=== PATIENT | male | born 1945 | race Caucasian/White ===

== ENCOUNTER → 2017-11-08 07:59 | Outpatient (CLI) | payer MEDICARE, SELFPAY ==
[2017-11-08 10:14] LABS: Blood Urea Nitrogen 14 mg/dL (9-20); Estimated Glomerular Filt Rate > 60.0 mL/min (>60)
== END ==
PROVIDERS: Family Provider Family Medicine; PCP Family Medicine; Visit Provider Podiatrist
DX: M79.672 Pain in left foot (principal)
CPT/HCPCS: 36415; 82565; 84520

== ENCOUNTER → 2017-11-14 12:24 | Outpatient (CLI) | payer MEDICARE, SELFPAY ==
--- NOTE | 2017-11-14 | DI.MRI.S_ITS ---
PROCEDURE: MR ANKLE LT WO/W CON INDICATIONS: LEFT FOOT PAIN - MASS TECHNIQUE: Noncontrast sagittal T1 spin echo and T2 fast spin echo with fat saturation, axial proton density fast spin echo and T2 fast spin echo with fat saturation, axial T1 spin echo with fat saturation, coronal T1 spin echo and T2 fast spin echo with fat saturation through the ankle/hindfoot. Post-contrast axial, coronal, and sagittal T1 spin echo with fat saturation through the ankle/hindfoot. COMPARISON: None. FINDINGS: Image quality: Excellent. Bones and joints: No suspicious osseous enhancement. No bone marrow contusions or fractures. There is mild subchondral signal change at the medial aspect of the tibiotalar joint image 24 series 3. No hindfoot coalitions. There is extensive degenerative cystic change throughout the mid foot and hindfoot, for example at the second tarsometatarsal joint. No osteochondral injuries of the talar dome. No pathologic joint effusions. Medial structures: The posterior tibialis, flexor digitorum longus, and flexor hallucis longus tendons are intact. There is small amount of fluid surrounding the posterior tibialis tendon. The posterior tibial neurovascular bundle appears normal within the tarsal tunnel, without extrinsic mass effect. The deep layer (anterior and posterior tibiotalar ligaments) and superficial layer (tibionavicular, tibiospring, and tibiocalcaneal ligaments) of the deltoid ligament appear normal. The spring ligament components (superomedial calcaneonavicular, medioplantar oblique calcaneonavicular, and inferoplantar longitudinal ligaments) are intact. Lateral structures: The anterior talofibular, calcaneofibular, and posterior talofibular ligaments appear intact. More superiorly, the anterior and posterior tibiofibular ligaments appear intact, as is the intermalleolar ligament. The tibiofibular syndesmosis is normal in width at 2 mm or less. The peroneus longus and brevis tendons demonstrate normal location and morphology. Adjacent bony peroneal tubercle and retrotrochlear prominence are normal in size. The sinus tarsi demonstrates normal fatty signal, without edema, fibrosis, or cyst formation. Visualized sinus tarsi components (cervical ligament, interosseous talocalcaneal ligament, roots of the inferior extensor retinaculum) appear normal. The calcaneonavicular and calcaneocuboid components of the bifurcate ligament appear intact. The dorsal calcaneocuboid ligament appears intact. Anterior structures: The tibialis anterior, extensor hallucis longus, and extensor digitorum longus tendons appear intact. The dorsal talonavicular ligament appears intact. Posterior and plantar structures: Achilles tendon is intact. There is mild medial band plantar fasciitis at the calcaneal attachment. An area of the fiducial marker placed on the skin surface of the medial plantar forefoot/midfoot, there is no definite fluid collection or discrete mass. There is thickening of the abductor hallucis tendon, and intrasubstance signal change in keeping with tendinopathy, and adjacent tenosynovitis. IMPRESSION: Abductor hallucis tendinopathy and thickening. This is in the area of the fiducial marker. Also in the nearby area there is severe first TMT joint degeneration, with possible joint effusion. Otherwise, no discrete mass or suspicious enhancement. Extensive diffuse hindfoot and midfoot joint degeneration with prominent subchondral cystic changes Mild tibiotalar joint degeneration. Tibiotalar joint effusion with multiple presumed loose bodies in the posterior recess. Medial band plantar fasciitis Mild posterior tibialis tenosynovitis Dictated by: German Chambers M.D. on 11/14/2017 at 13:00 Approved by: German Chambers M.D. on 11/14/2017 at 13:18
== END ==
PROVIDERS: Family Provider Family Medicine; PCP Family Medicine; Visit Provider Podiatrist
DX: M79.672 Pain in left foot (principal); M65.9 Synovitis and tenosynovitis, unspecified; M72.2 Plantar fascial fibromatosis; M19.90 Unspecified osteoarthritis, unspecified site
CPT/HCPCS: 73723; A9579

== ENCOUNTER → 2018-12-11 10:08 | Outpatient (CLI) | payer MEDICARE, SELFPAY ==
[2018-12-11 11:15] LABS: BUN Creatinine Ratio 17.1 (6-22); Blood Urea Nitrogen 12 mg/dL (9-20); Calcium 9.5 mg/dL (8.4-10.2); Carbon Dioxide 28 mmol/L (22-32); Chloride 101 mmol/L (98-107); Estimated Glomerular Filt Rate > 60.0 mL/min (>60); Glucose 100 mg/dL (80-110); HEMOLYSIS < 15 (0-50); Potassium 4.6 mmol/L (3.4-5.1); Sodium 141 mmol/L (137-145)
[2018-12-11 18:04] LABS: Vitamin D 25 Hydroxy (D3) 21.7 ng/mL (30.0-100.0)
== END ==
PROVIDERS: PCP Student in an Organized Health Care Education/Training Program; Visit Provider Student in an Organized Health Care Education/Training Program
DX: E55.9 Vitamin D deficiency, unspecified (principal); I10 Essential (primary) hypertension
CPT/HCPCS: 36415; 80048; 82306

== ENCOUNTER → 2019-02-13 10:05 | Outpatient (CLI) | payer MEDICARE, SELFPAY ==
[2019-02-13 11:23] LABS: Estimated Glomerular Filt Rate > 60.0 mL/min (>60)
--- NOTE | 2019-02-13 12:01 | DI.CT.S_ITS ---
PROCEDURE: CT ABDOMEN PELVIS W CON INDICATIONS: ASCITES, UNINTENTIONAL WEIGHT LOSS TECHNIQUE: After the administration of oral and intravenous contrast, 5 mm thick sections acquired from the diaphragms to the symphysis. 5 mm thick coronal and sagittal reformats were performed. For radiation dose reduction, the following was used: automated exposure control, adjustment of mA and/or kV according to patient size. COMPARISON: [facility], CT, ABDOMEN W&WO CONTRAST, 06/01/2017, 10:33. FINDINGS: Image quality: Excellent. ABDOMEN: Lung bases: Scarring/atelectasis in bilateral lung bases are seen. Heart size is normal. Solid organs: Liver is small in size with lobulated liver contour consistent with cirrhosis. No discrete hepatic lesion is identified. The there is interval development of moderate to large amount of ascites fluid. No gross peritoneal free air. Gallbladder is contracted and shows no gross abnormality.. Biliary system is non-dilated. Pancreas enhances normally. Spleen is normal in size and enhancement. Patient's known hypodense nodules in bilateral adrenal glands are again seen, currently measures 2 1 x 2.5 cm on the right side, and 3.7 x 1.7 cm on the left side essentially unchanged from previous study. Kidneys are normal in size and enhancement, without hydronephrosis. Nonobstructing right renal calculus is seen and measures 2 mm in size. Bilateral peripelvic renal cysts are again seen and unchanged. Peritoneum and bowel: Moderate size hiatal hernia is seen. There is diffuse thickening of the omentum no definite discrete soft tissue mass is noted within the peritoneal space. Oral contrast is noted within small bowel. No gross gastric or small bowel wall thickening is seen. Air distended ascending colon and transverse colon is seen with decompressed descending colon and sigmoid colon. No definite colonic wall thickening is identified. Nodes and vessels: No retroperitoneal or mesenteric adenopathy. Aorta and inferior vena cava are normal in caliber. Miscellaneous: No ventral hernias. PELVIS: Genitourinary: Diffuse bladder wall thickening is seen, no definite discrete bladder wall mass. Miscellaneous: No inguinal hernias or adenopathy. Bones: No suspicious bony lesions. No vertebral body compression fractures. IMPRESSION: 1. Interval development of moderate to large ascites fluid. No gross peritoneal free air. 2. Cirrhotic appearing liver, no discrete hepatic lesion. 3. Omental thickening, which may represent omental cake. No definite discrete soft tissue nodule or mass is seen in peritoneal space. No gross arterial retroperitoneal lymphadenopathy. 4. No bowel obstruction. No free fluid or free air. No definite abnormal bowel wall thickening. 5. Stable appearing bilateral adrenal hypodense nodules which may indicate adrenal adenoma. 6. Diffuse bladder wall thickening. No discrete bladder wall mass. No obstructing renal stone hydronephrosis. Dictated by: Raman Mcgowan M.D. on 02/13/2019 at 12:28 Approved by: Raman Mcgowan M.D. on 02/13/2019 at 13:07
[2019-02-13 14:19] LABS: Chloride 96 mmol/L (98-107); HEMOLYSIS < 15 (0-50)
[2019-02-13 14:22] LABS: Alanine Aminotransferase 27 IU/L (21-72); Albumin Globulin Ratio 1.3 (1.0-2.8); Alkaline Phosphatase 92 U/L (38-126); Aspartate Aminotransferase 33 IU/L (17-59); BUN Creatinine Ratio 21.7 (6-22); Bilirubin Direct 0.2 mg/dL (0.0-0.4); Bilirubin Total 0.4 mg/dL (0.2-1.3); Blood Urea Nitrogen 13 mg/dL (9-20); Calcium 9.4 mg/dL (8.4-10.2); Carbon Dioxide 25 mmol/L (22-32); Estimated Glomerular Filt Rate > 60.0 mL/min (>60); Glucose 170 mg/dL (80-110); Potassium 4.2 mmol/L (3.4-5.1); Sodium 135 mmol/L (137-145)
[2019-02-13 14:30] LABS: Prealbumin 8.8 mg/dL (17.6-36.0)
[2019-02-13 14:52] LABS: Carcinoembryonic Antigen 2.5 ng/mL (0.1-3.0)
[2019-02-15 16:22] LABS: Hepatitis A Antibody IgM NONREACTIVE; Hepatitis Acute Panel Interp 0.02; Hepatitis B Core Antibody IgM NONREACTIVE; Hepatitis B Surface Antigen NONREACTIVE; Hepatitis C Antibody NONREACTIVE
== END ==
PROVIDERS: PCP Student in an Organized Health Care Education/Training Program; Visit Provider Student in an Organized Health Care Education/Training Program
DX: R63.4 Abnormal weight loss (principal); R18.8 Other ascites
CPT/HCPCS: 36415; 74177; 80053; 80074; 82248; 82378; 82565; 84134; Q9967

== ENCOUNTER → 2019-02-15 07:04 | Outpatient (CLI) | payer MEDICARE, SELFPAY ==
[2019-02-15 07:50] LABS: Add Manual Diff / Slide Review NO; Basophils Absolute Auto 100 /uL (0-100); Basophils Percent Auto 0.7 % (0-2); Eosinophils Absolute Auto 100 /uL (0-450); Hematocrit 36.8 % (41-53); Hemoglobin 12.3 g/dL (13.5-17.5); Lymphocytes Absolute Auto 800 /uL (1100-4500); Lymphocytes Percent Auto 11.4 % (25-40); Mean Corpuscular HGB Conc 33.4 % (30-36); Mean Corpuscular Hemoglobin 28.2 PG (26-34); Mean Corpuscular Volume 84.3 fL (80-100); Monocytes Absolute Auto 700 /uL (0-900); Monocytes Percent Auto 10.3 % (3-14); Neutrophils Absolute Auto 5400 /uL (1500-7000); Neutrophils Percent Auto 75.6 % (50-75); Platelet Count 436 X10^3/uL (150-400); Red Blood Cell Count 4.37 X10^6/uL (4.5-5.9); Red Cell Distribution Width 14.5 % (11.6-14.8); White Blood Cell Count 7.2 X10^3/uL (4.5-11.0)
== END ==
PROVIDERS: PCP Student in an Organized Health Care Education/Training Program; Visit Provider Student in an Organized Health Care Education/Training Program
DX: R18.8 Other ascites (principal)
CPT/HCPCS: 85025

== ENCOUNTER → 2019-02-22 10:28 | Outpatient (CLI) | payer MEDICARE, SELFPAY | PROVIDERS: PCP Student in an Organized Health Care Education/Training Program; Visit Provider Student in an Organized Health Care Education/Training Program | DX: R18.8 Other ascites (principal) | CPT/HCPCS: 87070; 87075; 87205 ==

== ENCOUNTER → 2019-02-22 14:10 | Outpatient (CLI) | payer MEDICARE, SELFPAY ==
[2019-02-22 14:15] VITALS: BP 114/58; PULSE 106; RESP 20; TEMP 36.4; O2SAT 98
[2019-02-22] MEDS: ALBUMIN HUMAN 25 GM/100 ML VIAL IV (14:25)
[2019-02-22 14:45] VITALS: BP 124/57; PULSE 94; RESP 20; TEMP 36.4; O2SAT 97
--- NOTE | 2019-02-22 15:06 | PC.NURSE ---
ALBUMIN INFUSION STARTED AT 1430. SEE CHARTED VS. AFTER 15MIN VS RECHECKED; STABLE. SEE WORKLIST FOR VALUES. PATIENT DENIES ANY ADVERSE EFFECTS.
[2019-02-22 16:18] VITALS: BP 116/58; PULSE 91; RESP 14; TEMP 36.5; O2SAT 97
--- NOTE | 2019-02-22 16:22 | PC.NURSE ---
Infusion complete. Vitals stable. Patient ambulated off AC unit with spouse to private vehicle.
--- NOTE | 2019-03-04 13:36 | ONC.MSW ---
Description: New Pt Navigation T/C Activity: Called pt to introduce myself as OUTREACH COUNSELOR/JOSE, explain that we have received the urgent referral for him to be seen here. Explained the role of navigation. Pt had cancer 25-years ago, now thought to have metastatic cancer in his abdomen. Explained that scheduling will f/u feng to set him his initial ONC consult time with one of our providers. Plan: Meet with pt f/f once he returns to clinic to continue discussion of support/resource needs and to complete psychosocial assessment.
== END ==
PROVIDERS: PCP Student in an Organized Health Care Education/Training Program; Visit Provider Student in an Organized Health Care Education/Training Program
DX: R18.8 Other ascites (principal)
CPT/HCPCS: 87070; 87075; 87205; 96365; 96366; P9041

== ENCOUNTER → 2019-03-26 07:25 | Outpatient (CLI) | payer MEDICARE, SELFPAY ==
--- NOTE | 2019-03-26 | PATH_ITS ---
Note [facility] Accession Number: [id number] TESTS RESULT FLAG UNITS REF RANGE LAB 01 ABDOMINAL FLUID DIAGNOSIS: 02 ABDOMINAL FLUID INCONCLUSIVE. ATYPICAL CELL GROUPS PRESENT. IMMUNOHISTOCHEMISTRY STUDIES PENDING FOR FURTHER CHARACTERIZATION. RESULTS WILL BE REPORTED AN ADDENDUM. Pathologist ICD10: 02 R18.8 02 Ascites Fluid (Cytospin Slide and Cell Block): Atypical cell groups present, favor reactive mesothelial origin by immunohistochemistry studies; please correlate with imaging and clinical findings. . COMMENT: Immunostains were performed with the following results: . FARIDA: Positive. CK7: Positive. CK5/6: Positive. D2-40: Positive. WT1: Positive. Calretinin: Positive. CK20: Negative. MOC31: Negative. Mike-EP4: Negative. Napsin-A: Negative. TTF1: Negative. Synaptophysin: Negative. P40: Negative. CDX2: Negative. Villin: Negative. . The atypical cell groups are immunopositive for FARIDA, CK7, CK5/6, D2-40, WT1, and calretinin. They are immunonegative for CK20, MOC31, Mike-EP4, napsin-A, TTF1, synaptophysin, p40, CDX2, and villin. These results favor a mesothelial origin and mitigate against an epithelial origin. Please correlate these results with imaging and clinical findings. . QA performed by Dr. Karishma Luis. . * This test was developed and its performance characteristics determined by [facility]. It has not been cleared or approved by the U.S. Food and Drug Administration. The FDA has determined that such clearance or approval is not necessary. This test is used for clinical purposes. It should not be regarded as investigational or for research. MRV/07/08/2019 Addendum Electronically Signed by Char Marcial MD, Pathologist 02 Char Marcial MD, Pathologist NPI- [id number] Jenna Muhammad, Paraffin Plant Operator (ASCP) 01 50 CC, YELLOW, CLEAR /LCS 03/27/2019 1219 Local FLAG LEGEND: L-Low Normal,H-High Normal,LL-Alert Low,HH-Alert High <-Panic Low,>-Panic High,A-Abnormal,AA-Critical Abnormal Performed at: 01 =Z [facility] [address], [place] [address] Anderson Rodriguez MD, 02 [facility] [address] [address] Mago Luis MD, Performed at: 01 [facility] [address], [place], [place] [id number] MD Anderson Rodriguez MD Phone: [phone]
--- NOTE | 2019-03-26 07:27 | DI.US.S_ITS ---
PROCEDURE: US PARACENTESIS INDICATIONS: MALIGNANT ASCITIES TECHNIQUE: The indications, alternatives, benefits, risks, and complications of the procedure were explained to the patient. Written informed consent was obtained and placed in the chart. The abdomen and pelvis were examined sonographically, and an appropriate site was chosen for paracentesis. The skin was prepared and draped in the usual sterile fashion, and 1% lidocaine was infiltrated from the skin down through the peritoneal surface. A 19-gauge catheter-covered needle was then introduced into the peritoneal space, the catheter was advanced and the needle was withdrawn, and thereafter peritoneal fluid was withdrawn. The catheter was then removed and a dressing was applied. The fluid was discarded if the clinician did not order diagnostic testing of the fluid. COMPARISON: None. FINDINGS: Access site: Right lower abdomen Needle: One-Step centesis catheter with introducer needle. Fluid volume and description: 5000 mL, clear Fluid sent for diagnostic testing: per referring physician Medications: 1% lidocaine for local anaesthesia. Complications: None. IMPRESSION: Successful ultrasound-guided paracentesis. Dictated by: Estella Rivera M.D. on 03/26/2019 at 8:42 Approved by: Estella Rivera M.D. on 03/26/2019 at 8:43
== END ==
PROVIDERS: PCP Student in an Organized Health Care Education/Training Program
DX: R18.0 Malignant ascites (principal); C80.1 Malignant (primary) neoplasm, unspecified; Z85.038 Personal history of other malignant neoplasm of large intestine
CPT/HCPCS: 49083

== ENCOUNTER → 2019-04-02 08:04 | Outpatient (CLI) | payer MEDICARE, SELFPAY ==
--- NOTE | 2019-04-02 08:06 | DI.US.S_ITS ---
PROCEDURE: US PARACENTESIS INDICATIONS: malignant ascites TECHNIQUE: The indications, alternatives, benefits, risks, and complications of the procedure were explained to the patient. Written informed consent was obtained and placed in the chart. The abdomen and pelvis were examined sonographically, and an appropriate site was chosen for paracentesis. The skin was prepared and draped in the usual sterile fashion, and 1% lidocaine was infiltrated from the skin down through the peritoneal surface. A 19-gauge catheter-covered needle was then introduced into the peritoneal space, the catheter was advanced and the needle was withdrawn, and thereafter peritoneal fluid was withdrawn. The catheter was then removed and a dressing was applied. The fluid was discarded if the clinician did not order diagnostic testing of the fluid. COMPARISON: [facility], , US PARACENTESIS, 03/26/2019, 7:54. PET/CT 03/27/2019. FINDINGS: Access site: Right lower quadrant. Needle: One-Step centesis catheter with introducer needle. Fluid volume and description: 5000 cc, Clear straw-colored. Fluid sent for diagnostic testing: None requested. Medications: 1% lidocaine for local anaesthesia. Complications: None. IMPRESSION: Successful ultrasound-guided paracentesis. 5000 cc removed. Dictated by: Moshe Xavier M.D. on 04/02/2019 at 10:09 Approved by: Moshe Xavier M.D. on 04/02/2019 at 10:11
== END ==
PROVIDERS: PCP Student in an Organized Health Care Education/Training Program
DX: C80.1 Malignant (primary) neoplasm, unspecified (principal); R18.0 Malignant ascites
CPT/HCPCS: 49083

== ENCOUNTER 2019-04-09 07:14 | Day surgery (SDC) | payer MEDICARE, SELFPAY ==
[2019-04-03 15:14] VITALS: BMI 25.7
[2019-04-09] VITALS (10 sets, daily range): BP systolic 103–138; BP diastolic 56–95; PULSE 74–93; RESP 10–16; TEMP 36.3–36.7; O2SAT 93–99; BMI 23.6
--- NOTE | 2019-04-09 | DI.RAD.S_ITS ---
PROCEDURE: XR CHEST 1V INDICATIONS: DAYANARA CATH PLACEMENT TECHNIQUE: One view of the chest was acquired. COMPARISON: [facility], , CHEST 1 VIEW, 05/17/2017, 9:59. FINDINGS: Surgical changes and devices: Right chest port with the tip projecting in the mid SVC. Lungs and pleura: Lungs are clear. No pleural effusions or pneumothorax. Mediastinum: Mediastinal contours appear normal. Heart size is normal. Bones and chest wall: No suspicious bony lesions. Overlying soft tissues appear unremarkable. IMPRESSION: Status post placement of right chest port as above. No pneumothorax. Dictated by: German Chambers M.D. on 04/09/2019 at 15:26 Approved by: German Chambers M.D. on 04/09/2019 at 15:27
--- NOTE | 2019-04-09 09:24 | PM.HP.1 ---
History of Present Illness History of Present Illness Date Patient Seen: 04/09/19 Time Patient Seen: 09:24 Chief complaint: [id number] Narrative: This is a 73 male with malignant peritoneal ascities of unknown etiology. He is here today for port a cath placement refered by oncology. He underwent paracentisis this morning by radiology. He is in no acute pain his abdominal pain is improved after drainage. No fever, malaise, has significant weight loss. Patient History Medical History Actinic keratosis (Chronic Unknown) Ankle pain (Chronic) Cervicalgia (Chronic Unknown) Chickenpox (Resolved Unknown) Chronic back pain (Chronic Unknown) Colon cancer (Resolved 1993) Colon polyps (Resolved ~1993) Erectile dysfunction (Chronic Unknown) Fusion of spine of cervical region (Acute) GERD (gastroesophageal reflux disease) (Chronic Unknown) Hx of hiatal hernia (Resolved Unknown) Hypertension (Chronic Unknown) Mass of foot (Chronic) Measles (Resolved Unknown) Mumps (Resolved Unknown) Osteoarthritis (Chronic Unknown) S/P abdominal paracentesis (Acute 02/22/19) Surgical History Anesthesia (Resolved) History of arthroplasty of right knee (Acute) History of colon surgery (Resolved 1993) History of surgery (Acute) Hx of arthroscopy of right knee (Resolved 1989) Hx of cataract surgery (Resolved 2011) Hx of fusion of cervical spine (Resolved 1989) Hx of laminectomy (Resolved ~2008) Hx of laminectomy (Acute 06/23/16) Hx of shoulder surgery (Resolved 2006) Hx of shoulder surgery (Resolved 1996) Hx of total knee arthroplasty (Resolved 2011) Family & Social History Family History Father Cancer Mother Cancer Sister Cancer Grandfather History of heart disease Tobacco & Substance use: Smoking Status Former smoker alcohol intake former Meds Home Medications and Allergies Home Medications Medication Instructions Recorded Confirmed Type amlodipine 10 mg tablet 10 mg PO QDAY #90 tab 09/03/18 04/09/19 Rx losartan 100 mg tablet 100 mg PO QDAY #90 tab 12/18/18 04/09/19 Rx albuterol sulfate 90 mcg/actuation 2 puff INHALATION Q4-6H PRN #18 03/21/19 04/09/19 Rx aerosol inhaler gram ondansetron HCl 8 mg PO Q8H #30 tab 04/03/19 04/09/19 Rx vitamins A,C,D-ntvh-mldffv 2 tab PO DAILY 04/09/19 04/09/19 History [PreserVision AREDS] Allergies Allergy/AdvReac Type Severity Reaction Status Date / Time venom-honey bee Allergy Severe ANAPHYLAXIS Verified 04/09/19 09:15 [BEE VENOM (HONEY BEE)] Review of Systems Review of Systems ROS Unobtainable: All systems reviewed & are unremarkable except as noted in HPI and below Exam Vital Signs (past 8 hours): - 04/09/19 09:17 Temperature 98.1 F Pulse Rate 93 H Respiratory Rate 15 Blood Pressure 138/77 Pulse Oximetry 98 Oxygen Delivery Method Room Air Narrative Exam Narrative: General-no acute distress, well nourished HEENT-moist mucous membranes, no scleral icterus Neck-supple, no lymphadenopathy Chest- non labored respirations, clear to auscultation bilaterally Cardiac-regular rate no peripheral edema Abdomen-mildly distended with ascities Extremities-warm, well perfused Neurological-alert and oriented, no focal deficits Assessment & Plan Assessment and plan (1) Ascites: Current visit: No Status: Acute (2) Adenocarcinoma: Current visit: No Status: Acute Assessment & Plan narrative: This is a 73 y.o man with malignant ascities of unknown etiology. Presents for an elective port a cath placement today. The plan is for right port placement via internal jugular vein access via ultra sound guidance. We discussed the risks of the procedure including bleeding, infection, pneumothorax, need for further procedure or operation. His questions have been answered and he is in agreement with this plan.
[2019-04-09] MEDS: LACTATED RINGERS 1,000 ML 100 ML IV (09:35)
[2019-04-09] MEDS: CEFAZOLIN 2 GM/100 ML FROZ.PIGGY IV (11:30)
--- NOTE | 2019-04-09 11:50 | SUR.OPER ---
Supine on padded OR bed, head on pillow, arms padded and tucked at sides, legs uncrossed, safety belt at thigh.
[2019-04-09] MEDS: BUPIVACAINE 0.25% (PF) VIAL 30 ML INJ (11:54)
[2019-04-09] MEDS: HEPARIN 5,000 UNIT, SODIUM CHLORIDE 0.9% 50 ML IV (11:55)
[2019-04-09] MEDS: HYDROMORPHONE 2 MG INJ 0.25 MG IV ×2 (12:46→12:56)
--- NOTE | 2019-04-09 13:24 | P.OP_ITS ---
Operative Date/Time/Diagnoses Date of procedure: 04/09/19 Time of procedure: 13:24 Pre-op diagnosis: malignant ascities Post-op diagnosis: same Procedure & Clinicians Procedure: port a cath insertion Same procedure as scheduled: Yes Indications: This 73-year-old male with malignant ascites of unknown etiology who presents for a Port-A-Cath placement. Surgeon: Pasquale Rolle Click Yes if Unassisted: Yes Anesthesia Type: General Operative Notes Findings: No pneumothorax tip of the catheter is in the SVC Estimated Blood Loss (mL): 10 Procedure in detail: Patient was brought to the operating room placed supine on table. Bilateral lower extremity compressive devices were applied. General anesthesia was induced and he was intubated with an LMA. He was then prepped and draped in usual sterile fashion. Time-out was performed ensure the correct patient procedure necessary equipment within the operating room. He received 2 g of Ancef prior to incision. Under ultrasound guidance the right internal jugular vein was accessed under direct visualization. The guidewire was then threaded through the needle. Its placement was then confirmed using fluoroscopy. The dilator was then placed over the guidewire. The catheter was then inserted through the sheath. Placement was again confirmed with fluoroscopy. A subcutaneous pocket was made in the right chest wall. The tunneler device was used to move the catheter from the neck to the chest pocket. The port was attached after it was primed with heparined saline. The port was tested to ensure that it flushed easily and had good blood return. The port was then secured to the underlying fascia using interupted 0 Prolene suture. Hemostasis was achieved. The wound was irrigated with sterile saline. The subcutaneous tissues were reapproximated with the 3 0 Vicryl and then skin closed with 4-0 Monocryl. The skin was sealed with Dermabond. Patient tolera cindy procedure well. The sponge and instrument count at the end operation was correct. Patient emerged from general anesthesia was extubated and taken to the postoperative care unit in stable condition Complications: none Post-operative Condition: stable Disposition: same day surgery
[2019-04-09] MEDS: OXYCODONE/ACETAMINOPHEN 5/325 TABLET 1 TAB PO (13:31)
--- NOTE | 2019-04-09 13:44 | SUR.PHASEI ---
Gave IV and oral pain medication for c/o 8/10 pain. Applied ice pack. Per BULMARO Rasmussen for patient to eat. Patient tolerated water and cheese stick. Denies nausea.
== END 2019-04-09 14:12 | disposition home or self-care (01) ==
PROVIDERS: PCP Student in an Organized Health Care Education/Training Program; Visit Provider Surgery
PROC: (CPT 36561; principal; 2019-04-09 10:15)
DX: R18.0 Malignant ascites (principal); C80.1 Malignant (primary) neoplasm, unspecified; Z45.2 Encounter for adjustment and management of vascular access device
CPT/HCPCS: 36561; 49083; 71045; 76000; C1788; J0690; J1170; J1644; J2704; J3010

== ENCOUNTER → 2019-04-09 07:19 | Outpatient (CLI) | payer MEDICARE, SELFPAY ==
--- NOTE | 2019-04-09 | PATH_ITS ---
Note [facility] Accession Number: [id number] TESTS RESULT FLAG UNITS REF RANGE LAB 01 ASCITES Clinician ICD10: 01 C80.1 DIAGNOSIS: 02 ASCITES INCONCLUSIVE. ATYPICAL EPITHELIOID CELLS, POSSIBLY OF MESOTHELAIL ORIGIN; SEE COMMENT. COMMENT: A cytological preparation and cell block show clusters of atypical epithelioid cells with high nuclear to cytoplasmic volume ratios, nuclear hyperchromasia and irregular nuclear contours; these cells are morphologically similar to the previous cytology case ([id number]). To further characterize the cells of interest, a panel of immunohistochemical stains is performed, each with an appropriately positive control (please note, false negative results cannot be excluded given the alcohol fixation of this specimen). The immouprofile is as follows: FARIDA: Positive Cytokeratin 7: Positive Cytokeratin 20: Negative Moc-31: Positive (variably) RAMY-EP4: Negative Cytokeratin 5/6: Positive Calretinin: Positive WT-1: Positive Cdx-2: Negative Villin: Negative PSA: Negative Tipton-8: Negative TTF-1: Negative This immunoprofile is negative for markers of adenocarcinoma of any specific site, including gastrointestinal (Cdx-2, villin, CK20), prostate (PSA), renal (Tipton-8) or lung (TTF-1) origin. The atypical cells do appear to co-express markers of mesothelial origin (CK5/6, calretinin, WT-1), though this evaluation is difficult on a cell block specimen. Despite the low level expression of an epithelial membrane glycoprotein (Moc-31) in the cells of interest, and given the lack of immunoreactivity for another carcinoma marker (RAMY-EP4), a mesothelial origin is favored. Whether this represents a reactive or neoplastic mesothelial population cannot be determined with certainty. Definitive classification of this lesion will likely require histological evaluation. To further evaluate for the possibility of a mesothelial neoplasm, evaluation for a p16 deletion will be performed and results issued in an addendum. As part of routine quality eng, Dr. Ayers has also reviewed this case and agrees with the above interpretation. The preliminary findings in this case were discussed with Dr. Ashby and Dr. Mason on 04/10/2019 at 4:15 PM. The immunoprofile and possibility of a mesothelial neoplasm were discussed between Dr. Ashby and Dr. Mason on 04/17/2019 at 2 PM. Pathologist ICD10: 02 R18.8 02 ADDENDUM REASON: This addendum is issued to report the results of fluorescence in situ hybridization for p16, [facility], [place], [place] as [id number]; please see that report for complete details. . FLUORESCENCE IN SITU HYBRIDIZATION REPORT INTERPRETATION: Negative for homozygous deletion of p16 by FISH. . FISH PROBE SET: P16 (CDKN2A)/CC9 Number of nuclei counted: 100. Result (percent of nuclei positive): Negative (11.0%). Threshold for positivity: 12%. . ADDENDUM COMMENT: This negative study provides no additional evidence of a malignant mesothelial neoplasm. That said, this negative result does not exclude the possibility of malignant mesothelioma. MRV/05/08/2019 Addendum Electronically Signed by Ian Mason MD, PhD, Pathologist 02 Ian Mason MD, PhD, Pathologist NPI- [id number] Virgilio Motley, Piano Regulator Inspector (ASC) 01 50 CC, YELLOW, HAZY /LCS 04/10/2019 0912 Local FLAG LEGEND: L-Low Normal,H-High Normal,LL-Alert Low,HH-Alert High <-Panic Low,>-Panic High,A-Abnormal,AA-Critical Abnormal Performed at: 01 =Z [facility] [address] [place] [address] [address], [place] [address] Anderson Rodriguez MD, 02 [facility] [address] [place] [address] Mago Luis MD, Performed at: 01 [facility] [address] [place] [address], [place], [place] [id number] MD Anderson Rodriguez MD Phone: [phone]
--- NOTE | 2019-04-09 07:21 | DI.US.S_ITS ---
PROCEDURE: US PARACENTESIS INDICATIONS: recurrent malignant ascites TECHNIQUE: The indications, alternatives, benefits, risks, and complications of the procedure were explained to the patient. Written informed consent was obtained and placed in the chart. The abdomen and pelvis were examined sonographically, and an appropriate site was chosen for paracentesis. The skin was prepared and draped in the usual sterile fashion, and 1% lidocaine was infiltrated from the skin down through the peritoneal surface. A 19-gauge catheter-covered needle was then introduced into the peritoneal space, the catheter was advanced and the needle was withdrawn, and thereafter peritoneal fluid was withdrawn. The catheter was then removed and a dressing was applied. The fluid was discarded if the clinician did not order diagnostic testing of the fluid. COMPARISON: [facility], PARACENTESIS, 04/02/2019, 9:31. FINDINGS: Access site: Right lower quadrant Needle: One-Step centesis catheter with introducer needle. Fluid volume and description: 5000 cc of serous fluid Fluid sent for diagnostic testing: As requested Medications: 1% lidocaine for local anaesthesia. Complications: None. IMPRESSION: Successful ultrasound-guided paracentesis. Dictated by: German Chambers M.D. on 04/09/2019 at 15:21 Approved by: German Chambers M.D. on 04/09/2019 at 15:22
== END ==
PROVIDERS: PCP Student in an Organized Health Care Education/Training Program
DX: C80.1 Malignant (primary) neoplasm, unspecified (principal); R18.0 Malignant ascites
CPT/HCPCS: 49083

== ENCOUNTER 2019-04-10 09:43 | Emergency (ER) | payer MEDICARE, SELFPAY ==
--- NOTE | 2019-04-10 10:02 | ED.GENADULT ---
HPI - General Adult General Chief complaint: Abdominal Pain Stated complaint: Lump on right side after port placement, Time Seen by Provider: 04/10/19 09:50 Source: patient Mode of arrival: Ambulatory Limitations: no limitations History of Present Illness HPI narrative: 73-year-old male with a known history of ascites. He does have a history of cirrhosis. Has had multiple paracentesis in the past. Prior to evaluation this does show that it is malignant. Had a scheduled paracentesis yesterday where he stated that they took 5 L off his abdomen. He also had a port placed in his right side operatively. States that over the past 24 hours he has noticed his abdomen swelling again. Has had some short of breath. He feels like he needs his abdomen drained again. Related Data Home Medications Medication Instructions Recorded Confirmed PreserVision AREDS 2 tab PO DAILY 04/09/19 04/09/19 Previous Rx's Medication Instructions Recorded amlodipine 10 mg tablet 10 mg PO QDAY #90 tab 09/03/18 losartan 100 mg tablet 100 mg PO QDAY #90 tab 12/18/18 albuterol sulfate 90 mcg/actuation 2 puff INHALATION Q4-6H PRN #18 03/21/19 aerosol inhaler gram ondansetron HCl 8 mg PO Q8H #30 tab 04/03/19 acetaminophen [Tylenol] 650 mg PO QID PRN #60 cap 04/09/19 Allergies Allergy/AdvReac Type Severity Reaction Status Date / Time venom-honey bee Allergy Severe ANAPHYLAXIS Verified 04/09/19 09:15 [BEE VENOM (HONEY BEE)] Review of Systems Constitutional Constitutional: Denies fever(s) and Denies headache(s) ENT Ears, Nose, Mouth, and Throat: Denies headache(s) Cardiovascular Cardiovascular: Denies chest pain, Reports dyspnea and Reports dyspnea on exertion Respiratory Respiratory: Reports dyspnea and Reports dyspnea on exertion Gastrointestinal Gastrointestinal: Denies abdominal pain, Reports bloating and Denies change in stool character Genitourinary Genitourinary: Denies dysuria Musculoskeletal Musculoskeletal: Denies myalgias and Denies arthralgias Integumentary/Breasts Skin/Breast: Denies rash Neurologic Neurologic: Denies headache(s) Hematologic/Lymphatic Hematologic/Lymphatic: Denies easy bleeding and Denies easy bruising Patient History Medical History Actinic keratosis (Chronic Unknown) Ankle pain (Chronic) Cervicalgia (Chronic Unknown) Chickenpox (Resolved Unknown) Chronic back pain (Chronic Unknown) Colon cancer (Resolved 1993) Colon polyps (Resolved ~1993) Erectile dysfunction (Chronic Unknown) Fusion of spine of cervical region (Acute) GERD (gastroesophageal reflux disease) (Chronic Unknown) Hx of hiatal hernia (Resolved Unknown) Hypertension (Chronic Unknown) Mass of foot (Chronic) Measles (Resolved Unknown) Mumps (Resolved Unknown) Osteoarthritis (Chronic Unknown) S/P abdominal paracentesis (Acute 02/22/19) Social History household members: spouse Smoking Status: Former smoker alcohol intake: former Exam Initial Vital Signs Initial Vital Signs: Vital Signs Temperature 97.7 F 04/10/19 10:05 Pulse Rate 89 04/10/19 10:05 Respiratory Rate 20 04/10/19 10:05 Blood Pressure 131/71 04/10/19 10:05 Pulse Oximetry 100 04/10/19 10:05 Const General: cooperative and comfortable Orientation: alert, awake and oriented x3 HENMT Head: normal to inspection and normocephalic Resp Effort & Inspection: normal respiratory effort Auscultation: clear to auscultation bilaterally Cardio Rate: regular rate Rhythm: regular rhythm GI Inspection: distended Palpation: soft, No firm and No tender Skin Lesions: no lesions Rashes: no rashes Neuro General: alert, awake and oriented x3 Cognition: normal cognition Speech: speech normal Extrem General: normal to inspection and capillary refill normal Psych Appearance: grossly normal and well kempt Procedures Paracentesis Time Out Performed: Yes Indication: Ascites Procedure: therapeutic paracentesis Location: LLQ Local Anesthetic: lidocaine 1% Amount of anesthesia used (mL): 4 Bedside Ultrasound Used: yes, Ascites confirmed and location marked Preparation: Blade used to make domi in skin Amount of fluid obtained (mL): 3,500 Fluid: clear Post Procedure Exam: awake, alert Patient Tolerated Procedure: Well and No complications Complications: none Course Orders Ordered: Discontinued Medications Lidocaine HCl (Xylocaine 1% (Pf)) 4 ml INJ NOW ONE Stop: 04/10/19 10:04 Last Admin: 04/10/19 11:26 Dose: 4 ml Documented by: HFARRINGTO Vital Signs Vital signs: Vital Signs - 8 hr 04/10/19 10:05 04/10/19 11:22 04/10/19 11:42 Temperature 97.7 F Pulse Rate 89 91 H 90 Respiratory Rate 20 20 18 Blood Pressure 131/71 Blood Pressure [Left Arm] 120/65 119/61 Pulse Oximetry 100 100 96 Medical Decision Making MDM Narrative Medical decision making narrative: Patient has a history of malignant ascites. His exam today is consistent with ascites. This was confirmed with bedside ultrasound. Patient signed the consent form and 3.5 L of fluid was obtained. No samples were sent to the lab. Patient did feel better afterwards. Had no episodes of hypotension. Has had this done multiple times in the past. Patient was given return precautions and follow-up instructions. He expressed understanding and agreement plan Discharge Plan Departure Patient Disposition: Home Clinical Impression: Ascites Qualifiers: Ascites type: malignant Qualified Code(s): R18.0 - Malignant ascites Discharge Date/Time: 04/10/19 11:55 Instructions: Ascites, DI for Abdominal Paracentesis Activity Restrictions/Additional Instructions: Continue all of your postoperative instructions given to here yesterday with regard to your port. Keep all of your scheduled medical appointments. Continue all of your medications as directed. Return to the emergency department for any new or worsening symptoms Prescriptions: No Action amlodipine 10 mg tablet 10 mg PO QDAY Qty: 90 RF: 1 albuterol sulfate [ProAir HFA] 90 mcg/actuation HFA aerosol inhaler 2 puff INHALATION Q4-6H PRN (Reason: shortness of breath or wheezing) Qty: 18 RF: 5 losartan 100 mg tablet 100 mg PO QDAY Qty: 90 RF: 3 PreserVision AREDS [id number] [id number] Tablet 2 tab PO DAILY RF: 0 acetaminophen [Tylenol] 325 mg capsule 650 mg PO QID PRN (Reason: pain) Qty: 60 RF: 0 ondansetron HCl 8 mg Tablet 8 mg PO Q8H Qty: 30 RF: 2 Referrals: Flynn Gao MD [Primary Care Provider] -
[2019-04-10 10:05] VITALS: BP 131/71; PULSE 89; RESP 20; TEMP 36.5; O2SAT 100
--- NOTE | 2019-04-10 11:21 | PC.NURSE ---
3500cc fluid clear yellow fluid drained from paracentesis procedure
[2019-04-10 11:22] VITALS: BP 120/65; PULSE 91; RESP 20; O2SAT 100
[2019-04-10] MEDS: LIDOCAINE 1% (PF) 4 ML INJ (11:26)
--- NOTE | 2019-04-10 11:38 | PC.NURSE ---
Patient ambulated around department with no c/o SOB. Steady gait
[2019-04-10 11:42] VITALS: BP 119/61; PULSE 90; RESP 18; O2SAT 96
== END 2019-04-10 11:55 | disposition home or self-care (01) ==
PROVIDERS: Emergency Provider Emergency Medicine; PCP Student in an Organized Health Care Education/Training Program
DX: R18.0 Malignant ascites (principal)
CPT/HCPCS: 49082; 99282; 99283

== ENCOUNTER → 2019-04-15 09:59 | Outpatient (CLI) | payer MEDICARE, SELFPAY ==
--- NOTE | 2019-04-15 | PATH_ITS ---
Note [facility] Accession Number: [id number] TESTS RESULT FLAG UNITS REF RANGE LAB Clinician Provided Cytology Information No. of containers..01 Other (Miscellaneous) 01 ABDOMINAL FLUID DIAGNOSIS: 02 ABDOMINAL FLUID INCONCLUSIVE. ATYPICAL EPITHELIOD CELLS; SEE COMMENT. COMMENT: A cytological preparation and cell block show clusters of atypical epitheliod cells with high nuclear to cytoplasmic volume ratios, nuclear hyperchromasia and irregular nuclear contours; these cells are morphologically similar to the previous cytology case ([id number]) which had an immunoprofile favoring a mesothelial origin. Please see that report for additional information. Pathologist ICD10: 02 R18.8 01 Naldo Cheng is a 73 year old male who is referred for further evaluation of a newly diagnosed adenocarcinoma with ascites. Patient reports that he has a distant history of colon cancer. He underwent surgical resection in 1993. He had postoperative chemotherapy for 1 year as well as radiation, He has been followed regularly and has had no obvious recurrence. 02 Ian Mason MD, PhD, Pathologist NPI- [id number] Roni Shrestha, Golf Cart Maker ([facility]) 01 45 CC, YELLOW, CLOUDY /LCS 05/28/1840 0000 Local FLAG LEGEND: L-Low Normal,H-High Normal,LL-Alert Low,HH-Alert High <-Panic Low,>-Panic High,A-Abnormal,AA-Critical Abnormal Performed at: 01 =Z [facility] [address] [address] [place] [address] [facility] [place], [place] [address] Anderson Rodriguez MD, 02 [facility] [place] [id number] [place] [address] Mago Luis MD, Performed at: 01 [facility] [address] [id number] MD Anderson Rodriguez MD Phone: [phone]
--- NOTE | 2019-04-15 10:00 | DI.US.S_ITS ---
PROCEDURE: US PARACENTESIS INDICATIONS: recurrent malignant ascites TECHNIQUE: The indications, alternatives, benefits, risks, and complications of the procedure were explained to the patient. Written informed consent was obtained and placed in the chart. The abdomen and pelvis were examined sonographically, and an appropriate site was chosen for paracentesis. The skin was prepared and draped in the usual sterile fashion, and 1% lidocaine was infiltrated from the skin down through the peritoneal surface. A 19-gauge catheter-covered needle was then introduced into the peritoneal space, the catheter was advanced and the needle was withdrawn, and thereafter peritoneal fluid was withdrawn. The catheter was then removed and a dressing was applied. The fluid was discarded if the clinician did not order diagnostic testing of the fluid. COMPARISON: [facility], [facility], 04/09/2019, 8:03. [facility], [facility], 03/26/2019, 7:54. [facility], [facility], 04/02/2019, 9:31. FINDINGS: Access site: Right lower quadrant Needle: One-Step centesis catheter with introducer needle. Fluid volume and description: 4900 mL, yellow, cloudy Fluid sent for diagnostic testing: Cytology per referring physician Medications: 1% lidocaine for local anaesthesia. Complications: None. IMPRESSION: Successful ultrasound-guided paracentesis. Dictated by: Estella Rivera M.D. on 04/15/2019 at 13:15 Approved by: Estella Rivera M.D. on 04/15/2019 at 13:16
== END ==
PROVIDERS: PCP Student in an Organized Health Care Education/Training Program
DX: R18.0 Malignant ascites (principal); C80.1 Malignant (primary) neoplasm, unspecified; Z85.038 Personal history of other malignant neoplasm of large intestine
CPT/HCPCS: 49083

== ENCOUNTER → 2019-04-19 09:20 | Outpatient (CLI) | payer MEDICARE, SELFPAY ==
--- NOTE | 2019-04-19 09:24 | DI.US.S_ITS ---
PROCEDURE: US PARACENTESIS INDICATIONS: recurrent ascites TECHNIQUE: The indications, alternatives, benefits, risks, and complications of the procedure were explained to the patient. Written informed consent was obtained and placed in the chart. The abdomen and pelvis were examined sonographically, and an appropriate site was chosen for paracentesis. The skin was prepared and draped in the usual sterile fashion, and 1% lidocaine was infiltrated from the skin down through the peritoneal surface. A 19-gauge catheter-covered needle was then introduced into the peritoneal space, the catheter was advanced and the needle was withdrawn, and thereafter peritoneal fluid was withdrawn. The catheter was then removed and a dressing was applied. The fluid was discarded if the clinician did not order diagnostic testing of the fluid. COMPARISON: [facility], [facility], 04/15/2019, 11:44. FINDINGS: Access site: Right lower quadrant abdomen. Needle: One-Step centesis catheter with introducer needle. Fluid volume and description: 2800 mL. Slightly cloudy yellow fluid. Fluid sent for diagnostic testing: None Medications: 1% lidocaine for local anaesthesia. Complications: None. IMPRESSION: Successful ultrasound-guided paracentesis. Dictated by: Raman Mcgowan M.D. on 04/19/2019 at 12:19 Approved by: Raman Mcgowan M.D. on 04/19/2019 at 12:25
== END ==
PROVIDERS: PCP Student in an Organized Health Care Education/Training Program
DX: R18.8 Other ascites (principal); C80.1 Malignant (primary) neoplasm, unspecified
CPT/HCPCS: 49083

== ENCOUNTER → 2019-04-24 09:31 | Outpatient (CLI) | payer MEDICARE, SELFPAY ==
--- NOTE | 2019-04-24 09:34 | DI.US.S_ITS ---
PROCEDURE: US ABDOMEN LIMITED INDICATIONS: RECURRENT MALIGNANT ASCITES TECHNIQUE: Real-time focused scanning was performed of the abdomen, with image documentation. COMPARISON: [facility], [facility], 04/19/2019, 9:48. [facility], [facility], 04/15/2019, 11:44. [facility], [facility], 04/09/2019, 8:03. [facility], [facility], 04/02/2019, 9:31. FINDINGS: There was insufficient access for paracentesis given overlying visceral structure. The amount of fluid present should increase prior to say paracentesis. IMPRESSION: Followup assessment weakness week or early next week we'll be performed to assess for safe access for paracentesis. Paracentesis was not performed today. Dictated by: Yong Blakely M.D. on 04/24/2019 at 12:01 Approved by: Yong Blakely M.D. on 04/24/2019 at 12:02
== END ==
PROVIDERS: PCP Student in an Organized Health Care Education/Training Program
DX: R18.0 Malignant ascites (principal); C80.1 Malignant (primary) neoplasm, unspecified
CPT/HCPCS: 76705

== ENCOUNTER → 2019-04-29 07:22 | Outpatient (CLI) | payer MEDICARE, SELFPAY ==
--- NOTE | 2019-04-29 07:27 | DI.US.S_ITS ---
PROCEDURE: US PARACENTESIS INDICATIONS: RECURRENT MALIGNANT ASCITIES TECHNIQUE: The indications, alternatives, benefits, risks, and complications of the procedure were explained to the patient. Written informed consent was obtained and placed in the chart. The abdomen and pelvis were examined sonographically, and an appropriate site was chosen for paracentesis. The skin was prepared and draped in the usual sterile fashion, and 1% lidocaine was infiltrated from the skin down through the peritoneal surface. A 19-gauge catheter-covered needle was then introduced into the peritoneal space, the catheter was advanced and the needle was withdrawn, and thereafter peritoneal fluid was withdrawn. The catheter was then removed and a dressing was applied. The fluid was discarded if the clinician did not order diagnostic testing of the fluid. COMPARISON: [facility], [facility], 04/19/2019, 9:48. [facility], [facility], 04/15/2019, 11:44. FINDINGS: Access site: Left lateral pelvic body wall Needle: One-Step centesis catheter with introducer needle. Fluid volume and description: 5000 cc, clear, slightly serous Fluid sent for diagnostic testing: Not requested Medications: 1% lidocaine for local anaesthesia. Complications: None. IMPRESSION: Successful ultrasound-guided paracentesis. Dictated by: Yong Blakely M.D. on 04/29/2019 at 9:20 Approved by: Yong Blakely M.D. on 04/29/2019 at 9:21
== END ==
PROVIDERS: PCP Student in an Organized Health Care Education/Training Program
DX: R18.0 Malignant ascites (principal); C80.1 Malignant (primary) neoplasm, unspecified
CPT/HCPCS: 49083

== ENCOUNTER → 2019-05-07 07:26 | Outpatient (CLI) | payer MEDICARE, SELFPAY ==
--- NOTE | 2019-05-07 07:27 | DI.US.S_ITS ---
PROCEDURE: US PARACENTESIS INDICATIONS: ASCITIES TECHNIQUE: The indications, alternatives, benefits, risks, and complications of the procedure were explained to the patient. Written informed consent was obtained and placed in the chart. The abdomen and pelvis were examined sonographically, and an appropriate site was chosen for paracentesis. The skin was prepared and draped in the usual sterile fashion, and 1% lidocaine was infiltrated from the skin down through the peritoneal surface. A 19-gauge catheter-covered needle was then introduced into the peritoneal space, the catheter was advanced and the needle was withdrawn, and thereafter peritoneal fluid was withdrawn. The catheter was then removed and a dressing was applied. The fluid was discarded if the clinician did not order diagnostic testing of the fluid. COMPARISON: [facility], [facility], 04/19/2019, 9:48. FINDINGS: Access site: Right lower artery and Needle: One-Step centesis catheter with introducer needle. Fluid volume and description: 5000 mL, clear Fluid sent for diagnostic testing: not ordered by referring physician. Medications: 1% lidocaine for local anaesthesia. Complications: None. IMPRESSION: Successful ultrasound-guided paracentesis. Dictated by: Estella Rivera M.D. on 05/07/2019 at 9:23 Approved by: Estella Rivera M.D. on 05/07/2019 at 9:23
== END ==
PROVIDERS: PCP Student in an Organized Health Care Education/Training Program
DX: R18.8 Other ascites (principal); C80.1 Malignant (primary) neoplasm, unspecified
CPT/HCPCS: 49083

== ENCOUNTER → 2019-05-13 12:54 | Outpatient (CLI) | payer MEDICARE, SELFPAY ==
--- NOTE | 2019-05-13 12:55 | DI.US.S_ITS ---
PROCEDURE: US PARACENTESIS INDICATIONS: ASCITIES TECHNIQUE: The indications, alternatives, benefits, risks, and complications of the procedure were explained to the patient. Written informed consent was obtained and placed in the chart. The abdomen and pelvis were examined sonographically, and an appropriate site was chosen for paracentesis. The skin was prepared and draped in the usual sterile fashion, and 1% lidocaine was infiltrated from the skin down through the peritoneal surface. A 19-gauge catheter-covered needle was then introduced into the peritoneal space, the catheter was advanced and the needle was withdrawn, and thereafter peritoneal fluid was withdrawn. The catheter was then removed and a dressing was applied. The fluid was discarded if the clinician did not order diagnostic testing of the fluid. COMPARISON: [facility], [facility], 05/07/2019, 8:18. [facility], [facility], 04/29/2019, 7:59. FINDINGS: Access site: Right lower lateral pelvic body wall Needle: One-Step centesis catheter with introducer needle. Fluid volume and description: 5000 cc, serous Fluid sent for diagnostic testing: Not requested Medications: 1% lidocaine for local anaesthesia. Complications: None. IMPRESSION: Successful ultrasound-guided paracentesis. Dictated by: Yong Blakely M.D. on 05/13/2019 at 14:21 Approved by: Yong Blakely M.D. on 05/13/2019 at 14:22
== END ==
PROVIDERS: PCP Student in an Organized Health Care Education/Training Program
DX: R18.0 Malignant ascites (principal); C80.1 Malignant (primary) neoplasm, unspecified
CPT/HCPCS: 49083

== ENCOUNTER → 2019-05-17 09:20 | Outpatient (CLI) | payer MEDICARE, SELFPAY ==
--- NOTE | 2019-05-17 09:22 | DI.US.S_ITS ---
PROCEDURE: US PARACENTESIS INDICATIONS: MALIGNANT ASCITES TECHNIQUE: The indications, alternatives, benefits, risks, and complications of the procedure were explained to the patient. Written informed consent was obtained and placed in the chart. The abdomen and pelvis were examined sonographically, and an appropriate site was chosen for paracentesis. The skin was prepared and draped in the usual sterile fashion, and 1% lidocaine was infiltrated from the skin down through the peritoneal surface. A 19-gauge catheter-covered needle was then introduced into the peritoneal space, the catheter was advanced and the needle was withdrawn, and thereafter peritoneal fluid was withdrawn. The catheter was then removed and a dressing was applied. The fluid was discarded if the clinician did not order diagnostic testing of the fluid. COMPARISON: [facility], [facility], 05/13/2019, 12:37. FINDINGS: Access site: Right lower quadrant Needle: One-Step centesis catheter with introducer needle. Fluid volume and description: 3750 cc of serous fluid Fluid sent for diagnostic testing: Not requested Medications: 1% lidocaine for local anaesthesia. Complications: None. IMPRESSION: Successful ultrasound-guided paracentesis. Dictated by: German Chambers M.D. on 05/17/2019 at 13:26 Approved by: German Chambers M.D. on 05/17/2019 at 13:28
== END ==
PROVIDERS: PCP Student in an Organized Health Care Education/Training Program
DX: R18.0 Malignant ascites (principal); C80.1 Malignant (primary) neoplasm, unspecified
CPT/HCPCS: 49083

== ENCOUNTER 2019-05-17 18:39 | Emergency (ER) | payer MEDICARE, SELFPAY ==
[2019-05-17 18:54] VITALS: BP 119/71; PULSE 105; RESP 18; TEMP 36.6; O2SAT 99
--- NOTE | 2019-05-17 19:07 | ED.GENADULT ---
HPI - General Adult General Chief complaint: Abdominal Pain Stated complaint: PERITONITIS PROCEDURE TO RIGHT SIDE SWELLING SOME Time Seen by Provider: 05/17/19 18:53 Source: patient Mode of arrival: Ambulatory Limitations: no limitations History of Present Illness HPI narrative: 73-year-old male with known malignant ascites. Had a paracentesis done as an outpatient at approximately 1100 hours this morning. Patient states that he had about 2.5 L removed from his abdomen. Review of the note shows that it was closer to 3 to 3.5 L. he states that afterwards they did have some difficulty getting the area to quit leaking so Steri-Strips and a pressure bandage were placed over the area. Several hours afterwards he noticed some swelling around the site where the catheter was placed in the right lower quadrant. Denies any abdominal pain. He thinks that the swelling is localized to this area. Does not feel that his abdomen is full of fluid again. Related Data Home Medications Medication Instructions Recorded Confirmed PreserVision AREDS 2 tab PO DAILY 04/09/19 05/08/19 Previous Rx's Medication Instructions Recorded losartan 100 mg tablet 100 mg PO QDAY #90 tab 12/18/18 albuterol sulfate 90 mcg/actuation 2 puff INHALATION Q4-6H PRN #18 03/21/19 aerosol inhaler gram ondansetron HCl 8 mg PO Q8H #30 tab 04/03/19 acetaminophen [Tylenol] 650 mg PO QID PRN #60 cap 04/09/19 amlodipine 10 mg tablet 10 mg PO QDAY #30 tab 04/26/19 Allergies Allergy/AdvReac Type Severity Reaction Status Date / Time venom-honey bee Allergy Severe ANAPHYLAXIS Verified 05/17/19 18:58 [BEE VENOM (HONEY BEE)] Review of Systems Constitutional Constitutional: Denies fever(s) Cardiovascular Cardiovascular: Denies chest pain and Denies dyspnea Respiratory Respiratory: Denies dyspnea Gastrointestinal Gastrointestinal: Denies abdominal pain Comments: Swelling around the catheter insertion site right lower quadrant Genitourinary Genitourinary: Denies dysuria Integumentary/Breasts Skin/Breast: Denies rash Neurologic Neurologic: Denies behavioral changes Psychiatric Psychiatric: Denies behavioral changes Patient History Medical History Actinic keratosis (Chronic Unknown) Ankle pain (Chronic) Cervicalgia (Chronic Unknown) Chickenpox (Resolved Unknown) Chronic back pain (Chronic Unknown) Colon cancer (Resolved 1993) Colon polyps (Resolved ~1993) Erectile dysfunction (Chronic Unknown) Fusion of spine of cervical region (Acute) GERD (gastroesophageal reflux disease) (Chronic Unknown) Hx of hiatal hernia (Resolved Unknown) Hypertension (Chronic Unknown) Mass of foot (Chronic) Measles (Resolved Unknown) Mumps (Resolved Unknown) Osteoarthritis (Chronic Unknown) S/P abdominal paracentesis (Acute 02/22/19) Surgical History Anesthesia (Resolved) History of arthroplasty of right knee (Acute) History of colon surgery (Resolved 1993) History of surgery (Acute) Hx of arthroscopy of right knee (Resolved 1989) Hx of cataract surgery (Resolved 2011) Hx of fusion of cervical spine (Resolved 1989) Hx of laminectomy (Resolved ~2008) Hx of laminectomy (Acute 06/23/16) Hx of shoulder surgery (Resolved 2006) Hx of shoulder surgery (Resolved 1996) Hx of total knee arthroplasty (Resolved 2011) Family History Father Cancer Mother Cancer Sister Cancer Grandfather History of heart disease Social History household members: spouse Smoking Status: Former smoker alcohol intake: former Smoking Status: Former smoker alcohol intake frequency: 0-2 drinks per day Substance Use Type: does not use Exam Initial Vital Signs Initial Vital Signs: Vital Signs Temperature 97.8 F 05/17/19 18:54 Pulse Rate 105 H 05/17/19 18:54 Respiratory Rate 18 05/17/19 18:54 Blood Pressure 119/71 05/17/19 18:54 Pulse Oximetry 99 05/17/19 18:54 Const General: cooperative and comfortable Orientation: alert, awake and oriented x3 Resp Effort & Inspection: normal respiratory effort GI Inspection: non-distended Palpation: soft Other: Catheter insertion site right lower quadrant looks well. There's no active drainage. Has 2 Steri-Strips over the area. There is a small amount of swelling approximately a palm size in what appears to be the subcutaneous tissue right around the insertion site. Minimal of any ascites felt in the abdomen Skin Other: Catheter insertion site right lower quadrant looks well Extrem General: No edema Course Vital Signs Vital signs: Vital Signs - 8 hr 05/17/19 18:54 Temperature 97.8 F Pulse Rate 105 H Respiratory Rate 18 Blood Pressure 119/71 Pulse Oximetry 99 Medical Decision Making MDM Narrative Medical decision making narrative: Patient's site is not actively draining. There's no signs of infection. I do suspect that the swelling he is feeling is fluid in the subcutaneous tissue. I do not feel that we need CT scan or ultrasound. No indication for antibiotics. I did discuss this with the patient. We discussed return precautions and follow-up instructions. He expressed understanding and agreement plan. Discharge Plan Departure Patient Disposition: Home Clinical Impression: Ascites Qualifiers: Ascites type: malignant Qualified Code(s): R18.0 - Malignant ascites Discharge Date/Time: 05/17/19 19:31 Instructions: DI for Abdominal Paracentesis Activity Restrictions/Additional Instructions: I do suspect that the swelling is leakage of fluid into the subcutaneous tissue like we discussed. Keep all of your scheduled medical appointments. Return to the emergency department for any new or worsening symptoms. Continue all of your post procedure instructions that were given to you earlier today. Prescriptions: No Action albuterol sulfate [ProAir HFA] 90 mcg/actuation HFA aerosol inhaler 2 puff INHALATION Q4-6H PRN (Reason: shortness of breath or wheezing) Qty: 18 RF: 5 amlodipine 10 mg tablet 10 mg PO QDAY Qty: 30 RF: 0 losartan 100 mg tablet 100 mg PO QDAY Qty: 90 RF: 3 PreserVision AREDS [id number] [id number] Tablet 2 tab PO DAILY RF: 0 acetaminophen [Tylenol] 325 mg capsule 650 mg PO QID PRN (Reason: pain) Qty: 60 RF: 0 ondansetron HCl 8 mg Tablet 8 mg PO Q8H Qty: 30 RF: 2 Referrals: Flynn Gao MD [Primary Care Provider] -
== END 2019-05-17 19:31 | disposition home or self-care (01) ==
PROVIDERS: Emergency Provider Emergency Medicine; PCP Student in an Organized Health Care Education/Training Program
DX: R18.0 Malignant ascites (principal); C80.1 Malignant (primary) neoplasm, unspecified
CPT/HCPCS: 49083; 99281

== ENCOUNTER → 2019-05-23 09:51 | Outpatient (CLI) | payer MEDICARE, SELFPAY ==
--- NOTE | 2019-05-23 | DI.US.S_ITS ---
PROCEDURE: US PARACENTESIS INDICATIONS: ASCITIES TECHNIQUE: The indications, alternatives, benefits, risks, and complications of the procedure were explained to the patient. Written informed consent was obtained and placed in the chart. The abdomen and pelvis were examined sonographically, and an appropriate site was chosen for paracentesis. The skin was prepared and draped in the usual sterile fashion, and 1% lidocaine was infiltrated from the skin down through the peritoneal surface. A 19-gauge catheter-covered needle was then introduced into the peritoneal space, the catheter was advanced and the needle was withdrawn, and thereafter peritoneal fluid was withdrawn. The catheter was then removed and a dressing was applied. The fluid was discarded if the clinician did not order diagnostic testing of the fluid. COMPARISON: [facility], [place], 05/17/2019, 9:54. [facility], [place], 05/13/2019, 12:37. [facility], [place], 05/07/2019, 8:18. [facility], [place], 04/29/2019, 7:59. FINDINGS: Access site: Right lower quadrant Needle: One-Step centesis catheter with introducer needle. Fluid volume and description: 5000 cc of clear fluid Fluid sent for diagnostic testing: No Medications: 1% lidocaine for local anaesthesia. Complications: None. IMPRESSION: Successful ultrasound-guided paracentesis. Dictated by: Lydia Ochoa M.D. on 05/23/2019 at 13:57 Approved by: Lydia Ochoa M.D. on 05/23/2019 at 13:57
== END ==
PROVIDERS: PCP Student in an Organized Health Care Education/Training Program
DX: R18.8 Other ascites (principal); C80.1 Malignant (primary) neoplasm, unspecified
CPT/HCPCS: 49083

== ENCOUNTER → 2019-05-30 07:30 | Outpatient (CLI) | payer MEDICARE, SELFPAY ==
--- NOTE | 2019-05-30 07:33 | DI.US.S_ITS ---
PROCEDURE: US PARACENTESIS INDICATIONS: ASCITIES TECHNIQUE: The indications, alternatives, benefits, risks, and complications of the procedure were explained to the patient. Written informed consent was obtained and placed in the chart. The abdomen and pelvis were examined sonographically, and an appropriate site was chosen for paracentesis. The skin was prepared and draped in the usual sterile fashion, and 1% lidocaine was infiltrated from the skin down through the peritoneal surface. A 19-gauge catheter-covered needle was then introduced into the peritoneal space, the catheter was advanced and the needle was withdrawn, and thereafter peritoneal fluid was withdrawn. The catheter was then removed and a dressing was applied. The fluid was discarded if the clinician did not order diagnostic testing of the fluid. COMPARISON: [facility], , [place], 05/23/2019, 10:14. FINDINGS: Access site: Right lower quadrant Needle: One-Step centesis catheter with introducer needle. Fluid volume and description: 5000 cc of serous fluid Fluid sent for diagnostic testing: Not requested Medications: 1% lidocaine for local anaesthesia. Complications: None. IMPRESSION: Successful ultrasound-guided paracentesis. Dictated by: German Chambers M.D. on 05/30/2019 at 11:56 Approved by: German Chambers M.D. on 05/30/2019 at 11:58
== END ==
PROVIDERS: PCP Student in an Organized Health Care Education/Training Program
DX: R18.8 Other ascites (principal); C80.1 Malignant (primary) neoplasm, unspecified
CPT/HCPCS: 49083

== ENCOUNTER → 2019-06-03 13:51 | Outpatient (CLI) | payer MEDICARE, SELFPAY ==
--- NOTE | 2019-06-03 13:53 | DI.US.S_ITS ---
PROCEDURE: US PARACENTESIS INDICATIONS: ASCITIES TECHNIQUE: The indications, alternatives, benefits, risks, and complications of the procedure were explained to the patient. Written informed consent was obtained and placed in the chart. The abdomen and pelvis were examined sonographically, and an appropriate site was chosen for paracentesis. The skin was prepared and draped in the usual sterile fashion, and 1% lidocaine was infiltrated from the skin down through the peritoneal surface. A 19-gauge catheter-covered needle was then introduced into the peritoneal space, the catheter was advanced and the needle was withdrawn, and thereafter peritoneal fluid was withdrawn. The catheter was then removed and a dressing was applied. The fluid was discarded if the clinician did not order diagnostic testing of the fluid. [facility] [place], 05[facility]30/2019, 7:58. FINDINGS: Access site: Right flank/right lower quadrant Needle: One-Step centesis catheter with introducer needle. Fluid volume and description: Approximately 5000 mL of clear, uli ascites Fluid sent for diagnostic testing: None sent for testing. This was a therapeutic paracentesis. Medications: 1% lidocaine for local anaesthesia. Complications: None. IMPRESSION: Successful ultrasound-guided paracentesis. Dictated by: Lam Rai M.D. on 06/03/2019 at 19:19 Approved by: Lam Rai M.D. on 06/03/2019 at 19:20
== END ==
PROVIDERS: Family Provider Student in an Organized Health Care Education/Training Program; PCP Student in an Organized Health Care Education/Training Program
DX: R18.0 Malignant ascites (principal); C80.1 Malignant (primary) neoplasm, unspecified
CPT/HCPCS: 49083

== ENCOUNTER → 2019-06-10 07:28 | Outpatient (CLI) | payer MEDICARE, SELFPAY ==
--- NOTE | 2019-06-10 07:29 | DI.US.S_ITS ---
PROCEDURE: US PARACENTESIS INDICATIONS: malignant ascites TECHNIQUE: The indications, alternatives, benefits, risks, and complications of the procedure were explained to the patient. Written informed consent was obtained and placed in the chart. The abdomen and pelvis were examined sonographically, and an appropriate site was chosen for paracentesis. The skin was prepared and draped in the usual sterile fashion, and 1% lidocaine was infiltrated from the skin down through the peritoneal surface. A 19-gauge catheter-covered needle was then introduced into the peritoneal space, the catheter was advanced and the needle was withdrawn, and thereafter peritoneal fluid was withdrawn. The catheter was then removed and a dressing was applied. The fluid was discarded if the clinician did not order diagnostic testing of the fluid. COMPARISON: [facility], [place], 06/03/2019, 14:09. [facility], [place], 05/30/2019, 7:58. FINDINGS: Access site: Right lateral abdomen/pelvis junction body wall Needle: One-Step centesis catheter with introducer needle. Fluid volume and description: A clear, serous fluid was obtained, 4500 cc Fluid sent for diagnostic testing: Not requested Medications: 1% lidocaine for local anaesthesia. Complications: None. IMPRESSION: Successful ultrasound-guided paracentesis. Dictated by: Yong Blakely M.D. on 06/10/2019 at 10:28 Approved by: Yong Blakely M.D. on 06/10/2019 at 10:28
== END ==
PROVIDERS: Family Provider Student in an Organized Health Care Education/Training Program; PCP Student in an Organized Health Care Education/Training Program
DX: R18.0 Malignant ascites (principal); C78.6 Secondary malignant neoplasm of retroperitoneum and peritoneum; C80.1 Malignant (primary) neoplasm, unspecified
CPT/HCPCS: 49083

== ENCOUNTER → 2019-06-17 07:00 | Outpatient (CLI) | payer MEDICARE, SELFPAY ==
--- NOTE | 2019-06-17 07:06 | DI.US.S_ITS ---
PROCEDURE: US PARACENTESIS INDICATIONS: recurrent malignant ascites TECHNIQUE: The indications, alternatives, benefits, risks, and complications of the procedure were explained to the patient. Written informed consent was obtained and placed in the chart. The abdomen and pelvis were examined sonographically, and an appropriate site was chosen for paracentesis. The skin was prepared and draped in the usual sterile fashion, and 1% lidocaine was infiltrated from the skin down through the peritoneal surface. A 19-gauge catheter-covered needle was then introduced into the peritoneal space, the catheter was advanced and the needle was withdrawn, and thereafter peritoneal fluid was withdrawn. The catheter was then removed and a dressing was applied. The fluid was discarded if the clinician did not order diagnostic testing of the fluid. COMPARISON: [facility], [place], 06/10/2019, 8:04. [facility], [place], 06/03/2019, 14:09. FINDINGS: Access site: Right lateral pelvis body wall Needle: One-Step centesis catheter with introducer needle. Fluid volume and description: 5000 cc, serous Fluid sent for diagnostic testing: Not requested Medications: 1% lidocaine for local anaesthesia. Complications: None. IMPRESSION: Successful ultrasound-guided paracentesis. Dictated by: Yong Blakely M.D. on 06/17/2019 at 12:48 Approved by: Yong Blakely M.D. on 06/17/2019 at 12:49
[2019-06-17 07:25] LABS: Add Manual Diff / Slide Review NO; Basophils Absolute Auto 0 /uL (0-100); Basophils Percent Auto 0.8 % (0-2); Eosinophils Absolute Auto 0 /uL (0-450); Eosinophils Percent Auto 1.3 % (2-4); Hematocrit 40.3 % (41-53); Hemoglobin 13.6 g/dL (13.5-17.5); Lymphocytes Absolute Auto 900 /uL (1100-4500); Lymphocytes Percent Auto 29.2 % (25-40); Mean Corpuscular HGB Conc 33.8 % (30-36); Mean Corpuscular Hemoglobin 28.8 PG (26-34); Mean Corpuscular Volume 85.4 fL (80-100); Monocytes Absolute Auto 600 /uL (0-900); Neutrophils Absolute Auto 1400 /uL (1500-7000); Neutrophils Percent Auto 48.7 % (50-75); Platelet Count 378 X10^3/uL (150-400); Red Blood Cell Count 4.72 X10^6/uL (4.5-5.9); Red Cell Distribution Width 21.3 % (11.6-14.8)
[2019-06-17 07:29] LABS: Alanine Aminotransferase 20 IU/L (<50); Albumin 3.2 g/dL (3.5-5.0); Albumin Globulin Ratio 1.1 (1.0-2.8); Alkaline Phosphatase 71 U/L (38-126); Aspartate Aminotransferase 30 IU/L (17-59); BUN Creatinine Ratio 22.9 (6-22); Bilirubin Total 0.2 mg/dL (0.2-1.3); Blood Urea Nitrogen 16 mg/dL (9-20); Calcium 8.6 mg/dL (8.4-10.2); Carbon Dioxide 31 mmol/L (22-32); Chloride 103 mmol/L (98-107); Estimated Glomerular Filt Rate > 60.0 mL/min (>60); Globulin 2.8 g/dL (1.7-4.1); Glucose 98 mg/dL (80-110); HEMOLYSIS < 15 (0-50); Potassium 4.8 mmol/L (3.4-5.1); Sodium 137 mmol/L (137-145)
[2019-06-17 07:53] LABS: Anisocytosis 2+
[2019-06-17 08:28] LABS: INR 0.9 (0.9-1.3); Prothrombin Time 10.7 SECONDS (10.1-12.7)
== END ==
PROVIDERS: Radiology Diagnostic Radiology; PCP Student in an Organized Health Care Education/Training Program
DX: R18.0 Malignant ascites (principal); C80.1 Malignant (primary) neoplasm, unspecified
CPT/HCPCS: 36415; 49083; 80053; 85025; 85610

== ENCOUNTER → 2019-06-21 07:15 | Outpatient (CLI) | payer MEDICARE, SELFPAY ==
--- NOTE | 2019-06-21 07:16 | DI.US.S_ITS ---
PROCEDURE: US PARACENTESIS INDICATIONS: recurrent malignant ascites TECHNIQUE: The indications, alternatives, benefits, risks, and complications of the procedure were explained to the patient. Written informed consent was obtained and placed in the chart. The abdomen and pelvis were examined sonographically, and an appropriate site was chosen for paracentesis. The skin was prepared and draped in the usual sterile fashion, and 1% lidocaine was infiltrated from the skin down through the peritoneal surface. A 19-gauge catheter-covered needle was then introduced into the peritoneal space, the catheter was advanced and the needle was withdrawn, and thereafter peritoneal fluid was withdrawn. The catheter was then removed and a dressing was applied. The fluid was discarded if the clinician did not order diagnostic testing of the fluid. COMPARISON: [facility], [place], 06/17/2019, 7:55. FINDINGS: Access site: Right lower quadrant Needle: One-Step centesis catheter with introducer needle. Fluid volume and description: 4200 cc of serous fluid Fluid sent for diagnostic testing: Not requested Medications: 1% lidocaine for local anaesthesia. Complications: None. IMPRESSION: Successful ultrasound-guided paracentesis. Dictated by: German Chambers M.D. on 06/21/2019 at 13:29 Approved by: German Chambers M.D. on 06/21/2019 at 13:30
== END ==
PROVIDERS: PCP Student in an Organized Health Care Education/Training Program
DX: R18.0 Malignant ascites (principal); C78.6 Secondary malignant neoplasm of retroperitoneum and peritoneum; C80.1 Malignant (primary) neoplasm, unspecified
CPT/HCPCS: 49083

== ENCOUNTER → 2019-06-28 09:12 | Outpatient (CLI) | payer MEDICARE, SELFPAY ==
--- NOTE | 2019-06-28 09:13 | DI.US.S_ITS ---
PROCEDURE: US PARACENTESIS INDICATIONS: RECURRENT ASCITIES TECHNIQUE: The indications, alternatives, benefits, risks, and complications of the procedure were explained to the patient. Written informed consent was obtained and placed in the chart. The abdomen and pelvis were examined sonographically, and an appropriate site was chosen for paracentesis. The skin was prepared and draped in the usual sterile fashion, and 1% lidocaine was infiltrated from the skin down through the peritoneal surface. A 19-gauge catheter-covered needle was then introduced into the peritoneal space, the catheter was advanced and the needle was withdrawn, and thereafter peritoneal fluid was withdrawn. The catheter was then removed and a dressing was applied. The fluid was discarded if the clinician did not order diagnostic testing of the fluid. COMPARISON: [facility], [place], 06/21/2019, 7:59. FINDINGS: Access site: Right lateral abdomen Needle: One-Step centesis catheter with introducer needle. Fluid volume and description: 4600 mL of clear uli fluid Fluid sent for diagnostic testing: No Medications: 1% lidocaine for local anaesthesia. Complications: None. IMPRESSION: Successful ultrasound-guided paracentesis. Dictated by: Parisa Kaur M.D. on 06/28/2019 at 13:18 Approved by: Parisa Kaur M.D. on 06/28/2019 at 13:20
== END ==
PROVIDERS: PCP Student in an Organized Health Care Education/Training Program
DX: R18.0 Malignant ascites (principal); C78.6 Secondary malignant neoplasm of retroperitoneum and peritoneum; C80.1 Malignant (primary) neoplasm, unspecified
CPT/HCPCS: 49083

== ENCOUNTER → 2019-07-04 09:54 | Outpatient (CLI) | payer MEDICARE, SELFPAY ==
--- NOTE | 2019-07-04 09:56 | DI.US.S_ITS ---
PROCEDURE: US PARACENTESIS INDICATIONS: METATASTIC CANCER OF UNKNOWN ORIGIN.ASCITES TECHNIQUE: The indications, alternatives, benefits, risks, and complications of the procedure were explained to the patient. Written informed consent was obtained and placed in the chart. The abdomen and pelvis were examined sonographically, and an appropriate site was chosen for paracentesis. The skin was prepared and draped in the usual sterile fashion, and 1% lidocaine was infiltrated from the skin down through the peritoneal surface. A 19-gauge catheter-covered needle was then introduced into the peritoneal space, the catheter was advanced and the needle was withdrawn, and thereafter peritoneal fluid was withdrawn. The catheter was then removed and a dressing was applied. The fluid was discarded if the clinician did not order diagnostic testing of the fluid. COMPARISON: [facility], , [place], 06/28/2019, 9:27. FINDINGS: Access site: Right lower quadrant Needle: One-Step centesis catheter with introducer needle. Fluid volume and description: 5000 cc of serous fluid Fluid sent for diagnostic testing: Not requested Medications: 1% lidocaine for local anaesthesia. Complications: None. IMPRESSION: Successful ultrasound-guided paracentesis. Dictated by: German Chambers M.D. on 07/05/2019 at 10:57 Approved by: German Chambers M.D. on 07/05/2019 at 10:58
== END ==
PROVIDERS: Referring Provider Internal Medicine Hematology & Oncology; Visit Provider Internal Medicine Hematology & Oncology
DX: R18.0 Malignant ascites (principal); C80.1 Malignant (primary) neoplasm, unspecified
CPT/HCPCS: 49083

== ENCOUNTER → 2019-07-11 08:39 | Outpatient (CLI) | payer MEDICARE, SELFPAY ==
--- NOTE | 2019-07-11 08:41 | DI.US.S_ITS ---
PROCEDURE: US PARACENTESIS INDICATIONS: ASCITIES TECHNIQUE: The indications, alternatives, benefits, risks, and complications of the procedure were explained to the patient. Written informed consent was obtained and placed in the chart. The abdomen and pelvis were examined sonographically, and an appropriate site was chosen for paracentesis. The skin was prepared and draped in the usual sterile fashion, and 1% lidocaine was infiltrated from the skin down through the peritoneal surface. A 19-gauge catheter-covered needle was then introduced into the peritoneal space, the catheter was advanced and the needle was withdrawn, and thereafter peritoneal fluid was withdrawn. The catheter was then removed and a dressing was applied. The fluid was discarded if the clinician did not order diagnostic testing of the fluid. COMPARISON: [facility], [place], 07/04/2019, 10:59. FINDINGS: Access site: Right lower quadrant Needle: One-Step centesis catheter with introducer needle. Fluid volume and description: 5000 cc of serous fluid Fluid sent for diagnostic testing: Not requested Medications: 1% lidocaine for local anaesthesia. Complications: None. IMPRESSION: Successful ultrasound-guided paracentesis. Dictated by: German Chambers M.D. on 07/11/2019 at 17:11 Approved by: German Chambers M.D. on 07/11/2019 at 17:11
== END ==
PROVIDERS: Referring Provider Internal Medicine Hematology & Oncology; Visit Provider Internal Medicine Hematology & Oncology
DX: C78.6 Secondary malignant neoplasm of retroperitoneum and peritoneum (principal); R18.0 Malignant ascites; C80.1 Malignant (primary) neoplasm, unspecified
CPT/HCPCS: 49083

== ENCOUNTER → 2019-07-18 08:42 | Outpatient (CLI) | payer MEDICARE, SELFPAY ==
--- NOTE | 2019-07-18 08:43 | DI.US.S_ITS ---
PROCEDURE: US PARACENTESIS INDICATIONS: MALIGNANT ASCITES TECHNIQUE: The indications, alternatives, benefits, risks, and complications of the procedure were explained to the patient. Written informed consent was obtained and placed in the chart. The abdomen and pelvis were examined sonographically, and an appropriate site was chosen for paracentesis. The skin was prepared and draped in the usual sterile fashion, and 1% lidocaine was infiltrated from the skin down through the peritoneal surface. A 19-gauge catheter-covered needle was then introduced into the peritoneal space, the catheter was advanced and the needle was withdrawn, and thereafter peritoneal fluid was withdrawn. The catheter was then removed and a dressing was applied. The fluid was discarded if the clinician did not order diagnostic testing of the fluid. COMPARISON: [facility], [place], 07/04/2019, 10:59. FINDINGS: Access site: Right lower quadrant Needle: One-Step centesis catheter with introducer needle. Fluid volume and description: 5000 mL, clear Fluid sent for diagnostic testing: Not requested Medications: 1% lidocaine for local anaesthesia. Complications: None. IMPRESSION: Successful ultrasound-guided paracentesis. Dictated by: Estella Rivera M.D. on 07/18/2019 at 11:18 Approved by: Estella Rivera M.D. on 07/18/2019 at 11:19
== END ==
PROVIDERS: Referring Provider Internal Medicine Hematology & Oncology; Visit Provider Internal Medicine Hematology & Oncology
DX: C80.1 Malignant (primary) neoplasm, unspecified (principal); R18.0 Malignant ascites
CPT/HCPCS: 49083

== ENCOUNTER → 2019-07-22 08:10 | Outpatient (CLI) | payer MEDICARE, SELFPAY ==
[2019-07-22 08:37] LABS: Add Manual Diff / Slide Review NO; Basophils Absolute Auto 0 /uL (0-100); Basophils Percent Auto 0.4 % (0-2); Eosinophils Absolute Auto 0 /uL (0-450); Eosinophils Percent Auto 0.4 % (2-4); Hematocrit 43.6 % (41-53); Hemoglobin 14.5 g/dL (13.5-17.5); Lymphocytes Absolute Auto 600 /uL (1100-4500); Lymphocytes Percent Auto 19.7 % (25-40); Mean Corpuscular HGB Conc 33.2 % (30-36); Mean Corpuscular Hemoglobin 29.8 PG (26-34); Mean Corpuscular Volume 89.6 fL (80-100); Monocytes Absolute Auto 100 /uL (0-900); Monocytes Percent Auto 3.5 % (3-14); Neutrophils Absolute Auto 2400 /uL (1500-7000); Platelet Count 190 X10^3/uL (150-400); Red Blood Cell Count 4.87 X10^6/uL (4.5-5.9); Red Cell Distribution Width 19.8 % (11.6-14.8); White Blood Cell Count 3.2 X10^3/uL (4.5-11.0)
[2019-07-22 08:46] LABS: INR 0.9 (0.9-1.3); Prothrombin Time 10.5 SECONDS (10.1-12.7)
[2019-07-22 08:51] LABS: Alanine Aminotransferase 26 IU/L (<50); Albumin 3.6 g/dL (3.5-5.0); Albumin Globulin Ratio 1.2 (1.0-2.8); Alkaline Phosphatase 69 U/L (38-126); Aspartate Aminotransferase 37 IU/L (17-59); BUN Creatinine Ratio 22.9 (6-22); Bilirubin Total 0.5 mg/dL (0.2-1.3); Blood Urea Nitrogen 16 mg/dL (9-20); Calcium 9.1 mg/dL (8.4-10.2); Carbon Dioxide 30 mmol/L (22-32); Chloride 102 mmol/L (98-107); Estimated Glomerular Filt Rate > 60.0 mL/min (>60); Globulin 2.9 g/dL (1.7-4.1); Glucose 108 mg/dL (80-110); HEMOLYSIS < 15 (0-50); Potassium 5.1 mmol/L (3.4-5.1); Sodium 137 mmol/L (137-145); Total Protein 6.5 g/dL (6.3-8.2)
== END ==
PROVIDERS: PCP Internal Medicine Hematology & Oncology; Referring Provider Internal Medicine Hematology & Oncology; Visit Provider Internal Medicine Hematology & Oncology
DX: C80.1 Malignant (primary) neoplasm, unspecified (principal); R18.8 Other ascites
CPT/HCPCS: 36415; 80053; 85025; 85610

== ENCOUNTER → 2019-07-25 10:22 | Outpatient (CLI) | payer MEDICARE, SELFPAY ==
--- NOTE | 2019-07-25 12:00 | DI.US.S_ITS ---
PROCEDURE: US PARACENTESIS INDICATIONS: METASTATIC CANCER UNKNOWN PRIMARY.ASCITES TECHNIQUE: The indications, alternatives, benefits, risks, and complications of the procedure were explained to the patient. Written informed consent was obtained and placed in the chart. The abdomen and pelvis were examined sonographically, and an appropriate site was chosen for paracentesis. The skin was prepared and draped in the usual sterile fashion, and 1% lidocaine was infiltrated from the skin down through the peritoneal surface. A 19-gauge catheter-covered needle was then introduced into the peritoneal space, the catheter was advanced and the needle was withdrawn, and thereafter peritoneal fluid was withdrawn. The catheter was then removed and a dressing was applied. The fluid was discarded if the clinician did not order diagnostic testing of the fluid. COMPARISON: [facility], [place], 07/18/2019, 9:26. FINDINGS: Access site: Right lower quadrant Needle: One-Step centesis catheter with introducer needle. Fluid volume and description: 5000 cc of serous fluid Fluid sent for diagnostic testing: Not requested Medications: 1% lidocaine for local anaesthesia. Complications: None. IMPRESSION: Successful ultrasound-guided paracentesis. Dictated by: German Chambers M.D. on 07/25/2019 at 16:34 Approved by: German Chambers M.D. on 07/25/2019 at 16:35
== END ==
PROVIDERS: PCP Internal Medicine Hematology & Oncology; Referring Provider Internal Medicine Hematology & Oncology; Visit Provider Internal Medicine Hematology & Oncology
DX: C80.1 Malignant (primary) neoplasm, unspecified (principal); R18.0 Malignant ascites
CPT/HCPCS: 49083

== ENCOUNTER → 2019-08-01 09:38 | Outpatient (CLI) | payer MEDICARE, SELFPAY ==
--- NOTE | 2019-08-01 09:40 | DI.US.S_ITS ---
PROCEDURE: US PARACENTESIS INDICATIONS: Malignant (primary) neoplasm, unspecified TECHNIQUE: The indications, alternatives, benefits, risks, and complications of the procedure were explained to the patient. Written informed consent was obtained and placed in the chart. The abdomen and pelvis were examined sonographically, and an appropriate site was chosen for paracentesis. The skin was prepared and draped in the usual sterile fashion, and 1% lidocaine was infiltrated from the skin down through the peritoneal surface. A 19-gauge catheter-covered needle was then introduced into the peritoneal space, the catheter was advanced and the needle was withdrawn, and thereafter peritoneal fluid was withdrawn. The catheter was then removed and a dressing was applied. The fluid was discarded if the clinician did not order diagnostic testing of the fluid. COMPARISON: [facility], , [place], 07/25/2019, 11:13. FINDINGS: Access site: Right lower quadrant Needle: One-Step centesis catheter with introducer needle. Fluid volume and description: 5000 cc of serous fluid Fluid sent for diagnostic testing: Not requested Medications: 1% lidocaine for local anaesthesia. Complications: None. IMPRESSION: Successful ultrasound-guided paracentesis. Dictated by: German Chabmers M.D. on 08/01/2019 at 12:25 Approved by: German Chambers M.D. on 08/01/2019 at 12:25
== END ==
PROVIDERS: PCP Internal Medicine Hematology & Oncology; Referring Provider Internal Medicine Hematology & Oncology; Visit Provider Internal Medicine Hematology & Oncology
DX: C80.1 Malignant (primary) neoplasm, unspecified (principal); R18.0 Malignant ascites
CPT/HCPCS: 49083

== ENCOUNTER → 2019-08-08 09:47 | Outpatient (CLI) | payer MEDICARE, SELFPAY ==
--- NOTE | 2019-08-08 | DI.US.S_ITS ---
PROCEDURE: US PARACENTESIS INDICATIONS: ASCITES TECHNIQUE: The indications, alternatives, benefits, risks, and complications of the procedure were explained to the patient. Written informed consent was obtained and placed in the chart. The abdomen and pelvis were examined sonographically, and an appropriate site was chosen for paracentesis. The skin was prepared and draped in the usual sterile fashion, and 1% lidocaine was infiltrated from the skin down through the peritoneal surface. A 19-gauge catheter-covered needle was then introduced into the peritoneal space, the catheter was advanced and the needle was withdrawn, and thereafter peritoneal fluid was withdrawn. The catheter was then removed and a dressing was applied. The fluid was discarded if the clinician did not order diagnostic testing of the fluid. COMPARISON: [facility], PARACENTESIS, 07/25/2019, 11:13. FINDINGS: Access site: Right lower abdomen Needle: One-Step centesis catheter with introducer needle. Fluid volume and description: 5000 mL; clear Fluid sent for diagnostic testing: Not requested Medications: 1% lidocaine for local anaesthesia. Complications: None. IMPRESSION: Successful ultrasound-guided paracentesis. Dictated by: Estella Rivera M.D. on 08/08/2019 at 15:46 Approved by: Estella Rivera M.D. on 08/08/2019 at 15:47
== END ==
PROVIDERS: PCP Internal Medicine Hematology & Oncology; Referring Provider Internal Medicine Hematology & Oncology; Visit Provider Internal Medicine Hematology & Oncology
DX: R18.0 Malignant ascites (principal); C78.6 Secondary malignant neoplasm of retroperitoneum and peritoneum; C80.1 Malignant (primary) neoplasm, unspecified
CPT/HCPCS: 49083

== ENCOUNTER → 2019-08-15 09:49 | Outpatient (CLI) | payer MEDICARE, SELFPAY ==
--- NOTE | 2019-08-15 | DI.US.S_ITS ---
PROCEDURE: US PARACENTESIS INDICATIONS: ASCITES TECHNIQUE: The indications, alternatives, benefits, risks, and complications of the procedure were explained to the patient. Written informed consent was obtained and placed in the chart. The abdomen and pelvis were examined sonographically, and an appropriate site was chosen for paracentesis. The skin was prepared and draped in the usual sterile fashion, and 1% lidocaine was infiltrated from the skin down through the peritoneal surface. A 19-gauge catheter-covered needle was then introduced into the peritoneal space, the catheter was advanced and the needle was withdrawn, and thereafter peritoneal fluid was withdrawn. The catheter was then removed and a dressing was applied. The fluid was discarded if the clinician did not order diagnostic testing of the fluid. COMPARISON: [facility], PARACENTESIS, 08/01/2019, 10:22. FINDINGS: Access site: Right lower quadrant Needle: One-Step centesis catheter with introducer needle. Fluid volume and description: 4500; clear. Fluid sent for diagnostic testing: Not requested Medications: 1% lidocaine for local anaesthesia. Complications: None. IMPRESSION: Successful ultrasound-guided paracentesis. Dictated by: Estella Rivera M.D. on 08/15/2019 at 11:25 Approved by: Estella Rivera M.D. on 08/15/2019 at 11:26
== END ==
PROVIDERS: PCP Internal Medicine Hematology & Oncology; Referring Provider Internal Medicine Hematology & Oncology; Visit Provider Internal Medicine Hematology & Oncology
DX: R18.0 Malignant ascites (principal)
CPT/HCPCS: 49083

== ENCOUNTER → 2019-08-21 08:30 | Outpatient (CLI) | payer MEDICARE, SELFPAY | PROVIDERS: Referring Provider Internal Medicine Hematology & Oncology; Visit Provider Internal Medicine Hematology & Oncology | DX: R18.0 Malignant ascites (principal); Z53.9 Procedure and treatment not carried out, unspecified reason ==

== ENCOUNTER → 2019-08-23 07:14 | Outpatient (CLI) | payer MEDICARE, SELFPAY ==
--- NOTE | 2019-08-23 | DI.US.S_ITS ---
PROCEDURE: US PARACENTESIS INDICATIONS: ASCITES TECHNIQUE: The indications, alternatives, benefits, risks, and complications of the procedure were explained to the patient. Written informed consent was obtained and placed in the chart. The abdomen and pelvis were examined sonographically, and an appropriate site was chosen for paracentesis. The skin was prepared and draped in the usual sterile fashion, and 1% lidocaine was infiltrated from the skin down through the peritoneal surface. A 19-gauge catheter-covered needle was then introduced into the peritoneal space, the catheter was advanced and the needle was withdrawn, and thereafter peritoneal fluid was withdrawn. The catheter was then removed and a dressing was applied. The fluid was discarded if the clinician did not order diagnostic testing of the fluid. COMPARISON: [facility], PARACENTESIS, 08/15/2019, 10:25. FINDINGS: Access site: Right lower quadrant Needle: One-Step centesis catheter with introducer needle. Fluid volume and description: 5000 cc of serous fluid Fluid sent for diagnostic testing: Not requested Medications: 1% lidocaine for local anaesthesia. Complications: None. IMPRESSION: Successful ultrasound-guided paracentesis. Dictated by: German Chambers M.D. on 08/23/2019 at 9:22 Approved by: German Chambers M.D. on 08/23/2019 at 9:23
== END ==
PROVIDERS: Referring Provider Internal Medicine Hematology & Oncology; Visit Provider Internal Medicine Hematology & Oncology
DX: R18.0 Malignant ascites (principal)
CPT/HCPCS: 49083

== ENCOUNTER → 2019-08-28 08:34 | Outpatient (CLI) | payer MEDICARE, SELFPAY ==
--- NOTE | 2019-08-28 | DI.US.S_ITS ---
PROCEDURE: US PARACENTESIS INDICATIONS: ASCITIES TECHNIQUE: The indications, alternatives, benefits, risks, and complications of the procedure were explained to the patient. Written informed consent was obtained and placed in the chart. The abdomen and pelvis were examined sonographically, and an appropriate site was chosen for paracentesis. The skin was prepared and draped in the usual sterile fashion, and 1% lidocaine was infiltrated from the skin down through the peritoneal surface. A 19-gauge catheter-covered needle was then introduced into the peritoneal space, the catheter was advanced and the needle was withdrawn, and thereafter peritoneal fluid was withdrawn. The catheter was then removed and a dressing was applied. The fluid was discarded if the clinician did not order diagnostic testing of the fluid. COMPARISON: None. FINDINGS: Access site: Left lower quadrant Needle: One-Step centesis catheter with introducer needle. Fluid volume and description: 5000 cc Fluid sent for diagnostic testing: Clear Medications: 1% lidocaine for local anaesthesia. Complications: None. IMPRESSION: Successful ultrasound-guided paracentesis. No immediate complications. Dictated by: Afua Alexander MD, PhD on 08/28/2019 at 13:00 Approved by: Afua Alexander MD, PhD on 08/28/2019 at 13:01
--- NOTE | 2019-08-28 09:28 | DI.CT.S_ITS ---
PROCEDURE: CT CHEST ABD PEL W CON INDICATIONS: Restaging metastatic adenocarcinoma of unknown primary TECHNIQUE: After the administration of oral and intravenous contrast, 5 mm thick sections acquired from the lung apices to the symphysis. 5 mm coronal and sagittal reformats were performed, with additional 7 mm coronal MIP reformats through the lungs. For radiation dose reduction, the following was used: automated exposure control, adjustment of mA and/or kV according to patient size. COMPARISON: [facility], CT, PE STUDY (CTA CHEST), 05/17/2017, 11:29. [facility], CT, ABDOMEN W&WO CONTRAST, 06/01/2017, 10:33. [facility], CT, CT ABDOMEN PELVIS W CON, 02/13/2019, 11:58. Located Within [facility] [place], NM PET CT FUSION SKULL 2 THIGH, 06/19/2019, 13:46. FINDINGS: Image quality: Excellent. CHEST: Lungs and pleura: No acute airspace opacities. No pleural effusions or pneumothorax. Central and peripheral airways appear patent and normal in caliber. Emphysematous changes are present. There is a new 4 mm nodule in the left lower lobe on series 3 image 211. Mediastinum: Heart size is normal. No pericardial effusion. No mediastinal or hilar adenopathy by size criteria. Thoracic aorta and central pulmonary arteries are normal in size. Esophagus is normal in caliber. No hiatal hernia. Chest wall: No axillary or supraclavicular adenopathy by size criteria. Thyroid gland is unremarkable. ABDOMEN: Solid organs: Liver demonstrates steatosis. There is mild nodular appearance. Gallbladder is unremarkable. Biliary system is non dilated. Pancreas enhances normally. Spleen is normal in size and enhancement. Bilateral adrenal masses are present with minimal interval increase in size measuring 17 mm and 23 mm transverse on the left and right respectively compared to 15 mm and 19 mm. D. left adrenal gland is lobular in mass with the more anterior component demonstrating a more marked interval increase in size measuring 19 mm AP by 25 mm transverse compared to 15 mm AP by 22 mm transverse. Kidneys demonstrate normal size and enhancement, with minimal appearance of bilateral hydronephrosis new compared to prior exam. Nonobstructing punctate right renal calculus is present. Peritoneum and bowel: Bowel loops are nonobstructive. There is persistent minimal perihepatic and perisplenic fluid. However, there has been marked interval decrease a previous abdominal and pelvic dependent fluid. There is prominent areas of mesenteric soft tissue thickening predominately along the anterior aspect. These areas were not well evaluated on prior exam secondary to overlying fluid. In addition, within the lower pelvis there is an overall thickened appearance of confluent bowel loops. Nodes and vessels: Previous retrocrural mass seen on series 2 image 58 has increased in size measuring 17 mm AP by 18 mm transverse compared to 13 mm x 9 mm. Aorta and inferior vena cava are normal in size. Miscellaneous: No ventral hernias. PELVIS: Genitourinary: Bladder wall thickness is normal. Miscellaneous: No inguinal hernias or adenopathy. Bones: No suspicious bony lesions. No vertebral body compression fractures. IMPRESSION: 1. New 4 mm left lower lobe nodule highly spicious or metastatic disease. 2. Decreased abdominal and pelvic fluid. 3. Persistent areas of soft tissue masses within the abdomen and pelvic mesentery most consistent with carcinomatosis. It is noted direct correlation compared to prior exam is difficult secondary to obscuration by overlying fluid and lack of contrast on prior exams. 4. Interval increase in size of bilateral adrenal masses as well as retrocrural mass. 5. Interval development of mild hydronephrosis bilaterally. This is felt to be secondary to a thickened confluent appearance of bowel loops and/or interspersed soft tissue within the lower pelvis through which the ureteral course traverses. This area of overall thickening is suspicious for confluent carcinomatosis. Dictated by: Germaine Paulino M.D. on 08/28/2019 at 12:08 Approved by: Germaine Paulino M.D. on 08/28/2019 at 12:40
== END ==
PROVIDERS: Referring Provider Internal Medicine Hematology & Oncology; Visit Provider Internal Medicine Hematology & Oncology
DX: C78.6 Secondary malignant neoplasm of retroperitoneum and peritoneum (principal); C80.1 Malignant (primary) neoplasm, unspecified; R18.0 Malignant ascites; R91.1 Solitary pulmonary nodule; K76.0 Fatty (change of) liver, not elsewhere classified; E27.9 Disorder of adrenal gland, unspecified; N20.0 Calculus of kidney; N13.30 Unspecified hydronephrosis
CPT/HCPCS: 49083; 71260; 74177; Q9967

== ENCOUNTER → 2019-09-04 08:56 | Outpatient (CLI) | payer MEDICARE, SELFPAY ==
--- NOTE | 2019-09-04 08:58 | DI.US.S_ITS ---
PROCEDURE: US PARACENTESIS INDICATIONS: ASCITIES TECHNIQUE: The indications, alternatives, benefits, risks, and complications of the procedure were explained to the patient. Written informed consent was obtained and placed in the chart. The abdomen and pelvis were examined sonographically, and an appropriate site was chosen for paracentesis. The skin was prepared and draped in the usual sterile fashion, and 1% lidocaine was infiltrated from the skin down through the peritoneal surface. A 19-gauge catheter-covered needle was then introduced into the peritoneal space, the catheter was advanced and the needle was withdrawn, and thereafter peritoneal fluid was withdrawn. The catheter was then removed and a dressing was applied. The fluid was discarded if the clinician did not order diagnostic testing of the fluid. COMPARISON: [facility], PARACENTESIS, 08/28/2019, 9:16. [facility], PARACENTESIS, 08/23/2019, 7:35. [facility], PARACENTESIS, 08/15/2019, 10:25. [facility], PARACENTESIS, 08/08/2019, 10:00. FINDINGS: Access site: Right lower quadrant Needle: One-Step centesis catheter with introducer needle. Fluid volume and description: 4400 cc of clear yellow fluid Fluid sent for diagnostic testing: No Medications: 1% lidocaine for local anaesthesia. Complications: None. IMPRESSION: Successful ultrasound-guided paracentesis. Dictated by: Lydia Ochoa M.D. on 09/04/2019 at 12:08 Approved by: Lydia Ochoa M.D. on 09/04/2019 at 12:09
== END ==
PROVIDERS: Referring Provider Internal Medicine Hematology & Oncology; Visit Provider Internal Medicine Hematology & Oncology
DX: R18.0 Malignant ascites (principal); C80.1 Malignant (primary) neoplasm, unspecified; C78.6 Secondary malignant neoplasm of retroperitoneum and peritoneum
CPT/HCPCS: 49083

== ENCOUNTER → 2019-09-11 08:37 | Outpatient (CLI) | payer MEDICARE, SELFPAY ==
--- NOTE | 2019-09-11 | DI.US.S_ITS ---
PROCEDURE: US PARACENTESIS INDICATIONS: ASCITES TECHNIQUE: The indications, alternatives, benefits, risks, and complications of the procedure were explained to the patient. Written informed consent was obtained and placed in the chart. The abdomen and pelvis were examined sonographically, and an appropriate site was chosen for paracentesis. The skin was prepared and draped in the usual sterile fashion, and 1% lidocaine was infiltrated from the skin down through the peritoneal surface. A 19-gauge catheter-covered needle was then introduced into the peritoneal space, the catheter was advanced and the needle was withdrawn, and thereafter peritoneal fluid was withdrawn. The catheter was then removed and a dressing was applied. The fluid was discarded if the clinician did not order diagnostic testing of the fluid. COMPARISON: [facility], PARACENTESIS, 09/04/2019, 9:37. [facility], PARACENTESIS, 08/28/2019, 9:16. FINDINGS: Access site: Right lateral abdomen/pelvis junction body wall Needle: One-Step centesis catheter with introducer needle. Fluid volume and description: 5000 cc serous. Fluid sent for diagnostic testing: Not requested Medications: 1% lidocaine for local anaesthesia. Complications: None. IMPRESSION: Successful ultrasound-guided paracentesis. Dictated by: Yong Blakely M.D. on 09/11/2019 at 10:35 Approved by: Yong Blakely M.D. on 09/11/2019 at 10:36
[2019-09-11 08:54] LABS: Add Manual Diff / Slide Review NO; Basophils Absolute Auto 0 /uL (0-100); Basophils Percent Auto 0.5 % (0-2); Eosinophils Absolute Auto 0 /uL (0-450); Eosinophils Percent Auto 1.7 % (2-4); Hematocrit 39.5 % (41-53); Hemoglobin 13.2 g/dL (13.5-17.5); Lymphocytes Absolute Auto 700 /uL (1100-4500); Lymphocytes Percent Auto 25.9 % (25-40); Mean Corpuscular HGB Conc 33.5 % (30-36); Mean Corpuscular Hemoglobin 31.3 PG (26-34); Mean Corpuscular Volume 93.6 fL (80-100); Monocytes Absolute Auto 600 /uL (0-900); Monocytes Percent Auto 20.6 % (3-14); Neutrophils Absolute Auto 1500 /uL (1500-7000); Neutrophils Percent Auto 51.3 % (50-75); Platelet Count 213 X10^3/uL (150-400); Red Blood Cell Count 4.23 X10^6/uL (4.5-5.9); Red Cell Distribution Width 17.3 % (11.6-14.8); White Blood Cell Count 2.9 X10^3/uL (4.5-11.0)
[2019-09-11 09:05] LABS: Alanine Aminotransferase 21 IU/L (<50); Albumin 3.5 g/dL (3.5-5.0); Albumin Globulin Ratio 1.2 (1.0-2.8); Alkaline Phosphatase 75 U/L (38-126); Aspartate Aminotransferase 35 IU/L (17-59); BUN Creatinine Ratio 24.6 (6-22); Bilirubin Total 0.3 mg/dL (0.2-1.3); Blood Urea Nitrogen 17 mg/dL (9-20); Carbon Dioxide 29 mmol/L (22-32); Chloride 104 mmol/L (98-107); Estimated Glomerular Filt Rate > 60.0 mL/min (>60); Glucose 111 mg/dL (80-110); HEMOLYSIS < 15 (0-50); Potassium 4.9 mmol/L (3.4-5.1); Sodium 137 mmol/L (137-145); Total Protein 6.5 g/dL (6.3-8.2)
[2019-09-11 09:36] LABS: Carcinoembryonic Antigen 2.1 ng/mL (0.1-3.0)
== END ==
PROVIDERS: Referring Provider Internal Medicine Hematology & Oncology; Visit Provider Internal Medicine Hematology & Oncology
DX: C78.6 Secondary malignant neoplasm of retroperitoneum and peritoneum (principal); R18.0 Malignant ascites; C80.1 Malignant (primary) neoplasm, unspecified
CPT/HCPCS: 36415; 49083; 80053; 82378; 85025

== ENCOUNTER → 2019-09-18 08:42 | Outpatient (CLI) | payer MEDICARE, SELFPAY ==
--- NOTE | 2019-09-18 08:46 | DI.US.S_ITS ---
PROCEDURE: US PARACENTESIS INDICATIONS: MALIGNANT ASCITIES TECHNIQUE: The indications, alternatives, benefits, risks, and complications of the procedure were explained to the patient. Written informed consent was obtained and placed in the chart. The abdomen and pelvis were examined sonographically, and an appropriate site was chosen for paracentesis. The skin was prepared and draped in the usual sterile fashion, and 1% lidocaine was infiltrated from the skin down through the peritoneal surface. A 19-gauge catheter-covered needle was then introduced into the peritoneal space, the catheter was advanced and the needle was withdrawn, and thereafter peritoneal fluid was withdrawn. The catheter was then removed and a dressing was applied. The fluid was discarded if the clinician did not order diagnostic testing of the fluid. COMPARISON: [facility], PARACENTESIS, 09/11/2019, 8:58. FINDINGS: Access site: Right lower quadrant Needle: One-Step centesis catheter with introducer needle. Fluid volume and description: 5 L of clear light straw-colored ascites. Fluid sent for diagnostic testing: None sent for testing. Medications: 1% lidocaine for local anaesthesia. Complications: None. IMPRESSION: Successful ultrasound-guided paracentesis. Dictated by: Lam Rai M.D. on 09/18/2019 at 10:58 Approved by: Lam Rai M.D. on 09/18/2019 at 10:59
== END ==
PROVIDERS: Referring Provider Internal Medicine Hematology & Oncology; Visit Provider Internal Medicine Hematology & Oncology
DX: C78.6 Secondary malignant neoplasm of retroperitoneum and peritoneum (principal); R18.0 Malignant ascites; C80.1 Malignant (primary) neoplasm, unspecified
CPT/HCPCS: 49083

== ENCOUNTER → 2019-09-25 11:47 | Outpatient (CLI) | payer MEDICARE, SELFPAY ==
[2019-09-25] VITALS (10 sets, daily range): BP systolic 101–148; BP diastolic 61–84; PULSE 77–95; RESP 15–17; TEMP 36.7–37.2; O2SAT 96–100; BMI 26.3
--- NOTE | 2019-09-25 | PATH_ITS ---
[facility] Accession Number: [id number] . 01 Material submitted: . body - OMENTAL CARCINOMATOSIS . 01 Clinical history: . CARCINOMA OMENTAL CARCINOMATOSIS ETIOLOGY UNCERTAIN . 01 Diagnosis: Omentum, Image-Guided Core Biopsy: Invasive epithelioid malignancy, representing either poorly differentiated carcinoma versus epithelioid mesothelioma (see comment). [facility] 10/01/2019 1653 Local . 01 Comment: The core biopsies are scant and contain fibroadipose tissue infiltrated by discohesive irregular nests or cords of an epithelioid malignancy. A panel of *immunostains is obtained to define the cell lineage/site of origin, with controls stained appropriately. The tumor cells show the following results: . Cytokeratin 7: Uniformly positive. Cytokeratin 20: Negative. MOC-31: Variably positive. Mike-EP4: Variably positive. WT1: Variably positive. Calretinin: Uniformly positive. D2-40: Focally positive. P40: Negative. SATB2: Negative. Villin: Negative. TTF-1: Negative. Napsin: Negative. LEIGHTON-3: Negative. PAX-8: Negative. PSA: Negative. Arginase: Negative. SALL4: Negative. . This immunophenotype exhibits overlapping features between the possibilities of a carcinoma and a mesothelioma, given coexpression of the carcinoma markers MOC-31/Mike-EP4 and the mesothelioma markers WT1/calretinin/D2-40, respectively. This immunophenotype, therefore, does not allow the distinction between those two entities. Furthermore, with regard to specific possible sites of origin of a carcinoma, all of the organ specific markers in this case are negative, which rules against but does not exclude any of those sites indicated. Specifically, there is no evidence for origin from an adenocarcinoma of gastrointestinal tract (negative villin/SATB2, [negative SATB2 also rules against the possibility of metastasis from the patient's known rectal carcinoma, including a colorectal carcinoma associated with a deficiency in mismatch repair proteins]), lung (negative TTF-1/napsin) or prostate (negative PSA). Also, there is no evidence for a urothelial carcinoma (negative LEIGHTON-3) or squamous differentiation (negative p40). Furthermore, there is no evidence for metastasis from a renal cell (negative PAX8) or hepatocellular (negative arginase) carcinoma, and there is no evidence for a germ cell tumor (negative SALL4). . These results are discussed by Dr. Ayers with Dr. Keith on 10/01/2019 at 1 p.m. . * This test was developed and its performance characteristics determined by [employer].. It has not been cleared or approved by the U.S. Food and Drug Administration. The FDA has determined that such clearance or approval is not necessary. This test is used for clinical purposes. It should not be regarded as investigational or for research. . 01 Electronically signed: . Cele Ayers MD, Pathologist NPI- [id number] . 01 Gross description: . NO SITE DESIGNATED: Received in formalin are multiple fragment(s) of vieyra, soft tissue measuring 0.1 x 0.1 x 0.1 cm to 0.3 x 0.1 x 0.1 cm submitted entirely in 1 cassette(s) /[facility] [place] 09/25/2019 2113 Local . 01 Pathologist provided ICD-10: C48.1 . 01 CPT . 312326, K43290, D64381 Performed at: 01 [facility] [address] [place] [address] [address], [place], [place] [id number] MD Anderson Rodriguez MD Phone: [phone]
--- NOTE | 2019-09-25 11:50 | DI.US.S_ITS ---
PROCEDURE: US PARACENTESIS INDICATIONS: MALIGNANT ASCITES TECHNIQUE: The indications, alternatives, benefits, risks, and complications of the procedure were explained to the patient. Written informed consent was obtained and placed in the chart. The abdomen and pelvis were examined sonographically, and an appropriate site was chosen for paracentesis. The skin was prepared and draped in the usual sterile fashion, and 1% lidocaine was infiltrated from the skin down through the peritoneal surface. A 19-gauge catheter-covered needle was then introduced into the peritoneal space, the catheter was advanced and the needle was withdrawn, and thereafter peritoneal fluid was withdrawn. The catheter was then removed and a dressing was applied. The fluid was discarded if the clinician did not order diagnostic testing of the fluid. COMPARISON: [facility], PARACENTESIS, 09/18/2019, 9:13. [facility], PARACENTESIS, 09/11/2019, 8:58. FINDINGS: Access site: Right lower quadrant Needle: One-Step centesis catheter with introducer needle. Fluid volume and description: 5000 cc, serosanguineous Fluid sent for diagnostic testing: Not requested Medications: 1% lidocaine for local anaesthesia. Complications: None. IMPRESSION: Successful ultrasound-guided paracentesis. Dictated by: Yong Blakely M.D. on 09/25/2019 at 16:33 Approved by: Yong Blakely M.D. on 09/25/2019 at 16:33
--- NOTE | 2019-09-25 13:56 | DI.CT.S_ITS ---
PROCEDURE: CT BIOPSY ABDOMEN PERCUTANEOUS Sedation analgesia for 30 minutes. INDICATIONS: carcinomatosis of unknow origin TECHNIQUE: The indications, alternatives, benefits, risks, and possible complications of the procedure were communicated to the patient. Informed written consent from the patient was obtained and placed in the chart. Continuous EKG and hemodynamic monitoring was started by trained personnel. The patient was brought to the CT suite and curator of manuscripts spiral CT imaging was performed with localization grid. The appropriate site for percutaneous access to the biopsy target was marked, was prepped and draped sterilely, and was infused with local anaesthesia. Under CT guidance, a core biopsy trocar and needle set was advanced to the biopsy target, and specimen(s) were obtained. The trocar and needle were then removed, and the patient was sent for post-procedure monitoring. COMPARISON: None. FINDINGS: Biopsy site: Omental mass just to the left of midline, approximately at the axial level of the mid kidneys anteriorly. Needle: 20 gauge biopsy needle with introducer trocar. Number of passes: 6 Medications: 1% lidocaine for local anaesthesia. IV Fentanyl and Versed for conscious sedation for 30 minutes (see nursing record). Complications: None. IMPRESSION: Successful CT-guided biopsy of omental mass in the setting of malignant ascites and nonspecific diagnosis by cytology evaluation. Dictated by: Yong Blakely M.D. on 09/25/2019 at 16:30 Approved by: Yong Blakely M.D. on 09/25/2019 at 16:33
[2019-09-25] MEDS: MIDAZOLAM 2 MG/2 ML VIAL 1 MG IV (14:03)
[2019-09-25] MEDS: fentaNYL 100 MCG/2 ML INJ 50 MCG IV (14:04)
== END ==
PROVIDERS: Referring Provider Internal Medicine Hematology & Oncology; Visit Provider Internal Medicine Hematology & Oncology
PROC: BR2CZZZ Computerized Tomography (CT Scan) of Pelvis (ICD-10-PCS; CPT 77012; principal; 2019-09-25 13:00)
DX: C78.6 Secondary malignant neoplasm of retroperitoneum and peritoneum (principal); C80.1 Malignant (primary) neoplasm, unspecified; R18.0 Malignant ascites
CPT/HCPCS: 49083; 49180; 77012; J2250; J3010

== ENCOUNTER → 2019-10-02 08:49 | Outpatient (CLI) | payer MEDICARE, SELFPAY ==
--- NOTE | 2019-10-02 08:51 | DI.US.S_ITS ---
PROCEDURE: US PARACENTESIS INDICATIONS: MALIGNANT ASCITIES TECHNIQUE: The indications, alternatives, benefits, risks, and complications of the procedure were explained to the patient. Written informed consent was obtained and placed in the chart. The abdomen and pelvis were examined sonographically, and an appropriate site was chosen for paracentesis. The skin was prepared and draped in the usual sterile fashion, and 1% lidocaine was infiltrated from the skin down through the peritoneal surface. A 19-gauge catheter-covered needle was then introduced into the peritoneal space, the catheter was advanced and the needle was withdrawn, and thereafter peritoneal fluid was withdrawn. The catheter was then removed and a dressing was applied. The fluid was discarded if the clinician did not order diagnostic testing of the fluid. COMPARISON: [facility], CT, CT BIOPSY ABDOMEN PERCUTANEOUS, 09/25/2019, 13:29. [facility], US, US PARACENTESIS, 09/25/2019, 14:14. FINDINGS: Access site: Right lower quadrant Needle: One-Step centesis catheter with introducer needle. Fluid volume and description: 5000 cc of serosanguineous ascites Fluid sent for diagnostic testing: Not requested Medications: 1% lidocaine for local anaesthesia. Complications: None. IMPRESSION: Successful ultrasound-guided paracentesis. Dictated by: German Chambers M.D. on 10/02/2019 at 13:17 Approved by: German Chambers M.D. on 10/02/2019 at 13:19
== END ==
PROVIDERS: Referring Provider Internal Medicine Hematology & Oncology; Visit Provider Internal Medicine Hematology & Oncology
DX: C80.1 Malignant (primary) neoplasm, unspecified (principal); C78.6 Secondary malignant neoplasm of retroperitoneum and peritoneum; R18.0 Malignant ascites
CPT/HCPCS: 49083

== ENCOUNTER → 2019-10-09 10:33 | Outpatient (CLI) | payer MEDICARE, SELFPAY ==
--- NOTE | 2019-10-09 10:34 | DI.US.S_ITS ---
PROCEDURE: US PARACENTESIS INDICATIONS: MALIGNANT ASCITES TECHNIQUE: The indications, alternatives, benefits, risks, and complications of the procedure were explained to the patient. Written informed consent was obtained and placed in the chart. The abdomen and pelvis were examined sonographically, and an appropriate site was chosen for paracentesis. The skin was prepared and draped in the usual sterile fashion, and 1% lidocaine was infiltrated from the skin down through the peritoneal surface. A 19-gauge catheter-covered needle was then introduced into the peritoneal space, the catheter was advanced and the needle was withdrawn, and thereafter peritoneal fluid was withdrawn. The catheter was then removed and a dressing was applied. The fluid was discarded if the clinician did not order diagnostic testing of the fluid. COMPARISON: [facility], PARACENTESIS, 10/02/2019, 9:10. [facility], PARACENTESIS, 09/25/2019, 14:14. FINDINGS: Access site: Right lower abdominal/pelvic junction lateral body wall. Needle: One-Step centesis catheter with introducer needle. Fluid volume and description: 5000 cc serous, without complaint or complication. Fluid sent for diagnostic testing: Not requested Medications: 1% lidocaine for local anaesthesia. Complications: None. IMPRESSION: Successful ultrasound-guided paracentesis. Dictated by: Yong Blakely M.D. on 10/09/2019 at 12:41 Approved by: Yong Blakely M.D. on 10/09/2019 at 12:41
== END ==
PROVIDERS: Referring Provider Internal Medicine Hematology & Oncology; Visit Provider Internal Medicine Hematology & Oncology
DX: C80.1 Malignant (primary) neoplasm, unspecified (principal); R18.0 Malignant ascites
CPT/HCPCS: 49083

== ENCOUNTER → 2019-10-17 13:40 | Outpatient (CLI) | payer MEDICARE, SELFPAY ==
--- NOTE | 2019-10-17 13:41 | DI.US.S_ITS ---
PROCEDURE: US PARACENTESIS INDICATIONS: malignant ascites TECHNIQUE: The indications, alternatives, benefits, risks, and complications of the procedure were explained to the patient. Written informed consent was obtained and placed in the chart. The abdomen and pelvis were examined sonographically, and an appropriate site was chosen for paracentesis. The skin was prepared and draped in the usual sterile fashion, and 1% lidocaine was infiltrated from the skin down through the peritoneal surface. A 19-gauge catheter-covered needle was then introduced into the peritoneal space, the catheter was advanced and the needle was withdrawn, and thereafter peritoneal fluid was withdrawn. The catheter was then removed and a dressing was applied. The fluid was discarded if the clinician did not order diagnostic testing of the fluid. COMPARISON: [facility], PARACENTESIS, 10/09/2019, 10:49. [facility], PARACENTESIS, 10/02/2019, 9:10. FINDINGS: Access site: Left lower quadrant anterolateral body wall Needle: One-Step centesis catheter with introducer needle. Fluid volume and description: 5000 cc, generally clear with a slight serous coloration. Fluid sent for diagnostic testing: Not requested Medications: 1% lidocaine for local anaesthesia. Complications: None. IMPRESSION: Successful ultrasound-guided paracentesis. Dictated by: Yong Blakely M.D. on 10/17/2019 at 15:56 Approved by: Yong Blakely M.D. on 10/17/2019 at 15:56
[2019-10-17 15:29] LABS: Add Manual Diff / Slide Review NO; Basophils Absolute Auto 0 /uL (0-100); Basophils Percent Auto 0.5 % (0-2); Eosinophils Absolute Auto 0 /uL (0-450); Eosinophils Percent Auto 1.3 % (2-4); Hematocrit 34.3 % (41-53); Hemoglobin 11.8 g/dL (13.5-17.5); Lymphocytes Absolute Auto 700 /uL (1100-4500); Lymphocytes Percent Auto 20.4 % (25-40); Mean Corpuscular HGB Conc 34.3 % (30-36); Mean Corpuscular Hemoglobin 32.4 PG (26-34); Mean Corpuscular Volume 94.5 fL (80-100); Monocytes Absolute Auto 300 /uL (0-900); Monocytes Percent Auto 9.6 % (3-14); Neutrophils Absolute Auto 2400 /uL (1500-7000); Neutrophils Percent Auto 68.2 % (50-75); Platelet Count 165 X10^3/uL (150-400); Red Blood Cell Count 3.63 X10^6/uL (4.5-5.9); Red Cell Distribution Width 16.3 % (11.6-14.8); White Blood Cell Count 3.6 X10^3/uL (4.5-11.0)
[2019-10-17 15:42] LABS: Alanine Aminotransferase 24 IU/L (<50); Albumin 3.3 g/dL (3.5-5.0); Albumin Globulin Ratio 1.2 (1.0-2.8); Alkaline Phosphatase 68 U/L (38-126); Aspartate Aminotransferase 36 IU/L (17-59); BUN Creatinine Ratio 23.4 (6-22); Bilirubin Total 0.2 mg/dL (0.2-1.3); Blood Urea Nitrogen 18 mg/dL (9-20); Calcium 8.8 mg/dL (8.4-10.2); Carbon Dioxide 31 mmol/L (22-32); Chloride 104 mmol/L (98-107); Estimated Glomerular Filt Rate > 60.0 mL/min (>60); Globulin 2.8 g/dL (1.7-4.1); Glucose 99 mg/dL (80-110); HEMOLYSIS < 15 (0-50); Potassium 4.8 mmol/L (3.4-5.1); Sodium 137 mmol/L (137-145); Total Protein 6.1 g/dL (6.3-8.2)
== END ==
PROVIDERS: Referring Provider Internal Medicine Hematology & Oncology; Visit Provider Internal Medicine Hematology & Oncology
DX: C80.1 Malignant (primary) neoplasm, unspecified (principal); R18.0 Malignant ascites
CPT/HCPCS: 36415; 49083; 80053; 85025

== ENCOUNTER → 2019-10-23 08:47 | Outpatient (CLI) | payer MEDICARE, SELFPAY ==
--- NOTE | 2019-10-23 | DI.US.S_ITS ---
PROCEDURE: US PARACENTESIS INDICATIONS: ASCITIES TECHNIQUE: The indications, alternatives, benefits, risks, and complications of the procedure were explained to the patient. Written informed consent was obtained and placed in the chart. The abdomen and pelvis were examined sonographically, and an appropriate site was chosen for paracentesis. The skin was prepared and draped in the usual sterile fashion, and 1% lidocaine was infiltrated from the skin down through the peritoneal surface. A 19-gauge catheter-covered needle was then introduced into the peritoneal space, the catheter was advanced and the needle was withdrawn, and thereafter peritoneal fluid was withdrawn. The catheter was then removed and a dressing was applied. The fluid was discarded if the clinician did not order diagnostic testing of the fluid. COMPARISON: None. FINDINGS: Access site: Right lower abdomen Needle: One-Step centesis catheter with introducer needle. Fluid volume and description: 5000 cc of serosanguineous fluid Fluid sent for diagnostic testing: Not requested Medications: 1% lidocaine for local anaesthesia. Complications: None. IMPRESSION: Successful ultrasound-guided paracentesis. No immediate complications. Dictated by: Afua Alexander MD, PhD on 10/23/2019 at 14:08 Approved by: Afua Alexander MD, PhD on 10/23/2019 at 14:09
--- NOTE | 2019-10-23 08:49 | DI.CT.S_ITS ---
PROCEDURE: CT CHEST ABD PEL W CON INDICATIONS: Restaging carcinomatosis of unknown primary TECHNIQUE: After the administration of oral and intravenous contrast, 5 mm thick sections acquired from the lung apices to the symphysis. 5 mm coronal and sagittal reformats were performed, with additional 7 mm coronal MIP reformats through the lungs. For radiation dose reduction, the following was used: automated exposure control, adjustment of mA and/or kV according to patient size. COMPARISON: [facility], CT, CT ABDOMEN PELVIS W CON, 02/13/2019, 11:58. [place], [place], [place] PET CT FUSION SKULL 2 THIGH, 03/27/2019, 17:20. [place] CT FUSION SKULL 2 THIGH, 06/19/2019, 13:46. [facility], CT, CT CHEST ABD PEL W CON, 08/28/2019, 9:26. FINDINGS: Image quality: Excellent. CHEST: Lungs and pleura: The 4 mm in the left lower lobe appears unchanged in size. There is right basilar atelectasis and scarring. No acute airspace opacities. No pleural effusions or pneumothorax. Central and peripheral airways appear patent and normal in caliber. Mediastinum: Heart size is normal. No pericardial effusion. No mediastinal or hilar adenopathy by size criteria. Thoracic aorta and central pulmonary arteries are normal in size. Esophagus is normal in caliber. No hiatal hernia. Chest wall: No axillary or supraclavicular adenopathy by size criteria. Thyroid gland is normal. There is a Port-A-Cath in the right anterior chest. ABDOMEN: Solid organs: Liver demonstrates nodular contour suggesting cirrhosis. Gallbladder is normal. Biliary system is non dilated. Pancreas enhances normally. Spleen is normal in size and enhancement. Bilateral adrenal nodules are again noted, measuring 1.9 x 2.2 cm on the right and 1.8 x 3.8 cm on the left, unchanged in size. Kidneys demonstrate normal size and enhancement. Trace hydronephrosis bilaterally appears unchanged. There is a 3 mm no stones in right kidney. Peritoneum and bowel: There is a moderate amount of ascites, increased since the last exam. There is omental caking consistent with carcinomatosis. Bowel loops demonstrate normal wall thickness and caliber. There is a large amount of stool in colon. No free air. Nodes and vessels: No retroperitoneal or mesenteric adenopathy by size criteria. Aorta and inferior vena cava are normal in size. Miscellaneous: No ventral hernias. PELVIS: Genitourinary: Bladder wall thickness is normal. Miscellaneous: No inguinal hernias or adenopathy. Bones: Small indeterminate sclerotic foci are noted in iliac bones bilaterally. No vertebral body compression fractures. IMPRESSION: 1. Stable 4 mm pulmonary nodule in the left lower lobe. 2. 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 3. Bilateral adrenal nodules are stable. 4. Nodular contour liver suggestive cirrhosis. Dictated by: Estella Rivera M.D. on 10/23/2019 at 17:14 Approved by: Estella Rivera M.D. on 10/24/2019 at 7:45
== END ==
PROVIDERS: PCP Student in an Organized Health Care Education/Training Program; Referring Provider Internal Medicine Hematology & Oncology; Visit Provider Internal Medicine Hematology & Oncology
DX: C80.1 Malignant (primary) neoplasm, unspecified (principal); C78.6 Secondary malignant neoplasm of retroperitoneum and peritoneum; R18.0 Malignant ascites; E27.9 Disorder of adrenal gland, unspecified; R91.1 Solitary pulmonary nodule
CPT/HCPCS: 49083; 71260; 74177; Q9967

== ENCOUNTER → 2019-10-30 08:51 | Outpatient (CLI) | payer MEDICARE, SELFPAY ==
--- NOTE | 2019-10-30 | DI.US.S_ITS ---
PROCEDURE: US PARACENTESIS INDICATIONS: ASCITES TECHNIQUE: The indications, alternatives, benefits, risks, and complications of the procedure were explained to the patient. Written informed consent was obtained and placed in the chart. The abdomen and pelvis were examined sonographically, and an appropriate site was chosen for paracentesis. The skin was prepared and draped in the usual sterile fashion, and 1% lidocaine was infiltrated from the skin down through the peritoneal surface. A 19-gauge catheter-covered needle was then introduced into the peritoneal space, the catheter was advanced and the needle was withdrawn, and thereafter peritoneal fluid was withdrawn. The catheter was then removed and a dressing was applied. The fluid was discarded if the clinician did not order diagnostic testing of the fluid. COMPARISON: [facility], PARACENTESIS, 10/23/2019, 9:20. FINDINGS: Access site: Right lower abdomen Needle: One-Step centesis catheter with introducer needle. Fluid volume and description: 5000 cc of serosanguineous fluid Fluid sent for diagnostic testing: Not requested Medications: 1% lidocaine for local anaesthesia. Complications: None. IMPRESSION: Successful ultrasound-guided paracentesis. No immediate complications. Dictated by: Afua Alexander MD, PhD on 10/30/2019 at 11:21 Approved by: Afua Alexander MD, PhD on 10/30/2019 at 11:23
== END ==
PROVIDERS: Referring Provider Internal Medicine Hematology & Oncology; Visit Provider Internal Medicine Hematology & Oncology
DX: R18.0 Malignant ascites (principal); C78.6 Secondary malignant neoplasm of retroperitoneum and peritoneum; C80.1 Malignant (primary) neoplasm, unspecified
CPT/HCPCS: 49083

== ENCOUNTER → 2019-11-06 08:34 | Outpatient (CLI) | payer MEDICARE, SELFPAY ==
--- NOTE | 2019-11-06 08:38 | DI.US.S_ITS ---
PROCEDURE: US PARACENTESIS INDICATIONS: ASCITES TECHNIQUE: The indications, alternatives, benefits, risks, and complications of the procedure were explained to the patient. Written informed consent was obtained and placed in the chart. The abdomen and pelvis were examined sonographically, and an appropriate site was chosen for paracentesis. The skin was prepared and draped in the usual sterile fashion, and 1% lidocaine was infiltrated from the skin down through the peritoneal surface. A 19-gauge catheter-covered needle was then introduced into the peritoneal space, the catheter was advanced and the needle was withdrawn, and thereafter peritoneal fluid was withdrawn. The catheter was then removed and a dressing was applied. The fluid was discarded if the clinician did not order diagnostic testing of the fluid. COMPARISON: [facility], PARACENTESIS, 10/30/2019, 9:02. [facility], PARACENTESIS, 10/23/2019, 9:20. FINDINGS: Access site: Right pelvis anterolateral body wall Needle: One-Step centesis catheter with introducer needle. Fluid volume and description: 5000 cc, clear serous fluid Fluid sent for diagnostic testing: Not requested Medications: 1% lidocaine for local anaesthesia. Complications: None. IMPRESSION: Successful ultrasound-guided paracentesis. Dictated by: Yong Blakely M.D. on 11/06/2019 at 11:33 Approved by: Yong Blakely M.D. on 11/06/2019 at 11:35
[2019-11-06 09:38] LABS: Add Manual Diff / Slide Review NO; Basophils Absolute Auto 0 /uL (0-100); Basophils Percent Auto 0.5 % (0-2); Eosinophils Absolute Auto 200 /uL (0-450); Eosinophils Percent Auto 3.3 % (2-4); Hematocrit 36.8 % (41-53); Hemoglobin 12.4 g/dL (13.5-17.5); Lymphocytes Absolute Auto 900 /uL (1100-4500); Lymphocytes Percent Auto 17.5 % (25-40); Mean Corpuscular HGB Conc 33.7 % (30-36); Mean Corpuscular Hemoglobin 32.3 PG (26-34); Mean Corpuscular Volume 95.6 fL (80-100); Monocytes Absolute Auto 600 /uL (0-900); Monocytes Percent Auto 12.3 % (3-14); Neutrophils Absolute Auto 3400 /uL (1500-7000); Neutrophils Percent Auto 66.4 % (50-75); Platelet Count 231 X10^3/uL (150-400); Red Blood Cell Count 3.85 X10^6/uL (4.5-5.9); Red Cell Distribution Width 16.6 % (11.6-14.8); White Blood Cell Count 5.2 X10^3/uL (4.5-11.0)
[2019-11-06 09:41] LABS: INR 0.9 (0.9-1.3); Prothrombin Time 10.8 SECONDS (10.1-12.7)
[2019-11-06 09:44] LABS: PTT Partial Thromboplastin Tim 30 SECONDS (26.4-36.2)
[2019-11-06 09:48] LABS: Alanine Aminotransferase 23 IU/L (<50); Albumin 3.2 g/dL (3.5-5.0); Albumin Globulin Ratio 1.1 (1.0-2.8); Alkaline Phosphatase 72 U/L (38-126); Aspartate Aminotransferase 44 IU/L (17-59); BUN Creatinine Ratio 21.6 (6-22); Bilirubin Total 0.3 mg/dL (0.2-1.3); Blood Urea Nitrogen 16 mg/dL (9-20); Carbon Dioxide 30 mmol/L (22-32); Chloride 103 mmol/L (98-107); Estimated Glomerular Filt Rate > 60.0 mL/min (>60); Globulin 2.9 g/dL (1.7-4.1); Glucose 106 mg/dL (80-110); HEMOLYSIS < 15 (0-50); Potassium 4.5 mmol/L (3.4-5.1); Sodium 137 mmol/L (137-145); Total Protein 6.1 g/dL (6.3-8.2)
== END ==
PROVIDERS: Referring Provider Internal Medicine Hematology & Oncology; Visit Provider Internal Medicine Hematology & Oncology
DX: C80.1 Malignant (primary) neoplasm, unspecified (principal); R18.0 Malignant ascites
CPT/HCPCS: 36415; 49083; 80053; 82378; 85025; 85610; 85730

== ENCOUNTER → 2019-11-13 08:36 | Outpatient (CLI) | payer MEDICARE, SELFPAY ==
--- NOTE | 2019-11-13 08:37 | DI.US.S_ITS ---
PROCEDURE: US PARACENTESIS INDICATIONS: ASCITES TECHNIQUE: The indications, alternatives, benefits, risks, and complications of the procedure were explained to the patient. Written informed consent was obtained and placed in the chart. The abdomen and pelvis were examined sonographically, and an appropriate site was chosen for paracentesis. The skin was prepared and draped in the usual sterile fashion, and 1% lidocaine was infiltrated from the skin down through the peritoneal surface. A 19-gauge catheter-covered needle was then introduced into the peritoneal space, the catheter was advanced and the needle was withdrawn, and thereafter peritoneal fluid was withdrawn. The catheter was then removed and a dressing was applied. The fluid was discarded if the clinician did not order diagnostic testing of the fluid. COMPARISON: [facility], PARACENTESIS, 11/06/2019, 9:03. FINDINGS: Access site: Right lower quadrant Needle: One-Step centesis catheter with introducer needle. Fluid volume and description: 5 L, Straw-colored. Fluid sent for diagnostic testing: None. Medications: 1% lidocaine for local anaesthesia. Complications: None. Procedure well tolerated. IMPRESSION: Successful ultrasound-guided therapeutic paracentesis. 5 L removed. Dictated by: Moshe Xavier M.D. on 11/13/2019 at 10:30 Approved by: Moshe Xavier M.D. on 11/13/2019 at 10:31
== END ==
PROVIDERS: Referring Provider Internal Medicine Hematology & Oncology; Visit Provider Internal Medicine Hematology & Oncology
DX: C78.6 Secondary malignant neoplasm of retroperitoneum and peritoneum (principal); C80.1 Malignant (primary) neoplasm, unspecified; R18.0 Malignant ascites
CPT/HCPCS: 49083

== ENCOUNTER → 2019-11-20 08:28 | Outpatient (CLI) | payer MEDICARE, SELFPAY ==
--- NOTE | 2019-11-20 08:30 | DI.US.S_ITS ---
PROCEDURE: US PARACENTESIS INDICATIONS: ASCITIES TECHNIQUE: The indications, alternatives, benefits, risks, and complications of the procedure were explained to the patient. Written informed consent was obtained and placed in the chart. The abdomen and pelvis were examined sonographically, and an appropriate site was chosen for paracentesis. The skin was prepared and draped in the usual sterile fashion, and 1% lidocaine was infiltrated from the skin down through the peritoneal surface. A 19-gauge catheter-covered needle was then introduced into the peritoneal space, the catheter was advanced and the needle was withdrawn, and thereafter peritoneal fluid was withdrawn. The catheter was then removed and a dressing was applied. The fluid was discarded if the clinician did not order diagnostic testing of the fluid. COMPARISON: [facility], PARACENTESIS, 11/13/2019, 9:02. FINDINGS: Access site: Right lower quadrant Needle: One-Step centesis catheter with introducer needle. Fluid volume and description: 4500 cc of serous ascites Fluid sent for diagnostic testing: Not requested Medications: 1% lidocaine for local anaesthesia. Complications: None. IMPRESSION: Successful ultrasound-guided paracentesis. Dictated by: German Chambers M.D. on 11/20/2019 at 11:33 Approved by: German Chambers M.D. on 11/20/2019 at 11:34
== END ==
PROVIDERS: Referring Provider Internal Medicine Hematology & Oncology; Visit Provider Internal Medicine Hematology & Oncology
DX: C78.6 Secondary malignant neoplasm of retroperitoneum and peritoneum (principal); C80.1 Malignant (primary) neoplasm, unspecified; R18.0 Malignant ascites
CPT/HCPCS: 49083

== ENCOUNTER → 2019-11-27 08:51 | Outpatient (CLI) | payer MEDICARE, SELFPAY ==
--- NOTE | 2019-11-27 08:52 | DI.US.S_ITS ---
PROCEDURE: US PARACENTESIS INDICATIONS: ASCITIES TECHNIQUE: The indications, alternatives, benefits, risks, and complications of the procedure were explained to the patient. Written informed consent was obtained and placed in the chart. The abdomen and pelvis were examined sonographically, and an appropriate site was chosen for paracentesis. The skin was prepared and draped in the usual sterile fashion, and 1% lidocaine was infiltrated from the skin down through the peritoneal surface. A 19-gauge catheter-covered needle was then introduced into the peritoneal space, the catheter was advanced and the needle was withdrawn, and thereafter peritoneal fluid was withdrawn. The catheter was then removed and a dressing was applied. The fluid was discarded if the clinician did not order diagnostic testing of the fluid. COMPARISON: [facility], PARACENTESIS, 11/20/2019, 9:12. FINDINGS: Access site: Right lower quadrant Needle: One-Step centesis catheter with introducer needle. Fluid volume and description: 4900 cc of serous ascites Fluid sent for diagnostic testing: Not requested Medications: 1% lidocaine for local anaesthesia. Complications: None. IMPRESSION: Successful ultrasound-guided paracentesis. Dictated by: German Chambers M.D. on 11/27/2019 at 11:27 Approved by: German Chambers M.D. on 11/27/2019 at 11:27
== END ==
PROVIDERS: Referring Provider Internal Medicine Hematology & Oncology; Visit Provider Internal Medicine Hematology & Oncology
DX: C80.1 Malignant (primary) neoplasm, unspecified (principal); C78.6 Secondary malignant neoplasm of retroperitoneum and peritoneum; R18.0 Malignant ascites
CPT/HCPCS: 49083

== ENCOUNTER → 2019-12-04 08:46 | Outpatient (CLI) | payer MEDICARE, SELFPAY ==
--- NOTE | 2019-12-04 08:48 | DI.US.S_ITS ---
PROCEDURE: US PARACENTESIS INDICATIONS: ASCITIES TECHNIQUE: The indications, alternatives, benefits, risks, and complications of the procedure were explained to the patient. Written informed consent was obtained and placed in the chart. The abdomen and pelvis were examined sonographically, and an appropriate site was chosen for paracentesis. The skin was prepared and draped in the usual sterile fashion, and 1% lidocaine was infiltrated from the skin down through the peritoneal surface. A 19-gauge catheter-covered needle was then introduced into the peritoneal space, the catheter was advanced and the needle was withdrawn, and thereafter peritoneal fluid was withdrawn. The catheter was then removed and a dressing was applied. The fluid was discarded if the clinician did not order diagnostic testing of the fluid. COMPARISON: [facility], PARACENTESIS, 11/27/2019, 9:20. [facility], PARACENTESIS, 11/20/2019, 9:12. FINDINGS: Access site: Right lower quadrant anterolateral pelvic body wall Needle: One-Step centesis catheter with introducer needle. Fluid volume and description: Reduced in quantity from prior studies, clear slightly serous fluid, 4100 cc Fluid sent for diagnostic testing: Not requested Medications: 1% lidocaine for local anaesthesia. Complications: None. IMPRESSION: Successful ultrasound-guided paracentesis. Dictated by: Yong Blakely M.D. on 12/04/2019 at 10:20 Approved by: Yong Blakely M.D. on 12/04/2019 at 10:20
== END ==
PROVIDERS: Referring Provider Internal Medicine Hematology & Oncology; Visit Provider Internal Medicine Hematology & Oncology
DX: C80.1 Malignant (primary) neoplasm, unspecified (principal); R18.0 Malignant ascites
CPT/HCPCS: 49083

== ENCOUNTER → 2019-12-11 09:08 | Outpatient (CLI) | payer MEDICARE, SELFPAY ==
--- NOTE | 2019-12-11 09:11 | DI.US.S_ITS ---
PROCEDURE: US PARACENTESIS INDICATIONS: RECURRENT ASCITIES TECHNIQUE: The indications, alternatives, benefits, risks, and complications of the procedure were explained to the patient. Written informed consent was obtained and placed in the chart. The abdomen and pelvis were examined sonographically, and an appropriate site was chosen for paracentesis. The skin was prepared and draped in the usual sterile fashion, and 1% lidocaine was infiltrated from the skin down through the peritoneal surface. A 19-gauge catheter-covered needle was then introduced into the peritoneal space, the catheter was advanced and the needle was withdrawn, and thereafter peritoneal fluid was withdrawn. The catheter was then removed and a dressing was applied. The fluid was discarded if the clinician did not order diagnostic testing of the fluid. COMPARISON: [facility], PARACENTESIS, 12/04/2019, 8:54. FINDINGS: Access site: Right lower quadrant Needle: One-Step centesis catheter with introducer needle. Fluid volume and description: Thin, yellow, 4.5 L Fluid sent for diagnostic testing: No Medications: 1% lidocaine for local anaesthesia. Complications: None. IMPRESSION: Successful ultrasound-guided paracentesis. Dictated by: Waldo Brown M.D. on 12/11/2019 at 10:22 Approved by: Waldo Brown M.D. on 12/11/2019 at 10:27
== END ==
PROVIDERS: Referring Provider Internal Medicine Hematology & Oncology; Visit Provider Internal Medicine Hematology & Oncology
DX: C80.1 Malignant (primary) neoplasm, unspecified (principal); C78.6 Secondary malignant neoplasm of retroperitoneum and peritoneum; R18.0 Malignant ascites
CPT/HCPCS: 49083

== ENCOUNTER → 2019-12-18 09:49 | Outpatient (CLI) | payer MEDICARE, SELFPAY ==
--- NOTE | 2019-12-18 09:51 | DI.US.S_ITS ---
PROCEDURE: US PARACENTESIS INDICATIONS: ACSITIES TECHNIQUE: The indications, alternatives, benefits, risks, and complications of the procedure were explained to the patient. Written informed consent was obtained and placed in the chart. The abdomen and pelvis were examined sonographically, and an appropriate site was chosen for paracentesis. The skin was prepared and draped in the usual sterile fashion, and 1% lidocaine was infiltrated from the skin down through the peritoneal surface. A 19-gauge catheter-covered needle was then introduced into the peritoneal space, the catheter was advanced and the needle was withdrawn, and thereafter peritoneal fluid was withdrawn. The catheter was then removed and a dressing was applied. The fluid was discarded if the clinician did not order diagnostic testing of the fluid. COMPARISON: [facility], PARACENTESIS, 12/11/2019, 9:23. FINDINGS: Access site: Right lower quadrant Needle: One-Step centesis catheter with introducer needle. Fluid volume and description: 4700 cubic centimeters clear yellow Fluid sent for diagnostic testing: Not requested Medications: 1% lidocaine for local anaesthesia. Complications: None. IMPRESSION: Successful ultrasound-guided paracentesis. No immediate complications. Dictated by: Afua Alexander MD, PhD on 12/18/2019 at 12:24 Approved by: Afua Alexander MD, PhD on 12/18/2019 at 12:25
== END ==
PROVIDERS: Referring Provider Internal Medicine Hematology & Oncology; Visit Provider Internal Medicine Hematology & Oncology
DX: C80.1 Malignant (primary) neoplasm, unspecified (principal); C78.6 Secondary malignant neoplasm of retroperitoneum and peritoneum; R18.0 Malignant ascites
CPT/HCPCS: 49083

== ENCOUNTER → 2019-12-25 09:14 | Outpatient (CLI) | payer MEDICARE, SELFPAY ==
--- NOTE | 2019-12-25 09:16 | DI.US.S_ITS ---
PROCEDURE: US PARACENTESIS INDICATIONS: recurrent ascites TECHNIQUE: The indications, alternatives, benefits, risks, and complications of the procedure were explained to the patient. Written informed consent was obtained and placed in the chart. The abdomen and pelvis were examined sonographically, and an appropriate site was chosen for paracentesis. The skin was prepared and draped in the usual sterile fashion, and 1% lidocaine was infiltrated from the skin down through the peritoneal surface. A 19-gauge catheter-covered needle was then introduced into the peritoneal space, the catheter was advanced and the needle was withdrawn, and thereafter peritoneal fluid was withdrawn. The catheter was then removed and a dressing was applied. The fluid was discarded if the clinician did not order diagnostic testing of the fluid. COMPARISON: None. FINDINGS: Access site: Right lower quadrant Needle: One-Step centesis catheter with introducer needle. Fluid volume and description: 3900 of clear CSF Fluid sent for diagnostic testing: Not requested Medications: 1% lidocaine for local anaesthesia. Complications: None. IMPRESSION: Successful ultrasound-guided paracentesis. No immediate complications. Dictated by: Afua Alexander MD, PhD on 12/25/2019 at 11:43 Approved by: Afua Alexander MD, PhD on 12/25/2019 at 11:44
== END ==
PROVIDERS: Referring Provider Internal Medicine Hematology & Oncology; Visit Provider Internal Medicine Hematology & Oncology
DX: C80.1 Malignant (primary) neoplasm, unspecified (principal); C78.6 Secondary malignant neoplasm of retroperitoneum and peritoneum; R18.0 Malignant ascites
CPT/HCPCS: 49083

== ENCOUNTER → 2020-01-01 07:02 | Outpatient (CLI) | payer MEDICARE, SELFPAY ==
--- NOTE | 2020-01-01 07:04 | DI.US.S_ITS ---
PROCEDURE: US PARACENTESIS INDICATIONS: recurrent ascites TECHNIQUE: The indications, alternatives, benefits, risks, and complications of the procedure were explained to the patient. Written informed consent was obtained and placed in the chart. The abdomen and pelvis were examined sonographically, and an appropriate site was chosen for paracentesis. The skin was prepared and draped in the usual sterile fashion, and 1% lidocaine was infiltrated from the skin down through the peritoneal surface. A 19-gauge catheter-covered needle was then introduced into the peritoneal space, the catheter was advanced and the needle was withdrawn, and thereafter peritoneal fluid was withdrawn. The catheter was then removed and a dressing was applied. The fluid was discarded if the clinician did not order diagnostic testing of the fluid. COMPARISON: [facility], PARACENTESIS, 12/25/2019, 9:25. [facility], PARACENTESIS, 12/18/2019, 10:12. FINDINGS: Access site: Right lower quadrant pelvic body wall Needle: One-Step centesis catheter with introducer needle. Fluid volume and description: 5000 cc, slightly serous and clear. Fluid sent for diagnostic testing: Not requested Medications: 1% lidocaine for local anaesthesia. Complications: None. IMPRESSION: Successful ultrasound-guided paracentesis. Dictated by: Yong Blakely M.D. on 01/01/2020 at 10:19 Approved by: Yong Blakely M.D. on 01/01/2020 at 10:20
--- NOTE | 2020-01-01 08:30 | DI.CT.S_ITS ---
PROCEDURE: CT CHEST ABD PEL W CON INDICATIONS: Peritoneal carcinomatosis of unknown primary TECHNIQUE: After the administration of oral and intravenous contrast, 5 mm thick sections acquired from the lung apices to the symphysis. 5 mm coronal and sagittal reformats were performed, with additional 7 mm coronal MIP reformats through the lungs. For radiation dose reduction, the following was used: automated exposure control, adjustment of mA and/or kV according to patient size. COMPARISON: [facility], CT, CT CHEST ABD PEL W CON, 10/23/2019, 9:48. [facility], CT, CT CHEST ABD PEL W CON, 08/28/2019, 9:26. FINDINGS: Image quality: Excellent. CHEST: Lungs and pleura: No acute airspace opacities. A small nodule at the posterior left lung base is stable over time from August of this year. Note is again made of mild lung parenchymal scarring bilaterally, over the lower lobes. No pleural effusions or pneumothorax. Central and peripheral airways appear patent and normal in caliber. Mediastinum: Heart size is normal. No pericardial effusion. No mediastinal or hilar adenopathy by size criteria. Thoracic aorta and central pulmonary arteries are normal in size. Esophagus is normal in caliber. No hiatal hernia. Port-A-Cath from right-sided approach extends into the superior vena cava, and terminates at approximately the azygos arch level. Chest wall: No axillary or supraclavicular adenopathy by size criteria. Thyroid gland appears normal. ABDOMEN: Solid organs: Liver is normal in size and enhancement. Gallbladder appears normal. Biliary system is non dilated. Pancreas enhances normally. Spleen is normal in size and enhancement. No adrenal nodules. Kidneys demonstrate normal size and enhancement, without hydronephrosis. Peritoneum and bowel: Bowel loops demonstrate normal wall thickness and caliber. No free air. Again noted is the pattern of peritoneal carcinomatosis with ascites, without interval appreciable worsening in the degree of soft tissue prominence involving the omentum. Peritoneal mild enhancement and thickening is again noted. The amount of free fluid within the peritoneal space varies depending on relationship to most recent paracentesis. Paracentesis is scheduled for today and the amount of peritoneal fluid is increased from the most recent study from September of this year. Nodes and vessels: No retroperitoneal or mesenteric adenopathy by size criteria. Aorta and inferior vena cava are normal in size. Miscellaneous: No ventral hernias. PELVIS: Genitourinary: Bladder wall thickness is normal. Miscellaneous: No inguinal hernias or adenopathy. The pattern of peritoneal carcinomatosis previously seen extends without appreciable worsening into the lower pelvis. Bones: No suspicious bony lesions. No vertebral body compression fractures. IMPRESSION: Peritoneal carcinomatosis with ascites, with the amount of free fluid having increased with reference to the comparison study from September of this year however the patient is currently scheduled for paracentesis today, and the amount of free fluid within the peritoneal space is related to the timing of prior paracentesis. Small nodule left lung base has been previously identified over time and has not enlarged in size. This measures up to 5 x 7 mm. No new metastatic disease is found. Dictated by: Yong Blakely M.D. on 01/01/2020 at 11:56 Approved by: Yong Blakely M.D. on 01/01/2020 at 12:04
== END ==
PROVIDERS: Referring Provider Internal Medicine Hematology & Oncology; Visit Provider Internal Medicine Hematology & Oncology
DX: C80.1 Malignant (primary) neoplasm, unspecified (principal); C78.6 Secondary malignant neoplasm of retroperitoneum and peritoneum; R18.0 Malignant ascites; R91.1 Solitary pulmonary nodule; Z85.048 Personal history of other malignant neoplasm of rectum, rectosigmoid junction, and anus; Z95.828 Presence of other vascular implants and grafts
CPT/HCPCS: 49083; 71260; 74177; Q9967

== ENCOUNTER → 2020-01-08 08:51 | Outpatient (CLI) | payer MEDICARE, SELFPAY ==
--- NOTE | 2020-01-08 08:55 | DI.US.S_ITS ---
PROCEDURE: US PARACENTESIS INDICATIONS: RECURRENT ASCITIES TECHNIQUE: The indications, alternatives, benefits, risks, and complications of the procedure were explained to the patient. Written informed consent was obtained and placed in the chart. The abdomen and pelvis were examined sonographically, and an appropriate site was chosen for paracentesis. The skin was prepared and draped in the usual sterile fashion, and 1% lidocaine was infiltrated from the skin down through the peritoneal surface. A 19-gauge catheter-covered needle was then introduced into the peritoneal space, the catheter was advanced and the needle was withdrawn, and thereafter peritoneal fluid was withdrawn. The catheter was then removed and a dressing was applied. The fluid was discarded if the clinician did not order diagnostic testing of the fluid. COMPARISON: [facility], PARACENTESIS, 01/01/2020, 9:12. FINDINGS: Access site: Right lower quadrant Needle: One-Step centesis catheter with introducer needle. Fluid volume and description: 4200 cc of serous fluid Fluid sent for diagnostic testing: Not requested Medications: 1% lidocaine for local anaesthesia. Complications: None. IMPRESSION: Successful ultrasound-guided paracentesis. Dictated by: German Chambers M.D. on 01/08/2020 at 10:36 Approved by: German Chambers M.D. on 01/08/2020 at 10:36
== END ==
PROVIDERS: Referring Provider Internal Medicine Hematology & Oncology; Visit Provider Internal Medicine Hematology & Oncology
DX: C80.1 Malignant (primary) neoplasm, unspecified (principal); C78.6 Secondary malignant neoplasm of retroperitoneum and peritoneum; R18.0 Malignant ascites
CPT/HCPCS: 49083

== ENCOUNTER → 2020-01-15 08:49 | Outpatient (CLI) | payer MEDICARE, SELFPAY ==
--- NOTE | 2020-01-15 08:51 | DI.US.S_ITS ---
PROCEDURE: US PARACENTESIS INDICATIONS: RECURRENT ASCITIES TECHNIQUE: The indications, alternatives, benefits, risks, and complications of the procedure were explained to the patient. Written informed consent was obtained and placed in the chart. The abdomen and pelvis were examined sonographically, and an appropriate site was chosen for paracentesis. The skin was prepared and draped in the usual sterile fashion, and 1% lidocaine was infiltrated from the skin down through the peritoneal surface. A 19-gauge catheter-covered needle was then introduced into the peritoneal space, the catheter was advanced and the needle was withdrawn, and thereafter peritoneal fluid was withdrawn. The catheter was then removed and a dressing was applied. The fluid was discarded if the clinician did not order diagnostic testing of the fluid. COMPARISON: [facility], PARACENTESIS, 01/08/2020, 9:11. FINDINGS: Access site: Right lower quadrant Needle: One-Step centesis catheter with introducer needle. Fluid volume and description: 4100 cc of serous fluid Fluid sent for diagnostic testing: Not requested Medications: 1% lidocaine for local anaesthesia. Complications: None. IMPRESSION: Successful ultrasound-guided paracentesis. Dictated by: German Chambers M.D. on 01/15/2020 at 14:02 Approved by: German Chambers M.D. on 01/15/2020 at 14:03
== END ==
PROVIDERS: Referring Provider Internal Medicine Hematology & Oncology; Visit Provider Internal Medicine
DX: C80.1 Malignant (primary) neoplasm, unspecified (principal); C78.6 Secondary malignant neoplasm of retroperitoneum and peritoneum; R18.0 Malignant ascites
CPT/HCPCS: 49083

== ENCOUNTER → 2020-01-22 08:56 | Outpatient (CLI) | payer MEDICARE, SELFPAY ==
--- NOTE | 2020-01-22 | DI.US.S_ITS ---
PROCEDURE: US PARACENTESIS INDICATIONS: MALIGNANT NEOPLASM UNSPECIFIED TECHNIQUE: The indications, alternatives, benefits, risks, and complications of the procedure were explained to the patient. Written informed consent was obtained and placed in the chart. The abdomen and pelvis were examined sonographically, and an appropriate site was chosen for paracentesis. The skin was prepared and draped in the usual sterile fashion, and 1% lidocaine was infiltrated from the skin down through the peritoneal surface. A 19-gauge catheter-covered needle was then introduced into the peritoneal space, the catheter was advanced and the needle was withdrawn, and thereafter peritoneal fluid was withdrawn. The catheter was then removed and a dressing was applied. The fluid was discarded if the clinician did not order diagnostic testing of the fluid. COMPARISON: [facility], PARACENTESIS, 01/15/2020, 9:12. [facility], PARACENTESIS, 01/08/2020, 9:11. FINDINGS: Access site: Right lower abdomen/pelvis body wall laterally Needle: One-Step centesis catheter with introducer needle. Fluid volume and description: 5000 cc, near clear Fluid sent for diagnostic testing: Not requested Medications: 1% lidocaine for local anaesthesia. Complications: None. IMPRESSION: Successful ultrasound-guided paracentesis. Dictated by: Yong Blakely M.D. on 01/22/2020 at 14:49 Approved by: Yong Blakely M.D. on 01/22/2020 at 14:50
== END ==
PROVIDERS: Referring Provider Internal Medicine Hematology & Oncology; Visit Provider Internal Medicine Hematology & Oncology
DX: C80.1 Malignant (primary) neoplasm, unspecified (principal); C78.6 Secondary malignant neoplasm of retroperitoneum and peritoneum; R18.0 Malignant ascites
CPT/HCPCS: 49083

== ENCOUNTER → 2020-01-29 07:31 | Outpatient (CLI) | payer MEDICARE, SELFPAY ==
--- NOTE | 2020-01-29 07:33 | DI.US.S_ITS ---
PROCEDURE: US PARACENTESIS INDICATIONS: ASCITES TECHNIQUE: The indications, alternatives, benefits, risks, and complications of the procedure were explained to the patient. Written informed consent was obtained and placed in the chart. The abdomen and pelvis were examined sonographically, and an appropriate site was chosen for paracentesis. The skin was prepared and draped in the usual sterile fashion, and 1% lidocaine was infiltrated from the skin down through the peritoneal surface. A 19-gauge catheter-covered needle was then introduced into the peritoneal space, the catheter was advanced and the needle was withdrawn, and thereafter peritoneal fluid was withdrawn. The catheter was then removed and a dressing was applied. The fluid was discarded if the clinician did not order diagnostic testing of the fluid. COMPARISON: [facility], PARACENTESIS, 01/22/2020, 9:14. [facility], PARACENTESIS, 01/15/2020, 9:12. FINDINGS: Access site: Right lower pelvic body wall Needle: One-Step centesis catheter with introducer needle. Fluid volume and description: 5000 cc clear ascites Fluid sent for diagnostic testing: Not requested Medications: 1% lidocaine for local anaesthesia. Complications: None. IMPRESSION: Successful ultrasound-guided paracentesis. Dictated by: Yong Blakely M.D. on 01/29/2020 at 13:02 Approved by: Yong Blakely M.D. on 01/29/2020 at 13:03
[2020-01-29 07:46] LABS: Add Manual Diff / Slide Review NO; Basophils Absolute Auto 0 /uL (0-100); Basophils Percent Auto 0.5 % (0-2); Eosinophils Absolute Auto 100 /uL (0-450); Hematocrit 41.1 % (41-53); Hemoglobin 13.5 g/dL (13.5-17.5); Lymphocytes Absolute Auto 900 /uL (1100-4500); Lymphocytes Percent Auto 24.5 % (25-40); Mean Corpuscular HGB Conc 32.9 % (30-36); Mean Corpuscular Hemoglobin 31.5 PG (26-34); Mean Corpuscular Volume 95.7 fL (80-100); Monocytes Absolute Auto 700 /uL (0-900); Monocytes Percent Auto 18.2 % (3-14); Neutrophils Absolute Auto 2000 /uL (1500-7000); Neutrophils Percent Auto 53.8 % (50-75); Platelet Count 179 X10^3/uL (150-400); Red Blood Cell Count 4.29 X10^6/uL (4.5-5.9); Red Cell Distribution Width 17.3 % (11.6-14.8); White Blood Cell Count 3.7 X10^3/uL (4.5-11.0)
[2020-01-29 07:57] LABS: Alanine Aminotransferase 26 IU/L (<50); Albumin 3.4 g/dL (3.5-5.0); Albumin Globulin Ratio 1.2 (1.0-2.8); Alkaline Phosphatase 76 U/L (38-126); Aspartate Aminotransferase 41 IU/L (17-59); BUN Creatinine Ratio 21.6 (6-22); Bilirubin Total 0.4 mg/dL (0.2-1.3); Blood Urea Nitrogen 16 mg/dL (9-20); Calcium 8.7 mg/dL (8.4-10.2); Carbon Dioxide 31 mmol/L (22-32); Chloride 105 mmol/L (98-107); Estimated Glomerular Filt Rate > 60.0 mL/min (>60); Globulin 2.9 g/dL (1.7-4.1); Glucose 101 mg/dL (80-110); HEMOLYSIS < 15 (0-50); Potassium 5.3 mmol/L (3.4-5.1); Sodium 139 mmol/L (137-145); Total Protein 6.3 g/dL (6.3-8.2)
[2020-01-29 09:38] LABS: INR 0.9 (0.9-1.3); Prothrombin Time 10.4 SECONDS (10.1-12.7)
== END ==
PROVIDERS: Referring Provider Internal Medicine Hematology & Oncology; Visit Provider Internal Medicine Hematology & Oncology
DX: C80.1 Malignant (primary) neoplasm, unspecified (principal); C78.6 Secondary malignant neoplasm of retroperitoneum and peritoneum; R18.0 Malignant ascites
CPT/HCPCS: 36415; 49083; 80053; 85025; 85610

== ENCOUNTER → 2020-02-05 08:27 | Outpatient (CLI) | payer MEDICARE, SELFPAY ==
--- NOTE | 2020-02-05 08:28 | DI.US.S_ITS ---
PROCEDURE: US PARACENTESIS INDICATIONS: ASCITES TECHNIQUE: The indications, alternatives, benefits, risks, and complications of the procedure were explained to the patient. Written informed consent was obtained and placed in the chart. The abdomen and pelvis were examined sonographically, and an appropriate site was chosen for paracentesis. The skin was prepared and draped in the usual sterile fashion, and 1% lidocaine was infiltrated from the skin down through the peritoneal surface. A 19-gauge catheter-covered needle was then introduced into the peritoneal space, the catheter was advanced and the needle was withdrawn, and thereafter peritoneal fluid was withdrawn. The catheter was then removed and a dressing was applied. The fluid was discarded if the clinician did not order diagnostic testing of the fluid. COMPARISON: [facility], PARACENTESIS, 01/29/2020, 9:51. FINDINGS: Access site: Right lower quadrant Needle: One-Step centesis catheter with introducer needle. Fluid volume and description: 4300 mL of clear, light straw-colored ascites. Fluid sent for diagnostic testing: None Medications: 1% lidocaine for local anaesthesia. Complications: None. IMPRESSION: Successful ultrasound-guided therapeutic paracentesis. No immediate complications. Dictated by: Lam Rai M.D. on 02/05/2020 at 10:00 Approved by: Lam Rai M.D. on 02/05/2020 at 10:05
== END ==
PROVIDERS: PCP Family Medicine; Referring Provider Internal Medicine Hematology & Oncology; Visit Provider Internal Medicine Hematology & Oncology
DX: C80.1 Malignant (primary) neoplasm, unspecified (principal); C78.6 Secondary malignant neoplasm of retroperitoneum and peritoneum; R18.0 Malignant ascites; Z85.038 Personal history of other malignant neoplasm of large intestine
CPT/HCPCS: 49083

== ENCOUNTER → 2020-02-12 09:59 | Outpatient (CLI) | payer MEDICARE, SELFPAY ==
--- NOTE | 2020-02-12 10:01 | DI.US.S_ITS ---
PROCEDURE: US PARACENTESIS INDICATIONS: ascites TECHNIQUE: The indications, alternatives, benefits, risks, and complications of the procedure were explained to the patient. Written informed consent was obtained and placed in the chart. The abdomen and pelvis were examined sonographically, and an appropriate site was chosen for paracentesis. The skin was prepared and draped in the usual sterile fashion, and 1% lidocaine was infiltrated from the skin down through the peritoneal surface. A 19-gauge catheter-covered needle was then introduced into the peritoneal space, the catheter was advanced and the needle was withdrawn, and thereafter peritoneal fluid was withdrawn. The catheter was then removed and a dressing was applied. The fluid was discarded if the clinician did not order diagnostic testing of the fluid. COMPARISON: [facility], PARACENTESIS, 02/05/2020, 9:02. [facility], PARACENTESIS, 01/29/2020, 9:51. FINDINGS: Access site: Right lateral pelvis body wall. Needle: One-Step centesis catheter with introducer needle. Fluid volume and description: Serous, non turbid, 4800 cc. Fluid sent for diagnostic testing: Not requested. Medications: 1% lidocaine for local anaesthesia. Complications: None. IMPRESSION: Successful ultrasound-guided paracentesis. Dictated by: Yong Blakely M.D. on 02/12/2020 at 12:25 Approved by: Yong Blakely M.D. on 02/12/2020 at 12:26
== END ==
PROVIDERS: PCP Family Medicine; Referring Provider Family Medicine; Visit Provider Internal Medicine Hematology & Oncology
DX: C80.1 Malignant (primary) neoplasm, unspecified (principal); C78.6 Secondary malignant neoplasm of retroperitoneum and peritoneum; R18.0 Malignant ascites; Z85.048 Personal history of other malignant neoplasm of rectum, rectosigmoid junction, and anus
CPT/HCPCS: 49083

== ENCOUNTER → 2020-02-19 08:48 | Outpatient (CLI) | payer MEDICARE, SELFPAY ==
--- NOTE | 2020-02-19 08:50 | DI.US.S_ITS ---
PROCEDURE: US PARACENTESIS INDICATIONS: ascites TECHNIQUE: The indications, alternatives, benefits, risks, and complications of the procedure were explained to the patient. Written informed consent was obtained and placed in the chart. The abdomen and pelvis were examined sonographically, and an appropriate site was chosen for paracentesis. The skin was prepared and draped in the usual sterile fashion, and 1% lidocaine was infiltrated from the skin down through the peritoneal surface. A 19-gauge catheter-covered needle was then introduced into the peritoneal space, the catheter was advanced and the needle was withdrawn, and thereafter peritoneal fluid was withdrawn. The catheter was then removed and a dressing was applied. The fluid was discarded if the clinician did not order diagnostic testing of the fluid. COMPARISON: None. FINDINGS: Access site: Right lower quadrant Needle: One-Step centesis catheter with introducer needle. Fluid volume and description: 5000 cubic centimeters of yellow-colored clear fluid. Fluid sent for diagnostic testing: Not requested Medications: 1% lidocaine for local anaesthesia. Complications: None. IMPRESSION: Successful ultrasound-guided paracentesis. No immediate complications. Dictated by: Afua Alexander MD, PhD on 02/19/2020 at 14:09 Approved by: Afua Alexander MD, PhD on 02/19/2020 at 14:10
== END ==
PROVIDERS: PCP Family Medicine; Referring Provider Internal Medicine Hematology & Oncology; Visit Provider Internal Medicine Hematology & Oncology
DX: C80.1 Malignant (primary) neoplasm, unspecified (principal); C78.6 Secondary malignant neoplasm of retroperitoneum and peritoneum; R18.0 Malignant ascites; Z85.038 Personal history of other malignant neoplasm of large intestine
CPT/HCPCS: 49083

== ENCOUNTER → 2020-02-26 08:40 | Outpatient (CLI) | payer MEDICARE, SELFPAY ==
--- NOTE | 2020-02-26 08:42 | DI.US.S_ITS ---
PROCEDURE: US PARACENTESIS INDICATIONS: ASCITIES TECHNIQUE: The indications, alternatives, benefits, risks, and complications of the procedure were explained to the patient. Written informed consent was obtained and placed in the chart. The abdomen and pelvis were examined sonographically, and an appropriate site was chosen for paracentesis. The skin was prepared and draped in the usual sterile fashion, and 1% lidocaine was infiltrated from the skin down through the peritoneal surface. A 19-gauge catheter-covered needle was then introduced into the peritoneal space, the catheter was advanced and the needle was withdrawn, and thereafter peritoneal fluid was withdrawn. The catheter was then removed and a dressing was applied. The fluid was discarded if the clinician did not order diagnostic testing of the fluid. COMPARISON: [facility], PARACENTESIS, 02/19/2020, 9:22. FINDINGS: Access site: Right lower quadrant Needle: One-Step centesis catheter with introducer needle. Fluid volume and description: 4800 cc of serous ascites Fluid sent for diagnostic testing: Not requested Medications: 1% lidocaine for local anaesthesia. Complications: None. IMPRESSION: Successful ultrasound-guided paracentesis. Dictated by: German Chambers M.D. on 02/26/2020 at 10:28 Approved by: German Chambers M.D. on 02/26/2020 at 10:29
== END ==
PROVIDERS: PCP Family Medicine; Referring Provider Family Medicine; Visit Provider Internal Medicine Hematology & Oncology
DX: C80.1 Malignant (primary) neoplasm, unspecified (principal); C78.6 Secondary malignant neoplasm of retroperitoneum and peritoneum; R18.0 Malignant ascites; Z85.048 Personal history of other malignant neoplasm of rectum, rectosigmoid junction, and anus
CPT/HCPCS: 49083

== ENCOUNTER → 2020-03-04 08:47 | Outpatient (CLI) | payer MEDICARE, SELFPAY ==
--- NOTE | 2020-03-04 08:48 | DI.US.S_ITS ---
PROCEDURE: US PARACENTESIS INDICATIONS: malignant ascites TECHNIQUE: The indications, alternatives, benefits, risks, and complications of the procedure were explained to the patient. Written informed consent was obtained and placed in the chart. The abdomen and pelvis were examined sonographically, and an appropriate site was chosen for paracentesis. The skin was prepared and draped in the usual sterile fashion, and 1% lidocaine was infiltrated from the skin down through the peritoneal surface. A 19-gauge catheter-covered needle was then introduced into the peritoneal space, the catheter was advanced and the needle was withdrawn, and thereafter peritoneal fluid was withdrawn. The catheter was then removed and a dressing was applied. The fluid was discarded if the clinician did not order diagnostic testing of the fluid. COMPARISON: [facility], PARACENTESIS, 02/26/2020, 9:19. [facility], PARACENTESIS, 02/19/2020, 9:22. FINDINGS: Access site: Right lower quadrant pelvic body wall laterally Needle: One-Step centesis catheter with introducer needle. Fluid volume and description: 4200 cc, clear Fluid sent for diagnostic testing: Not requested Medications: 1% lidocaine for local anaesthesia. Complications: None. IMPRESSION: Successful ultrasound-guided paracentesis. Dictated by: Yong Blakely M.D. on 03/04/2020 at 10:55 Approved by: Yong Blakely M.D. on 03/04/2020 at 10:57
== END ==
PROVIDERS: PCP Family Medicine; Referring Provider Internal Medicine Hematology & Oncology; Visit Provider Internal Medicine Hematology & Oncology
DX: C80.1 Malignant (primary) neoplasm, unspecified (principal); C78.6 Secondary malignant neoplasm of retroperitoneum and peritoneum; R18.0 Malignant ascites
CPT/HCPCS: 49083

== ENCOUNTER → 2020-03-11 08:49 | Outpatient (CLI) | payer MEDICARE, SELFPAY ==
--- NOTE | 2020-03-11 08:52 | DI.US.S_ITS ---
PROCEDURE: US PARACENTESIS INDICATIONS: Malignant ascites TECHNIQUE: The indications, alternatives, benefits, risks, and complications of the procedure were explained to the patient. Written informed consent was obtained and placed in the chart. The abdomen and pelvis were examined sonographically, and an appropriate site was chosen for paracentesis. The skin was prepared and draped in the usual sterile fashion, and 1% lidocaine was infiltrated from the skin down through the peritoneal surface. A 19-gauge catheter-covered needle was then introduced into the peritoneal space, the catheter was advanced and the needle was withdrawn, and thereafter peritoneal fluid was withdrawn. The catheter was then removed and a dressing was applied. The fluid was discarded if the clinician did not order diagnostic testing of the fluid. COMPARISON: [facility], PARACENTESIS, 03/04/2020, 9:19. FINDINGS: Access site: Right lower quadrant Needle: One-Step centesis catheter with introducer needle. Fluid volume and description: 5000 mL of clear, uli ascites. Fluid sent for diagnostic testing: No labs were ordered. Medications: 1% lidocaine for local anaesthesia. Complications: None. IMPRESSION: Successful ultrasound-guided paracentesis. Dictated by: Lam Rai M.D. on 03/11/2020 at 12:40 Approved by: Lam Rai M.D. on 03/11/2020 at 12:42
--- NOTE | 2020-03-11 13:44 | DI.RAD.S_ITS ---
PROCEDURE: XR CHEST 2V INDICATIONS: Progressive 1 month cough TECHNIQUE: 2 views of the chest were acquired. COMPARISON: [facility], , XR CHEST 1V, 04/09/2019, 12:31. FINDINGS: Surgical changes and devices: Stable surgical clips in the midline upper abdomen. Right -sided tunneled port device is in place. Lungs and pleura: Lungs are clear. No pleural effusions or pneumothorax. Mediastinum: Mediastinal contours are normal. Heart size is normal. Bones and chest wall: No suspicious bony abnormalities. Soft tissues appear unremarkable. IMPRESSION: Stable radiographic evaluation of the chest without acute cardiopulmonary abnormalities or focal airspace disease. Dictated by: Lam Rai M.D. on 03/11/2020 at 17:14 Approved by: Lam Rai M.D. on 03/11/2020 at 17:15
== END ==
PROVIDERS: PCP Family Medicine; Referring Provider Family Medicine; Visit Provider Internal Medicine Hematology & Oncology
DX: C80.1 Malignant (primary) neoplasm, unspecified (principal); C78.6 Secondary malignant neoplasm of retroperitoneum and peritoneum; R18.0 Malignant ascites; R05 Cough
CPT/HCPCS: 49083; 71046

== ENCOUNTER → 2020-03-18 13:25 | Outpatient (CLI) | payer MEDICARE, SELFPAY ==
--- NOTE | 2020-03-18 13:26 | DI.US.S_ITS ---
PROCEDURE: US PARACENTESIS INDICATIONS: Malignant ascites TECHNIQUE: The indications, alternatives, benefits, risks, and complications of the procedure were explained to the patient. Written informed consent was obtained and placed in the chart. The abdomen and pelvis were examined sonographically, and an appropriate site was chosen for paracentesis. The skin was prepared and draped in the usual sterile fashion, and 1% lidocaine was infiltrated from the skin down through the peritoneal surface. A 19-gauge catheter-covered needle was then introduced into the peritoneal space, the catheter was advanced and the needle was withdrawn, and thereafter peritoneal fluid was withdrawn. The catheter was then removed and a dressing was applied. The fluid was discarded if the clinician did not order diagnostic testing of the fluid. COMPARISON: [facility], PARACENTESIS, 03/11/2020, 9:22. FINDINGS: Access site: Right lower quadrant Needle: One-Step centesis catheter with introducer needle. Fluid volume and description: 3400 cc of serous fluid Fluid sent for diagnostic testing: Not requested Medications: 1% lidocaine for local anaesthesia. Complications: None. IMPRESSION: Successful ultrasound-guided paracentesis. Dictated by: German Chambers M.D. on 03/18/2020 at 16:20 Approved by: German Chambers M.D. on 03/18/2020 at 16:21
--- NOTE | 2020-03-18 13:26 | DI.CT.S_ITS ---
PROCEDURE: CT CHEST ABD PEL W CON INDICATIONS: carcinoma of unknown primary TECHNIQUE: After the administration of oral and intravenous contrast, 5 mm thick sections acquired from the lung apices to the symphysis. 5 mm coronal and sagittal reformats were performed, with additional 7 mm coronal MIP reformats through the lungs. For radiation dose reduction, the following was used: automated exposure control, adjustment of mA and/or kV according to patient size. COMPARISON: [facility], CT, CT ABDOMEN PELVIS W CON, 02/13/2019, 11:58. [facility], CT, CT CHEST ABD PEL W CON, 10/23/2019, 9:48. [facility], CT, CT CHEST ABD PEL W CON, 01/01/2020, 8:16. FINDINGS: Image quality: Excellent. CHEST: Scattered subsegmental atelectasis and/or scarring. No focal consolidation. No pleural effusions or pneumothorax. Central and peripheral airways appear patent and normal in caliber. Bilateral upper lobe centrilobular emphysema. Mediastinum: Heart size is normal. Coronary artery calcifications are present. No pericardial effusion. No mediastinal or hilar adenopathy by size criteria. Thoracic aorta and central pulmonary arteries are normal in size. Esophagus is normal in caliber. No hiatal hernia. Chest wall: No axillary or supraclavicular adenopathy by size criteria. Thyroid gland negative . ABDOMEN: Cirrhotic contour of the liver is seen. Gallbladder negative . Biliary system is non dilated. Pancreas enhances normally. Spleen is normal in size and enhancement. A right adrenal nodule appears grossly unchanged. Bilateral parapelvic cysts are present. Nonobstructive 2 mm right renal calcification. Peritoneum and bowel: Ill-defined intraperitoneal and omental soft tissue attenuation suggesting peritoneal carcinomatosis as before. The appearance is grossly unchanged Bowel loops demonstrate normal wall thickness and caliber. No free air. [id number] scattered ascites with right-sided predominance. There is perihepatic fluid. Nodes and vessels: No retroperitoneal or mesenteric adenopathy by size criteria. Aorta and inferior vena cava are normal in size. Miscellaneous: There is increased right abdominal wall scattered superficial fascial and subcutaneous edema. This is increased since the prior study. PELVIS: Genitourinary: Bladder is largely decompressed and there is mass effect chrome ascites which displaces the bladder to the left . Miscellaneous: No inguinal hernias or adenopathy. Bones: No vertebral body compression fracture. Spondylytic changes and facet arthropathy. IMPRESSION: Interval development prominent right-sided abdominal wall subcutaneous and superficial fascial low-attenuation fluid, suggestive of cellulitis or potentially leakage of ascites (secondary to numerous serial paracenteses) into the subcutaneous space. Please correlate clinically and to exam findings to exclude the possibility of infectious cellulitis. [id number] scattered and perihepatic ascites Ill-defined presumed peritoneal carcinomatosis, however no interval progression since the prior study. Elsewhere, no specific evidence of active or progressive metastatic disease Dictated by: German Chambers M.D. on 03/18/2020 at 16:52 Approved by: German Chambers M.D. on 03/18/2020 at 17:02
== END ==
PROVIDERS: PCP Family Medicine; Referring Provider Family Medicine; Visit Provider Internal Medicine Hematology & Oncology
DX: C80.1 Malignant (primary) neoplasm, unspecified (principal); C78.6 Secondary malignant neoplasm of retroperitoneum and peritoneum; R18.0 Malignant ascites
CPT/HCPCS: 49083; 71260; 74177; Q9967

== ENCOUNTER → 2020-03-25 13:42 | Outpatient (CLI) | payer MEDICARE, SELFPAY ==
--- NOTE | 2020-03-25 13:43 | DI.US.S_ITS ---
PROCEDURE: US PARACENTESIS INDICATIONS: malignant ascites TECHNIQUE: The indications, alternatives, benefits, risks, and complications of the procedure were explained to the patient. Written informed consent was obtained and placed in the chart. The abdomen and pelvis were examined sonographically, and an appropriate site was chosen for paracentesis. The skin was prepared and draped in the usual sterile fashion, and 1% lidocaine was infiltrated from the skin down through the peritoneal surface. A 19-gauge catheter-covered needle was then introduced into the peritoneal space, the catheter was advanced and the needle was withdrawn, and thereafter peritoneal fluid was withdrawn. The catheter was then removed and a dressing was applied. The fluid was discarded if the clinician did not order diagnostic testing of the fluid. COMPARISON: None. FINDINGS: Access site: Right lower quadrant Needle: One-Step centesis catheter with introducer needle. Fluid volume and description: 3000 cubic centimeters of clear yellowish colored fluid. Fluid sent for diagnostic testing: Not requested Medications: 1% lidocaine for local anaesthesia. Complications: None. IMPRESSION: Successful ultrasound-guided paracentesis. No immediate complications. Dictated by: Afua Alexander MD, PhD on 03/25/2020 at 16:26 Approved by: Afua Alexander MD, PhD on 03/25/2020 at 16:27
== END ==
PROVIDERS: PCP Family Medicine; Referring Provider Internal Medicine Hematology & Oncology; Visit Provider Internal Medicine Hematology & Oncology
DX: C80.1 Malignant (primary) neoplasm, unspecified (principal); C78.6 Secondary malignant neoplasm of retroperitoneum and peritoneum; R18.0 Malignant ascites; Z85.038 Personal history of other malignant neoplasm of large intestine
CPT/HCPCS: 49083

== ENCOUNTER → 2020-04-01 07:48 | Outpatient (CLI) | payer MEDICARE, SELFPAY ==
--- NOTE | 2020-04-01 07:53 | DI.US.S_ITS ---
PROCEDURE: US PARACENTESIS INDICATIONS: malignant ascites TECHNIQUE: The indications, alternatives, benefits, risks, and complications of the procedure were explained to the patient. Written informed consent was obtained and placed in the chart. The abdomen and pelvis were examined sonographically, and an appropriate site was chosen for paracentesis. The skin was prepared and draped in the usual sterile fashion, and 1% lidocaine was infiltrated from the skin down through the peritoneal surface. A 19-gauge catheter-covered needle was then introduced into the peritoneal space, the catheter was advanced and the needle was withdrawn, and thereafter peritoneal fluid was withdrawn. The catheter was then removed and a dressing was applied. The fluid was discarded if the clinician did not order diagnostic testing of the fluid. COMPARISON: [facility], PARACENTESIS, 03/25/2020, 14:02. [facility], PARACENTESIS, 03/18/2020, 14:12. FINDINGS: Access site: Right lateral pelvic body wall Needle: One-Step centesis catheter with introducer needle. Fluid volume and description: Slightly serous. 5000 cc Fluid sent for diagnostic testing: Not requested Medications: 1% lidocaine for local anaesthesia. Complications: None. IMPRESSION: Successful ultrasound-guided paracentesis. Dictated by: Yong Blakely M.D. on 04/01/2020 at 12:14 Approved by: Yong Blakely M.D. on 04/01/2020 at 12:14
[2020-04-01 08:05] LABS: Add Manual Diff / Slide Review NO; Basophils Absolute Auto 0 /uL (0-100); Basophils Percent Auto 0.5 % (0-2); Eosinophils Absolute Auto 100 /uL (0-450); Eosinophils Percent Auto 3.4 % (2-4); Hematocrit 38.9 % (41-53); Hemoglobin 12.8 g/dL (13.5-17.5); Lymphocytes Absolute Auto 700 /uL (1100-4500); Lymphocytes Percent Auto 21.4 % (25-40); Mean Corpuscular HGB Conc 32.8 % (30-36); Mean Corpuscular Hemoglobin 31.5 PG (26-34); Monocytes Absolute Auto 600 /uL (0-900); Monocytes Percent Auto 16.6 % (3-14); Neutrophils Absolute Auto 2000 /uL (1500-7000); Neutrophils Percent Auto 58.1 % (50-75); Platelet Count 180 X10^3/uL (150-400); Red Blood Cell Count 4.05 X10^6/uL (4.5-5.9); Red Cell Distribution Width 17.9 % (11.6-14.8); White Blood Cell Count 3.5 X10^3/uL (4.5-11.0)
[2020-04-01 08:16] LABS: Alanine Aminotransferase 27 IU/L (<50); Albumin 3.5 g/dL (3.5-5.0); Albumin Globulin Ratio 1.2 (1.0-2.8); Alkaline Phosphatase 85 U/L (38-126); Aspartate Aminotransferase 44 IU/L (17-59); BUN Creatinine Ratio 23.4 (6-22); Bilirubin Total 0.3 mg/dL (0.2-1.3); Blood Urea Nitrogen 18 mg/dL (9-20); Calcium 8.5 mg/dL (8.4-10.2); Carbon Dioxide 29 mmol/L (22-32); Chloride 104 mmol/L (98-107); Estimated Glomerular Filt Rate > 60.0 mL/min (>60); Glucose 106 mg/dL (80-110); HEMOLYSIS < 15 (0-50); Potassium 4.1 mmol/L (3.4-5.1); Sodium 136 mmol/L (137-145); Total Protein 6.5 g/dL (6.3-8.2)
== END ==
PROVIDERS: PCP Family Medicine; Referring Provider Internal Medicine Hematology & Oncology; Visit Provider Internal Medicine Hematology & Oncology
DX: C80.1 Malignant (primary) neoplasm, unspecified (principal); C78.6 Secondary malignant neoplasm of retroperitoneum and peritoneum; R18.0 Malignant ascites; Z85.038 Personal history of other malignant neoplasm of large intestine
CPT/HCPCS: 36415; 49083; 80053; 85025; 85610

== ENCOUNTER → 2020-04-08 08:45 | Outpatient (CLI) | payer MEDICARE, SELFPAY ==
--- NOTE | 2020-04-08 08:46 | DI.US.S_ITS ---
PROCEDURE: US PARACENTESIS INDICATIONS: ASCITIES TECHNIQUE: The indications, alternatives, benefits, risks, and complications of the procedure were explained to the patient. Written informed consent was obtained and placed in the chart. The abdomen and pelvis were examined sonographically, and an appropriate site was chosen for paracentesis. The skin was prepared and draped in the usual sterile fashion, and 1% lidocaine was infiltrated from the skin down through the peritoneal surface. A 19-gauge catheter-covered needle was then introduced into the peritoneal space, the catheter was advanced and the needle was withdrawn, and thereafter peritoneal fluid was withdrawn. The catheter was then removed and a dressing was applied. The fluid was discarded if the clinician did not order diagnostic testing of the fluid. COMPARISON: [facility], PARACENTESIS, 04/01/2020, 9:18. [facility], PARACENTESIS, 03/25/2020, 14:02. FINDINGS: Access site: Right lateral pelvic body wall Needle: One-Step centesis catheter with introducer needle. Fluid volume and description: 5000 cc, serous Fluid sent for diagnostic testing: Not requested Medications: 1% lidocaine for local anaesthesia. Complications: None. IMPRESSION: Successful ultrasound-guided paracentesis. Dictated by: Yong Blakely M.D. on 04/08/2020 at 12:06 Approved by: Yong Blakely M.D. on 04/08/2020 at 12:18
== END ==
PROVIDERS: PCP Family Medicine; Referring Provider Internal Medicine Hematology & Oncology; Visit Provider Internal Medicine Hematology & Oncology
DX: C80.1 Malignant (primary) neoplasm, unspecified (principal); C78.6 Secondary malignant neoplasm of retroperitoneum and peritoneum; R18.0 Malignant ascites; Z85.038 Personal history of other malignant neoplasm of large intestine
CPT/HCPCS: 49083

== ENCOUNTER → 2020-04-15 08:49 | Outpatient (CLI) | payer MEDICARE, SELFPAY ==
--- NOTE | 2020-04-15 08:50 | DI.US.S_ITS ---
PROCEDURE: US PARACENTESIS INDICATIONS: ASCITES TECHNIQUE: The indications, alternatives, benefits, risks, and complications of the procedure were explained to the patient. Written informed consent was obtained and placed in the chart. The abdomen and pelvis were examined sonographically, and an appropriate site was chosen for paracentesis. The skin was prepared and draped in the usual sterile fashion, and 1% lidocaine was infiltrated from the skin down through the peritoneal surface. A 19-gauge catheter-covered needle was then introduced into the peritoneal space, the catheter was advanced and the needle was withdrawn, and thereafter peritoneal fluid was withdrawn. The catheter was then removed and a dressing was applied. The fluid was discarded if the clinician did not order diagnostic testing of the fluid. COMPARISON: [facility], CT, CT CHEST ABD PEL W CON, 01/01/2020, 8:16. [facility], CT, CT CHEST ABD PEL W CON, 03/18/2020, 15:58. [facility], US, US PARACENTESIS, 04/08/2020, 8:58. FINDINGS: Access site: Right lower lateral abdomen. No redness on the right lateral abdomen. Needle: One-Step centesis catheter with introducer needle. Fluid volume and description: 5000 cc straw-colored clear Fluid sent for diagnostic testing: None. Medications: 1% lidocaine for local anaesthesia. Complications: None. IMPRESSION: Successful ultrasound-guided therapeutic paracentesis. 5 L removed. Dictated by: Moshe Xavier M.D. on 04/15/2020 at 10:15 Approved by: Moshe Xavier M.D. on 04/15/2020 at 10:18
== END ==
PROVIDERS: PCP Family Medicine; Referring Provider Family Medicine; Visit Provider Internal Medicine Hematology & Oncology
DX: R18.8 Other ascites (principal); Z85.038 Personal history of other malignant neoplasm of large intestine
CPT/HCPCS: 49083

== ENCOUNTER → 2020-04-22 08:49 | Outpatient (CLI) | payer MEDICARE, SELFPAY ==
--- NOTE | 2020-04-22 08:52 | DI.US.S_ITS ---
PROCEDURE: US PARACENTESIS INDICATIONS: ASCITIES TECHNIQUE: The indications, alternatives, benefits, risks, and complications of the procedure were explained to the patient. Written informed consent was obtained and placed in the chart. The abdomen and pelvis were examined sonographically, and an appropriate site was chosen for paracentesis. The skin was prepared and draped in the usual sterile fashion, and 1% lidocaine was infiltrated from the skin down through the peritoneal surface. A 19-gauge catheter-covered needle was then introduced into the peritoneal space, the catheter was advanced and the needle was withdrawn, and thereafter peritoneal fluid was withdrawn. The catheter was then removed and a dressing was applied. The fluid was discarded if the clinician did not order diagnostic testing of the fluid. COMPARISON: [facility], PARACENTESIS, 04/15/2020, 9:12. [facility], PARACENTESIS, 04/08/2020, 8:58. FINDINGS: Access site: Right lower abdomen/pelvis junction body wall Needle: One-Step centesis catheter with introducer needle. Fluid volume and description: Slightly serous, clear. 5000 cc removed. Fluid sent for diagnostic testing: Not requested Medications: 1% lidocaine for local anaesthesia. Complications: None. IMPRESSION: Successful ultrasound-guided paracentesis. Dictated by: Yong Blakely M.D. on 04/22/2020 at 11:54 Approved by: Yong Blakely M.D. on 04/22/2020 at 11:54
== END ==
PROVIDERS: PCP Family Medicine; Referring Provider Internal Medicine Hematology & Oncology; Visit Provider Internal Medicine Hematology & Oncology
DX: C80.1 Malignant (primary) neoplasm, unspecified (principal); C78.6 Secondary malignant neoplasm of retroperitoneum and peritoneum; R18.0 Malignant ascites; Z85.038 Personal history of other malignant neoplasm of large intestine
CPT/HCPCS: 49083

== ENCOUNTER → 2020-04-29 08:53 | Outpatient (CLI) | payer MEDICARE, SELFPAY ==
--- NOTE | 2020-04-29 08:55 | DI.US.S_ITS ---
PROCEDURE: US PARACENTESIS INDICATIONS: ascites, malignant TECHNIQUE: The indications, alternatives, benefits, risks, and complications of the procedure were explained to the patient. Written informed consent was obtained and placed in the chart. The abdomen and pelvis were examined sonographically, and an appropriate site was chosen for paracentesis. The skin was prepared and draped in the usual sterile fashion, and 1% lidocaine was infiltrated from the skin down through the peritoneal surface. A 19-gauge catheter-covered needle was then introduced into the peritoneal space, the catheter was advanced and the needle was withdrawn, and thereafter peritoneal fluid was withdrawn. The catheter was then removed and a dressing was applied. The fluid was discarded if the clinician did not order diagnostic testing of the fluid. COMPARISON: [facility], PARACENTESIS, 04/22/2020, 9:08. [facility], PARACENTESIS, 04/15/2020, 9:12. FINDINGS: Access site: Right lateral pelvic body wall Needle: One-Step centesis catheter with introducer needle. Fluid volume and description: Slightly serous, clear, 5000 cc Fluid sent for diagnostic testing: Not requested Medications: 1% lidocaine for local anaesthesia. Complications: None. IMPRESSION: Successful ultrasound-guided paracentesis. Dictated by: Yong Blakely M.D. on 04/29/2020 at 10:31 Approved by: Yong Blakely M.D. on 04/29/2020 at 10:32
== END ==
PROVIDERS: PCP Family Medicine; Referring Provider Internal Medicine Hematology & Oncology; Visit Provider Internal Medicine Hematology & Oncology
DX: C80.1 Malignant (primary) neoplasm, unspecified (principal); R18.0 Malignant ascites; Z85.038 Personal history of other malignant neoplasm of large intestine
CPT/HCPCS: 49083

== ENCOUNTER → 2020-05-06 08:49 | Outpatient (CLI) | payer MEDICARE, SELFPAY ==
--- NOTE | 2020-05-06 08:51 | DI.US.S_ITS ---
PROCEDURE: US PARACENTESIS INDICATIONS: ASCITIES TECHNIQUE: The indications, alternatives, benefits, risks, and complications of the procedure were explained to the patient. Written informed consent was obtained and placed in the chart. The abdomen and pelvis were examined sonographically, and an appropriate site was chosen for paracentesis. The skin was prepared and draped in the usual sterile fashion, and 1% lidocaine was infiltrated from the skin down through the peritoneal surface. A 19-gauge catheter-covered needle was then introduced into the peritoneal space, the catheter was advanced and the needle was withdrawn, and thereafter peritoneal fluid was withdrawn. The catheter was then removed and a dressing was applied. The fluid was discarded if the clinician did not order diagnostic testing of the fluid. COMPARISON: None. FINDINGS: Access site: Right lower quadrant Needle: One-Step centesis catheter with introducer needle. Fluid volume and description: 5000 cubic centimeters of clear lung yellow fluid. Fluid sent for diagnostic testing: Not requested. Medications: 1% lidocaine for local anaesthesia. Complications: None. IMPRESSION: Successful ultrasound-guided paracentesis. Dictated by: Afua Alexander MD, PhD on 05/06/2020 at 15:29 Approved by: Afua Alexander MD, PhD on 05/06/2020 at 15:33
== END ==
PROVIDERS: PCP Family Medicine; Referring Provider Internal Medicine Hematology & Oncology; Visit Provider Internal Medicine Hematology & Oncology
DX: C80.1 Malignant (primary) neoplasm, unspecified (principal); C78.6 Secondary malignant neoplasm of retroperitoneum and peritoneum; R18.0 Malignant ascites
CPT/HCPCS: 49083

== ENCOUNTER → 2020-05-13 08:54 | Outpatient (CLI) | payer MEDICARE, SELFPAY ==
--- NOTE | 2020-05-13 08:56 | DI.US.S_ITS ---
PROCEDURE: US PARACENTESIS INDICATIONS: ASCITIES TECHNIQUE: The indications, alternatives, benefits, risks, and complications of the procedure were explained to the patient. Written informed consent was obtained and placed in the chart. The abdomen and pelvis were examined sonographically, and an appropriate site was chosen for paracentesis. The skin was prepared and draped in the usual sterile fashion, and 1% lidocaine was infiltrated from the skin down through the peritoneal surface. A 19-gauge catheter-covered needle was then introduced into the peritoneal space, the catheter was advanced and the needle was withdrawn, and thereafter peritoneal fluid was withdrawn. The catheter was then removed and a dressing was applied. The fluid was discarded if the clinician did not order diagnostic testing of the fluid. COMPARISON: [facility], PARACENTESIS, 05/06/2020, 9:19. FINDINGS: Access site: Right lower quadrant Needle: One-Step centesis catheter with introducer needle. Fluid volume and description: 5000 cc of serous fluid Fluid sent for diagnostic testing: Not requested Medications: 1% lidocaine for local anaesthesia. Complications: None. IMPRESSION: Successful ultrasound-guided paracentesis. Dictated by: German Chambers M.D. on 05/13/2020 at 12:12 Approved by: German Chambers M.D. on 05/13/2020 at 12:13
== END ==
PROVIDERS: PCP Family Medicine; Referring Provider Internal Medicine Hematology & Oncology; Visit Provider Internal Medicine Hematology & Oncology
DX: C80.1 Malignant (primary) neoplasm, unspecified (principal); C78.6 Secondary malignant neoplasm of retroperitoneum and peritoneum; R18.0 Malignant ascites
CPT/HCPCS: 49083

== ENCOUNTER → 2020-05-20 08:55 | Outpatient (CLI) | payer MEDICARE, SELFPAY ==
--- NOTE | 2020-05-20 08:57 | DI.US.S_ITS ---
PROCEDURE: US PARACENTESIS INDICATIONS: ASCITIES TECHNIQUE: The indications, alternatives, benefits, risks, and complications of the procedure were explained to the patient. Written informed consent was obtained and placed in the chart. The abdomen and pelvis were examined sonographically, and an appropriate site was chosen for paracentesis. The skin was prepared and draped in the usual sterile fashion, and 1% lidocaine was infiltrated from the skin down through the peritoneal surface. A 19-gauge catheter-covered needle was then introduced into the peritoneal space, the catheter was advanced and the needle was withdrawn, and thereafter peritoneal fluid was withdrawn. The catheter was then removed and a dressing was applied. The fluid was discarded if the clinician did not order diagnostic testing of the fluid. COMPARISON: [facility], PARACENTESIS, 05/13/2020, 9:23. FINDINGS: Access site: Right lower quadrant Needle: One-Step centesis catheter with introducer needle. Fluid volume and description: 4600 cc of serous ascites Fluid sent for diagnostic testing: Not requested Medications: 1% lidocaine for local anaesthesia. Complications: None. IMPRESSION: Successful ultrasound-guided paracentesis. Dictated by: German Chambers M.D. on 05/20/2020 at 10:48 Approved by: German Chambers M.D. on 05/20/2020 at 10:49
== END ==
PROVIDERS: PCP Family Medicine; Referring Provider Internal Medicine Hematology & Oncology; Visit Provider Internal Medicine Hematology & Oncology
DX: C80.1 Malignant (primary) neoplasm, unspecified (principal); C78.6 Secondary malignant neoplasm of retroperitoneum and peritoneum; R18.0 Malignant ascites; Z85.038 Personal history of other malignant neoplasm of large intestine
CPT/HCPCS: 49083

== ENCOUNTER → 2020-05-27 08:29 | Outpatient (CLI) | payer MEDICARE, SELFPAY ==
--- NOTE | 2020-05-27 08:31 | DI.US.S_ITS ---
PROCEDURE: US PARACENTESIS INDICATIONS: ASCITIES TECHNIQUE: The indications, alternatives, benefits, risks, and complications of the procedure were explained to the patient. Written informed consent was obtained and placed in the chart. The abdomen and pelvis were examined sonographically, and an appropriate site was chosen for paracentesis. The skin was prepared and draped in the usual sterile fashion, and 1% lidocaine was infiltrated from the skin down through the peritoneal surface. A 19-gauge catheter-covered needle was then introduced into the peritoneal space, the catheter was advanced and the needle was withdrawn, and thereafter peritoneal fluid was withdrawn. The catheter was then removed and a dressing was applied. The fluid was discarded if the clinician did not order diagnostic testing of the fluid. COMPARISON: [facility], PARACENTESIS, 05/20/2020, 9:07. FINDINGS: Access site: Right lower quadrant Needle: One-Step centesis catheter with introducer needle. Fluid volume and description: 5000 cc of serous fluid Fluid sent for diagnostic testing: Not requested Medications: 1% lidocaine for local anaesthesia. Complications: None. IMPRESSION: Successful ultrasound-guided paracentesis. Dictated by: German Chambers M.D. on 05/27/2020 at 12:59 Approved by: German Chambers M.D. on 05/27/2020 at 13:05
== END ==
PROVIDERS: PCP Family Medicine; Referring Provider Internal Medicine Hematology & Oncology; Visit Provider Internal Medicine Hematology & Oncology
DX: C80.1 Malignant (primary) neoplasm, unspecified (principal); R18.0 Malignant ascites
CPT/HCPCS: 49083

== ENCOUNTER → 2020-06-03 07:20 | Outpatient (CLI) | payer MEDICARE, SELFPAY ==
--- NOTE | 2020-06-03 07:22 | DI.US.S_ITS ---
PROCEDURE: US PARACENTESIS INDICATIONS: RECURRENT MALIGNANT ASCITES TECHNIQUE: The indications, alternatives, benefits, risks, and complications of the procedure were explained to the patient. Written informed consent was obtained and placed in the chart. The abdomen and pelvis were examined sonographically, and an appropriate site was chosen for paracentesis. The skin was prepared and draped in the usual sterile fashion, and 1% lidocaine was infiltrated from the skin down through the peritoneal surface. A 19-gauge catheter-covered needle was then introduced into the peritoneal space, the catheter was advanced and the needle was withdrawn, and thereafter peritoneal fluid was withdrawn. The catheter was then removed and a dressing was applied. The fluid was discarded if the clinician did not order diagnostic testing of the fluid. COMPARISON: [facility], PARACENTESIS, 05/27/2020, 9:14. FINDINGS: Access site: Right lower quadrant of the abdomen Needle: One-Step centesis catheter with introducer needle. Fluid volume and description: 5000 clear uli ascites. Fluid sent for diagnostic testing: None. Therapeutic paracentesis. Medications: 1% lidocaine for local anaesthesia. Complications: None. IMPRESSION: Successful ultrasound-guided paracentesis. Dictated by: Lam Rai M.D. on 06/03/2020 at 10:02 Approved by: Lam Rai M.D. on 06/03/2020 at 10:07
== END ==
PROVIDERS: PCP Family Medicine; Referring Provider Family Medicine; Visit Provider Internal Medicine Hematology & Oncology
DX: C80.1 Malignant (primary) neoplasm, unspecified (principal); C78.6 Secondary malignant neoplasm of retroperitoneum and peritoneum; R18.0 Malignant ascites
CPT/HCPCS: 49083

== ENCOUNTER → 2020-06-11 13:31 | Outpatient (CLI) | payer MEDICARE, SELFPAY ==
--- NOTE | 2020-06-11 13:32 | DI.US.S_ITS ---
PROCEDURE: US PARACENTESIS INDICATIONS: ASCITIES TECHNIQUE: The indications, alternatives, benefits, risks, and complications of the procedure were explained to the patient. Written informed consent was obtained and placed in the chart. The abdomen and pelvis were examined sonographically, and an appropriate site was chosen for paracentesis. The skin was prepared and draped in the usual sterile fashion, and 1% lidocaine was infiltrated from the skin down through the peritoneal surface. A 19-gauge catheter-covered needle was then introduced into the peritoneal space, the catheter was advanced and the needle was withdrawn, and thereafter peritoneal fluid was withdrawn. The catheter was then removed and a dressing was applied. The fluid was discarded if the clinician did not order diagnostic testing of the fluid. COMPARISON: None. FINDINGS: Access site: Right lower quadrant Needle: One-Step centesis catheter with introducer needle. Fluid volume and description: 5000 cubic centimeters of clear fluid Fluid sent for diagnostic testing: Not requested Medications: 1% lidocaine for local anaesthesia. Complications: None. IMPRESSION: Successful ultrasound-guided paracentesis. No immediate complications. Dictated by: Afua Alexander MD, PhD on 06/11/2020 at 16:35 Approved by: Afua Alexander MD, PhD on 06/11/2020 at 16:35
--- NOTE | 2020-06-11 13:52 | DI.CT.S_ITS ---
PROCEDURE: CT CHEST ABD PEL W CON INDICATIONS: Cancer of unknown primary TECHNIQUE: After the administration of oral and intravenous contrast, 5 mm thick sections acquired from the lung apices to the symphysis. 5 mm coronal and sagittal reformats were performed, with additional 7 mm coronal MIP reformats through the lungs. For radiation dose reduction, the following was used: automated exposure control, adjustment of mA and/or kV according to patient size. COMPARISON: [place], [place] CT FUSION SKULL 2 THIGH, 06/19/2019, 13:46. [place], [place] CT FUSION SKULL 2 THIGH, 03/27/2019, 17:20. [facility], CT, CT CHEST ABD PEL W CON, 10/23/2019, 9:48. [facility], CT, CT CHEST ABD PEL W CON, 01/01/2020, 8:16. [facility], CT, CT CHEST ABD PEL W CON, 03/18/2020, 15:58. FINDINGS: Image quality: Excellent. CHEST: Lungs and pleura: Stable 4 x 6 mm left lower lobe lung nodule. Moderate centrilobular emphysema. There are bibasilar, right middle lobe and lingula scars and atelectasis. No acute airspace opacities. No pleural effusions or pneumothorax. Central and peripheral airways appear patent and normal in caliber. Mediastinum: Heart size is normal. No pericardial effusion. No mediastinal or hilar adenopathy by size criteria. Thoracic aorta and central pulmonary arteries are normal in size. Esophagus is normal in caliber. No hiatal hernia. Chest wall: No axillary or supraclavicular adenopathy by size criteria. Thyroid gland is normal. There is a Port-A-Cath in the right anterior chest. ABDOMEN: Solid organs: Liver demonstrates nodular contour suggesting cirrhosis. Liver is normal in size and enhancement. Gallbladder is normal. Biliary system is non dilated. Pancreas enhances normally. Spleen is small in size and enhancement. There is a 2 cm right adrenal nodule and a 1.2 x 3.1 cm left adrenal nodule, unchanged in size. Both demonstrated the low CT density (< 10 HU) and low FDG uptake suggesting benign etiology. Bilateral parapelvic cysts are suspected. There is a 4 mm calcification in right kidney. Kidneys demonstrate normal size and symmetric enhancement. Peritoneum and bowel: There is a [id number] amount of ascites, slightly increased compared to 03/18/2020. Persistent thickening/nodularity of omentum and peritoneum consistent with carcinomatosis. Bowel loops demonstrate normal wall thickness and caliber. No free fluid or air. Nodes and vessels: No retroperitoneal or mesenteric adenopathy by size criteria. Aorta and inferior vena cava are normal in size. Miscellaneous: No ventral hernias. PELVIS: Genitourinary: Bladder wall is thickened, but unchanged. Miscellaneous: No inguinal hernias or adenopathy. Bones: No suspicious bony lesions. No vertebral body compression fractures. IMPRESSION: 1. Persistent omental carcinomatosis. There is a moderate to large amount of ascites. 2. Stable left lower lobe lung nodule. 3. Stable bilateral adrenal nodules, most likely benign adrenal adenomas. 4. Bladder wall thickening appears unchanged. 5. No new disease identified. Dictated by: Estella Rivera M.D. on 06/11/2020 at 16:22 Approved by: Estella Rivera M.D. on 06/11/2020 at 17:30
== END ==
PROVIDERS: PCP Family Medicine; Referring Provider Internal Medicine Hematology & Oncology; Visit Provider Internal Medicine Hematology & Oncology
DX: C80.1 Malignant (primary) neoplasm, unspecified (principal); C78.6 Secondary malignant neoplasm of retroperitoneum and peritoneum; R18.0 Malignant ascites; R91.1 Solitary pulmonary nodule; E27.9 Disorder of adrenal gland, unspecified; Z95.828 Presence of other vascular implants and grafts
CPT/HCPCS: 49083; 71260; 74177; Q9967

== ENCOUNTER → 2020-06-17 08:41 | Outpatient (CLI) | payer MEDICARE, SELFPAY ==
--- NOTE | 2020-06-17 08:42 | DI.US.S_ITS ---
PROCEDURE: US PARACENTESIS INDICATIONS: ASCITIES TECHNIQUE: The indications, alternatives, benefits, risks, and complications of the procedure were explained to the patient. Written informed consent was obtained and placed in the chart. The abdomen and pelvis were examined sonographically, and an appropriate site was chosen for paracentesis. The skin was prepared and draped in the usual sterile fashion, and 1% lidocaine was infiltrated from the skin down through the peritoneal surface. A 19-gauge catheter-covered needle was then introduced into the peritoneal space, the catheter was advanced and the needle was withdrawn, and thereafter peritoneal fluid was withdrawn. The catheter was then removed and a dressing was applied. The fluid was discarded if the clinician did not order diagnostic testing of the fluid. COMPARISON: [facility], PARACENTESIS, 06/11/2020, 13:51. [facility], PARACENTESIS, 06/03/2020, 8:08. FINDINGS: Access site: Right lateral pelvis body wall. Needle: One-Step centesis catheter with introducer needle. Fluid volume and description: 6000 cc, clear slightly serous fluid Fluid sent for diagnostic testing: Not requested Medications: 1% lidocaine for local anaesthesia. Complications: None. IMPRESSION: Successful ultrasound-guided paracentesis. Dictated by: Yong Blakely M.D. on 06/17/2020 at 13:24 Approved by: Yong Blakely M.D. on 06/17/2020 at 13:25
== END ==
PROVIDERS: PCP Family Medicine; Referring Provider Internal Medicine Hematology & Oncology; Visit Provider Internal Medicine Hematology & Oncology
DX: C80.1 Malignant (primary) neoplasm, unspecified (principal); C78.6 Secondary malignant neoplasm of retroperitoneum and peritoneum; R18.0 Malignant ascites
CPT/HCPCS: 49083

== ENCOUNTER → 2020-06-24 08:50 | Outpatient (CLI) | payer MEDICARE, SELFPAY ==
--- NOTE | 2020-06-24 08:52 | DI.US.S_ITS ---
PROCEDURE: US PARACENTESIS INDICATIONS: ASCITIES TECHNIQUE: The indications, alternatives, benefits, risks, and complications of the procedure were explained to the patient. Written informed consent was obtained and placed in the chart. The abdomen and pelvis were examined sonographically, and an appropriate site was chosen for paracentesis. The skin was prepared and draped in the usual sterile fashion, and 1% lidocaine was infiltrated from the skin down through the peritoneal surface. A 19-gauge catheter-covered needle was then introduced into the peritoneal space, the catheter was advanced and the needle was withdrawn, and thereafter peritoneal fluid was withdrawn. The catheter was then removed and a dressing was applied. The fluid was discarded if the clinician did not order diagnostic testing of the fluid. COMPARISON: [facility], , PARACENTESIS, 06/17/2020, 9:43. FINDINGS: Access site: Right lower quadrant Needle: One-Step centesis catheter with introducer needle. Fluid volume and description: 5300 cc of serous fluid Fluid sent for diagnostic testing: Not requested Medications: 1% lidocaine for local anaesthesia. Complications: None. IMPRESSION: Successful ultrasound-guided paracentesis. Dictated by: German Chambers M.D. on 06/24/2020 at 11:33 Approved by: German Chambers M.D. on 06/24/2020 at 11:34
== END ==
PROVIDERS: PCP Family Medicine; Referring Provider Family Medicine; Visit Provider Internal Medicine Hematology & Oncology
DX: C80.1 Malignant (primary) neoplasm, unspecified (principal); C78.6 Secondary malignant neoplasm of retroperitoneum and peritoneum; R18.0 Malignant ascites; I10 Essential (primary) hypertension; R05 Cough; Z13.220 Encounter for screening for lipoid disorders; Z13.29 Encounter for screening for other suspected endocrine disorder; Z85.038 Personal history of other malignant neoplasm of large intestine
CPT/HCPCS: 49083; 80061; G0103

== ENCOUNTER → 2020-06-24 14:38 | Outpatient (ROUT) | payer MEDICARE, SELFPAY ==
[2020-06-24 14:56] LABS: Cholesterol 220 mg/dL (140-199); HDL Cholesterol 55 mg/dL (40-60); LDL Cholesterol Calculated 134 mg/dL (<100); Triglycerides 153 mg/dL (35-150)
[2020-06-24 15:26] LABS: Prostate Specific Antigen Scrn 0.385 ng/mL (0.1-4.0)
== END ==
PROVIDERS: PCP Family Medicine
DX: I10 Essential (primary) hypertension (principal); R05 Cough; Z13.220 Encounter for screening for lipoid disorders; Z13.29 Encounter for screening for other suspected endocrine disorder; Z85.038 Personal history of other malignant neoplasm of large intestine
CPT/HCPCS: 80061; G0103

== ENCOUNTER → 2020-07-01 08:23 | Outpatient (CLI) | payer MEDICARE, SELFPAY ==
--- NOTE | 2020-07-01 08:27 | DI.US.S_ITS ---
PROCEDURE: US PARACENTESIS INDICATIONS: recurrent malignant ascites TECHNIQUE: The indications, alternatives, benefits, risks, and complications of the procedure were explained to the patient. Written informed consent was obtained and placed in the chart. The abdomen and pelvis were examined sonographically, and an appropriate site was chosen for paracentesis. The skin was prepared and draped in the usual sterile fashion, and 1% lidocaine was infiltrated from the skin down through the peritoneal surface. A 19-gauge catheter-covered needle was then introduced into the peritoneal space, the catheter was advanced and the needle was withdrawn, and thereafter peritoneal fluid was withdrawn. The catheter was then removed and a dressing was applied. The fluid was discarded if the clinician did not order diagnostic testing of the fluid. COMPARISON: None. FINDINGS: Access site: Right lower quadrants Needle: One-Step centesis catheter with introducer needle. Fluid volume and description: 5000 cubic centimeters of clear yellow fluid. Fluid sent for diagnostic testing: Not request Medications: 1% lidocaine for local anaesthesia. Complications: None. IMPRESSION: Successful ultrasound-guided paracentesis. No immediate complications. Dictated by: Afua Alexander MD, PhD on 07/01/2020 at 15:35 Approved by: Afua Alexander MD, PhD on 07/01/2020 at 15:35
[2020-07-01 09:03] LABS: Hematocrit 38.7 % (41-53); Hemoglobin 12.9 g/dL (13.5-17.5); Mean Corpuscular HGB Conc 33.3 % (30-36); Mean Corpuscular Hemoglobin 31.9 PG (26-34); Mean Corpuscular Volume 95.8 fL (80-100); Platelet Count 134 X10^3/uL (150-400); Red Blood Cell Count 4.05 X10^6/uL (4.5-5.9); Red Cell Distribution Width 17.9 % (11.6-14.8); White Blood Cell Count 2.2 X10^3/uL (4.5-11.0)
[2020-07-01 09:04] LABS: Add Manual Diff / Slide Review YES
[2020-07-01 09:11] LABS: INR 0.9 (0.9-1.3); Prothrombin Time 10.8 SECONDS (10.1-12.7)
[2020-07-01 09:13] LABS: PTT Partial Thromboplastin Tim 31 SECONDS (26.4-36.2)
[2020-07-01 09:15] LABS: Alanine Aminotransferase 28 IU/L (<50); Albumin 3.1 g/dL (3.5-5.0); Albumin Globulin Ratio 1.1 (1.0-2.8); Alkaline Phosphatase 75 U/L (38-126); Aspartate Aminotransferase 46 IU/L (17-59); BUN Creatinine Ratio 22.5 (6-22); Bilirubin Total 0.2 mg/dL (0.2-1.3); Blood Urea Nitrogen 16 mg/dL (9-20); Calcium 8.6 mg/dL (8.4-10.2); Carbon Dioxide 29 mmol/L (22-32); Chloride 104 mmol/L (98-107); Estimated Glomerular Filt Rate > 60.0 mL/min (>60); Globulin 2.9 g/dL (1.7-4.1); Glucose 107 mg/dL (80-110); HEMOLYSIS < 15 (0-50); Potassium 4.2 mmol/L (3.4-5.1); Sodium 136 mmol/L (137-145)
[2020-07-01 09:25] LABS: Neutrophils Absolute Manual 858 /uL (3000-5900); Total Cells Counted 100
[2020-07-01 09:26] LABS: Anisocytosis 2+
[2020-07-01 10:24] LABS: Creatinine Urine Random 151.4 mg/dL
[2020-07-01 10:28] LABS: TSH w/ Reflex to FT4 3.01 uIU/mL (0.47-4.68)
[2020-07-01 10:28] LABS: Microalbumi Creatinin Ratio Ur 3.9 ug/mg CR (<30); Microalbumin Urine Random 0.6 mg/dL (0-1.6)
== END ==
PROVIDERS: PCP Family Medicine; Referring Provider Internal Medicine Hematology & Oncology; Visit Provider Internal Medicine Hematology & Oncology
DX: C78.6 Secondary malignant neoplasm of retroperitoneum and peritoneum (principal); C80.1 Malignant (primary) neoplasm, unspecified; R18.0 Malignant ascites; I10 Essential (primary) hypertension; R05 Cough; Z13.220 Encounter for screening for lipoid disorders; Z13.29 Encounter for screening for other suspected endocrine disorder; Z85.038 Personal history of other malignant neoplasm of large intestine
CPT/HCPCS: 36415; 49083; 80053; 82043; 82570; 84443; 85007; 85025; 85610; 85730

== ENCOUNTER → 2020-07-08 08:40 | Outpatient (CLI) | payer MEDICARE, SELFPAY ==
--- NOTE | 2020-07-08 | DI.US.S_ITS ---
PROCEDURE: US PARACENTESIS INDICATIONS: ASCITIES TECHNIQUE: The indications, alternatives, benefits, risks, and complications of the procedure were explained to the patient. Written informed consent was obtained and placed in the chart. The abdomen and pelvis were examined sonographically, and an appropriate site was chosen for paracentesis. The skin was prepared and draped in the usual sterile fashion, and 1% lidocaine was infiltrated from the skin down through the peritoneal surface. A 19-gauge catheter-covered needle was then introduced into the peritoneal space, the catheter was advanced and the needle was withdrawn, and thereafter peritoneal fluid was withdrawn. The catheter was then removed and a dressing was applied. The fluid was discarded if the clinician did not order diagnostic testing of the fluid. COMPARISON: [facility], PARACENTESIS, 07/01/2020, 10:04. [facility], PARACENTESIS, 06/24/2020, 9:36. FINDINGS: Access site: Right lateral lower abdominal/pelvic body wall Needle: One-Step centesis catheter with introducer needle. Fluid volume and description: 5300 cc, serous Fluid sent for diagnostic testing: Not requested Medications: 1% lidocaine for local anaesthesia. Complications: None. IMPRESSION: Successful ultrasound-guided paracentesis. Dictated by: Yong Blakely M.D. on 07/08/2020 at 14:41 Approved by: Yong Blakely M.D. on 07/08/2020 at 14:42
== END ==
PROVIDERS: PCP Family Medicine; Referring Provider Internal Medicine Hematology & Oncology; Visit Provider Internal Medicine Hematology & Oncology
DX: C80.1 Malignant (primary) neoplasm, unspecified (principal); C78.6 Secondary malignant neoplasm of retroperitoneum and peritoneum; R18.0 Malignant ascites
CPT/HCPCS: 49083

== ENCOUNTER → 2020-07-15 11:55 | Outpatient (CLI) | payer MEDICARE, SELFPAY ==
--- NOTE | 2020-07-15 11:57 | DI.US.S_ITS ---
PROCEDURE: US PARACENTESIS INDICATIONS: ASCITIES TECHNIQUE: The indications, alternatives, benefits, risks, and complications of the procedure were explained to the patient. Written informed consent was obtained and placed in the chart. The abdomen and pelvis were examined sonographically, and an appropriate site was chosen for paracentesis. The skin was prepared and draped in the usual sterile fashion, and 1% lidocaine was infiltrated from the skin down through the peritoneal surface. A 19-gauge catheter-covered needle was then introduced into the peritoneal space, the catheter was advanced and the needle was withdrawn, and thereafter peritoneal fluid was withdrawn. The catheter was then removed and a dressing was applied. The fluid was discarded if the clinician did not order diagnostic testing of the fluid. COMPARISON: None. FINDINGS: Access site: Right lower quadrant Needle: One-Step centesis catheter with introducer needle. Fluid volume and description: 5000 cubic centimeters of clear fluid. Fluid sent for diagnostic testing: Not requested. Medications: 1% lidocaine for local anaesthesia. Complications: None. IMPRESSION: Successful ultrasound-guided paracentesis. Dictated by: Afua Alexander MD, PhD on 07/15/2020 at 14:41 Approved by: Afua Alexander MD, PhD on 07/15/2020 at 14:42
== END ==
PROVIDERS: PCP Family Medicine; Referring Provider Internal Medicine Hematology & Oncology; Visit Provider Internal Medicine Hematology & Oncology
DX: C80.1 Malignant (primary) neoplasm, unspecified (principal); R18.0 Malignant ascites
CPT/HCPCS: 49083

== ENCOUNTER → 2020-07-22 08:43 | Outpatient (CLI) | payer MEDICARE, SELFPAY ==
--- NOTE | 2020-07-22 08:45 | DI.US.S_ITS ---
PROCEDURE: US PARACENTESIS INDICATIONS: ASCITIES TECHNIQUE: The indications, alternatives, benefits, risks, and complications of the procedure were explained to the patient. Written informed consent was obtained and placed in the chart. The abdomen and pelvis were examined sonographically, and an appropriate site was chosen for paracentesis. The skin was prepared and draped in the usual sterile fashion, and 1% lidocaine was infiltrated from the skin down through the peritoneal surface. A 19-gauge catheter-covered needle was then introduced into the peritoneal space, the catheter was advanced and the needle was withdrawn, and thereafter peritoneal fluid was withdrawn. The catheter was then removed and a dressing was applied. The fluid was discarded if the clinician did not order diagnostic testing of the fluid. COMPARISON: [facility], PARACENTESIS, 07/15/2020, 12:47. FINDINGS: Access site: Right lower quadrant Needle: One-Step centesis catheter with introducer needle. Fluid volume and description: 6100 cc of clear ascites Fluid sent for diagnostic testing: Not requested Medications: 1% lidocaine for local anaesthesia. Complications: None. IMPRESSION: Successful ultrasound-guided paracentesis. Dictated by: German Chambers M.D. on 07/22/2020 at 11:56 Approved by: German Chambers M.D. on 07/22/2020 at 12:03
== END ==
PROVIDERS: PCP Family Medicine; Referring Provider Internal Medicine Hematology & Oncology; Visit Provider Internal Medicine Hematology & Oncology
DX: C80.1 Malignant (primary) neoplasm, unspecified; R18.0 Malignant ascites
CPT/HCPCS: 49083

== ENCOUNTER → 2020-07-29 08:40 | Outpatient (CLI) | payer MEDICARE, SELFPAY ==
--- NOTE | 2020-07-29 08:42 | DI.US.S_ITS ---
PROCEDURE: US PARACENTESIS INDICATIONS: ASCITIES TECHNIQUE: The indications, alternatives, benefits, risks, and complications of the procedure were explained to the patient. Written informed consent was obtained and placed in the chart. The abdomen and pelvis were examined sonographically, and an appropriate site was chosen for paracentesis. The skin was prepared and draped in the usual sterile fashion, and 1% lidocaine was infiltrated from the skin down through the peritoneal surface. A 19-gauge catheter-covered needle was then introduced into the peritoneal space, the catheter was advanced and the needle was withdrawn, and thereafter peritoneal fluid was withdrawn. The catheter was then removed and a dressing was applied. The fluid was discarded if the clinician did not order diagnostic testing of the fluid. COMPARISON: [facility], PARACENTESIS, 07/22/2020, 9:12. [facility], PARACENTESIS, 07/15/2020, 12:47. FINDINGS: Access site: Right lower abdomen/pelvis Needle: One-Step centesis catheter with introducer needle. Fluid volume and description: 4200 cc, clear Fluid sent for diagnostic testing: Not requested Medications: 1% lidocaine for local anaesthesia. Complications: None. IMPRESSION: Successful ultrasound-guided paracentesis. Dictated by: Yong Blakely M.D. on 07/29/2020 at 10:26 Approved by: Yong Blakely M.D. on 07/29/2020 at 10:27
== END ==
PROVIDERS: PCP Family Medicine; Referring Provider Internal Medicine Hematology & Oncology; Visit Provider Internal Medicine Hematology & Oncology
DX: C80.1 Malignant (primary) neoplasm, unspecified (principal); C78.6 Secondary malignant neoplasm of retroperitoneum and peritoneum; R18.0 Malignant ascites
CPT/HCPCS: 49083

== ENCOUNTER → 2020-08-05 08:40 | Outpatient (CLI) | payer MEDICARE, SELFPAY ==
--- NOTE | 2020-08-05 08:42 | DI.US.S_ITS ---
PROCEDURE: US PARACENTESIS INDICATIONS: ASCITIES TECHNIQUE: The indications, alternatives, benefits, risks, and complications of the procedure were explained to the patient. Written informed consent was obtained and placed in the chart. The abdomen and pelvis were examined sonographically, and an appropriate site was chosen for paracentesis. The skin was prepared and draped in the usual sterile fashion, and 1% lidocaine was infiltrated from the skin down through the peritoneal surface. A 19-gauge catheter-covered needle was then introduced into the peritoneal space, the catheter was advanced and the needle was withdrawn, and thereafter peritoneal fluid was withdrawn. The catheter was then removed and a dressing was applied. The fluid was discarded if the clinician did not order diagnostic testing of the fluid. COMPARISON: [facility], PARACENTESIS, 07/29/2020, 9:23. [facility], PARACENTESIS, 07/22/2020, 9:12. [facility], PARACENTESIS, 07/15/2020, 12:47. [facility], PARACENTESIS, 07/08/2020, 9:30. FINDINGS: Access site: Right lower quadrant Needle: One-Step centesis catheter with introducer needle. Fluid volume and description: 6200 cc of clear yellow fluid Fluid sent for diagnostic testing: No Medications: 1% lidocaine for local anaesthesia. Complications: None. IMPRESSION: Successful ultrasound-guided paracentesis. Dictated by: Lydia Ochoa M.D. on 08/05/2020 at 10:15 Approved by: Lydia Ochoa M.D. on 08/05/2020 at 10:21
== END ==
PROVIDERS: PCP Family Medicine; Referring Provider Internal Medicine Hematology & Oncology; Visit Provider Internal Medicine Hematology & Oncology
DX: C80.1 Malignant (primary) neoplasm, unspecified (principal); C78.6 Secondary malignant neoplasm of retroperitoneum and peritoneum; R18.0 Malignant ascites
CPT/HCPCS: 36591; 49083; 80053; 85025; 96365; 96366; P9041

== ENCOUNTER → 2020-08-12 08:50 | Outpatient (CLI) | payer MEDICARE, SELFPAY ==
--- NOTE | 2020-08-12 09:25 | DI.US.S_ITS ---
PROCEDURE: US PARACENTESIS INDICATIONS: ascites TECHNIQUE: The indications, alternatives, benefits, risks, and complications of the procedure were explained to the patient. Written informed consent was obtained and placed in the chart. The abdomen and pelvis were examined sonographically, and an appropriate site was chosen for paracentesis. The skin was prepared and draped in the usual sterile fashion, and 1% lidocaine was infiltrated from the skin down through the peritoneal surface. A 19-gauge catheter-covered needle was then introduced into the peritoneal space, the catheter was advanced and the needle was withdrawn, and thereafter peritoneal fluid was withdrawn. The catheter was then removed and a dressing was applied. The fluid was discarded if the clinician did not order diagnostic testing of the fluid. COMPARISON: [facility], PARACENTESIS, 08/05/2020, 9:07. FINDINGS: Access site: Right lower quadrant Needle: One-Step centesis catheter with introducer needle. Fluid volume and description: 6600 cc of serous fluid Fluid sent for diagnostic testing: Not requested Medications: 1% lidocaine for local anaesthesia. Complications: None. IMPRESSION: Successful ultrasound-guided paracentesis. Dictated by: German Chambers M.D. on 08/12/2020 at 11:47 Approved by: German Chambers M.D. on 08/12/2020 at 11:49
== END ==
PROVIDERS: PCP Family Medicine; Referring Provider Internal Medicine Hematology & Oncology; Visit Provider Internal Medicine Hematology & Oncology
DX: C80.1 Malignant (primary) neoplasm, unspecified (principal); C78.6 Secondary malignant neoplasm of retroperitoneum and peritoneum; R18.0 Malignant ascites
CPT/HCPCS: 49083

== ENCOUNTER → 2020-08-19 08:48 | Outpatient (CLI) | payer MEDICARE, SELFPAY ==
--- NOTE | 2020-08-19 08:50 | DI.US.S_ITS ---
PROCEDURE: US PARACENTESIS INDICATIONS: ASCITIES TECHNIQUE: The indications, alternatives, benefits, risks, and complications of the procedure were explained to the patient. Written informed consent was obtained and placed in the chart. The abdomen and pelvis were examined sonographically, and an appropriate site was chosen for paracentesis. The skin was prepared and draped in the usual sterile fashion, and 1% lidocaine was infiltrated from the skin down through the peritoneal surface. A 19-gauge catheter-covered needle was then introduced into the peritoneal space, the catheter was advanced and the needle was withdrawn, and thereafter peritoneal fluid was withdrawn. The catheter was then removed and a dressing was applied. The fluid was discarded if the clinician did not order diagnostic testing of the fluid. COMPARISON: None. FINDINGS: Access site: Right lower quadrant Needle: One-Step centesis catheter with introducer needle. Fluid volume and description: 4000 cubic centimeters of yellowish clear fluid Fluid sent for diagnostic testing: Not request Medications: 1% lidocaine for local anaesthesia. Complications: None. IMPRESSION: Successful ultrasound-guided paracentesis. Dictated by: Afua Alexander MD, PhD on 08/19/2020 at 10:40 Approved by: Afua Alexander MD, PhD on 08/19/2020 at 10:40
== END ==
PROVIDERS: PCP Family Medicine; Referring Provider Internal Medicine Hematology & Oncology; Visit Provider Internal Medicine Hematology & Oncology
DX: C80.1 Malignant (primary) neoplasm, unspecified (principal); C78.6 Secondary malignant neoplasm of retroperitoneum and peritoneum; R18.0 Malignant ascites
CPT/HCPCS: 49083

== ENCOUNTER → 2020-08-26 07:01 | Outpatient (CLI) | payer MEDICARE, SELFPAY ==
--- NOTE | 2020-08-26 08:23 | DI.US.S_ITS ---
PROCEDURE: US PARACENTESIS INDICATIONS: ASCITIES TECHNIQUE: The indications, alternatives, benefits, risks, and complications of the procedure were explained to the patient. Written informed consent was obtained and placed in the chart. The abdomen and pelvis were examined sonographically, and an appropriate site was chosen for paracentesis. The skin was prepared and draped in the usual sterile fashion, and 1% lidocaine was infiltrated from the skin down through the peritoneal surface. A 19-gauge catheter-covered needle was then introduced into the peritoneal space, the catheter was advanced and the needle was withdrawn, and thereafter peritoneal fluid was withdrawn. The catheter was then removed and a dressing was applied. The fluid was discarded if the clinician did not order diagnostic testing of the fluid. COMPARISON: [facility], PARACENTESIS, 08/19/2020, 9:12. [facility], PARACENTESIS, 08/12/2020, 9:33. FINDINGS: Access site: Right-sided lower pelvis Needle: One-Step centesis catheter with introducer needle. Fluid volume and description: 5500 cc, clear Fluid sent for diagnostic testing: Not requested Medications: 1% lidocaine for local anaesthesia. Complications: None. IMPRESSION: Successful ultrasound-guided paracentesis. Dictated by: Yong Blakely M.D. on 08/26/2020 at 10:28 Approved by: Yong Blakely M.D. on 08/26/2020 at 10:29
== END ==
PROVIDERS: PCP Family Medicine; Referring Provider Internal Medicine Hematology & Oncology; Visit Provider Internal Medicine Hematology & Oncology
DX: C80.1 Malignant (primary) neoplasm, unspecified (principal); C78.6 Secondary malignant neoplasm of retroperitoneum and peritoneum; R18.0 Malignant ascites
CPT/HCPCS: 49083

== ENCOUNTER → 2020-09-02 08:54 | Outpatient (CLI) | payer MEDICARE, SELFPAY ==
--- NOTE | 2020-09-02 08:56 | DI.US.S_ITS ---
PROCEDURE: US PARACENTESIS INDICATIONS: ASCITIES TECHNIQUE: The indications, alternatives, benefits, risks, and complications of the procedure were explained to the patient. Written informed consent was obtained and placed in the chart. The abdomen and pelvis were examined sonographically, and an appropriate site was chosen for paracentesis. The skin was prepared and draped in the usual sterile fashion, and 1% lidocaine was infiltrated from the skin down through the peritoneal surface. A 19-gauge catheter-covered needle was then introduced into the peritoneal space, the catheter was advanced and the needle was withdrawn, and thereafter peritoneal fluid was withdrawn. The catheter was then removed and a dressing was applied. The fluid was discarded if the clinician did not order diagnostic testing of the fluid. COMPARISON: None. FINDINGS: Access site: Right lower quadrant Needle: One-Step centesis catheter with introducer needle. Fluid volume and description: 5000 cubic centimeters yellow-colored clear fluid Fluid sent for diagnostic testing: Not requested Medications: 1% lidocaine for local anaesthesia. Complications: None. IMPRESSION: Successful ultrasound-guided paracentesis. No immediate complications. Dictated by: Afua Alexander MD, PhD on 09/02/2020 at 10:41 Approved by: Afua Alexander MD, PhD on 09/02/2020 at 10:49
== END ==
PROVIDERS: PCP Family Medicine; Referring Provider Internal Medicine Hematology & Oncology; Visit Provider Internal Medicine Hematology & Oncology
DX: R18.8 Other ascites (principal); C80.1 Malignant (primary) neoplasm, unspecified
CPT/HCPCS: 49083

== ENCOUNTER → 2020-09-09 08:49 | Outpatient (CLI) | payer MEDICARE, SELFPAY ==
--- NOTE | 2020-09-09 | DI.US.S_ITS ---
PROCEDURE: US PARACENTESIS INDICATIONS: ADENOCARCINOMA TECHNIQUE: The indications, alternatives, benefits, risks, and complications of the procedure were explained to the patient. Written informed consent was obtained and placed in the chart. The abdomen and pelvis were examined sonographically, and an appropriate site was chosen for paracentesis. The skin was prepared and draped in the usual sterile fashion, and 1% lidocaine was infiltrated from the skin down through the peritoneal surface. A 19-gauge catheter-covered needle was then introduced into the peritoneal space, the catheter was advanced and the needle was withdrawn, and thereafter peritoneal fluid was withdrawn. The catheter was then removed and a dressing was applied. The fluid was discarded if the clinician did not order diagnostic testing of the fluid. COMPARISON: None. FINDINGS: Access site: Right lower quadrant Needle: One-Step centesis catheter with introducer needle. Fluid volume and description: 7100 cubic centimeters of bloody fluid Fluid sent for diagnostic testing: Not requested Medications: 1% lidocaine for local anaesthesia. Complications: None. IMPRESSION: Successful ultrasound-guided paracentesis. Dictated by: Afua Alexander MD, PhD on 09/09/2020 at 16:02 Approved by: Afua Alexander MD, PhD on 09/09/2020 at 16:09
== END ==
PROVIDERS: PCP Family Medicine; Referring Provider Internal Medicine Hematology & Oncology; Visit Provider Internal Medicine Hematology & Oncology
DX: C80.1 Malignant (primary) neoplasm, unspecified (principal); C78.6 Secondary malignant neoplasm of retroperitoneum and peritoneum; R18.0 Malignant ascites
CPT/HCPCS: 49083

== ENCOUNTER → 2020-09-16 08:44 | Outpatient (CLI) | payer MEDICARE, SELFPAY ==
--- NOTE | 2020-09-16 08:45 | DI.US.S_ITS ---
PROCEDURE: US PARACENTESIS INDICATIONS: ascites TECHNIQUE: The indications, alternatives, benefits, risks, and complications of the procedure were explained to the patient. Written informed consent was obtained and placed in the chart. The abdomen and pelvis were examined sonographically, and an appropriate site was chosen for paracentesis. The skin was prepared and draped in the usual sterile fashion, and 1% lidocaine was infiltrated from the skin down through the peritoneal surface. A 19-gauge catheter-covered needle was then introduced into the peritoneal space, the catheter was advanced and the needle was withdrawn, and thereafter peritoneal fluid was withdrawn. The catheter was then removed and a dressing was applied. The fluid was discarded if the clinician did not order diagnostic testing of the fluid. COMPARISON: [facility], PARACENTESIS, 09/09/2020, 9:19. [facility], PARACENTESIS, 09/02/2020, 9:25. FINDINGS: Access site: Right lateral lower abdomen. Needle: One-Step centesis catheter with introducer needle. Fluid volume and description: 6200 cc serous fluid Fluid sent for diagnostic testing: Not requested Medications: 1% lidocaine for local anaesthesia. Complications: None. IMPRESSION: Successful ultrasound-guided paracentesis. Dictated by: Yong Blakely M.D. on 09/16/2020 at 10:43 Approved by: Yong Blakely M.D. on 09/16/2020 at 10:43
== END ==
PROVIDERS: PCP Family Medicine; Referring Provider Internal Medicine Hematology & Oncology; Visit Provider Internal Medicine Hematology & Oncology
DX: C80.1 Malignant (primary) neoplasm, unspecified (principal); C78.6 Secondary malignant neoplasm of retroperitoneum and peritoneum; R18.0 Malignant ascites
CPT/HCPCS: 49083

== ENCOUNTER → 2020-09-23 08:43 | Outpatient (CLI) | payer MEDICARE, SELFPAY ==
--- NOTE | 2020-09-23 | DI.US.S_ITS ---
PROCEDURE: US PARACENTESIS INDICATIONS: ADENOCARCINOMA TECHNIQUE: The indications, alternatives, benefits, risks, and complications of the procedure were explained to the patient. Written informed consent was obtained and placed in the chart. The abdomen and pelvis were examined sonographically, and an appropriate site was chosen for paracentesis. The skin was prepared and draped in the usual sterile fashion, and 1% lidocaine was infiltrated from the skin down through the peritoneal surface. A 19-gauge catheter-covered needle was then introduced into the peritoneal space, the catheter was advanced and the needle was withdrawn, and thereafter peritoneal fluid was withdrawn. The catheter was then removed and a dressing was applied. The fluid was discarded if the clinician did not order diagnostic testing of the fluid. COMPARISON: [facility], , PARACENTESIS, 09/16/2020, 9:16. FINDINGS: Access site: Right lower quadrant Needle: One-Step centesis catheter with introducer needle. Fluid volume and description: 6300 cc of serous fluid Fluid sent for diagnostic testing: Not requested Medications: 1% lidocaine for local anaesthesia. Complications: None. IMPRESSION: Successful ultrasound-guided paracentesis. Dictated by: German Chambers M.D. on 09/23/2020 at 16:06 Approved by: German Chambers M.D. on 09/23/2020 at 16:06
== END ==
PROVIDERS: PCP Family Medicine; Referring Provider Internal Medicine Hematology & Oncology; Visit Provider Internal Medicine Hematology & Oncology
DX: C80.1 Malignant (primary) neoplasm, unspecified (principal); C78.6 Secondary malignant neoplasm of retroperitoneum and peritoneum; R18.0 Malignant ascites
CPT/HCPCS: 49083

== ENCOUNTER → 2020-09-30 08:47 | Outpatient (CLI) | payer MEDICARE, SELFPAY ==
--- NOTE | 2020-09-30 08:49 | DI.US.S_ITS ---
PROCEDURE: US PARACENTESIS INDICATIONS: ASCITIES TECHNIQUE: The indications, alternatives, benefits, risks, and complications of the procedure were explained to the patient. Written informed consent was obtained and placed in the chart. The abdomen and pelvis were examined sonographically, and an appropriate site was chosen for paracentesis. The skin was prepared and draped in the usual sterile fashion, and 1% lidocaine was infiltrated from the skin down through the peritoneal surface. A 19-gauge catheter-covered needle was then introduced into the peritoneal space, the catheter was advanced and the needle was withdrawn, and thereafter peritoneal fluid was withdrawn. The catheter was then removed and a dressing was applied. The fluid was discarded if the clinician did not order diagnostic testing of the fluid. COMPARISON: [facility], , PARACENTESIS, 09/23/2020, 9:21. FINDINGS: Access site: Right lower quadrant Needle: One-Step centesis catheter with introducer needle. Fluid volume and description: 5800 cc of serous fluid Fluid sent for diagnostic testing: Not requested Medications: 1% lidocaine for local anaesthesia. Complications: None. IMPRESSION: Successful ultrasound-guided paracentesis. Dictated by: German Chambers M.D. on 09/30/2020 at 12:12 Approved by: German Chambers M.D. on 09/30/2020 at 12:13
== END ==
PROVIDERS: PCP Family Medicine; Referring Provider Internal Medicine Hematology & Oncology; Visit Provider Internal Medicine Hematology & Oncology
DX: C80.1 Malignant (primary) neoplasm, unspecified (principal); C78.6 Secondary malignant neoplasm of retroperitoneum and peritoneum; R18.0 Malignant ascites
CPT/HCPCS: 49083; 96365; 96366; 96523; P9041

== ENCOUNTER → 2020-10-07 08:54 | Outpatient (CLI) | payer MEDICARE, SELFPAY ==
--- NOTE | 2020-10-07 08:55 | DI.US.S_ITS ---
PROCEDURE: US PARACENTESIS INDICATIONS: ASCITIES TECHNIQUE: The indications, alternatives, benefits, risks, and complications of the procedure were explained to the patient. Written informed consent was obtained and placed in the chart. The abdomen and pelvis were examined sonographically, and an appropriate site was chosen for paracentesis. The skin was prepared and draped in the usual sterile fashion, and 1% lidocaine was infiltrated from the skin down through the peritoneal surface. A 19-gauge catheter-covered needle was then introduced into the peritoneal space, the catheter was advanced and the needle was withdrawn, and thereafter peritoneal fluid was withdrawn. The catheter was then removed and a dressing was applied. The fluid was discarded if the clinician did not order diagnostic testing of the fluid. COMPARISON: [facility], PARACENTESIS, 09/30/2020, 9:25. [facility], PARACENTESIS, 09/23/2020, 9:21. FINDINGS: Access site: Right lateral lower pelvic body wall. Needle: One-Step centesis catheter with introducer needle. Fluid volume and description: 5400 cc, serous. Fluid sent for diagnostic testing: Not requested. Medications: 1% lidocaine for local anaesthesia. Complications: None. IMPRESSION: Successful ultrasound-guided paracentesis. Dictated by: Yong Blakely M.D. on 10/07/2020 at 11:18 Approved by: Yong Blakely M.D. on 10/07/2020 at 11:19
== END ==
PROVIDERS: PCP Family Medicine; Referring Provider Internal Medicine Hematology & Oncology; Visit Provider Internal Medicine Hematology & Oncology
DX: C80.1 Malignant (primary) neoplasm, unspecified (principal); C78.6 Secondary malignant neoplasm of retroperitoneum and peritoneum; R18.0 Malignant ascites
CPT/HCPCS: 49083

== ENCOUNTER → 2020-10-14 08:53 | Outpatient (CLI) | payer MEDICARE, SELFPAY ==
--- NOTE | 2020-10-14 08:55 | DI.US.S_ITS ---
PROCEDURE: US PARACENTESIS INDICATIONS: ASCITIES TECHNIQUE: The indications, alternatives, benefits, risks, and complications of the procedure were explained to the patient. Written informed consent was obtained and placed in the chart. The abdomen and pelvis were examined sonographically, and an appropriate site was chosen for paracentesis. The skin was prepared and draped in the usual sterile fashion, and 1% lidocaine was infiltrated from the skin down through the peritoneal surface. A 19-gauge catheter-covered needle was then introduced into the peritoneal space, the catheter was advanced and the needle was withdrawn, and thereafter peritoneal fluid was withdrawn. The catheter was then removed and a dressing was applied. The fluid was discarded if the clinician did not order diagnostic testing of the fluid. COMPARISON: [facility], PARACENTESIS, 10/07/2020, 9:08. FINDINGS: Access site: Right lower quadrant Needle: One-Step centesis catheter with introducer needle. Fluid volume and description: 6500 cc of serous ascites Fluid sent for diagnostic testing: Not requested Medications: 1% lidocaine for local anaesthesia. Complications: None. IMPRESSION: Successful ultrasound-guided paracentesis. Dictated by: German Chambers M.D. on 10/14/2020 at 12:03 Approved by: German Chambers M.D. on 10/14/2020 at 12:04
== END ==
PROVIDERS: PCP Family Medicine; Referring Provider Internal Medicine Hematology & Oncology; Visit Provider Internal Medicine Hematology & Oncology
DX: C80.1 Malignant (primary) neoplasm, unspecified (principal); C78.6 Secondary malignant neoplasm of retroperitoneum and peritoneum; R18.0 Malignant ascites
CPT/HCPCS: 49083

== ENCOUNTER → 2020-10-21 08:46 | Outpatient (CLI) | payer MEDICARE, SELFPAY ==
--- NOTE | 2020-10-21 08:48 | DI.US.S_ITS ---
PROCEDURE: US PARACENTESIS INDICATIONS: ASCITIES TECHNIQUE: The indications, alternatives, benefits, risks, and complications of the procedure were explained to the patient. Written informed consent was obtained and placed in the chart. The abdomen and pelvis were examined sonographically, and an appropriate site was chosen for paracentesis. The skin was prepared and draped in the usual sterile fashion, and 1% lidocaine was infiltrated from the skin down through the peritoneal surface. A 19-gauge catheter-covered needle was then introduced into the peritoneal space, the catheter was advanced and the needle was withdrawn, and thereafter peritoneal fluid was withdrawn. The catheter was then removed and a dressing was applied. The fluid was discarded if the clinician did not order diagnostic testing of the fluid. COMPARISON: [facility], PARACENTESIS, 10/14/2020, 9:28. [facility], PARACENTESIS, 10/07/2020, 9:08. [facility], PARACENTESIS, 09/30/2020, 9:25. [facility], PARACENTESIS, 09/23/2020, 9:21. FINDINGS: Access site: Right lower quadrant Needle: One-Step centesis catheter with introducer needle. Fluid volume and description: 6 L of clear yellow fluid Fluid sent for diagnostic testing: No Medications: 1% lidocaine for local anaesthesia. Complications: None. IMPRESSION: Successful ultrasound-guided paracentesis. Dictated by: Lydia Ochoa M.D. on 10/22/2020 at 10:42 Approved by: Lydia Ochoa M.D. on 10/22/2020 at 10:43
== END ==
PROVIDERS: PCP Family Medicine; Referring Provider Internal Medicine Hematology & Oncology; Visit Provider Internal Medicine Hematology & Oncology
DX: C80.1 Malignant (primary) neoplasm, unspecified (principal); C78.6 Secondary malignant neoplasm of retroperitoneum and peritoneum; R18.0 Malignant ascites
CPT/HCPCS: 49083; 96365; 96367; 96523; P9041

== ENCOUNTER → 2020-10-28 08:12 | Outpatient (CLI) | payer MEDICARE, SELFPAY ==
--- NOTE | 2020-10-28 08:13 | DI.US.S_ITS ---
PROCEDURE: US PARACENTESIS INDICATIONS: ASCITIES TECHNIQUE: The indications, alternatives, benefits, risks, and complications of the procedure were explained to the patient. Written informed consent was obtained and placed in the chart. The abdomen and pelvis were examined sonographically, and an appropriate site was chosen for paracentesis. The skin was prepared and draped in the usual sterile fashion, and 1% lidocaine was infiltrated from the skin down through the peritoneal surface. A 19-gauge catheter-covered needle was then introduced into the peritoneal space, the catheter was advanced and the needle was withdrawn, and thereafter peritoneal fluid was withdrawn. The catheter was then removed and a dressing was applied. The fluid was discarded if the clinician did not order diagnostic testing of the fluid. COMPARISON: [place], [place], [place] PET CT FUSION SKULL 2 THIGH, 08/26/2020, 7:50. [facility], PARACENTESIS, 10/21/2020, 9:20. FINDINGS: Access site: Right lower quadrant. Needle: One-Step centesis catheter with introducer needle. Fluid volume and description: 5500 cc. Straw-colored. Fluid sent for diagnostic testing: None. Therapeutic only. Albumin subsequently administered in oncology. Medications: 1% lidocaine for local anaesthesia. Complications: None. IMPRESSION: Successful ultrasound-guided therapeutic paracentesis. 5.5 L removed. Dictated by: Moshe Xavier M.D. on 10/28/2020 at 11:44 Approved by: Moshe Xavier M.D. on 10/28/2020 at 11:45
== END ==
PROVIDERS: PCP Family Medicine; Referring Provider Internal Medicine Hematology & Oncology; Visit Provider Internal Medicine Hematology & Oncology
DX: C80.1 Malignant (primary) neoplasm, unspecified (principal)
CPT/HCPCS: 49083

== ENCOUNTER → 2020-11-04 08:13 | Outpatient (CLI) | payer MEDICARE, SELFPAY ==
--- NOTE | 2020-11-04 08:15 | DI.US.S_ITS ---
PROCEDURE: US PARACENTESIS INDICATIONS: ASCITIES TECHNIQUE: The indications, alternatives, benefits, risks, and complications of the procedure were explained to the patient. Written informed consent was obtained and placed in the chart. The abdomen and pelvis were examined sonographically, and an appropriate site was chosen for paracentesis. The skin was prepared and draped in the usual sterile fashion, and 1% lidocaine was infiltrated from the skin down through the peritoneal surface. A 19-gauge catheter-covered needle was then introduced into the peritoneal space, the catheter was advanced and the needle was withdrawn, and thereafter peritoneal fluid was withdrawn. The catheter was then removed and a dressing was applied. The fluid was discarded if the clinician did not order diagnostic testing of the fluid. COMPARISON: [facility], PARACENTESIS, 10/28/2020, 9:03. [facility], PARACENTESIS, 10/21/2020, 9:20. FINDINGS: Access site: Current Needle: One-Step centesis catheter with introducer needle. Fluid volume and description: 7200 cc, slightly serous fluid. Clear. Fluid sent for diagnostic testing: Not requested Medications: 1% lidocaine for local anaesthesia. Complications: None. IMPRESSION: Successful ultrasound-guided paracentesis. Dictated by: Yong Blakely M.D. on 11/04/2020 at 10:07 Approved by: Yong Blakely M.D. on 11/04/2020 at 10:08
== END ==
PROVIDERS: PCP Family Medicine; Referring Provider Family Medicine; Visit Provider Internal Medicine Hematology & Oncology
DX: C80.1 Malignant (primary) neoplasm, unspecified (principal); C78.6 Secondary malignant neoplasm of retroperitoneum and peritoneum; R91.1 Solitary pulmonary nodule
CPT/HCPCS: 49083

== ENCOUNTER → 2020-11-11 08:31 | Outpatient (CLI) | payer MEDICARE, SELFPAY ==
--- NOTE | 2020-11-11 08:32 | DI.US.S_ITS ---
PROCEDURE: US PARACENTESIS INDICATIONS: ASCITIES TECHNIQUE: The indications, alternatives, benefits, risks, and complications of the procedure were explained to the patient. Written informed consent was obtained and placed in the chart. The abdomen and pelvis were examined sonographically, and an appropriate site was chosen for paracentesis. The skin was prepared and draped in the usual sterile fashion, and 1% lidocaine was infiltrated from the skin down through the peritoneal surface. A 19-gauge catheter-covered needle was then introduced into the peritoneal space, the catheter was advanced and the needle was withdrawn, and thereafter peritoneal fluid was withdrawn. The catheter was then removed and a dressing was applied. The fluid was discarded if the clinician did not order diagnostic testing of the fluid. COMPARISON: [facility], PARACENTESIS, 11/04/2020, 9:04. [facility], PARACENTESIS, 10/28/2020, 9:03. FINDINGS: Access site: Right lower lateral pelvic body wall Needle: One-Step centesis catheter with introducer needle. Fluid volume and description: Slightly serous, clear, 7400 cc Fluid sent for diagnostic testing: Not requested Medications: 1% lidocaine for local anaesthesia. Complications: None. IMPRESSION: Successful ultrasound-guided paracentesis. Dictated by: Yong Blakely M.D. on 11/11/2020 at 14:12 Approved by: Yong Blakely M.D. on 11/11/2020 at 14:12
== END ==
PROVIDERS: PCP Family Medicine; Referring Provider Internal Medicine Hematology & Oncology; Visit Provider Internal Medicine Hematology & Oncology
DX: C80.1 Malignant (primary) neoplasm, unspecified (principal); R18.8 Other ascites; C78.6 Secondary malignant neoplasm of retroperitoneum and peritoneum
CPT/HCPCS: 36591; 49083; 80053; 85025; 96365; 96366; P9041

== ENCOUNTER → 2020-11-18 08:20 | Outpatient (CLI) | payer MEDICARE, SELFPAY ==
--- NOTE | 2020-11-18 08:21 | DI.US.S_ITS ---
PROCEDURE: US PARACENTESIS INDICATIONS: ASCITIES TECHNIQUE: The indications, alternatives, benefits, risks, and complications of the procedure were explained to the patient. Written informed consent was obtained and placed in the chart. The abdomen and pelvis were examined sonographically, and an appropriate site was chosen for paracentesis. The skin was prepared and draped in the usual sterile fashion, and 1% lidocaine was infiltrated from the skin down through the peritoneal surface. A 19-gauge catheter-covered needle was then introduced into the peritoneal space, the catheter was advanced and the needle was withdrawn, and thereafter peritoneal fluid was withdrawn. The catheter was then removed and a dressing was applied. The fluid was discarded if the clinician did not order diagnostic testing of the fluid. COMPARISON: [facility], , PARACENTESIS, 11/11/2020, 9:14. FINDINGS: Access site: Right lower quadrant Needle: One-Step centesis catheter with introducer needle. Fluid volume and description: 9.3 L clear yellow Fluid sent for diagnostic testing: No Medications: 1% lidocaine for local anaesthesia. Complications: None. IMPRESSION: Successful ultrasound-guided paracentesis. Dictated by: Germaine Paulino M.D. on 11/18/2020 at 12:38 Approved by: Germaine Paulino M.D. on 11/18/2020 at 12:39
== END ==
PROVIDERS: PCP Family Medicine; Referring Provider Internal Medicine Hematology & Oncology; Visit Provider Internal Medicine Hematology & Oncology
DX: C80.1 Malignant (primary) neoplasm, unspecified (principal); C78.6 Secondary malignant neoplasm of retroperitoneum and peritoneum; R18.0 Malignant ascites
CPT/HCPCS: 49083

== ENCOUNTER → 2020-11-25 08:27 | Outpatient (CLI) | payer MEDICARE, SELFPAY ==
--- NOTE | 2020-11-25 08:28 | DI.US.S_ITS ---
PROCEDURE: US PARACENTESIS INDICATIONS: ASCITIES TECHNIQUE: The indications, alternatives, benefits, risks, and complications of the procedure were explained to the patient. Written informed consent was obtained and placed in the chart. The abdomen and pelvis were examined sonographically, and an appropriate site was chosen for paracentesis. The skin was prepared and draped in the usual sterile fashion, and 1% lidocaine was infiltrated from the skin down through the peritoneal surface. A 19-gauge catheter-covered needle was then introduced into the peritoneal space, the catheter was advanced and the needle was withdrawn, and thereafter peritoneal fluid was withdrawn. The catheter was then removed and a dressing was applied. The fluid was discarded if the clinician did not order diagnostic testing of the fluid. COMPARISON: [facility], PARACENTESIS, 11/18/2020, 8:55. [facility], PARACENTESIS, 11/11/2020, 9:14. FINDINGS: Access site: Right lateral pelvic body wall Needle: One-Step centesis catheter with introducer needle. Fluid volume and description: 1400 cc, clear Fluid sent for diagnostic testing: Not requested Medications: 1% lidocaine for local anaesthesia. Complications: None. IMPRESSION: Successful ultrasound-guided paracentesis. Dictated by: Yong Blakely M.D. on 11/25/2020 at 10:19 Approved by: Yong Blakely M.D. on 11/25/2020 at 10:19
== END ==
PROVIDERS: PCP Family Medicine; Referring Provider Internal Medicine Hematology & Oncology; Visit Provider Internal Medicine Hematology & Oncology
DX: C80.1 Malignant (primary) neoplasm, unspecified (principal); C78.6 Secondary malignant neoplasm of retroperitoneum and peritoneum; R18.0 Malignant ascites
CPT/HCPCS: 49083

== ENCOUNTER → 2020-12-01 12:31 | Outpatient (CLI) | payer MEDICARE, SELFPAY ==
--- NOTE | 2020-12-01 12:32 | DI.US.S_ITS ---
PROCEDURE: US PARACENTESIS INDICATIONS: ASCITIES TECHNIQUE: The indications, alternatives, benefits, risks, and complications of the procedure were explained to the patient. Written informed consent was obtained and placed in the chart. The abdomen and pelvis were examined sonographically, and an appropriate site was chosen for paracentesis. The skin was prepared and draped in the usual sterile fashion, and 1% lidocaine was infiltrated from the skin down through the peritoneal surface. A 19-gauge catheter-covered needle was then introduced into the peritoneal space, the catheter was advanced and the needle was withdrawn, and thereafter peritoneal fluid was withdrawn. The catheter was then removed and a dressing was applied. The fluid was discarded if the clinician did not order diagnostic testing of the fluid. COMPARISON: [facility], PARACENTESIS, 11/25/2020, 9:00. FINDINGS: Access site: Right lower quadrant Needle: One-Step centesis catheter with introducer needle. Fluid volume and description: 8500 cc of serous fluid Fluid sent for diagnostic testing: Not requested Medications: 1% lidocaine for local anaesthesia. Complications: None. IMPRESSION: Successful ultrasound-guided paracentesis. Dictated by: German Chambers M.D. on 12/01/2020 at 19:38 Approved by: German Chambers M.D. on 12/01/2020 at 19:39
== END ==
PROVIDERS: PCP Family Medicine; Referring Provider Internal Medicine Hematology & Oncology; Visit Provider Internal Medicine Hematology & Oncology
DX: C80.1 Malignant (primary) neoplasm, unspecified (principal); C78.6 Secondary malignant neoplasm of retroperitoneum and peritoneum; R18.0 Malignant ascites
CPT/HCPCS: 49083

== ENCOUNTER → 2020-12-09 08:28 | Outpatient (CLI) | payer MEDICARE, SELFPAY ==
--- NOTE | 2020-12-09 08:29 | DI.US.S_ITS ---
PROCEDURE: US PARACENTESIS INDICATIONS: ASCITIES TECHNIQUE: The indications, alternatives, benefits, risks, and complications of the procedure were explained to the patient. Written informed consent was obtained and placed in the chart. The abdomen and pelvis were examined sonographically, and an appropriate site was chosen for paracentesis. The skin was prepared and draped in the usual sterile fashion, and 1% lidocaine was infiltrated from the skin down through the peritoneal surface. A 19-gauge catheter-covered needle was then introduced into the peritoneal space, the catheter was advanced and the needle was withdrawn, and thereafter peritoneal fluid was withdrawn. The catheter was then removed and a dressing was applied. The fluid was discarded if the clinician did not order diagnostic testing of the fluid. COMPARISON: [facility], PARACENTESIS, 12/01/2020, 13:04. FINDINGS: Access site: Anterior right lower abdominal wall Needle: One-Step centesis catheter with introducer needle. Fluid volume and description: 6000 mL of clear, straw-colored ascites Fluid sent for diagnostic testing: None sent for testing. Medications: 1% lidocaine for local anaesthesia. Complications: None. IMPRESSION: Successful ultrasound-guided paracentesis. Dictated by: Lam Rai M.D. on 12/09/2020 at 17:08 Approved by: Lam Rai M.D. on 12/09/2020 at 17:08
== END ==
PROVIDERS: PCP Family Medicine; Referring Provider Internal Medicine Hematology & Oncology; Visit Provider Internal Medicine Hematology & Oncology
DX: C80.1 Malignant (primary) neoplasm, unspecified (principal); C78.6 Secondary malignant neoplasm of retroperitoneum and peritoneum; R18.0 Malignant ascites
CPT/HCPCS: 49083

== ENCOUNTER → 2020-12-16 07:30 | Outpatient (CLI) | payer MEDICARE, SELFPAY ==
--- NOTE | 2020-12-16 07:31 | DI.US.S_ITS ---
PROCEDURE: US PARACENTESIS INDICATIONS: ASCITIES TECHNIQUE: The indications, alternatives, benefits, risks, and complications of the procedure were explained to the patient. Written informed consent was obtained and placed in the chart. The abdomen and pelvis were examined sonographically, and an appropriate site was chosen for paracentesis. The skin was prepared and draped in the usual sterile fashion, and 1% lidocaine was infiltrated from the skin down through the peritoneal surface. A 19-gauge catheter-covered needle was then introduced into the peritoneal space, the catheter was advanced and the needle was withdrawn, and thereafter peritoneal fluid was withdrawn. The catheter was then removed and a dressing was applied. The fluid was discarded if the clinician did not order diagnostic testing of the fluid. COMPARISON: [facility], PARACENTESIS, 12/09/2020, 9:06. FINDINGS: Access site: Right lower quadrant abdomen. Needle: One-Step centesis catheter with introducer needle. Fluid volume and description: 6 liters of clear fluid. Fluid sent for diagnostic testing: None. Medications: 1% lidocaine for local anaesthesia. Complications: None. IMPRESSION: Successful ultrasound-guided paracentesis. Dictated by: Raman Mcgowan M.D. on 12/16/2020 at 9:26 Approved by: Raman Mcgowan M.D. on 12/16/2020 at 9:26
== END ==
PROVIDERS: PCP Family Medicine; Referring Provider Internal Medicine Hematology & Oncology; Visit Provider Internal Medicine Hematology & Oncology
DX: C80.1 Malignant (primary) neoplasm, unspecified (principal); C78.6 Secondary malignant neoplasm of retroperitoneum and peritoneum; R18.0 Malignant ascites
CPT/HCPCS: 49083

== ENCOUNTER → 2020-12-23 08:13 | Outpatient (CLI) | payer MEDICARE, SELFPAY ==
--- NOTE | 2020-12-23 | DI.US.S_ITS ---
PROCEDURE: US PARACENTESIS INDICATIONS: ASCITIS,PERITONEAL CANCER TECHNIQUE: The indications, alternatives, benefits, risks, and complications of the procedure were explained to the patient. Written informed consent was obtained and placed in the chart. The abdomen and pelvis were examined sonographically, and an appropriate site was chosen for paracentesis. The skin was prepared and draped in the usual sterile fashion, and 1% lidocaine was infiltrated from the skin down through the peritoneal surface. A 19-gauge catheter-covered needle was then introduced into the peritoneal space, the catheter was advanced and the needle was withdrawn, and thereafter peritoneal fluid was withdrawn. The catheter was then removed and a dressing was applied. The fluid was discarded if the clinician did not order diagnostic testing of the fluid. COMPARISON: None. FINDINGS: Access site: Right lower quadrant Needle: One-Step centesis catheter with introducer needle. Fluid volume and description: 5900 cubic centimeters clear fluid Fluid sent for diagnostic testing: Not requested Medications: 1% lidocaine for local anaesthesia. Complications: None. IMPRESSION: Successful ultrasound-guided paracentesis. No immediate complications. Dictated by: Afua Alexander MD, PhD on 12/23/2020 at 10:22 Approved by: Afua Alexander MD, PhD on 12/23/2020 at 10:22
== END ==
PROVIDERS: PCP Family Medicine; Referring Provider Internal Medicine Hematology & Oncology; Visit Provider Internal Medicine Hematology & Oncology
DX: C80.1 Malignant (primary) neoplasm, unspecified (principal); C78.6 Secondary malignant neoplasm of retroperitoneum and peritoneum; R18.0 Malignant ascites
CPT/HCPCS: 36591; 49083; 80053; 85025; 96365; 96366; 96523; P9041

== ENCOUNTER → 2020-12-30 08:13 | Outpatient (CLI) | payer MEDICARE, SELFPAY ==
--- NOTE | 2020-12-30 08:15 | DI.US.S_ITS ---
PROCEDURE: US PARACENTESIS INDICATIONS: ASCITIES TECHNIQUE: The indications, alternatives, benefits, risks, and complications of the procedure were explained to the patient. Written informed consent was obtained and placed in the chart. The abdomen and pelvis were examined sonographically, and an appropriate site was chosen for paracentesis. The skin was prepared and draped in the usual sterile fashion, and 1% lidocaine was infiltrated from the skin down through the peritoneal surface. A 19-gauge catheter-covered needle was then introduced into the peritoneal space, the catheter was advanced and the needle was withdrawn, and thereafter peritoneal fluid was withdrawn. The catheter was then removed and a dressing was applied. The fluid was discarded if the clinician did not order diagnostic testing of the fluid. COMPARISON: [facility], PARACENTESIS, 12/23/2020, 8:53. [facility], PARACENTESIS, 12/16/2020, 8:07. FINDINGS: Access site: Right lower pelvic body wall Needle: One-Step centesis catheter with introducer needle. Fluid volume and description: Clear, serous. Fluid sent for diagnostic testin cc Medications: 1% lidocaine for local anaesthesia. Complications: None. IMPRESSION: Successful ultrasound-guided paracentesis. The procedure failed to completely empty the peritoneal space of ascites. Multiple attempts of bowel covering and occluding the paracentesis catheter occurred. Multiple attempts were made to achieve successful complete evacuation. The amount of fluid had diminished to the degree that repeat puncture risk to continue paracentesis on the left was considered unsafe. Therefore, in my opinion paracentesis in the future should be attempted on the left. Dictated by: Yong Blakely M.D. on 12/30/2020 at 15:16 Approved by: Yong Blakely M.D. on 12/30/2020 at 15:18
== END ==
PROVIDERS: PCP Family Medicine; Referring Provider Internal Medicine Hematology & Oncology; Visit Provider Internal Medicine Hematology & Oncology
DX: C80.1 Malignant (primary) neoplasm, unspecified (principal); C78.6 Secondary malignant neoplasm of retroperitoneum and peritoneum; R18.8 Other ascites
CPT/HCPCS: 49083

== ENCOUNTER → 2021-01-04 15:11 | Outpatient (CLI) | payer MEDICARE, SELFPAY ==
--- NOTE | 2021-01-04 15:12 | DI.US.S_ITS ---
PROCEDURE: US PARACENTESIS INDICATIONS: peritoneal cancer, ascites TECHNIQUE: The indications, alternatives, benefits, risks, and complications of the procedure were explained to the patient. Written informed consent was obtained and placed in the chart. The abdomen and pelvis were examined sonographically, and an appropriate site was chosen for paracentesis. The skin was prepared and draped in the usual sterile fashion, and 1% lidocaine was infiltrated from the skin down through the peritoneal surface. A 19-gauge catheter-covered needle was then introduced into the peritoneal space, the catheter was advanced and the needle was withdrawn, and thereafter peritoneal fluid was withdrawn. The catheter was then removed and a dressing was applied. The fluid was discarded if the clinician did not order diagnostic testing of the fluid. COMPARISON: [place], [place], [place] CT FUSION SKULL 2 THIGH, 08/26/2020, 7:50. [facility], PARACENTESIS, 12/23/2020, 8:53. [facility], PARACENTESIS, 12/16/2020, 8:07. [facility], PARACENTESIS, 12/30/2020, 9:01. FINDINGS: Access site: Right lower quadrant. Large volume of fluid in the right lower quadrant and safe access. Needle: One-Step centesis catheter with introducer needle. Fluid volume and description: 5000 cc. Clear straw colored. Fluid sent for diagnostic testing: None. Medications: 1% lidocaine for local anaesthesia. Complications: None. IMPRESSION: Successful therapeutic ultrasound-guided paracentesis. 5 L removed. Well tolerated by the patient. Dictated by: Moshe Xavier M.D. on 01/04/2021 at 17:18 Approved by: Moshe Xavier M.D. on 01/04/2021 at 17:19
== END ==
PROVIDERS: PCP Family Medicine; Referring Provider Internal Medicine Hematology & Oncology; Visit Provider Internal Medicine Hematology & Oncology
DX: C80.1 Malignant (primary) neoplasm, unspecified (principal); C78.6 Secondary malignant neoplasm of retroperitoneum and peritoneum; R18.0 Malignant ascites
CPT/HCPCS: 49083

== ENCOUNTER → 2021-01-06 08:17 | Outpatient (CLI) | payer MEDICARE, SELFPAY ==
--- NOTE | 2021-01-06 | DI.US.S_ITS ---
PROCEDURE: US PARACENTESIS INDICATIONS: ASCITES TECHNIQUE: The indications, alternatives, benefits, risks, and complications of the procedure were explained to the patient. Written informed consent was obtained and placed in the chart. The abdomen and pelvis were examined sonographically, and an appropriate site was chosen for paracentesis. The skin was prepared and draped in the usual sterile fashion, and 1% lidocaine was infiltrated from the skin down through the peritoneal surface. A 19-gauge catheter-covered needle was then introduced into the peritoneal space, the catheter was advanced and the needle was withdrawn, and thereafter peritoneal fluid was withdrawn. The catheter was then removed and a dressing was applied. The fluid was discarded if the clinician did not order diagnostic testing of the fluid. COMPARISON: [facility], PARACENTESIS, 12/30/2020, 9:01. [facility], PARACENTESIS, 01/04/2021, 14:51. FINDINGS: Access site: Right lower quadrant Needle: One-Step centesis catheter with introducer needle. Fluid volume and description: 4300 cc of serous fluid Fluid sent for diagnostic testing: Not requested Medications: 1% lidocaine for local anaesthesia. Complications: None. IMPRESSION: Successful ultrasound-guided paracentesis. Dictated by: German Chambers M.D. on 01/06/2021 at 10:58 Approved by: German Chambers M.D. on 01/06/2021 at 11:11
== END ==
PROVIDERS: PCP Family Medicine; Referring Provider Internal Medicine Hematology & Oncology; Visit Provider Internal Medicine Hematology & Oncology
DX: C80.1 Malignant (primary) neoplasm, unspecified (principal); C78.6 Secondary malignant neoplasm of retroperitoneum and peritoneum; R18.0 Malignant ascites
CPT/HCPCS: 49083

== ENCOUNTER → 2021-01-13 08:22 | Outpatient (CLI) | payer MEDICARE, SELFPAY ==
--- NOTE | 2021-01-13 08:23 | DI.US.S_ITS ---
PROCEDURE: US PARACENTESIS INDICATIONS: ASCITIES TECHNIQUE: The indications, alternatives, benefits, risks, and complications of the procedure were explained to the patient. Written informed consent was obtained and placed in the chart. The abdomen and pelvis were examined sonographically, and an appropriate site was chosen for paracentesis. The skin was prepared and draped in the usual sterile fashion, and 1% lidocaine was infiltrated from the skin down through the peritoneal surface. A 19-gauge catheter-covered needle was then introduced into the peritoneal space, the catheter was advanced and the needle was withdrawn, and thereafter peritoneal fluid was withdrawn. The catheter was then removed and a dressing was applied. The fluid was discarded if the clinician did not order diagnostic testing of the fluid. COMPARISON: [facility], PARACENTESIS, 01/06/2021, 9:03. FINDINGS: Access site: Right lower quadrant Needle: One-Step centesis catheter with introducer needle. Fluid volume and description: 4700 cc of serous ascites Fluid sent for diagnostic testing: Not requested Medications: 1% lidocaine for local anaesthesia. Complications: None. IMPRESSION: Successful ultrasound-guided paracentesis. Dictated by: German Chambers M.D. on 01/13/2021 at 10:30 Approved by: German Chambers M.D. on 01/13/2021 at 10:32
== END ==
PROVIDERS: PCP Family Medicine; Referring Provider Internal Medicine Hematology & Oncology; Visit Provider Internal Medicine Hematology & Oncology
DX: C80.1 Malignant (primary) neoplasm, unspecified (principal); C78.6 Secondary malignant neoplasm of retroperitoneum and peritoneum; R18.8 Other ascites; Z85.038 Personal history of other malignant neoplasm of large intestine
CPT/HCPCS: 49083

== ENCOUNTER → 2021-01-19 08:45 | Outpatient (CLI) | payer MEDICARE, SELFPAY ==
--- NOTE | 2021-01-19 08:46 | DI.US.S_ITS ---
PROCEDURE: US PARACENTESIS INDICATIONS: ASCITIES TECHNIQUE: The indications, alternatives, benefits, risks, and complications of the procedure were explained to the patient. Written informed consent was obtained and placed in the chart. The abdomen and pelvis were examined sonographically, and an appropriate site was chosen for paracentesis. The skin was prepared and draped in the usual sterile fashion, and 1% lidocaine was infiltrated from the skin down through the peritoneal surface. A 19-gauge catheter-covered needle was then introduced into the peritoneal space, the catheter was advanced and the needle was withdrawn, and thereafter peritoneal fluid was withdrawn. The catheter was then removed and a dressing was applied. The fluid was discarded if the clinician did not order diagnostic testing of the fluid. COMPARISON: None. FINDINGS: Access site: Right lower quadrant Needle: One-Step centesis catheter with introducer needle. Fluid volume and description: 4600 cc Fluid sent for diagnostic testing: Not requested Medications: 1% lidocaine for local anaesthesia. Complications: None. IMPRESSION: Successful ultrasound-guided paracentesis. No immediate complications. Dictated by: Afua Alexander MD, PhD on 01/19/2021 at 10:34 Approved by: Afua Alexander MD, PhD on 01/19/2021 at 10:47
== END ==
PROVIDERS: PCP Family Medicine; Referring Provider Internal Medicine Hematology & Oncology; Visit Provider Internal Medicine Hematology & Oncology
DX: C80.1 Malignant (primary) neoplasm, unspecified (principal); C78.6 Secondary malignant neoplasm of retroperitoneum and peritoneum; R18.8 Other ascites
CPT/HCPCS: 49083

== ENCOUNTER → 2021-01-27 07:27 | Outpatient (CLI) | payer MEDICARE, SELFPAY ==
--- NOTE | 2021-01-27 07:28 | DI.US.S_ITS ---
PROCEDURE: US PARACENTESIS INDICATIONS: ASCITES TECHNIQUE: The indications, alternatives, benefits, risks, and complications of the procedure were explained to the patient. Written informed consent was obtained and placed in the chart. The abdomen and pelvis were examined sonographically, and an appropriate site was chosen for paracentesis. The skin was prepared and draped in the usual sterile fashion, and 1% lidocaine was infiltrated from the skin down through the peritoneal surface. A 19-gauge catheter-covered needle was then introduced into the peritoneal space, the catheter was advanced and the needle was withdrawn, and thereafter peritoneal fluid was withdrawn. The catheter was then removed and a dressing was applied. The fluid was discarded if the clinician did not order diagnostic testing of the fluid. COMPARISON: [facility], , PARACENTESIS, 01/19/2021, 8:59. FINDINGS: Access site: Right lower quadrant Needle: One-Step centesis catheter with introducer needle. Fluid volume and description: 5250 cc of serous ascites Fluid sent for diagnostic testing: Not requested Medications: 1% lidocaine for local anaesthesia. Complications: None. IMPRESSION: Successful ultrasound-guided paracentesis. Dictated by: German Chambers M.D. on 01/27/2021 at 16:29 Approved by: German Chambers M.D. on 01/27/2021 at 16:29
== END ==
PROVIDERS: PCP Family Medicine; Referring Provider Internal Medicine Hematology & Oncology; Visit Provider Internal Medicine Hematology & Oncology
DX: C80.1 Malignant (primary) neoplasm, unspecified (principal); C78.6 Secondary malignant neoplasm of retroperitoneum and peritoneum; R18.8 Other ascites; Z85.038 Personal history of other malignant neoplasm of large intestine
CPT/HCPCS: 49083

== ENCOUNTER → 2021-02-03 08:45 | Outpatient (CLI) | payer MEDICARE, SELFPAY ==
--- NOTE | 2021-02-03 08:46 | DI.US.S_ITS ---
PROCEDURE: US PARACENTESIS INDICATIONS: ASCITIES TECHNIQUE: The indications, alternatives, benefits, risks, and complications of the procedure were explained to the patient. Written informed consent was obtained and placed in the chart. The abdomen and pelvis were examined sonographically, and an appropriate site was chosen for paracentesis. The skin was prepared and draped in the usual sterile fashion, and 1% lidocaine was infiltrated from the skin down through the peritoneal surface. A 19-gauge catheter-covered needle was then introduced into the peritoneal space, the catheter was advanced and the needle was withdrawn, and thereafter peritoneal fluid was withdrawn. The catheter was then removed and a dressing was applied. The fluid was discarded if the clinician did not order diagnostic testing of the fluid. COMPARISON: [facility], PARACENTESIS, 01/27/2021, 8:05. FINDINGS: Access site: Right lower quadrant Needle: One-Step centesis catheter with introducer needle. Fluid volume and description: 5000 cc of serous ascites Fluid sent for diagnostic testing: Not requested Medications: 1% lidocaine for local anaesthesia. Complications: None. IMPRESSION: Successful ultrasound-guided paracentesis. Dictated by: German Chambers M.D. on 02/03/2021 at 10:36 Approved by: German Chambers M.D. on 02/03/2021 at 10:37
== END ==
PROVIDERS: PCP Family Medicine; Referring Provider Internal Medicine Hematology & Oncology; Visit Provider Internal Medicine Hematology & Oncology
DX: C80.1 Malignant (primary) neoplasm, unspecified (principal); C78.6 Secondary malignant neoplasm of retroperitoneum and peritoneum; R18.0 Malignant ascites
CPT/HCPCS: 49083

== ENCOUNTER → 2021-02-10 08:40 | Outpatient (CLI) | payer MEDICARE, SELFPAY ==
--- NOTE | 2021-02-10 08:42 | DI.US.S_ITS ---
PROCEDURE: US PARACENTESIS INDICATIONS: ASCITIES TECHNIQUE: The indications, alternatives, benefits, risks, and complications of the procedure were explained to the patient. Written informed consent was obtained and placed in the chart. The abdomen and pelvis were examined sonographically, and an appropriate site was chosen for paracentesis. The skin was prepared and draped in the usual sterile fashion, and 1% lidocaine was infiltrated from the skin down through the peritoneal surface. A 19-gauge catheter-covered needle was then introduced into the peritoneal space, the catheter was advanced and the needle was withdrawn, and thereafter peritoneal fluid was withdrawn. The catheter was then removed and a dressing was applied. The fluid was discarded if the clinician did not order diagnostic testing of the fluid. COMPARISON: [facility], PARACENTESIS, 02/03/2021, 9:14. FINDINGS: Access site: Right lower quadrant Needle: One-Step centesis catheter with introducer needle. Fluid volume and description: 5200 cc of serous ascites Fluid sent for diagnostic testing: Not requested Medications: 1% lidocaine for local anaesthesia. Complications: None. IMPRESSION: Successful ultrasound-guided paracentesis. Dictated by: German Chambers M.D. on 02/11/2021 at 8:41 Approved by: German Chambers M.D. on 02/11/2021 at 9:08
== END ==
PROVIDERS: PCP Family Medicine; Referring Provider Internal Medicine Hematology & Oncology; Visit Provider Internal Medicine Hematology & Oncology
DX: C80.1 Malignant (primary) neoplasm, unspecified (principal); R18.8 Other ascites; C78.6 Secondary malignant neoplasm of retroperitoneum and peritoneum
CPT/HCPCS: 49083; 96365; 96366; P9041

== ENCOUNTER → 2021-02-17 08:49 | Outpatient (CLI) | payer MEDICARE, SELFPAY ==
--- NOTE | 2021-02-17 08:51 | DI.US.S_ITS ---
PROCEDURE: US PARACENTESIS INDICATIONS: ASCITIES TECHNIQUE: The indications, alternatives, benefits, risks, and complications of the procedure were explained to the patient. Written informed consent was obtained and placed in the chart. The abdomen and pelvis were examined sonographically, and an appropriate site was chosen for paracentesis. The skin was prepared and draped in the usual sterile fashion, and 1% lidocaine was infiltrated from the skin down through the peritoneal surface. A 19-gauge catheter-covered needle was then introduced into the peritoneal space, the catheter was advanced and the needle was withdrawn, and thereafter peritoneal fluid was withdrawn. The catheter was then removed and a dressing was applied. The fluid was discarded if the clinician did not order diagnostic testing of the fluid. COMPARISON: [facility], PARACENTESIS, 02/10/2021, 9:24. FINDINGS: Access site: Right lower quadrant Needle: One-Step centesis catheter with introducer needle. Fluid volume and description: Clear, uli. 4000 mL withdrawn. Fluid sent for diagnostic testing: Not sent for testing Medications: 1% lidocaine for local anaesthesia. Complications: None. IMPRESSION: Successful ultrasound-guided paracentesis. Dictated by: Lam Rai M.D. on 02/17/2021 at 10:19 Approved by: Lam Rai M.D. on 02/17/2021 at 10:20
== END ==
PROVIDERS: PCP Family Medicine; Referring Provider Internal Medicine Hematology & Oncology; Visit Provider Internal Medicine Hematology & Oncology
DX: C80.1 Malignant (primary) neoplasm, unspecified (principal); Z85.038 Personal history of other malignant neoplasm of large intestine
CPT/HCPCS: 49083

== ENCOUNTER → 2021-02-24 08:52 | Outpatient (CLI) | payer MEDICARE, SELFPAY ==
--- NOTE | 2021-02-24 08:53 | DI.US.S_ITS ---
PROCEDURE: US PARACENTESIS INDICATIONS: ASCITIES TECHNIQUE: The indications, alternatives, benefits, risks, and complications of the procedure were explained to the patient. Written informed consent was obtained and placed in the chart. The abdomen and pelvis were examined sonographically, and an appropriate site was chosen for paracentesis. The skin was prepared and draped in the usual sterile fashion, and 1% lidocaine was infiltrated from the skin down through the peritoneal surface. A 19-gauge catheter-covered needle was then introduced into the peritoneal space, the catheter was advanced and the needle was withdrawn, and thereafter peritoneal fluid was withdrawn. The catheter was then removed and a dressing was applied. The fluid was discarded if the clinician did not order diagnostic testing of the fluid. COMPARISON: None. FINDINGS: Access site: Right lower quadrant Needle: One-Step centesis catheter with introducer needle. Fluid volume and description: 3900 cubic centimeters of clear fluid. Fluid sent for diagnostic testing: Not requested Medications: 1% lidocaine for local anaesthesia. Complications: None. IMPRESSION: Successful ultrasound-guided paracentesis. No immediate complications. Dictated by: Afua Alexander MD, PhD on 02/24/2021 at 10:55 Approved by: Afua Alexander MD, PhD on 02/24/2021 at 10:56
== END ==
PROVIDERS: PCP Family Medicine; Referring Provider Internal Medicine Hematology & Oncology; Visit Provider Internal Medicine Hematology & Oncology
DX: C80.1 Malignant (primary) neoplasm, unspecified (principal); C78.6 Secondary malignant neoplasm of retroperitoneum and peritoneum; R18.0 Malignant ascites; Z85.038 Personal history of other malignant neoplasm of large intestine
CPT/HCPCS: 49083

== ENCOUNTER → 2021-03-03 08:28 | Outpatient (CLI) | payer MEDICARE, SELFPAY ==
--- NOTE | 2021-03-03 08:29 | DI.CT.S_ITS ---
PROCEDURE: CT CHEST ABD PEL W CON INDICATIONS: malignant ascites, unknown primary, mesothelioma? TECHNIQUE: After the administration of oral and intravenous contrast, axial sections acquired from the supraclavicular neck to the pubic symphysis. Coronal and sagittal reformats were performed. For radiation dose reduction, the following was used: automated exposure control, adjustment of mA and/or kV according to patient size. COMPARISON: [facility], US, US PARACENTESIS, 03/03/2021, 9:05. [facility], CT, CT CHEST ABD PEL W CON, 06/11/2020, 15:10. FINDINGS: CHEST: Lungs: Airway thickening in keeping with nonspecific bronchitis and/or reactive airways disease. Scattered subsegmental atelectasis and/or scarring. No focal consolidation. Upper lobe predominant centrilobular emphysema. Pleura: No pleural effusions or pneumothorax. Heart: Heart size is normal. No pericardial effusion. Chest nodes: Normal. Thyroid gland: Negative Aorta: Normal in size. Scattered atheromatous calcifications in the aorta. Pulmonary arteries: Normal. Esophagus: Normal. ABDOMEN: Liver: Normal. Gallbladder: Largely decompressed otherwise unremarkable Bile ducts: Normal. Pancreas: Grossly unremarkable. Spleen: Normal. Adrenals: Bilaterally enlarged adrenal glands with ill-defined nodular appearance however no interval change. Kidneys and ureters: 1 mm right renal calcifications on image 72/2. Parapelvic cysts are noted bilaterally. No definite hydronephrosis. Stomach and duodenum: Normal. Bowel: There is diffuse ill-defined soft tissue attenuation is throughout the omentum as before in keeping with peritoneal carcinomatosis. No definite interval change. Scattered mild ascites is present, in particular the perihepatic and pelvic regions. There is leftward displacement of the bladder as before. Other: No free air Abdominal nodes: Subcentimeter ill-defined retroperitoneal lymph nodes surrounding the aorta are overall more conspicuous. There is also increase in size of a right periaortic lymph node on image 56/2 measuring 1.4 x 1.9 cm, previously 1.0 x 1.3 cm. Aorta and IVC: Normal in size. Scattered atheromatous calcifications in the aorta. Ventral wall: Normal. PELVIS: Bladder: Displaced to the left as before. Inguinal region: No hernia. Pelvic nodes: Normal. Bones: No suspicious bony lesions. No vertebral body compression fractures. Diffuse spondylitic changes and facet arthropathy. IMPRESSION: No acute findings identified. Mildly increased size of small retroperitoneal lymph nodes as detailed above, since 06/11/20. 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 Additional chronic and incidental findings as above. . Dictated by: German Chambers M.D. on 03/03/2021 at 11:04 Approved by: German Chambers M.D. on 03/03/2021 at 11:22
--- NOTE | 2021-03-03 08:29 | DI.US.S_ITS ---
PROCEDURE: US PARACENTESIS INDICATIONS: ASCITIES TECHNIQUE: The indications, alternatives, benefits, risks, and complications of the procedure were explained to the patient. Written informed consent was obtained and placed in the chart. The abdomen and pelvis were examined sonographically, and an appropriate site was chosen for paracentesis. The skin was prepared and draped in the usual sterile fashion, and 1% lidocaine was infiltrated from the skin down through the peritoneal surface. A 19-gauge catheter-covered needle was then introduced into the peritoneal space, the catheter was advanced and the needle was withdrawn, and thereafter peritoneal fluid was withdrawn. The catheter was then removed and a dressing was applied. The fluid was discarded if the clinician did not order diagnostic testing of the fluid. COMPARISON: [facility], PARACENTESIS, 02/24/2021, 9:26. FINDINGS: Access site: Right lower quadrant Needle: One-Step centesis catheter with introducer needle. Fluid volume and description: 4900 cc Fluid sent for diagnostic testing: No Medications: 1% lidocaine for local anaesthesia. Complications: None. IMPRESSION: Successful ultrasound-guided paracentesis. Dictated by: Sacha Kidd M.D. on 03/03/2021 at 10:14 Approved by: Sacha Kidd M.D. on 03/03/2021 at 10:15
== END ==
PROVIDERS: PCP Family Medicine; Referring Provider Internal Medicine Hematology & Oncology; Visit Provider Internal Medicine Hematology & Oncology
DX: C45.9 Mesothelioma, unspecified (principal); R18.8 Other ascites; R59.0 Localized enlarged lymph nodes; Z85.038 Personal history of other malignant neoplasm of large intestine
CPT/HCPCS: 49083; 71260; 74177

== ENCOUNTER → 2021-03-10 08:39 | Outpatient (CLI) | payer MEDICARE, SELFPAY ==
--- NOTE | 2021-03-10 08:40 | DI.US.S_ITS ---
PROCEDURE: US PARACENTESIS INDICATIONS: ASCITIES TECHNIQUE: The indications, alternatives, benefits, risks, and complications of the procedure were explained to the patient. Written informed consent was obtained and placed in the chart. The abdomen and pelvis were examined sonographically, and an appropriate site was chosen for paracentesis. The skin was prepared and draped in the usual sterile fashion, and 1% lidocaine was infiltrated from the skin down through the peritoneal surface. A 19-gauge catheter-covered needle was then introduced into the peritoneal space, the catheter was advanced and the needle was withdrawn, and thereafter peritoneal fluid was withdrawn. The catheter was then removed and a dressing was applied. The fluid was discarded if the clinician did not order diagnostic testing of the fluid. COMPARISON: None. FINDINGS: Access site: Right lower quadrant Needle: One-Step centesis catheter with introducer needle. Fluid volume and description: 4400 cubic centimeters of clear fluid Fluid sent for diagnostic testing: Not requested Medications: 1% lidocaine for local anaesthesia. Complications: None. IMPRESSION: Successful ultrasound-guided paracentesis. No immediate complications. Dictated by: Afua Alexander MD, PhD on 03/10/2021 at 10:08 Approved by: Afua Alexander MD, PhD on 03/10/2021 at 10:09
== END ==
PROVIDERS: PCP Family Medicine; Referring Provider Internal Medicine Hematology & Oncology; Visit Provider Internal Medicine Hematology & Oncology
DX: C80.1 Malignant (primary) neoplasm, unspecified (principal); C78.6 Secondary malignant neoplasm of retroperitoneum and peritoneum; R18.0 Malignant ascites
CPT/HCPCS: 49083

== ENCOUNTER → 2021-03-17 08:38 | Outpatient (CLI) | payer MEDICARE, SELFPAY ==
--- NOTE | 2021-03-17 08:39 | DI.US.S_ITS ---
PROCEDURE: US PARACENTESIS INDICATIONS: ascites, pertineal cancer TECHNIQUE: The indications, alternatives, benefits, risks, and complications of the procedure were explained to the patient. Written informed consent was obtained and placed in the chart. The abdomen and pelvis were examined sonographically, and an appropriate site was chosen for paracentesis. The skin was prepared and draped in the usual sterile fashion, and 1% lidocaine was infiltrated from the skin down through the peritoneal surface. A 19-gauge catheter-covered needle was then introduced into the peritoneal space, the catheter was advanced and the needle was withdrawn, and thereafter peritoneal fluid was withdrawn. The catheter was then removed and a dressing was applied. The fluid was discarded if the clinician did not order diagnostic testing of the fluid. COMPARISON: None. FINDINGS: Access site: Left lower quadrant Needle: One-Step centesis catheter with introducer needle. Fluid volume and description: 3800 cubic centimeters of yellow clear fluid. Fluid sent for diagnostic testing: Not requested Medications: 1% lidocaine for local anaesthesia. Complications: None. IMPRESSION: Successful ultrasound-guided paracentesis. No immediate complications. Dictated by: Afua Alexander MD, PhD on 03/17/2021 at 11:55 Approved by: Afua Alexander MD, PhD on 03/17/2021 at 11:56
== END ==
PROVIDERS: PCP Family Medicine; Referring Provider Internal Medicine Hematology & Oncology; Visit Provider Internal Medicine Hematology & Oncology
DX: C80.1 Malignant (primary) neoplasm, unspecified (principal); C78.6 Secondary malignant neoplasm of retroperitoneum and peritoneum; R18.0 Malignant ascites
CPT/HCPCS: 49083

== ENCOUNTER → 2021-03-24 08:41 | Outpatient (CLI) | payer MEDICARE, SELFPAY ==
--- NOTE | 2021-03-24 08:43 | DI.US.S_ITS ---
PROCEDURE: US PARACENTESIS INDICATIONS: ascites, pertineal cancer TECHNIQUE: The indications, alternatives, benefits, risks, and complications of the procedure were explained to the patient. Written informed consent was obtained and placed in the chart. The abdomen and pelvis were examined sonographically, and an appropriate site was chosen for paracentesis. The skin was prepared and draped in the usual sterile fashion, and 1% lidocaine was infiltrated from the skin down through the peritoneal surface. A 19-gauge catheter-covered needle was then introduced into the peritoneal space, the catheter was advanced and the needle was withdrawn, and thereafter peritoneal fluid was withdrawn. The catheter was then removed and a dressing was applied. The fluid was discarded if the clinician did not order diagnostic testing of the fluid. COMPARISON: [facility], CT, CT CHEST ABD PEL W CON, 03/03/2021, 10:40. [facility], [place], US PARACENTESIS, 03/17/2021, 9:18. [facility], , US PARACENTESIS, 03/10/2021, 9:21. FINDINGS: Access site: Left lower abdomen Needle: One-Step centesis catheter with introducer needle. Fluid volume and description: 3880 mL; clear. Fluid sent for diagnostic testing: Not requested. Medications: 1% lidocaine for local anaesthesia. Complications: None. IMPRESSION: Successful ultrasound-guided paracentesis. Dictated by: Estella Rivera M.D. on 03/24/2021 at 9:43 Approved by: Estella Rivera M.D. on 03/24/2021 at 9:43
== END ==
PROVIDERS: PCP Family Medicine; Referring Provider Internal Medicine Hematology & Oncology; Visit Provider Internal Medicine Hematology & Oncology
DX: C80.1 Malignant (primary) neoplasm, unspecified (principal); C78.6 Secondary malignant neoplasm of retroperitoneum and peritoneum; R18.0 Malignant ascites
CPT/HCPCS: 49083

== ENCOUNTER → 2021-03-31 08:41 | Outpatient (CLI) | payer MEDICARE, SELFPAY ==
--- NOTE | 2021-03-31 08:43 | DI.US.S_ITS ---
PROCEDURE: US PARACENTESIS INDICATIONS: ASCITIES TECHNIQUE: The indications, alternatives, benefits, risks, and complications of the procedure were explained to the patient. Written informed consent was obtained and placed in the chart. The abdomen and pelvis were examined sonographically, and an appropriate site was chosen for paracentesis. The skin was prepared and draped in the usual sterile fashion, and 1% lidocaine was infiltrated from the skin down through the peritoneal surface. A 19-gauge catheter-covered needle was then introduced into the peritoneal space, the catheter was advanced and the needle was withdrawn, and thereafter peritoneal fluid was withdrawn. The catheter was then removed and a dressing was applied. The fluid was discarded if the clinician did not order diagnostic testing of the fluid. COMPARISON: [facility], PARACENTESIS, 03/24/2021, 9:02. [facility], PARACENTESIS, 03/17/2021, 9:18. [facility], PARACENTESIS, 03/10/2021, 9:21. [facility], PARACENTESIS, 03/03/2021, 9:05. FINDINGS: Access site: Left lower quadrant Needle: One-Step centesis catheter with introducer needle. Fluid volume and description: 3400 cc Fluid sent for diagnostic testing: No Medications: 1% lidocaine for local anaesthesia. Complications: None. IMPRESSION: Successful ultrasound-guided paracentesis. Dictated by: Lydia Ochoa M.D. on 03/31/2021 at 14:19 Approved by: Lydia Ochoa M.D. on 03/31/2021 at 14:19
== END ==
PROVIDERS: PCP Family Medicine; Referring Provider Internal Medicine Hematology & Oncology; Visit Provider Internal Medicine Hematology & Oncology
DX: C80.1 Malignant (primary) neoplasm, unspecified (principal); C78.6 Secondary malignant neoplasm of retroperitoneum and peritoneum; R18.0 Malignant ascites
CPT/HCPCS: 49083

== ENCOUNTER 2021-04-03 18:37 | Emergency (ER) | payer MEDICARE, SELFPAY ==
--- NOTE | 2021-04-03 18:44 | ED.EPISTAXIS ---
HPI - Epistaxis General Chief complaint: Nasal Problem Stated complaint: Bloody Nose, Hx Blood Transfusion/Chemo Time Seen by Provider: 04/03/21 18:43 History of Present Illness HPI Narrative: 75-year-old male former smoker with history of hypertension, mesothelioma receives chemotherapy every 3 weeks, most recently last week presents with his in the chief complaint of a spontaneous left-sided nosebleed that started 2 hours ago. He is not dizzy nor weak or lightheaded. Denies chest pain or shortness of breath. He denies any other bleeding. He has been transfused once for symptomatic anemia, 1 week ago. He has had no fever chills. He denies any trauma or injury. Related Data Home Medications Medication Instructions Recorded Confirmed vitamins A,C,V-wsqy-qkwiwr 7,160 2 tab PO DAILY 04/09/19 03/04/21 unit-113 mg-100 unit tablet (PreserVision AREDS) docusate sodium 100 mg capsule 100 mg PO DAILY 07/16/19 03/04/21 (Colace) cholecalciferol (vitamin D3) 25 1,000 unit PO DAILY 09/17/19 03/04/21 mcg (1,000 unit) capsule (Vitamin D3) Previous Rx's Medication Instructions Recorded acetaminophen 325 mg capsule 650 mg PO QID PRN #60 cap 04/09/19 (Tylenol) omeprazole 20 mg capsule,delayed 20 mg PO DAILY #30 cap 03/12/20 release prochlorperazine maleate 10 mg 10 mg PO Q6H PRN #60 tab 10/05/20 tablet albuterol sulfate 90 mcg/actuation 2 puff INHALATION Q4-6H PRN #18 10/30/20 aerosol inhaler (ProAir HFA) gram amlodipine 5 mg tablet 5 mg PO DAILY #90 tab 11/10/20 folic acid 1 mg tablet 1 mg PO DAILY #30 tab 12/03/20 ondansetron HCl 8 mg tablet 8 mg PO Q8H #30 tab 12/03/20 losartan 100 mg tablet 100 mg PO QDAY #90 tab 02/10/21 lorazepam 0.5 mg tablet 0.5 mg PO Q8H PRN #30 tab 03/04/21 Allergies Allergy/AdvReac Type Severity Reaction Status Date / Time venom-honey bee Allergy Severe ANAPHYLAXIS Verified 04/03/21 18:51 [BEE VENOM (HONEY BEE)] Review of Systems Review of Systems Narrative: GENERAL: Denies chills, fatigue, malaise, fever, sweats. HEENT: See HPI RESPIRATORY: Denies dyspnea, cough, wheezing, hemoptysis, sputum. CARDIOVASCULAR: Denies chest pain, palpitations, orthopnea, edema, GASTROINTESTINAL: Denies nausea, vomiting, abdominal pain, diarrhea, constipation, melena. : Denies dysuria, frequency, incontinence, hematuria, urinary retention. MUSCULOSKELETAL: denies weakness, joint pain, or bony pain SKIN: Denies rash, skin lesions, or other NEUROLOGIC: Denies weakness, headache, numbness, change in speech, confusion, seizures, incoordination. PSYCHIATRIC: No concerning psychosocial issues. 12 point review of systems is negative except for those stated above Patient History Medical History Actinic keratosis (Unknown) Ankle pain Cervicalgia (Unknown) Chickenpox (Unknown) Chronic back pain (Unknown) Colon cancer (1993) Colon polyps (~1993) Cough Erectile dysfunction (Unknown) Fusion of spine of cervical region GERD (gastroesophageal reflux disease) (Unknown) Hx of hiatal hernia (Unknown) Hypertension (Unknown) Mass of foot Measles (Unknown) Mesothelioma Mumps (Unknown) Osteoarthritis (Unknown) S/P abdominal paracentesis (02/22/19) Surgical History Anesthesia History of arthroplasty of right knee History of colon surgery (1993) History of surgery Hx of arthroscopy of right knee (1989) Hx of cataract surgery (2011) Hx of fusion of cervical spine (1989) Hx of laminectomy (~2008) Hx of laminectomy (06/23/16) Hx of shoulder surgery (2006) Hx of shoulder surgery (1996) Hx of total knee arthroplasty (2011) Family History Father Cancer Mother Cancer Sister Cancer Grandfather History of heart disease Social History household members: spouse Smoking Status: Former smoker Tobacco: How many years used: 25 quit status: has quit before alcohol intake: former substance use type: does not use Smoking Status: Former smoker alcohol intake frequency: 0-2 drinks per day Substance Use Type: does not use Exam Narrative Exam Narrative: GEN: AOx3 and in mild distress EYES: Pupils are equal, round, and reactive to light and accommodation. Extraoccular muscles are intact bilaterally. There is no subconjunctival hemorrhage or exudate. ENT: Slow bleeding noted from L nare, multiple small superficial areas of bleeding on septum anteriorly CHEST: Lungs are clear to auscultation bilaterally and free of wheezes, rales, or rhonchi. Heart rate is regular rhythm, there are no murmurs, clicks, rubs, or gallops. There is no chest wall tenderness. ABD: Abdomen is soft and nontender. There is no guarding or rebound. Bowel sounds are normal in all 4 quadrants. There is no mass or organomegaly. EXT: Full painless ROM of all extremities with no loss of sensation or strength. SKIN: Warm, pink, and dry. No erythema or rash Initial Vital Signs Initial Vital Signs: Vital Signs Temperature 97.8 F 04/03/21 18:51 Pulse Rate 110 H 04/03/21 18:51 Respiratory Rate 20 04/03/21 18:51 Blood Pressure 121/60 04/03/21 18:51 Pulse Oximetry 98 04/03/21 18:51 Procedures Epistaxis Control Time Out Performed: Yes Nostril: left Nose Prepped With: oxymetazoline Direct Inspection: yes and anterior source identified Clots Removed by: blowing nose and suction Cautery Used: silver nitrate Device Inserted: hemostatic balloon Device Size: 5 Patient Tolerated Procedure: well Course Orders Ordered: ED Orders 04/03/21 18:47 COVID19 -Nasal swab/Pre-Proc Stat 04/03/21 18:52 Basic Metabolic Panel Stat Complete Blood Count AUTO DIFF Stat Prothrombin Time INR Stat 04/03/21 18:59 Type and Screen Stat Discontinued Medications Oxymetazoline HCl (Oxymetazoline Nasal [place] 15 Ml) 2 sprays NASAL NOW ONE Stop: 04/03/21 19:21 Last Admin: 04/03/21 19:27 Dose: 2 sprays Documented by: GILBERTO Silver Nitrate/Potassium Nitrate (Silver Nitrate Stick) 1 each TOP NOW ONE Stop: 04/03/21 19:57 Last Admin: 04/03/21 20:03 Dose: 1 each Documented by: GILBERTO Tranexamic Acid (Tranexamic Acid 1,000 Mg Vial) 1,000 mg MM NOW ONE Stop: 04/03/21 19:21 Last Admin: 04/03/21 19:27 Dose: 1,000 mg Documented by: GILBERTO Vital Signs Vital signs: Vital Signs - 8 hr 04/03/21 18:51 04/03/21 21:06 Temperature 97.8 F Pulse Rate 110 H 89 Respiratory Rate 20 19 Blood Pressure 121/60 121/58 L Pulse Oximetry 98 99 MDM - Epistaxis Lab Data Result diagrams: 04/03/21 18:52 04/03/21 18:52 Labs: Lab Results 04/03/21 04/03/21 04/03/21 Range/Units 18:47 18:52 18:52 WBC 2.7 L (4.5-11.0) X10^3/uL RBC 2.33 L (4.5-5.9) X10^6/uL Hgb 7.7 L (13.5-17.5) g/dL Hct 23.5 L (41-53) % MCV 100.9 H D (80-100) fL MCH 33.1 (26-34) PG MCHC 32.8 (30-36) % RDW 21.2 H (11.6-14.8) % Plt Count 74 L (150-400) X10^3/uL Neut % (Auto) 44.3 L (50-75) % Lymph % (Auto) 26.0 (25-40) % [place] % (Auto) 27.7 H (3-14) % Eos % (Auto) 1.8 L (2-4) % Baso % (Auto) 0.2 (0-2) % Neut # (Auto) 1200 L (9656-2984) /uL Lymph # (Auto) 700 L (7802-0512) /uL [place] # (Auto) 700 (0-900) /uL Eos # (Auto) 0 (0-450) /uL Baso # (Auto) 0 (0-100) /uL RBC Morphology See below Hypochromasia 1+ H Anisocytosis 3+ H PT 11.2 (10.1-12.7) SECONDS INR 1.0 (0.9-1.3) Sodium (137-145) mmol/L Potassium (3.4-5.1) mmol/L Chloride (98-107) mmol/L Carbon Dioxide (22-32) mmol/L BUN (9-20) mg/dL Creatinine (0.66-1.25) mg/dL Estimated GFR (>60) mL/min BUN/Creatinine Ratio (6-22) Glucose (80-110) mg/dL Calcium (8.4-10.2) mg/dL SARS-CoV-2 (PCR) Negative (Negative) Blood Type Antibody Screen 04/03/21 04/03/21 Range/Units 18:52 18:59 WBC (4.5-11.0) X10^3/uL RBC (4.5-5.9) X10^6/uL Hgb (13.5-17.5) g/dL Hct (41-53) % MCV (80-100) fL MCH (26-34) PG MCHC (30-36) % RDW (11.6-14.8) % Plt Count (150-400) X10^3/uL Neut % (Auto) (50-75) % Lymph % (Auto) (25-40) % [place] % (Auto) (3-14) % Eos % (Auto) (2-4) % Baso % (Auto) (0-2) % Neut # (Auto) (6339-0424) /uL Lymph # (Auto) (9527-3114) /uL [place] # (Auto) (0-900) /uL Eos # (Auto) (0-450) /uL Baso # (Auto) (0-100) /uL RBC Morphology Hypochromasia Anisocytosis PT (10.1-12.7) SECONDS INR (0.9-1.3) Sodium 136 L (137-145) mmol/L Potassium 4.5 (3.4-5.1) mmol/L Chloride 102 (98-107) mmol/L Carbon Dioxide 30 (22-32) mmol/L BUN 21 H (9-20) mg/dL Creatinine 0.95 (0.66-1.25) mg/dL Estimated GFR > 60.0 (>60) mL/min BUN/Creatinine Ratio 22.1 H (6-22) Glucose 116 H (80-110) mg/dL Calcium 8.3 L (8.4-10.2) mg/dL SARS-CoV-2 (PCR) (Negative) Blood Type B Positive Antibody Screen Negative MDM Narrative Medical decision making narrative: Patient's bleeding apparently controlled by the above stated therapies. There is still some posterior pharyngeal leakage after attempts at controlling the anterior bleed with silver nitrate, gauze soaked in TXA. I did discuss at length the use of a rhino rocket. Trickle bleeding likely at least in part due to low platelet count of 77. He has been transfused platelets in the past, he will discuss with Oncology on Monday. Return precautions given and questions answered to his apparent satisfaction Discharge Plan Departure Patient Disposition: Home Clinical Impression: Acute anterior epistaxis Instructions: DI for Nosebleed Activity Restrictions/Additional Instructions: *You have been diagnosed with [ acute anterior epistaxis ] *What to do: * do not blow your nose, stick your finger in your nose, or disturb nose for the next 24 hr. If you must sneeze please sneeze out your mouth like we talked about *Follow up with your primary care provider or ENT doctor in 2-3 days, call for an appointment. Let them know you were seen in the Emergency Department and that we ask that you be seen in follow up *Return to ER if you should have any new, worsening or concerning symptoms Prescriptions: No Action albuterol sulfate [ProAir HFA] 90 mcg/actuation HFA aerosol inhaler 2 puff INHALATION Q4-6H PRN (Reason: shortness of breath or wheezing) Qty: 18 RF: 1 losartan 100 mg tablet 100 mg PO QDAY Qty: 90 RF: 1 amlodipine 5 mg tablet 5 mg PO DAILY Qty: 90 RF: 3 PreserVision AREDS 7,160-113-100 [id number] Tablet 2 tab PO DAILY RF: 0 acetaminophen [Tylenol] 325 mg capsule 650 mg PO QID PRN (Reason: pain) Qty: 60 RF: 0 docusate sodium [Colace] 100 mg Capsule 100 mg PO DAILY RF: 0 cholecalciferol (vitamin D3) [Vitamin D3] 25 mcg (1,000 unit) Capsule 1,000 unit PO DAILY RF: 0 omeprazole 20 mg Capsule,Delayed Release(Dr/Ec) 20 mg PO DAILY Qty: 30 RF: 5 prochlorperazine maleate 10 mg Tablet 10 mg PO Q6H PRN (Reason: nausea and vomiting) Qty: 60 RF: 1 folic acid 1 mg Tablet 1 mg PO DAILY Qty: 30 RF: 5 ondansetron HCl 8 mg Tablet 8 mg PO Q8H Qty: 30 RF: 2 lorazepam 0.5 mg Tablet 0.5 mg PO Q8H PRN (Reason: Nausea) Qty: 30 RF: 0 Referrals: Immanuel Randhawa MD [Physician] - Nilo Ferguson DO [Primary Care Provider] - Cha Keith MD [Physician] -
[2021-04-03 18:51] VITALS: BP 121/60; PULSE 110; RESP 20; TEMP 36.6; O2SAT 98; BMI 25.7
[2021-04-03 19:14] LABS: Add Manual Diff / Slide Review NO; Basophils Absolute Auto 0 /uL (0-100); Basophils Percent Auto 0.2 % (0-2); Eosinophils Absolute Auto 0 /uL (0-450); Eosinophils Percent Auto 1.8 % (2-4); Hematocrit 23.5 % (41-53); Hemoglobin 7.7 g/dL (13.5-17.5); Lymphocytes Absolute Auto 700 /uL (1100-4500); Mean Corpuscular HGB Conc 32.8 % (30-36); Mean Corpuscular Hemoglobin 33.1 PG (26-34); Mean Corpuscular Volume 100.9 fL (80-100); Monocytes Absolute Auto 700 /uL (0-900); Monocytes Percent Auto 27.7 % (3-14); Neutrophils Absolute Auto 1200 /uL (1500-7000); Neutrophils Percent Auto 44.3 % (50-75); Platelet Count 74 X10^3/uL (150-400); Prothrombin Time 11.2 SECONDS (10.1-12.7); Red Blood Cell Count 2.33 X10^6/uL (4.5-5.9); Red Cell Distribution Width 21.2 % (11.6-14.8); White Blood Cell Count 2.7 X10^3/uL (4.5-11.0)
[2021-04-03 19:18] LABS: BUN Creatinine Ratio 22.1 (6-22); Blood Urea Nitrogen 21 mg/dL (9-20); Calcium 8.3 mg/dL (8.4-10.2); Carbon Dioxide 30 mmol/L (22-32); Chloride 102 mmol/L (98-107); Estimated Glomerular Filt Rate > 60.0 mL/min (>60); Glucose 116 mg/dL (80-110); HEMOLYSIS < 15 (0-50); Potassium 4.5 mmol/L (3.4-5.1); Sodium 136 mmol/L (137-145)
[2021-04-03 19:26] LABS: COVID19 -Nasal RAPID Negative (Negative)
[2021-04-03] MEDS: OXYMETAZOLINE NASAL SPRAY 15 ML 2 SPRAYS NASAL (19:27)
[2021-04-03] MEDS: TRANEXAMIC ACID 1,000 MG VIAL 1000 MG MM (19:27)
[2021-04-03 19:45] LABS: Anisocytosis 3+; Hypochromasia 1+
[2021-04-03] MEDS: SILVER NITRATE STICK 1 EACH TOP (20:03)
[2021-04-03 21:06] VITALS: BP 121/58; PULSE 89; RESP 19; O2SAT 99
== END 2021-04-03 21:12 | disposition home or self-care (01) ==
PROVIDERS: Emergency Provider Emergency Medicine; PCP Family Medicine
DX: R04.0 Epistaxis (principal); Z20.822 Contact with and (suspected) exposure to COVID-19
CPT/HCPCS: 80048; 85025; 85610; 86850; 86900; 86901; 87635; 99282; 99283; C9803; A9270

== ENCOUNTER → 2021-04-07 08:45 | Outpatient (CLI) | payer MEDICARE, SELFPAY ==
--- NOTE | 2021-04-07 08:47 | DI.US.S_ITS ---
PROCEDURE: US PARACENTESIS INDICATIONS: ASCITIES TECHNIQUE: The indications, alternatives, benefits, risks, and complications of the procedure were explained to the patient. Written informed consent was obtained and placed in the chart. The abdomen and pelvis were examined sonographically, and an appropriate site was chosen for paracentesis. The skin was prepared and draped in the usual sterile fashion, and 1% lidocaine was infiltrated from the skin down through the peritoneal surface. A 19-gauge catheter-covered needle was then introduced into the peritoneal space, the catheter was advanced and the needle was withdrawn, and thereafter peritoneal fluid was withdrawn. The catheter was then removed and a dressing was applied. The fluid was discarded if the clinician did not order diagnostic testing of the fluid. COMPARISON: [facility], PARACENTESIS, 03/31/2021, 9:20. FINDINGS: Access site: Right lower quadrant Needle: One-Step centesis catheter with introducer needle. Fluid volume and description: 3000 mL of clear, straw-colored ascites Fluid sent for diagnostic testing: None sent for testing Medications: 1% lidocaine for local anaesthesia. Complications: None. IMPRESSION: Successful ultrasound-guided paracentesis. Dictated by: Lam Rai M.D. on 04/07/2021 at 12:09 Approved by: Lam Rai M.D. on 04/07/2021 at 12:10
== END ==
PROVIDERS: PCP Family Medicine; Referring Provider Internal Medicine Hematology & Oncology; Visit Provider Internal Medicine Hematology & Oncology
DX: C80.1 Malignant (primary) neoplasm, unspecified (principal); C78.6 Secondary malignant neoplasm of retroperitoneum and peritoneum; Z85.038 Personal history of other malignant neoplasm of large intestine; R18.0 Malignant ascites
CPT/HCPCS: 49083

== ENCOUNTER → 2021-04-14 08:44 | Outpatient (CLI) | payer MEDICARE, SELFPAY ==
--- NOTE | 2021-04-14 08:45 | DI.US.S_ITS ---
PROCEDURE: US PARACENTESIS INDICATIONS: ASCITIES TECHNIQUE: The indications, alternatives, benefits, risks, and complications of the procedure were explained to the patient. Written informed consent was obtained and placed in the chart. The abdomen and pelvis were examined sonographically, and an appropriate site was chosen for paracentesis. The skin was prepared and draped in the usual sterile fashion, and 1% lidocaine was infiltrated from the skin down through the peritoneal surface. A 19-gauge catheter-covered needle was then introduced into the peritoneal space, the catheter was advanced and the needle was withdrawn, and thereafter peritoneal fluid was withdrawn. The catheter was then removed and a dressing was applied. The fluid was discarded if the clinician did not order diagnostic testing of the fluid. COMPARISON: [facility], PARACENTESIS, 04/07/2021, 9:22. FINDINGS: Access site: Left lower quadrant Needle: One-Step centesis catheter with introducer needle. Fluid volume and description: 3600 cc of ascites Fluid sent for diagnostic testing: Not requested Medications: 1% lidocaine for local anaesthesia. Complications: None. IMPRESSION: Successful ultrasound-guided paracentesis. Dictated by: German Chambers M.D. on 04/14/2021 at 13:28 Approved by: German Chambers M.D. on 04/14/2021 at 13:28
== END ==
PROVIDERS: PCP Family Medicine; Referring Provider Internal Medicine Hematology & Oncology; Visit Provider Internal Medicine Hematology & Oncology
DX: Z85.038 Personal history of other malignant neoplasm of large intestine (principal); C80.1 Malignant (primary) neoplasm, unspecified; C78.6 Secondary malignant neoplasm of retroperitoneum and peritoneum; R18.0 Malignant ascites
CPT/HCPCS: 49083

== ENCOUNTER → 2021-04-21 08:45 | Outpatient (CLI) | payer MEDICARE, SELFPAY ==
--- NOTE | 2021-04-21 08:47 | DI.US.S_ITS ---
PROCEDURE: US PARACENTESIS INDICATIONS: ascites TECHNIQUE: The indications, alternatives, benefits, risks, and complications of the procedure were explained to the patient. Written informed consent was obtained and placed in the chart. The abdomen and pelvis were examined sonographically, and an appropriate site was chosen for paracentesis. The skin was prepared and draped in the usual sterile fashion, and 1% lidocaine was infiltrated from the skin down through the peritoneal surface. A 19-gauge catheter-covered needle was then introduced into the peritoneal space, the catheter was advanced and the needle was withdrawn, and thereafter peritoneal fluid was withdrawn. The catheter was then removed and a dressing was applied. The fluid was discarded if the clinician did not order diagnostic testing of the fluid. COMPARISON: [facility], PARACENTESIS, 04/14/2021, 9:01. FINDINGS: Access site: Right lower quadrant Needle: One-Step centesis catheter with introducer needle. Fluid volume and description: 2800 cc of clear ascites Fluid sent for diagnostic testing: Not requested Medications: 1% lidocaine for local anaesthesia. Complications: None. IMPRESSION: Successful ultrasound-guided paracentesis. Dictated by: German Chambers M.D. on 04/21/2021 at 10:40 Approved by: German Chambers M.D. on 04/21/2021 at 10:41
== END ==
PROVIDERS: PCP Family Medicine; Referring Provider Internal Medicine Hematology & Oncology; Visit Provider Internal Medicine Hematology & Oncology
DX: C80.1 Malignant (primary) neoplasm, unspecified (principal); C78.6 Secondary malignant neoplasm of retroperitoneum and peritoneum; R18.8 Other ascites
CPT/HCPCS: 49083

== ENCOUNTER → 2021-04-28 08:47 | Outpatient (CLI) | payer MEDICARE, SELFPAY ==
--- NOTE | 2021-04-28 08:48 | DI.US.S_ITS ---
PROCEDURE: US PARACENTESIS INDICATIONS: ASCITIES TECHNIQUE: The indications, alternatives, benefits, risks, and complications of the procedure were explained to the patient. Written informed consent was obtained and placed in the chart. The abdomen and pelvis were examined sonographically, and an appropriate site was chosen for paracentesis. The skin was prepared and draped in the usual sterile fashion, and 1% lidocaine was infiltrated from the skin down through the peritoneal surface. A 19-gauge catheter-covered needle was then introduced into the peritoneal space, the catheter was advanced and the needle was withdrawn, and thereafter peritoneal fluid was withdrawn. The catheter was then removed and a dressing was applied. The fluid was discarded if the clinician did not order diagnostic testing of the fluid. COMPARISON: [facility], , PARACENTESIS, 04/21/2021, 9:10. FINDINGS: Access site: Left lower abdomen Needle: One-Step centesis catheter with introducer needle. Fluid volume and description: 2500 mL of clear, straw-colored ascites. Fluid sent for diagnostic testing: None sent for testing. Medications: 1% lidocaine for local anaesthesia. Complications: None. IMPRESSION: Successful ultrasound-guided paracentesis. Dictated by: Lam Rai M.D. on 04/28/2021 at 10:34 Approved by: Lam Rai M.D. on 04/28/2021 at 10:35
== END ==
PROVIDERS: PCP Family Medicine; Referring Provider Internal Medicine Hematology & Oncology; Visit Provider Internal Medicine Hematology & Oncology
DX: C80.1 Malignant (primary) neoplasm, unspecified (principal); C78.6 Secondary malignant neoplasm of retroperitoneum and peritoneum; R18.0 Malignant ascites; Z85.038 Personal history of other malignant neoplasm of large intestine
CPT/HCPCS: 49083

== ENCOUNTER → 2021-05-05 08:35 | Outpatient (CLI) | payer MEDICARE, SELFPAY ==
--- NOTE | 2021-05-05 08:36 | DI.US.S_ITS ---
PROCEDURE: US PARACENTESIS INDICATIONS: ASCITES TECHNIQUE: The indications, alternatives, benefits, risks, and complications of the procedure were explained to the patient. Written informed consent was obtained and placed in the chart. The abdomen and pelvis were examined sonographically, and an appropriate site was chosen for paracentesis. The skin was prepared and draped in the usual sterile fashion, and 1% lidocaine was infiltrated from the skin down through the peritoneal surface. A 19-gauge catheter-covered needle was then introduced into the peritoneal space, the catheter was advanced and the needle was withdrawn, and thereafter peritoneal fluid was withdrawn. The catheter was then removed and a dressing was applied. The fluid was discarded if the clinician did not order diagnostic testing of the fluid. COMPARISON: None. FINDINGS: Access site: Right lower quadrant Needle: One-Step centesis catheter with introducer needle. Fluid volume and description: 2400 cubic centimeters of yellow-colored clear fluid Fluid sent for diagnostic testing: Not requested. Medications: 1% lidocaine for local anaesthesia. Complications: None. IMPRESSION: Successful ultrasound-guided paracentesis. Dictated by: Afua Alexander MD, PhD on 05/05/2021 at 10:45 Approved by: Afua Alexander MD, PhD on 05/05/2021 at 10:45
== END ==
PROVIDERS: PCP Family Medicine; Referring Provider Internal Medicine Hematology & Oncology; Visit Provider Internal Medicine Hematology & Oncology
DX: C80.1 Malignant (primary) neoplasm, unspecified (principal); R18.0 Malignant ascites; C78.6 Secondary malignant neoplasm of retroperitoneum and peritoneum
CPT/HCPCS: 49083

== ENCOUNTER → 2021-05-12 08:44 | Outpatient (CLI) | payer MEDICARE, SELFPAY ==
--- NOTE | 2021-05-12 08:46 | DI.US.S_ITS ---
PROCEDURE: US ABDOMEN LIMITED INDICATIONS: ASCITIES TECHNIQUE: Real-time focused scanning was performed of the abdomen, with image documentation. COMPARISON: [facility], , US PARACENTESIS, 05/05/2021, 9:04. FINDINGS: Small amount of right and left lower quadrant ascites is present with volume not sufficient for beneficial therapeutic paracentesis. IMPRESSION: Small amount of ascites and therefore no therapeutic paracentesis was performed. Dictated by: Russell Ames [facility] Interpreted: Raman Mcgowan MD on 05/12/2021 at 9:53 Approved by: Raman Mcgowan M.D. on 05/12/2021 at 10:29
== END ==
PROVIDERS: PCP Family Medicine; Referring Provider Internal Medicine Hematology & Oncology; Visit Provider Internal Medicine Hematology & Oncology
DX: C80.1 Malignant (primary) neoplasm, unspecified (principal); Z85.038 Personal history of other malignant neoplasm of large intestine; C78.6 Secondary malignant neoplasm of retroperitoneum and peritoneum; R18.0 Malignant ascites
CPT/HCPCS: 76705

== ENCOUNTER → 2021-05-19 08:34 | Outpatient (CLI) | payer MEDICARE, SELFPAY ==
--- NOTE | 2021-05-19 08:37 | DI.US.S_ITS ---
PROCEDURE: US PARACENTESIS INDICATIONS: ASCITIES TECHNIQUE: The indications, alternatives, benefits, risks, and complications of the procedure were explained to the patient. Written informed consent was obtained and placed in the chart. The abdomen and pelvis were examined sonographically, and an appropriate site was chosen for paracentesis. The skin was prepared and draped in the usual sterile fashion, and 1% lidocaine was infiltrated from the skin down through the peritoneal surface. A 19-gauge catheter-covered needle was then introduced into the peritoneal space, the catheter was advanced and the needle was withdrawn, and thereafter peritoneal fluid was withdrawn. The catheter was then removed and a dressing was applied. The fluid was discarded if the clinician did not order diagnostic testing of the fluid. COMPARISON: None. FINDINGS: Access site: Left lower quadrant Needle: One-Step centesis catheter with introducer needle. Fluid volume and description: 3450 cubic centimeters of clear yellow-colored fluid. Fluid sent for diagnostic testing: I request Medications: 1% lidocaine for local anaesthesia. Complications: None. IMPRESSION: Successful ultrasound-guided paracentesis. No immediate complications. Dictated by: Afua Alexander MD, PhD on 05/19/2021 at 13:41 Approved by: Afua Alexander MD, PhD on 05/19/2021 at 13:42
== END ==
PROVIDERS: PCP Family Medicine; Referring Provider Internal Medicine Hematology & Oncology; Visit Provider Internal Medicine Hematology & Oncology
DX: C80.1 Malignant (primary) neoplasm, unspecified (principal); C78.6 Secondary malignant neoplasm of retroperitoneum and peritoneum; R18.0 Malignant ascites; Z85.038 Personal history of other malignant neoplasm of large intestine
CPT/HCPCS: 49083; 85610

== ENCOUNTER → 2021-05-26 08:32 | Outpatient (CLI) | payer MEDICARE, SELFPAY ==
--- NOTE | 2021-05-26 08:33 | DI.US.S_ITS ---
PROCEDURE: US PARACENTESIS INDICATIONS: ASCITIES TECHNIQUE: The indications, alternatives, benefits, risks, and complications of the procedure were explained to the patient. Written informed consent was obtained and placed in the chart. The abdomen and pelvis were examined sonographically, and an appropriate site was chosen for paracentesis. The skin was prepared and draped in the usual sterile fashion, and 1% lidocaine was infiltrated from the skin down through the peritoneal surface. A 19-gauge catheter-covered needle was then introduced into the peritoneal space, the catheter was advanced and the needle was withdrawn, and thereafter peritoneal fluid was withdrawn. The catheter was then removed and a dressing was applied. The fluid was discarded if the clinician did not order diagnostic testing of the fluid. COMPARISON: [facility], PARACENTESIS, 05/19/2021, 9:12. FINDINGS: Access site: Left lower quadrant Needle: One-Step centesis catheter with introducer needle. Fluid volume and description: 2000 mL of clear, slightly uli ascites. Fluid sent for diagnostic testing: None sent for evaluation Medications: 1% lidocaine for local anaesthesia. Complications: None. IMPRESSION: Successful ultrasound-guided paracentesis. Dictated by: Lam Rai M.D. on 05/26/2021 at 10:20 Approved by: Lam Rai M.D. on 05/26/2021 at 10:21
== END ==
PROVIDERS: PCP Family Medicine; Referring Provider Internal Medicine Hematology & Oncology; Visit Provider Internal Medicine Hematology & Oncology
DX: C80.1 Malignant (primary) neoplasm, unspecified (principal); C78.6 Secondary malignant neoplasm of retroperitoneum and peritoneum; R18.0 Malignant ascites; Z85.038 Personal history of other malignant neoplasm of large intestine
CPT/HCPCS: 49083

== ENCOUNTER → 2021-06-02 08:55 | Outpatient (CLI) | payer MEDICARE, SELFPAY ==
--- NOTE | 2021-06-02 08:56 | DI.US.S_ITS ---
PROCEDURE: US ABDOMEN LIMITED INDICATIONS: ASCITIES TECHNIQUE: Real-time focused scanning was performed of the abdomen, with image documentation. COMPARISON: None. FINDINGS: Small amount of ascites identified. Volume of ascites is insufficient for safe paracentesis. IMPRESSION: Small amount of ascites. Paracentesis not performed due to insufficient fluid volume. Dictated by: Afua Alexander MD, PhD on 06/02/2021 at 12:53 Approved by: Afua Alexander MD, PhD on 06/02/2021 at 12:53
--- NOTE | 2021-06-02 09:46 | DI.MG.S_ITS ---
MALE BILATERAL DIGITAL DIAGNOSTIC MAMMOGRAM 3D/2D: 06/02/2021 CLINICAL: Left breast lump. No prior exams were available for comparison. There is mild gynecomastia in the right breast. There also is gynecomastia in the left breast in the sub-areolar depth that correlates with clinical concern, reported palpable abnormality, and reported pain as indicated by triangle skin marker. However, this subjectively feels firm to palpation. No significant masses, calcifications, or other findings are seen in either breast. IMPRESSION: INCOMPLETE: NEEDS ADDITIONAL IMAGING EVALUATION Mild right breast gynecomastia is benign. Left breast area of palpable concern and pain is most likely gynecomastia based on mammographic appearance. However, given subjective firmness on palpation, an ultrasound is recommended to confirm and will immediately follow this exam. This exam was interpreted at Station ID: [id number]. NOTE: For mammograms, a report in lay terms will be sent to the patient. Approximately 15% of breast malignancies will not be visualized mammographically. In the management of a palpable breast mass, a negative mammogram must not discourage biopsy of a clinically suspicious lesion. Electronically Signed By: Lam Rai M.D. aty/:06/02/2021 10:49:39 ACR BI-RADS Category 0: Incomplete [id number]
--- NOTE | 2021-06-02 09:46 | DI.US.S_ITS ---
ULTRASOUND OF LEFT BREAST: 06/02/2021 CLINICAL: Focal left breast pain. Comparison is made to exam dated: 06/02/2021 [facility]. Color flow and real-time ultrasound of the left breast were performed. Fox scale images of the real-time examination were reviewed. There is gynecomastia in the left breast that correlates with mammography finding, area of clinical concern, palpable abnormality, and reported tenderness. IMPRESSION: BENIGN There is no sonographic evidence of malignancy. Left breast gynecomastia. Recommend clinical follow up for persistent or worsening symptoms, or development of any new clinically suspicious findings. Findings and recommendations were conveyed to the patient during today's evaluation. This exam was interpreted at Station ID: [id number]. Electronically Signed By: Lam Rai M.D. aty/:06/02/2021 11:38:54 Ultrasound BI-RADS: 2 Benign
== END ==
PROVIDERS: PCP Family Medicine; Referring Provider Internal Medicine Hematology & Oncology; Visit Provider Internal Medicine Hematology & Oncology
DX: R92.8 Other abnormal and inconclusive findings on diagnostic imaging of breast (principal); C80.1 Malignant (primary) neoplasm, unspecified; C78.6 Secondary malignant neoplasm of retroperitoneum and peritoneum; R18.0 Malignant ascites; N62 Hypertrophy of breast; N64.4 Mastodynia
CPT/HCPCS: 76642; 76705; 77066; G0279

== ENCOUNTER → 2021-06-09 08:43 | Outpatient (CLI) | payer MEDICARE, SELFPAY ==
--- NOTE | 2021-06-09 08:44 | DI.US.S_ITS ---
PROCEDURE: US PARACENTESIS INDICATIONS: ASCITIES TECHNIQUE: The indications, alternatives, benefits, risks, and complications of the procedure were explained to the patient. Written informed consent was obtained and placed in the chart. The abdomen and pelvis were examined sonographically, and an appropriate site was chosen for paracentesis. The skin was prepared and draped in the usual sterile fashion, and 1% lidocaine was infiltrated from the skin down through the peritoneal surface. A 19-gauge catheter-covered needle was then introduced into the peritoneal space, the catheter was advanced and the needle was withdrawn, and thereafter peritoneal fluid was withdrawn. The catheter was then removed and a dressing was applied. The fluid was discarded if the clinician did not order diagnostic testing of the fluid. COMPARISON: None. FINDINGS: Access site: Right lower quadrant Needle: One-Step centesis catheter with introducer needle. Fluid volume and description: 2600 cubic centimeters of clear yellow-colored fluid. Fluid sent for diagnostic testing: Not requested Medications: 1% lidocaine for local anaesthesia. Complications: None. IMPRESSION: Successful ultrasound-guided paracentesis. Dictated by: Afua Alexander MD, PhD on 06/09/2021 at 11:04 Approved by: Afua Alexander MD, PhD on 06/09/2021 at 11:05
== END ==
PROVIDERS: PCP Family Medicine; Referring Provider Internal Medicine Hematology & Oncology; Visit Provider Internal Medicine Hematology & Oncology
DX: C80.1 Malignant (primary) neoplasm, unspecified (principal); C78.6 Secondary malignant neoplasm of retroperitoneum and peritoneum; R18.0 Malignant ascites
CPT/HCPCS: 49083

== ENCOUNTER → 2021-06-16 08:35 | Outpatient (CLI) | payer MEDICARE, SELFPAY ==
--- NOTE | 2021-06-16 08:37 | DI.US.S_ITS ---
PROCEDURE: US ABDOMEN LIMITED INDICATIONS: ASCITIES TECHNIQUE: Real-time focused scanning was performed of the abdomen, with image documentation. COMPARISON: [facility], PARACENTESIS, 06/09/2021, 9:32. [facility], , US ABDOMEN LIMITED, 06/02/2021, 9:25. FINDINGS: Ascites can be seen within the abdomen, yet it is not deemed sufficient to perform paracentesis. IMPRESSION: Ascites can be seen, yet insufficient fluid to perform paracentesis. Dictated by: Александр Shankar M.D. on 06/16/2021 at 11:01 Approved by: Александр Shankar M.D. on 06/16/2021 at 11:01
== END ==
PROVIDERS: PCP Family Medicine; Referring Provider Internal Medicine Hematology & Oncology; Visit Provider Internal Medicine Hematology & Oncology
DX: C80.1 Malignant (primary) neoplasm, unspecified (principal); C78.6 Secondary malignant neoplasm of retroperitoneum and peritoneum; R18.0 Malignant ascites
CPT/HCPCS: 76705

== ENCOUNTER → 2021-06-23 08:51 | Outpatient (CLI) | payer MEDICARE, SELFPAY ==
--- NOTE | 2021-06-23 08:53 | DI.US.S_ITS ---
PROCEDURE: US ABDOMEN LIMITED INDICATIONS: ASCITIES TECHNIQUE: Real-time focused scanning was performed of the abdomen, with image documentation. COMPARISON: [facility], , US ABDOMEN LIMITED, 06/16/2021, 9:08. FINDINGS: A small amount of ascites is seen. IMPRESSION: A small amount of ascites is seen. The amount of fluid was deemed insufficient to perform the scheduled paracentesis. Dictated by: Александр Shankar M.D. on 06/23/2021 at 8:55 Approved by: Александр Shankar M.D. on 06/23/2021 at 8:56
== END ==
PROVIDERS: PCP Family Medicine; Referring Provider Internal Medicine Hematology & Oncology; Visit Provider Internal Medicine Hematology & Oncology
DX: C80.1 Malignant (primary) neoplasm, unspecified (principal); R18.0 Malignant ascites; C78.6 Secondary malignant neoplasm of retroperitoneum and peritoneum
CPT/HCPCS: 76705

== ENCOUNTER → 2021-06-25 12:53 | Outpatient (CLI) | payer MEDICARE, SELFPAY ==
--- NOTE | 2021-06-25 12:54 | DI.CT.S_ITS ---
PROCEDURE: CT CHEST ABD PEL W CON INDICATIONS: metastatic mesothelioma TECHNIQUE: Helical axial CT of the chest abdomen and pelvis was obtained after intravenous contrast administration and reformatted in multiple planes. For radiation dose reduction, the following was used: automated exposure control, adjustment of mA and/or kV according to patient size. COMPARISON: [facility], CT, CT CHEST ABD PEL W CON, 03/03/2021, 10:40. FINDINGS: Chest: Cardiovascular: Heart size is normal. No evidence of pulmonary embolism, aortic aneurysm or dissection. Right-sided Port-A-Cath in position. Dense coronary artery vascular calcification present. Lungs and pleural spaces: Biapical pulmonary emphysema noted. There are now small bilateral peripheral pulmonary nodules particularly prominent on the right, largest measures 7 mm on image 2/49. Lymph nodes: No mediastinal, hilar or axillary adenopathy. Mediastinum: Unremarkable. No hiatal hernia. Thyroid within normal limits. Chest Wall and Bones: Unremarkable. No acute fracture. Bilateral gynecomastia. Grade 1 anterior spondylolisthesis noted C7-T1 Abdomen and Pelvis: Liver: Normal in size and attenuation. No contour deformity present. Biliary system: No calcified cholelithiasis or pericholecystic inflammation. No intra or extrahepatic bile duct dilatation. Pancreas: Unremarkable without mass or inflammation evident. Spleen: Normal in size and density. Adrenals: Bulky bilateral adrenal glands are similar prior exam. Reproductive system: Unremarkable as visualized. Urinary system: Normal renal size and attenuation. Bilateral peripelvic cysts noted without hydronephrosis. Nonobstructing right renal calculus. No hydronephrosis, or solid mass present. Bladder decompressed shows diffuse bladder wall thickening Gastrointestinal system: The bowel is unremarkable with no evidence of bowel obstruction or inflammation. The stomach appears unremarkable. No findings to suggest acute appendicitis. Lymph nodes: Bulky retroperitoneal periaortic adenopathy is increased from the prior exam is in conglomerate around the aorta Peritoneal spaces: Gastrohepatic surgical clips remain unchanged the prior exam. There is increasing abdominal and pelvic moderate ascites present with nodularity of the visceral and parietal surfaces. There is omental and mesenteric4 nodularity as well consistent with worsening peritoneal carcinomatosis. Vasculature: The IVC, aorta and iliac vasculature are unremarkable. Abdominal wall: Abdominal wall intact without evidence of ventral or inguinal hernias. Musculoskeletal: Normal bone mineralization. No acute fractures. IMPRESSION: Worsening metastatic disease. There are now small bilateral pulmonary nodules, new from the prior exam. Worsening ascites and mesenteric carcinomatosis present. Bulky retroperitoneal adenopathy is also increased from the prior. Approved by: Tez Reyez M.D. on 06/25/2021 at 16:05
== END ==
PROVIDERS: PCP Family Medicine; Referring Provider Internal Medicine Hematology & Oncology; Visit Provider Internal Medicine Hematology & Oncology
DX: C78.6 Secondary malignant neoplasm of retroperitoneum and peritoneum (principal); C80.1 Malignant (primary) neoplasm, unspecified; R18.0 Malignant ascites; R91.8 Other nonspecific abnormal finding of lung field
CPT/HCPCS: 71260; 74177; Q9967

== ENCOUNTER → 2021-06-30 08:54 | Outpatient (CLI) | payer MEDICARE, SELFPAY ==
--- NOTE | 2021-06-30 08:56 | DI.US.S_ITS ---
PROCEDURE: US PARACENTESIS INDICATIONS: ASCITIES TECHNIQUE: The indications, alternatives, benefits, risks, and complications of the procedure were explained to the patient. Written informed consent was obtained and placed in the chart. The abdomen and pelvis were examined sonographically, and an appropriate site was chosen for paracentesis. The skin was prepared and draped in the usual sterile fashion, and 1% lidocaine was infiltrated from the skin down through the peritoneal surface. A 19-gauge catheter-covered needle was then introduced into the peritoneal space, the catheter was advanced and the needle was withdrawn, and thereafter peritoneal fluid was withdrawn. The catheter was then removed and a dressing was applied. The fluid was discarded if the clinician did not order diagnostic testing of the fluid. COMPARISON: [facility], PARACENTESIS, 06/09/2021, 9:32. FINDINGS: Access site: Right lower quadrant. Needle: One-Step centesis catheter with introducer needle. Fluid volume and description: 2700 cc, clear straw-colored Fluid sent for diagnostic testing: None. Medications: 1% lidocaine for local anaesthesia. Complications: None. IMPRESSION: Successful therapeutic ultrasound-guided paracentesis. 2.7 L removed. Dictated by: Moshe Xavier M.D. on 06/30/2021 at 10:25 Approved by: Moshe Xavier M.D. on 06/30/2021 at 10:26
== END ==
PROVIDERS: PCP Family Medicine; Referring Provider Internal Medicine Hematology & Oncology; Visit Provider Internal Medicine Hematology & Oncology
DX: C80.1 Malignant (primary) neoplasm, unspecified (principal); R18.8 Other ascites; C78.6 Secondary malignant neoplasm of retroperitoneum and peritoneum
CPT/HCPCS: 49083

== ENCOUNTER → 2021-07-07 08:36 | Outpatient (CLI) | payer MEDICARE, SELFPAY ==
--- NOTE | 2021-07-07 08:38 | DI.US.S_ITS ---
PROCEDURE: US ABDOMEN LIMITED INDICATIONS: ASCITIES TECHNIQUE: Real-time focused scanning was performed of the abdomen, with image documentation. COMPARISON: [facility], , US ABDOMEN LIMITED, 06/23/2021, 9:19. FINDINGS: Small volume ascites, most prominent in the right lower quadrant. IMPRESSION: Small volume ascites, most prominent in the right lower quadrant, insufficient for scheduled paracentesis. Dictated by: Guillermo Estrada M.D. on 07/07/2021 at 10:08 Approved by: Guillermo Estrada M.D. on 07/07/2021 at 10:09
== END ==
PROVIDERS: PCP Family Medicine; Referring Provider Internal Medicine Hematology & Oncology; Visit Provider Internal Medicine Hematology & Oncology
DX: C80.1 Malignant (primary) neoplasm, unspecified (principal); C78.6 Secondary malignant neoplasm of retroperitoneum and peritoneum; R18.0 Malignant ascites
CPT/HCPCS: 76705

== ENCOUNTER → 2021-07-14 08:50 | Outpatient (CLI) | payer MEDICARE, SELFPAY ==
--- NOTE | 2021-07-14 08:52 | DI.US.S_ITS ---
PROCEDURE: US PARACENTESIS INDICATIONS: ASCITIES TECHNIQUE: The indications, alternatives, benefits, risks, and complications of the procedure were explained to the patient. Written informed consent was obtained and placed in the chart. The abdomen and pelvis were examined sonographically, and an appropriate site was chosen for paracentesis. The skin was prepared and draped in the usual sterile fashion, and 1% lidocaine was infiltrated from the skin down through the peritoneal surface. A 19-gauge catheter-covered needle was then introduced into the peritoneal space, the catheter was advanced and the needle was withdrawn, and thereafter peritoneal fluid was withdrawn. The catheter was then removed and a dressing was applied. The fluid was discarded if the clinician did not order diagnostic testing of the fluid. COMPARISON: [facility], PARACENTESIS, 06/30/2021, 9:11. FINDINGS: Access site: Right lower quadrant abdomen Needle: One-Step centesis catheter with introducer needle. Fluid volume and description: 3.2 L of clear yellowish fluid . Fluid sent for diagnostic testing: None. Medications: 1% lidocaine for local anaesthesia. Complications: None. IMPRESSION: Successful ultrasound-guided paracentesis. Dictated by: Raman Mcgowan M.D. on 07/14/2021 at 10:07 Approved by: Raman Mcgowan M.D. on 07/14/2021 at 10:08
== END ==
PROVIDERS: PCP Family Medicine; Referring Provider Internal Medicine Hematology & Oncology; Visit Provider Internal Medicine Hematology & Oncology
DX: C80.1 Malignant (primary) neoplasm, unspecified (principal); C78.6 Secondary malignant neoplasm of retroperitoneum and peritoneum; R18.0 Malignant ascites; Z85.048 Personal history of other malignant neoplasm of rectum, rectosigmoid junction, and anus
CPT/HCPCS: 49083

== ENCOUNTER 2021-07-20 11:03 | Inpatient (IN) | payer MEDICARE, SELFPAY ==
[2021-07-20] VITALS (13 sets, daily range): BP systolic 124–137; BP diastolic 57–71; PULSE 85–97; RESP 14–20; TEMP 36.6–37.1; O2SAT 94–98; BMI 25.8; BMI 24.3
--- NOTE | 2021-07-20 12:46 | DI.CT.S_ITS ---
PROCEDURE: CT ABDOMEN PELVIS W CON INDICATIONS: ?SBO TECHNIQUE: After the administration of IV contrast, axial sections were acquired from the lung bases to the pubic symphysis. Coronal and sagittal reformats were performed. For radiation dose reduction, the following was used: automated exposure control, adjustment of mA and/or kV according to patient size. COMPARISON: [facility], CT, CT ABDOMEN PELVIS W CON, 02/13/2019, 11:58. FINDINGS: Image quality: Excellent. Lung bases: Numerous tiny nodules are present at both lung bases. No pleural effusions. Heart: The heart size is normal. Moderate coronary artery calcification. ABDOMEN: Liver: Hypertrophy of the left hepatic lobe. No visible masses. Gallbladder: Distended gallbladder Biliary ducts: Nondilated. Pancreas: Within normal limits Spleen: Normal size. Adrenal Glands: Stable bilateral nodules. Kidneys and Ureters: Symmetric enhancement. 2 mm parenchymal calcification in the right posterior cortex, stable. Stomach and Bowel: The stomach is moderately decompressed. Duodenal loops and proximal jejunum are normal. There is mild dilatation of distal jejunal and ileal loops, several of which contain air-fluid levels7. These measure up to approximately 4 cm. A transition point is suspected in the right posterior abdominal cavity. This appears to be a longer area of stricture. Moderate to large amount of solid stool present in the mid to distal colon Peritoneum: Moderate amount of intraperitoneal ascites. There is nodular omental and peritoneal thickening, similar compared to prior studies. Ventral Wall: No hernia. Abdominal Nodes: Small nodes surround the retroperitoneal vasculature. Says mildly increased since the prior study. Vessels: Aorta and inferior vena cava are normal in size. Mild abdominal aortic atherosclerotic calcification. PELVIS: Pelvic Organs: Normal Bladder: Normal Pelvic Nodes: No enlarged lymph nodes. Miscellaneous: No inguinal hernias are seen. Bones: Hemilaminectomy changes in the lower lumbar spine on the left. Multilevel degenerative disc changes in the lumbar spine. No suspicious bone lesions. IMPRESSION: 1. Early or partial small bowel obstruction with a long segment narrowed transition in the posterior right abdomen. 2. Chronic metastatic peritoneal and omental thickening, ascites, and retroperitoneal adenopathy. 3. Innumerable tiny lung nodules in both lung bases, new since the prior study. 4. Chronic bilateral adrenal nodules. Dictated by: Parisa Kaur M.D. on 07/20/2021 at 14:22 Approved by: Parisa Kaur M.D. on 07/20/2021 at 14:33
[2021-07-20] MEDS: ONDANSETRON 4 MG/2 ML INJ IV (13:07)
[2021-07-20] MEDS: SODIUM CHLORIDE 0.9% 1,000 ML 1000 ML IV (13:09)
[2021-07-20 13:13] LABS: Alanine Aminotransferase 14 IU/L (<50); Albumin 3.4 g/dL (3.5-5.0); Alkaline Phosphatase 76 U/L (38-126); Aspartate Aminotransferase 44 IU/L (17-59); BUN Creatinine Ratio 18.6 (6-22); Bilirubin Total 0.5 mg/dL (0.2-1.3); Blood Urea Nitrogen 16 mg/dL (9-20); Calcium 9.4 mg/dL (8.4-10.2); Carbon Dioxide 30 mmol/L (22-32); Chloride 98 mmol/L (98-107); Estimated Glomerular Filt Rate > 60.0 mL/min (>60); Globulin 3.5 g/dL (1.7-4.1); Glucose 101 mg/dL (80-110); HEMOLYSIS < 15 (0-50); Lipase 58 U/L (23-300); Potassium 4.5 mmol/L (3.4-5.1); Sodium 132 mmol/L (137-145); Total Protein 6.9 g/dL (6.3-8.2)
[2021-07-20 13:35] LABS: Lactate (Lactic Acid) 0.8 mmol/L (0.7-2.1)
--- NOTE | 2021-07-20 13:51 | ED_ITS ---
HPI - Nausea/Vomiting/Diarrhea <Franny Bone PA-C - Last Filed: 07/20/21 17:56> General Chief complaint: Nausea/Vomiting/Diarrhea Stated complaint: Possible bowel obstructionp- sent by ONC Time Seen by Provider: 07/20/21 11:57 Source: patient Mode of arrival: Ambulatory History of Present Illness HPI Narrative: 76-year-old male with past medical history colon cancer, mesothelioma the peritoneum, essential hypertension presents to the ED with 4 days of nausea and vomiting, abdominal pain. Patient states that he has been intermittently vomiting due to his cancer treatments, however over the last 4 days he has been vomiting intractably and complains of generalized abdominal pain. Patient denies fever, chills, chest pain, shortness of breath, flank pain, dysuria, lightheadedness, dizziness, syncope. Patient's last bowel movement was 4 days ago and says he is unable to pass any gas. Patient endorses that his abdomen feels more distended. Related Data Home Medications Medication Instructions Recorded Confirmed vitamins A,C,S-osni-qmhmhp 7,160 2 tab PO DAILY 04/09/19 07/08/21 unit-113 mg-100 unit tablet (PreserVision AREDS) docusate sodium 100 mg capsule 100 mg PO DAILY 07/16/19 07/08/21 (Colace) cholecalciferol (vitamin D3) 25 1,000 unit PO DAILY 09/17/19 07/08/21 mcg (1,000 unit) capsule (Vitamin D3) Previous Rx's Medication Instructions Recorded acetaminophen 325 mg capsule 650 mg PO QID PRN #60 cap 04/09/19 (Tylenol) prochlorperazine maleate 10 mg 10 mg PO Q6H PRN #60 tab 10/05/20 tablet folic acid 1 mg tablet 1 mg PO DAILY #30 tab 05/06/21 albuterol sulfate 90 mcg/actuation 2 puff INHALATION Q4-6H PRN #18 06/15/21 aerosol inhaler (ProAir HFA) gram losartan 100 mg tablet 100 mg PO QDAY #90 tab 06/15/21 lorazepam 0.5 mg tablet 0.5 mg PO Q8H PRN #30 tab 06/17/21 ondansetron HCl 8 mg tablet 8 mg PO Q8H #30 tab 06/17/21 Allergies Allergy/AdvReac Type Severity Reaction Status Date / Time venom-honey bee Allergy Severe ANAPHYLAXIS Verified 07/20/21 11:19 [BEE VENOM (HONEY BEE)] Review of Systems <Franny Bone PA-C - Last Filed: 07/20/21 17:56> Review of Systems ROS Unobtainable: All systems reviewed & are unremarkable except as noted in HPI and below Constitutional Constitutional: Denies chills, Denies fatigue, Denies fever(s), Denies frequent falls, Denies lethargy and Denies weakness Eyes Eyes: Denies change in vision, Denies eye discharge, Denies irritation and Denies loss of vision ENT Ears, Nose, Mouth, and Throat: Denies change in voice, Denies dizziness, Denies neck pain, Denies sore throat and Denies throat swelling Cardiovascular Cardiovascular: Denies chest pain, Denies irregular heart rhythm, Denies lightheadedness, Denies palpitations, Denies dyspnea, Denies dyspnea on exertion and Denies orthopnea Respiratory Respiratory: Denies cough, Denies dyspnea, Denies dyspnea on exertion and Denies wheezing Gastrointestinal Gastrointestinal: Reports abdominal pain, Denies change in bowel habits, Denies diarrhea, Reports nausea and Reports vomiting Genitourinary Genitourinary: Denies hematuria, Denies dysuria, Denies flank pain, Denies urinary incontinence and Denies urinary urgency Musculoskeletal Musculoskeletal: Denies back pain, Denies muscle weakness, Denies neck pain, Denies numbness and Denies tingling Integumentary/Breasts Skin/Breast: Denies pruritus, Denies erythema, Denies rash and Denies wounds Neurologic Neurologic: Denies behavioral changes, Denies confusion, Denies dizziness, Denies frequent falls, Denies loss of vision, Denies numbness, Denies tingling and Denies weakness Psychiatric Psychiatric: Denies anxiety, Denies behavioral changes, Denies confusion, Denies depression, Denies homicidal ideation and Denies suicidal ideation Endocrine Endocrine: Denies fatigue, Denies flushing and Denies palpitations Hematologic/Lymphatic Hematologic/Lymphatic: Denies easy bruising Allergic/Immunologic Allergic/Immunologic: Denies urticaria, Denies throat swelling and Denies wheezing Patient History <Franny Bone PA-C - Last Filed: 07/20/21 17:56> Medical History Actinic keratosis (Unknown) Ankle pain Cervicalgia (Unknown) Chickenpox (Unknown) Chronic back pain (Unknown) Colon cancer (1994) Colon polyps (~1993) Cough Erectile dysfunction (Unknown) Fusion of spine of cervical region GERD (gastroesophageal reflux disease) (Unknown) Hx of hiatal hernia (Unknown) Hypertension (Unknown) Mass of foot Measles (Unknown) Mesothelioma Mumps (Unknown) Osteoarthritis (Unknown) S/P abdominal paracentesis (02/22/19) Surgical History Anesthesia History of arthroplasty of right knee History of colon surgery (1993) History of surgery Hx of arthroscopy of right knee (1989) Hx of cataract surgery (2011) Hx of fusion of cervical spine (1989) Hx of laminectomy (~2008) Hx of laminectomy (06/23/16) Hx of shoulder surgery (2006) Hx of shoulder surgery (1996) Hx of total knee arthroplasty (2011) Family History Father Cancer Mother Cancer Sister Cancer Grandfather History of heart disease Social History household members: spouse Smoking Status: Former smoker Tobacco: How many years used: 25 quit status: has quit before alcohol intake: former substance use type: does not use Smoking Status: Former smoker alcohol intake frequency: holidays/special occasions only Substance Use Type: does not use Exam <Franny Bone PA-C - Last Filed: 07/20/21 17:56> Initial Vital Signs Initial Vital Signs: Vital Signs Temperature 97.9 F 07/20/21 11:20 Pulse Rate 97 H 07/20/21 11:20 Respiratory Rate 14 07/20/21 11:20 Blood Pressure 137/71 07/20/21 11:20 Pulse Oximetry 96 07/20/21 11:20 Const General: cooperative, healthy appearing and comfortable [facility] Head: normal to inspection Eyes General: appearance normal, both eyes and all related structures Neck Neck: normal visual inspection Chest Chest: normal inspection of the chest Resp Effort & Inspection: normal respiratory effort Auscultation: clear to auscultation bilaterally Cardio Rate: regular rate Rhythm: regular rhythm GI Other: Abdomen is soft, distended. Abdomen is diffusely tender to palpation. No CVA tenderness. General: No CVA tenderness Skin General: no rashes or lesions noted Neuro General: patient alert, patient awake and patient oriented x3 Psych Appearance: grossly normal Mental Status: mental status grossly normal <Agus Dias DO - Last Filed: 07/20/21 18:12> Initial Vital Signs Initial Vital Signs: Vital Signs Temperature 97.9 F 07/20/21 11:20 Pulse Rate 97 H 07/20/21 11:20 Respiratory Rate 14 07/20/21 11:20 Blood Pressure 137/71 07/20/21 11:20 Pulse Oximetry 96 07/20/21 11:20 Course <Franny Bone PA-C - Last Filed: 07/20/21 17:56> Orders Ordered: ED Orders 07/20/21 12:46 CT abdomen pelvis w con Stat 07/20/21 13:15 Lactate (Lactic Acid) Stat 07/20/21 14:44 COVID19 -Nasal swab/Pre-Proc Stat Acetaminophen (Acetaminophen 325 Mg Tablet) 650 mg PO Q6HR PRN PRN Reason: Fever/Mild Pain (1-3) Enoxaparin Sodium (Enoxaparin 40 Mg/0.4 Ml Syringe) 40 mg SUBCUT DAILY FABIOLA Magnesium Sulfate (Magnesium Sulfate) 4 gm in 100 mls @ 25 mls/hr IV NOW ONE Stop: 07/20/21 18:58 Last Infusion: 07/20/21 15:45 Dose: 25 mls/hr Documented by: GEO Cosigned by: SHERLY Admin: 07/20/21 15:25 Dose: 25 mls/hr Documented by: GEO Cosigned by: SHERLY Naloxone HCl (Naloxone 0.4 Mg/Ml Vial) 0.2 mg IV Q2MIN PRN PRN Reason: Opiate Reversal Ondansetron HCl (Ondansetron 4 Mg/2 Ml Inj) 4 mg IV Q8HR PRN PRN Reason: Nausea And Vomiting Discontinued Medications Sodium Chloride (Normal Saline 0.9%) 1,000 mls @ 1,000 mls/hr IV BOLUS ONE Stop: 07/20/21 13:54 Last Infusion: 07/20/21 15:25 Dose: 0 mls/hr Documented by: Admin: 07/20/21 13:09 Dose: 1,000 mls/hr Documented by: GEO Ondansetron HCl (Ondansetron 4 Mg/2 Ml Inj) 4 mg IV NOW ONE Stop: 07/20/21 12:56 Last Admin: 07/20/21 13:07 Dose: 4 mg Documented by: GEO Vital Signs Vital signs: Vital Signs - 8 hr 07/20/21 11:20 07/20/21 13:20 07/20/21 13:21 Temperature 97.9 F Pulse Rate 97 H 87 86 Respiratory Rate 14 Blood Pressure 137/71 124/66 Pulse Oximetry 96 95 96 07/20/21 13:29 07/20/21 13:40 07/20/21 14:00 Temperature 98.1 F Pulse Rate 88 85 Respiratory Rate 20 19 Blood Pressure Pulse Oximetry 96 97 07/20/21 14:30 07/20/21 15:00 Temperature Pulse Rate 85 90 Respiratory Rate 16 16 Blood Pressure 135/59 L Pulse Oximetry 98 98 <Agus Dias, - Last Filed: 07/20/21 18:12> Orders Ordered: ED Orders 07/20/21 12:46 CT abdomen pelvis w con Stat 07/20/21 13:15 Lactate (Lactic Acid) Stat 07/20/21 14:44 COVID19 -Nasal swab/Pre-Proc Stat Acetaminophen (Acetaminophen 325 Mg Tablet) 650 mg PO Q6HR PRN PRN Reason: Fever/Mild Pain (1-3) Enoxaparin Sodium (Enoxaparin 40 Mg/0.4 Ml Syringe) 40 mg SUBCUT DAILY FABIOLA Magnesium Sulfate (Magnesium Sulfate) 4 gm in 100 mls @ 25 mls/hr IV NOW ONE Stop: 07/20/21 18:58 Last Infusion: 07/20/21 15:45 Dose: 25 mls/hr Documented by: GEO Cosigned by: SHERLY Admin: 07/20/21 15:25 Dose: 25 mls/hr Documented by: GEO Cosigned by: SHERLY Naloxone HCl (Naloxone 0.4 Mg/Ml Vial) 0.2 mg IV Q2MIN PRN PRN Reason: Opiate Reversal Ondansetron HCl (Ondansetron 4 Mg/2 Ml Inj) 4 mg IV Q8HR PRN PRN Reason: Nausea And Vomiting Discontinued Medications Sodium Chloride (Normal Saline 0.9%) 1,000 mls @ 1,000 mls/hr IV BOLUS ONE Stop: 07/20/21 13:54 Last Infusion: 07/20/21 15:25 Dose: 0 mls/hr Documented by: Admin: 07/20/21 13:09 Dose: 1,000 mls/hr Documented by: GEO Ondansetron HCl (Ondansetron 4 Mg/2 Ml Inj) 4 mg IV NOW ONE Stop: 07/20/21 12:56 Last Admin: 07/20/21 13:07 Dose: 4 mg Documented by: GEO Vital Signs Vital signs: Vital Signs - 8 hr 07/20/21 11:20 07/20/21 13:20 07/20/21 13:21 Temperature 97.9 F Pulse Rate 97 H 87 86 Respiratory Rate 14 Blood Pressure 137/71 124/66 Pulse Oximetry 96 95 96 07/20/21 13:29 07/20/21 13:40 07/20/21 14:00 Temperature 98.1 F Pulse Rate 88 85 Respiratory Rate 20 19 Blood Pressure Pulse Oximetry 96 97 07/20/21 14:30 07/20/21 15:00 Temperature Pulse Rate 85 90 Respiratory Rate 16 16 Blood Pressure 135/59 L Pulse Oximetry 98 98 MDM - Nausea/Vomiting/Diarrhea <Franny Bone PA-C - Last Filed: 07/20/21 17:56> Lab Data Lab results narrative: Hypomagnesiumia of 1.1 Result diagrams: 07/20/21 05:15 Labs: Lab Results 07/20/21 07/20/21 07/20/21 Range/Units 05:15 13:15 14:44 Sodium 132 L (137-145) mmol/L Potassium 4.5 (3.4-5.1) mmol/L Chloride 98 (98-107) mmol/L Carbon Dioxide 30 (22-32) mmol/L BUN 16 (9-20) mg/dL Creatinine 0.86 (0.66-1.25) mg/dL Estimated GFR > 60.0 (>60) mL/min BUN/Creatinine Ratio 18.6 (6-22) Glucose 101 (80-110) mg/dL Lactate 0.8 (0.7-2.1) mmol/L Calcium 9.4 (8.4-10.2) mg/dL Total Bilirubin 0.5 (0.2-1.3) mg/dL AST 44 (17-59) IU/L ALT 14 (<50) IU/L Alkaline Phosphatase 76 (38-126) U/L Total Protein 6.9 (6.3-8.2) g/dL Albumin 3.4 L (3.5-5.0) g/dL Globulin 3.5 (1.7-4.1) g/dL Albumin/Globulin Ratio 1.0 (1.0-2.8) Lipase 58 (23-300) U/L SARS-CoV-2 (PCR) Negative (Negative) Imaging Data CT scan - abdomen/pelvis: Radiologist's Impression: PROCEDURE:? CT ABDOMEN PELVIS W CON ? INDICATIONS:? ?SBO ? TECHNIQUE:? After the administration of IV contrast, axial sections were acquired from the lung bases to the pubic symphysis.? Coronal and sagittal reformats were performed.? For radiation dose reduction, the following was used:? automated exposure control, adjustment of mA and/or kV according to patient size. ? COMPARISON:? [facility], CT, CT ABDOMEN PELVIS W CON, 02/13/2019, 11:58. ? FINDINGS:? Image quality:? Excellent.? ? Lung bases:? Numerous tiny nodules are present at both lung bases.? No pleural effusions. Heart:? The heart size is normal. Moderate coronary artery calcification.? ? ? ABDOMEN: Liver:? Hypertrophy of the left hepatic lobe.? No visible masses. Gallbladder:? Distended gallbladder Biliary ducts:? Nondilated. Pancreas:? Within normal limits Spleen:? Normal size. Adrenal Glands:? Stable bilateral nodules. Kidneys and Ureters:? Symmetric enhancement.? 2 mm parenchymal calcification in the right posterior cortex, stable. ? Stomach and Bowel:? The stomach is moderately decompressed.? Duodenal loops and proximal jejunum are normal.? There is mild dilatation of distal jejunal and ileal loops, several of which contain air-fluid levels7.? These measure up to approximately 4 cm.? A transition point is suspected in the right posterior abdominal cavity.? This appears to be a longer area of stricture.? Moderate to large amount of solid stool present in the mid to distal colon Peritoneum:? Moderate amount of intraperitoneal ascites.? There is nodular omental and peritoneal thickening, similar compared to prior studies. ? Ventral Wall: ? No hernia.? Abdominal Nodes:? Small nodes surround the retroperitoneal vasculature.? Says mildly increased since the prior study. Vessels:? Aorta and inferior vena cava are normal in size.? Mild abdominal aortic atherosclerotic calcification. ? PELVIS: Pelvic Organs:? Normal Bladder:? Normal Pelvic Nodes: No enlarged lymph nodes.? Miscellaneous: No inguinal hernias are seen. ? ? ? Bones:? Hemilaminectomy changes in the lower lumbar spine on the left.? Multilevel degenerative disc changes in the lumbar spine.? No suspicious bone lesions. ? ? IMPRESSION:? ? 1. Early or partial small bowel obstruction with a long segment narrowed transition in the posterior right abdomen. ? 2. Chronic metastatic peritoneal and omental thickening, ascites, and retroperitoneal adenopathy. ? 3.? Innumerable tiny lung nodules in both lung bases, new since the prior study.? ? 4. Chronic bilateral adrenal nodules.? ? Dictated by: Parisa Kaur M.D. on 07/20/2021 at 14:22 ? ? Approved by: Parisa Kaur M.D. on 07/20/2021 at 14:33 ? MDM Narrative Medical decision making narrative: 76-year-old male with past medical history colon cancer, mesothelioma the peritoneum, essential hypertension presents to the ED with 4 days of nausea and vomiting, abdominal pain. Concern for bowel obstruction versus complications from the mesothelioma. Will order labs, lipase, lactate, CT abdomen pelvis. Will give Zofran, IV fluids. Will reassess. Hypo magnesemia of 1.1. Magnesium repleted with 4 mg of magnesium sulfate IV over [address] abdomen pelvis shows a early or small partial small-bowel obstruction. Nausea and vomiting well controlled with Zofran. Consulted Dr. Perez from surgery, who recommends admission to Medicine with a consult to surgery and she will see the patient. No other interventions recommended by Dr. Perez at this time. Patient is NPO. Consulted hospitalist Dr. Gonzales, patient was admitted for observation. <Agus Dias, - Last Filed: 07/20/21 18:12> Lab Data Labs: Lab Results 07/20/21 07/20/21 07/20/21 Range/Units 05:15 13:15 14:44 Sodium 132 L (137-145) mmol/L Potassium 4.5 (3.4-5.1) mmol/L Chloride 98 (98-107) mmol/L Carbon Dioxide 30 (22-32) mmol/L BUN 16 (9-20) mg/dL Creatinine 0.86 (0.66-1.25) mg/dL Estimated GFR > 60.0 (>60) mL/min BUN/Creatinine Ratio 18.6 (6-22) Glucose 101 (80-110) mg/dL Lactate 0.8 (0.7-2.1) mmol/L Calcium 9.4 (8.4-10.2) mg/dL Total Bilirubin 0.5 (0.2-1.3) mg/dL AST 44 (17-59) IU/L ALT 14 (<50) IU/L Alkaline Phosphatase 76 (38-126) U/L Total Protein 6.9 (6.3-8.2) g/dL Albumin 3.4 L (3.5-5.0) g/dL Globulin 3.5 (1.7-4.1) g/dL Albumin/Globulin Ratio 1.0 (1.0-2.8) Lipase 58 (23-300) U/L SARS-CoV-2 (PCR) Negative (Negative) Discharge Plan Departure Patient Disposition: Admitted as Observation Clinical Impression: SBO (small bowel obstruction) Admit Date/Time: 07/20/21 15:07 Admit Provider: Carlos Alberto Gonzales <Agus Dias, DO - Last Filed: 07/20/21 18:12> [facility] Dr Dias Co-Sign Statement: I was available for consultation during this patient's emergency department visit. This chart is signed by myself for administrative purposes only. I did not have direct contact with this patient during this visit. They were seen independently by the [facility].
[2021-07-20 15:17] LABS: COVID19 -Nasal RAPID Negative (Negative)
[2021-07-20] MEDS: MAGNESIUM SULFATE 4 GM/100 ML PIGGYBACK IV (15:25)
--- NOTE | 2021-07-20 16:42 | PC.NURSE ---
Pt arrived from ED at 1545, A&Ox4, c/o 4/10 abd pain but no nausea at this time. VSS. Admission and skin check complete. Pt oriented to room, call light and TV controls. Urinal at bedside, pt agreed to call for questions, help with urinal or assistance getting to the bathroom. Will continue to monitor.
--- NOTE | 2021-07-20 17:35 | PM.PROC.1 ---
Procedures Date/Time Date of procedure: 07/20/21 Time of procedure: 17:35 Paracentesis Time out performed: Yes Indication: possible spontaneous bacterial peritonitis Procedure: diagnostic paracentesis Location: RLQ Local anesthetic used: lidocaine 1% Amount of anesthesia used (ml): 2 Bedside ultrasound used: yes, Ascites confirmed and location marked Preparation: sterile prep and drape Amount of fluid obtained (ml): 55 Fluid: cloudy (yellow) Size of needle used: 5 Post procedure exam: awake, alert, normal BP, normal HR and normal SpO2 Patient tolerated procedure: well Complications: none Additional comments: Prior to the procedure formal consent was obtained from the patient after discussion of risks and benefits of the procedure, and allowing the patient to ask any questions. Ultrasound was used to find a suitable pocket, and the site was marked. A time-out was performed. The site was then prepped and draped in usual sterile fashion, and a 5F paracentesis needle was inserted with return of cloudy yellow fluid. A total of approximately 55 mL was obtained. There was no bleeding and the patient tolerated the procedure well. There were no further complications.
--- NOTE | 2021-07-20 17:54 | P.HP_ITS ---
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 The patient normally does not have much abdominal pain, except when his abdomen gets very distended which has not happened recently as he has been going for weekly paracentesis. His last was approximately 6 days ago. For the last 3-4 days he has had diffuse, generally dull but occasionally sharp abdominal pain. He reports no bowel movement for the past 4 days but did pass gas today. He reports nonbloody and nonbilious vo miting and inability to tolerate much oral intake. He typically response to Zofran but has not over the past few days. He denies any chest pain, shortness of breath, palpitations, fever, chills. He does not usually have any abdominal pain. In the emergency room, the patient was minimally hypertensive but the remainder his vital signs were unremarkable. Laboratory evaluation revealed a mild hy ponatremia with sodium of 132, but no significant other lab abnormalities. CBCs showed no significant leukocytosis and a chronic anemia with a hemoglobin of 7.0. CT scan of his abdomen showed a possible early small-bowel obstruction with a possible transition point in the right lower posterior abdomen, possibly a segment of stricturing in that area. He was admitted to Medicine for further management. Patient History Medical History Actinic keratosis (Unknown) Ankle pain Cervicalgia (Unknown) Chickenpox (Unknown) Chronic back pain (Unknown) Colon cancer (1993) Colon polyps (~1993) Cough Erectile dysfunction (Unknown) Fusion of spine of cervical region GERD (gastroesophageal reflux disease) (Unknown) Hx of hiatal hernia (Unknown) Hypertension (Unknown) Mass of foot Measles (Unknown) Mesothelioma Mumps (Unknown) Osteoarthritis (Unknown) S/P abdominal paracentesis (02/22/19) Surgical History Anesthesia History of arthroplasty of right knee History of colon surgery (1993) History of surgery Hx of arthroscopy of right knee (1989) Hx of cataract surgery (2011) Hx of fusion of cervical spine (1989) Hx of laminectomy (~2008) Hx of laminectomy (06/23/16) Hx of shoulder surgery (2006) Hx of shoulder surgery (1996) Hx of total knee arthroplasty (2011) Family & Social History Family History Father Cancer Mother Cancer Sister Cancer Grandfather History of heart disease Social History: household members spouse Prior Living Arrangements House Safety & Behavioral: Feels Safe in Current Yes Environment Been Physically Hurt or No Threatened By a Person Suicidal Ideation Description None Suicide Plan Description No Plan Tobacco & Substance use: Tobacco type cigarettes Smoking Status Former smoker alcohol intake former alcohol intake frequency holiday/special occasion Substance Use Type does not use Meds Home Medications and Allergies Home Medications Medication Instructions Recorded Confirmed Type acetaminophen 325 mg capsule 650 mg PO QID PRN #60 cap 04/09/19 07/08/21 Rx (Tylenol) vitamins A,C,C-[id number]-[id number] 7,160 2 tab PO DAILY 04/09/19 07/08/21 History unit-113 mg-100 unit tablet (PreserVision AREDS) docusate sodium 100 mg capsule 100 mg PO DAILY 07/16/19 07/08/21 History (Colace) cholecalciferol (vitamin D3) 25 1,000 unit PO DAILY 09/17/19 07/08/21 History mcg (1,000 unit) capsule (Vitamin D3) prochlorperazine maleate 10 mg 10 mg PO Q6H PRN #60 tab 10/05/20 07/08/21 Rx tablet folic acid 1 mg tablet 1 mg PO DAILY #30 tab 05/06/21 07/08/21 Rx albuterol sulfate 90 mcg/actuation 2 puff INHALATION Q4-6H PRN #18 06/15/21 07/08/21 Rx aerosol inhaler (ProAir HFA) gram losartan 100 mg tablet 100 mg PO QDAY #90 tab 06/15/21 07/08/21 Rx lorazepam 0.5 mg tablet 0.5 mg PO Q8H PRN #30 tab 06/17/21 07/08/21 Rx ondansetron HCl 8 mg tablet 8 mg PO Q8H #30 tab 06/17/21 07/08/21 Rx Allergies Allergy/AdvReac Type Severity Reaction Status Date / Time venom-honey bee Allergy Severe ANAPHYLAXIS Verified 07/20/21 11:19 [BEE VENOM (HONEY BEE)] Review of Systems Review of Systems Narrative: All other systems reviewed with the patient and are negative unless otherwise stated. Exam Vital Signs (past 8 hours): - 07/20/21 11:20 07/20/21 13:20 07/20/21 13:21 Temperature 97.9 F Pulse Rate 97 H 87 86 Respiratory Rate 14 Blood Pressure 137/71 124/66 Pulse Oximetry 96 95 96 07/20/21 13:29 07/20/21 13:40 07/20/21 14:00 Temperature 98.1 F Pulse Rate 88 85 Respiratory Rate 20 19 Blood Pressure Pulse Oximetry 96 97 07/20/21 14:30 07/20/21 15:00 Temperature Pulse Rate 85 90 Respiratory Rate 16 16 Blood Pressure 135/59 L Pulse Oximetry 98 98 Oxygen Delivery Method Room Air Narrative Exam Narrative: General:? Patient is well developed and well nourished, in no distress at this time. HEENT:? Normocephalic, atraumatic, extraocular muscles intact, oral pharynx is clear and mucous membranes are moist. Neck: supple and symmetric, trachea is midline, no cervical adenopathy. Negative for JVD Chest:? Normal AP diameter and contour without kyphoscoliosis, no tachypnea, equal chest rise bilaterally. Chest port is without erythema, or induration. Lungs:? CTA b/l no wheezing rhonchi or rales. Cardio:?RRR no m/r/g. Abdomen: Soft, mildly diffusely tender, mildly distended with ascites. Midline surgical scar appears well healed. Musculoskeletal:? Muscle strength and tone are equal within normal limits, no deformity. Extremities: No edema or joint effusions. No cyanosis or clubbing. Skin:? Pale,? Warm to touch,dry and intact without rashes, ulcerations or petechiae.? Neuro:? Alert and orientated x3,? sensation to touch intact in all extremities, no gross deficits noted of cranial nerves. Psych:? Patient has a well-kept appearance, appropriate affect, mental status attitude thought context and judgment are appropriate for age. Objective Labs Result Diagrams: 07/20/21 05:15 Labs: Laboratory Results - last 24 hr 07/20/21 07/20/21 07/20/21 05:15 13:15 14:44 Sodium 132 L Potassium 4.5 Chloride 98 Carbon Dioxide 30 BUN 16 Creatinine 0.86 Estimated GFR > 60.0 BUN/Creatinine Ratio 18.6 Glucose 101 Lactate 0.8 Calcium 9.4 Total Bilirubin 0.5 AST 44 ALT 14 Alkaline Phosphatase 76 Total Protein 6.9 Albumin 3.4 L Globulin 3.5 Albumin/Globulin Ratio 1.0 Lipase 58 SARS-CoV-2 (PCR) Negative Assessment & Plan Assessment & Plan narrative: 1. partial SBO - discussed with surgery, given improvement in symptoms, passing gas can trial CLD now. - rule out SBP as noted below - consider surgery consultation depending on tolerance of diet - etiology includes possible infection, SBP, metastatic disease leading to obstruction, adhesive disease, amongst others. 2. Abdominal pain, rule out SBP - paracentesis, diagnostic performed 07/20. - follow up cell count and cultures, additionally follow up glucose, LDH and protein. - depending on results possible antibiotic therapy. - for now pain control with tylenol, consider opiate therapy if worsened. 3. 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 Keith. 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 - chronic anemia related to malignancy. - possibly with metastases leading to obstruction as noted above. - new lung nodules per CT report. Will need follow up as scheduled with Dr. Keith. - has weekly therapeutic paracentesis, may need to perform again if he develops symptoms. 4. HTN - continue home medications - EKG non emergent 5. Chronic anemia - Hg 7.0 on labs today. No current symptoms. Recheck in AM, transfuse if <7. Does have history of needing transfusion for low Hg in the past.] 6. 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 Code: Full, surrogate decision maker is the patient's spouse Dispo: admit under observation DVT: check INR I have utilized all available immediate resources to obtain, update, or review the patient's current medications. COVID-19 COVID-19 status: Negative Time Spent With Patient Critical Care time: I spent a total of [] minutes of critical care time on this patient's care today; this time is exclusive of procedural time. Quality VTE Deep Vein Thrombosis/Pulmonary Embolism Present on Admission: No MIPS - Admit I confirm the patient?s Advance Care Plan is present, Code status is documented, Surrogate decision maker is in patient?s record [If Yes, STOP here]: Yes
[2021-07-20 18:36] LABS: Body Fluid Appearance TURBID; Body Fluid Color YELLOW
[2021-07-20 18:38] LABS: Body Fluid Clotted? YES
[2021-07-20 18:51] LABS: Glucose Body Fluid < 20 mg/dL; Total Protein Body Fluid 2.2 g/dL
[2021-07-20 18:58] LABS: LDH Body Fluid 2555 U/L
[2021-07-20] MEDS: cefTRIAXone 1,000 MG in SODIUM CHLORIDE 0.9% 100 ML 200 ML IV (21:39)
[2021-07-21] VITALS (22 sets, daily range): BP systolic 116–155; BP diastolic 60–69; PULSE 100–114; RESP 18–20; TEMP 36.7–39.1; O2SAT 88–97
[2021-07-21] MEDS: SODIUM CHLORIDE 0.9% 500 ML 1000 ML IV (01:30)
--- NOTE | 2021-07-21 01:38 | DI.RAD.S_ITS ---
PROCEDURE: XR CHEST 1V INDICATIONS: shortness of breath, low O2 TECHNIQUE: One view of the chest was acquired. COMPARISON: [facility], CR, XR CHEST 2V, 03/11/2020, 13:38. FINDINGS: Surgical changes and devices: Right chest Port-A-Cath, GE junction clips Lungs and pleura: Minimal bibasilar atelectasis. No pleural effusions or pneumothorax. Mediastinum: Mediastinal contours appear normal. Heart size is normal. Bones and chest wall: No suspicious bony lesions. Overlying soft tissues appear unremarkable. IMPRESSION: Minimal bibasilar atelectasis. Dictated by: Waldo Brown M.D. on 07/21/2021 at 1:51 Approved by: Waldo Brown M.D. on 07/21/2021 at 1:52
[2021-07-21 02:03] LABS: INR 1.2 (0.9-1.3); Prothrombin Time 13.8 SECONDS (10.1-12.7)
[2021-07-21 02:08] LABS: Alanine Aminotransferase 17 IU/L (<50); Albumin 3.5 g/dL (3.5-5.0); Albumin Globulin Ratio 0.9 (1.0-2.8); Alkaline Phosphatase 76 U/L (38-126); Aspartate Aminotransferase 46 IU/L (17-59); BUN Creatinine Ratio 15.9 (6-22); Bilirubin Total 0.5 mg/dL (0.2-1.3); Blood Urea Nitrogen 14 mg/dL (9-20); Calcium 9.1 mg/dL (8.4-10.2); Carbon Dioxide 31 mmol/L (22-32); Chloride 99 mmol/L (98-107); Estimated Glomerular Filt Rate > 60.0 mL/min (>60); Globulin 3.9 g/dL (1.7-4.1); Glucose 110 mg/dL (80-110); HEMOLYSIS < 15 (0-50); Magnesium 1.7 mg/dL (1.6-2.3); Potassium 4.4 mmol/L (3.4-5.1); Sodium 133 mmol/L (137-145); Total Protein 7.4 g/dL (6.3-8.2)
[2021-07-21 02:12] LABS: Add Manual Diff / Slide Review NO; Basophils Absolute Auto 100 /uL (0-100); Basophils Percent Auto 0.6 % (0-2); Eosinophils Absolute Auto 0 /uL (0-450); Eosinophils Percent Auto 0.6 % (2-4); Hematocrit 25.1 % (41-53); Hemoglobin 7.7 g/dL (13.5-17.5); Lymphocytes Absolute Auto 300 /uL (1100-4500); Lymphocytes Percent Auto 3.7 % (25-40); Mean Corpuscular HGB Conc 30.8 % (30-36); Mean Corpuscular Hemoglobin 25.4 PG (26-34); Mean Corpuscular Volume 82.5 fL (80-100); Monocytes Absolute Auto 600 /uL (0-900); Monocytes Percent Auto 6.8 % (3-14); Neutrophils Absolute Auto 7600 /uL (1500-7000); Neutrophils Percent Auto 88.3 % (50-75); Platelet Count 229 X10^3/uL (150-400); Red Blood Cell Count 3.04 X10^6/uL (4.5-5.9); White Blood Cell Count 8.6 X10^3/uL (4.5-11.0)
[2021-07-21] MEDS: LORazepam 2 MG/ML INJ 0.5 MG IV (02:19)
[2021-07-21] MEDS: ACETAMINOPHEN 650 MG SUPP PR (02:19)
[2021-07-21 02:37] LABS: Anisocytosis 2+; Hypochromasia 2+; Target Cells 1+
[2021-07-21 02:38] LABS: Acanthocytes 1+
[2021-07-21] MEDS: ACETAMINOPHEN 325 MG TABLET 650 MG PO ×2 (04:28→13:15)
[2021-07-21 05:22] LABS: INR 1.3 (0.9-1.3); Prothrombin Time 14.1 SECONDS (10.1-12.7)
[2021-07-21 05:23] LABS: Add Manual Diff / Slide Review NO; Basophils Absolute Auto 0 /uL (0-100); Basophils Percent Auto 0.4 % (0-2); Eosinophils Absolute Auto 0 /uL (0-450); Eosinophils Percent Auto 0.2 % (2-4); Hematocrit 23.7 % (41-53); Hemoglobin 7.2 g/dL (13.5-17.5); Lymphocytes Absolute Auto 300 /uL (1100-4500); Lymphocytes Percent Auto 3.8 % (25-40); Mean Corpuscular HGB Conc 30.5 % (30-36); Mean Corpuscular Hemoglobin 25.1 PG (26-34); Mean Corpuscular Volume 82.3 fL (80-100); Monocytes Absolute Auto 800 /uL (0-900); Monocytes Percent Auto 8.8 % (3-14); Neutrophils Absolute Auto 7800 /uL (1500-7000); Neutrophils Percent Auto 86.8 % (50-75); Platelet Count 221 X10^3/uL (150-400); Red Blood Cell Count 2.89 X10^6/uL (4.5-5.9)
[2021-07-21 05:25] LABS: PTT Partial Thromboplastin Tim 32 SECONDS (26.4-36.2)
[2021-07-21 05:29] LABS: Alanine Aminotransferase 15 IU/L (<50); Albumin 3.2 g/dL (3.5-5.0); Albumin Globulin Ratio 0.9 (1.0-2.8); Alkaline Phosphatase 81 U/L (38-126); Aspartate Aminotransferase 44 IU/L (17-59); BUN Creatinine Ratio 17.4 (6-22); Bilirubin Total 0.4 mg/dL (0.2-1.3); Blood Urea Nitrogen 15 mg/dL (9-20); Calcium 8.7 mg/dL (8.4-10.2); Carbon Dioxide 29 mmol/L (22-32); Chloride 100 mmol/L (98-107); Estimated Glomerular Filt Rate > 60.0 mL/min (>60); Globulin 3.7 g/dL (1.7-4.1); Glucose 100 mg/dL (80-110); HEMOLYSIS < 15 (0-50); Magnesium 1.6 mg/dL (1.6-2.3); Potassium 4.2 mmol/L (3.4-5.1); Sodium 134 mmol/L (137-145); Total Protein 6.9 g/dL (6.3-8.2)
[2021-07-21 05:50] LABS: Anisocytosis 2+; Hypochromasia 2+; Target Cells 1+
[2021-07-21] MEDS: ENOXAPARIN 40 MG/0.4 ML SYRINGE SUBCUT (08:47)
[2021-07-21] MEDS: cefTRIAXone 2,000 MG in SODIUM CHLORIDE 0.9% 100 ML 200 ML IV (08:47)
--- NOTE | 2021-07-21 09:35 | DI.RAD.S_ITS ---
PROCEDURE: XR ACUTE ABDOMEN SERIES INDICATIONS: polymicrobial ascites infection, eval for free air TECHNIQUE: One view chest and two views of the abdomen were acquired. COMPARISON: [facility], CT, CT ABDOMEN PELVIS W CON, 07/20/2021, 13:33. [facility], CR, XR CHEST 1V, 07/21/2021, 1:40. FINDINGS: Surgical changes and devices: Right-sided chest port. Epigastric clips are seen. Chest: Lungs are clear. Heart size is normal. No pleural effusions. No pneumoperitoneum. Abdomen: Prominent loops of small bowel are seen that measure up to 4.2 cm. A moderate amount of stool is seen within the colon. On the upright image, air-fluid levels are seen, it without edenilson pathologic air-fluid levels. No suspicious calcifications. Visualized solid organ contours appear normal. Bones: No suspicious bony lesions. Age-appropriate bony degenerative changes are seen. IMPRESSION: No free air is seen. The bowel gas pattern is most consistent with ileus, although differential diagnosis would include small bowel obstruction. Postoperative and degenerative changes are seen. Dictated by: Александр Shankar M.D. on 07/21/2021 at 10:05 Approved by: Александр Shankar M.D. on 07/21/2021 at 10:07
[2021-07-21] MEDS: LACTATED RINGERS 1,000 ML 84 ML IV (11:13)
[2021-07-21] MEDS: ONDANSETRON 4 MG/2 ML INJ IV ×2 (11:13→20:52)
--- NOTE | 2021-07-21 15:00 | P.PN_ITS ---
Subjective Subjective Date Patient Seen: 07/21/21 Time Patient Seen: 15:02 Interval history: Patient did not tolerate clears, did okay with water but with Jello developed abdominal pain. Overnight he was febrile. Dx paracentesis had clumped cells, but culture with multiple kinds of bacteria and now is positive. Started on antibiotic therapy yesterday with ceftriaxone, broadened today to meropenem given continued fever. CLD reduced to NPO. Given multiple bacteria acute abdomen series checked which did not show evidence of free air. Exam Vital Signs (past 8 hours): - 07/21/21 07:28 07/21/21 07:29 07/21/21 08:46 Temperature 99.8 F H Pulse Rate 100 H Respiratory Rate 20 Blood Pressure 131/60 Pulse Oximetry 97 95 97 07/21/21 11:09 07/21/21 12:30 07/21/21 13:15 Temperature 102.4 F H 101.0 F H Pulse Rate 100 H Respiratory Rate 18 Blood Pressure 129/67 Pulse Oximetry 94 96 07/21/21 14:29 Temperature 98.6 F Pulse Rate Respiratory Rate Blood Pressure Pulse Oximetry Oxygen Delivery Method Room Air Oxygen Flow Rate 0 Narrative Exam Narrative: General:? Patient is well developed and well nourished, in no distress at this time. HEENT:? Normocephalic, atraumatic, extraocular muscles intact, oral pharynx is clear and mucous membranes are moist. Neck: supple and symmetric, trachea is midline, no cervical adenopathy. Negative for JVD Chest:? Normal AP diameter and contour without kyphoscoliosis, no tachypnea, equal chest rise bilaterally.? Chest port is without erythema, or induration. Lungs:? CTA b/l no wheezing rhonchi or rales. Cardio:?RRR no m/r/g. Abdomen:? Soft, non-tender, mildly distended (still slightly worse than yesterday) with ascites.? Midline surgical scar appears well healed. Musculoskeletal:? Muscle strength and tone are equal within normal limits, no deformity. Extremities: No edema or joint effusions. No cyanosis or clubbing. Skin:? Pale,? Warm to touch,dry and intact without rashes, ulcerations or petechiae.? Neuro:? Alert and orientated x3,? sensation to touch intact in all extremities, no gross deficits noted of cranial nerves. Psych:? Patient has a well-kept appearance, appropriate affect, mental status attitude thought context and judgment are appropriate for age. Objective Labs Result Diagrams: 07/21/21 04:45 07/21/21 04:45 Labs: Laboratory Results - last 24 hr 07/20/21 07/20/21 07/20/21 14:44 17:45 17:45 WBC RBC Hgb Hct MCV MCH MCHC RDW Plt Count Neut % (Auto) Lymph % (Auto) Gordon % (Auto) Eos % (Auto) Baso % (Auto) Neut # (Auto) Lymph # (Auto) Gordon # (Auto) Eos # (Auto) Baso # (Auto) RBC Morphology Hypochromasia Anisocytosis Target Cells Acanthocytes (Spur) PT INR APTT Sodium Potassium Chloride Carbon Dioxide BUN Creatinine Estimated GFR BUN/Creatinine Ratio Glucose Calcium Magnesium Total Bilirubin AST ALT Alkaline Phosphatase Total Protein Albumin Globulin Albumin/Globulin Ratio Fluid Color Yellow Fluid Appearance Turbid Fluid pH 7.0 Fluid RBC TNP Fld Tot Nucleated Cell TNP Fluid Polynuclear WBCs TNP Fluid Mononuclear WBCs TNP Fluid Eosinophils TNP Fluid Other Cells TNP Body Fluid Clot Yes Fluid Glucose < 20 Fluid Total Protein 2.2 Fluid LDH 2555 SARS-CoV-2 (PCR) Negative 07/21/21 07/21/21 07/21/21 01:47 01:47 01:47 WBC 8.6 RBC 3.04 L Hgb 7.7 L Hct 25.1 L MCV 82.5 MCH 25.4 L MCHC 30.8 RDW 23.0 H Plt Count 229 Neut % (Auto) 88.3 H Lymph % (Auto) 3.7 L Gordon % (Auto) 6.8 Eos % (Auto) 0.6 L Baso % (Auto) 0.6 Neut # (Auto) 7600 H Lymph # (Auto) 300 L Gordon # (Auto) 600 Eos # (Auto) 0 Baso # (Auto) 100 RBC Morphology See below Hypochromasia 2+ H Anisocytosis 2+ H Target Cells 1+ H Acanthocytes (Spur) 1+ PT INR APTT Sodium 133 L Potassium 4.4 Chloride 99 Carbon Dioxide 31 BUN 14 Creatinine 0.88 Estimated GFR > 60.0 BUN/Creatinine Ratio 15.9 Glucose 110 Calcium 9.1 Magnesium 1.7 Total Bilirubin 0.5 AST 46 ALT 17 Alkaline Phosphatase 76 Total Protein 7.4 Albumin 3.5 Globulin 3.9 Albumin/Globulin Ratio 0.9 L Fluid Color Fluid Appearance Fluid pH Fluid RBC Fld Tot Nucleated Cell Fluid Polynuclear WBCs Fluid Mononuclear WBCs Fluid Eosinophils Fluid Other Cells Body Fluid Clot Fluid Glucose Fluid Total Protein Fluid LDH SARS-CoV-2 (PCR) 07/21/21 07/21/21 07/21/21 01:47 04:45 04:45 WBC 9.0 RBC 2.89 L Hgb 7.2 L Hct 23.7 L MCV 82.3 MCH 25.1 L MCHC 30.5 RDW 23.0 H Plt Count 221 Neut % (Auto) 86.8 H Lymph % (Auto) 3.8 L Gordon % (Auto) 8.8 Eos % (Auto) 0.2 L Baso % (Auto) 0.4 Neut # (Auto) 7800 H Lymph # (Auto) 300 L Gordon # (Auto) 800 Eos # (Auto) 0 Baso # (Auto) 0 RBC Morphology See below Hypochromasia 2+ H Anisocytosis 2+ H Target Cells 1+ H Acanthocytes (Spur) PT 13.8 H INR 1.2 APTT Sodium 134 L Potassium 4.2 Chloride 100 Carbon Dioxide 29 BUN 15 Creatinine 0.86 Estimated GFR > 60.0 BUN/Creatinine Ratio 17.4 Glucose 100 Calcium 8.7 Magnesium 1.6 Total Bilirubin 0.4 AST 44 ALT 15 Alkaline Phosphatase 81 Total Protein 6.9 Albumin 3.2 L Globulin 3.7 Albumin/Globulin Ratio 0.9 L Fluid Color Fluid Appearance Fluid pH Fluid RBC Fld Tot Nucleated Cell Fluid Polynuclear WBCs Fluid Mononuclear WBCs Fluid Eosinophils Fluid Other Cells Body Fluid Clot Fluid Glucose Fluid Total Protein Fluid LDH SARS-CoV-2 (PCR) 07/21/21 04:45 WBC RBC Hgb Hct MCV MCH MCHC RDW Plt Count Neut % (Auto) Lymph % (Auto) Gordon % (Auto) Eos % (Auto) Baso % (Auto) Neut # (Auto) Lymph # (Auto) Gordon # (Auto) Eos # (Auto) Baso # (Auto) RBC Morphology Hypochromasia Anisocytosis Target Cells Acanthocytes (Spur) PT 14.1 H INR 1.3 APTT 32 Sodium Potassium Chloride Carbon Dioxide BUN Creatinine Estimated GFR BUN/Creatinine Ratio Glucose Calcium Magnesium Total Bilirubin AST ALT Alkaline Phosphatase Total Protein Albumin Globulin Albumin/Globulin Ratio Fluid Color Fluid Appearance Fluid pH Fluid RBC Fld Tot Nucleated Cell Fluid Polynuclear WBCs Fluid Mononuclear WBCs Fluid Eosinophils Fluid Other Cells Body Fluid Clot Fluid Glucose Fluid Total Protein Fluid LDH SARS-CoV-2 (PCR) PFSH Medical History Actinic keratosis (Unknown) Ankle pain Cervicalgia (Unknown) Chickenpox (Unknown) Chronic back pain (Unknown) Colon cancer (1993) Colon polyps (~1993) Cough Erectile dysfunction (Unknown) Fusion of spine of cervical region GERD (gastroesophageal reflux disease) (Unknown) Hx of hiatal hernia (Unknown) Hypertension (Unknown) Mass of foot Measles (Unknown) Mesothelioma Mumps (Unknown) Osteoarthritis (Unknown) S/P abdominal paracentesis (02/22/19) Surgical History Anesthesia History of arthroplasty of right knee History of colon surgery (1993) History of surgery Hx of arthroscopy of right knee (1989) Hx of cataract surgery (2011) Hx of fusion of cervical spine (1989) Hx of laminectomy (~2008) Hx of laminectomy (06/23/16) Hx of shoulder surgery (2006) Hx of shoulder surgery (1996) Hx of total knee arthroplasty (2011) Family History Father Cancer Mother Cancer Sister Cancer Grandfather History of heart disease Social History household members: spouse Smoking Status: Former smoker Tobacco: How many years used: 25 quit status: has quit before alcohol intake: former substance use type: does not use Assessment & Plan Assessment & Plan narrative: 1. partial SBO ?- etiology includes possible infection, SBP, metastatic disease leading to obstruction, adhesive disease, amongst others. - NPO with IVF as noted below. - may be reactive to peritonitis, given malignant lesions this increases the risk of a possible small bowel perforation however there is no current evidence of that on imaging. - may be a chronic issue given stricturing noted on CT imaging due to met astatic disease. 2. Bacterial peritonitis ?- paracentesis, diagnostic performed 07/20. Showed clumped cells and lab unable to assess WBC or RBC count. However culture is positive and will treat as per jing. - given multiple kinds of bacteria on gram stain, concern for possible small bowel perf however none seen on initial CT or acute series XR today. Etiology may be spontaneous or related to his weekly paracenteses as well. - glucose of ascites fluid was <20, can be seen in infection or malignancy as well. ?- initially started on ceftriaxone, however continued fever today will broaden to meropenem while awaiting cultures. ?- given concern for bowel perf, will plan to keep NPO improved and trial fluids again. Continue hydration for now. Surgery requested for consultation for possible, but hopefully no surgical management. - would recommend SBP prophylaxis in the future after discharge. 3. 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 Keith. 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 ?- chronic anemia related to malignancy. ?- possibly with metastases leading to obstruction as noted above. ?- new lung nodules per CT report. Will need follow up as scheduled with Dr. Keith. ?- has weekly therapeutic paracentesis, may need to perform again if he develops symptoms. 4. HTN ?- continue home medications ?- EKG non emergent 5. Chronic anemia ?- Hg 7.0 on labs initially and currently stable with No current symptoms. Recheck in AM, transfuse if <7. Does have history of needing transfusion for low Hg in the past. 6. 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 Code: Full, surrogate decision maker is the patient's spouse Dispo: changed to inpatient for bacterial peritonitis DVT: can start Lovenox 40 mg today. I have utilized all available immediate resources to obtain, update, or review the patient's current medications. Time Spent With Patient Critical Care time: I spent a total of [] minutes of critical care time on this patient's care today; this time is exclusive of procedural time. Quality VTE Deep Vein Thrombosis/Pulmonary Embolism Present on Admission: No
--- NOTE | 2021-07-21 15:36 | PC.NURSE ---
Patient is alert and oriented x3. He has a port in his r.upper chest with LR infusing at 84cc/hr. Patient with a temp of 100.3, given po tylenol and down to 98.3. Patient is getting iv antibiotics, he was given zofran x1 for small emesis. He was also able to take tylenol and he does have more color in his cheeks, this am patient was peaked. Resting comfortably now.
[2021-07-21] MEDS: MEROPENEM 1 GM in SODIUM CHLORIDE 0.9% 100 ML 200 ML IV ×2 (15:58→23:44)
[2021-07-22] VITALS (15 sets, daily range): BP systolic 113–136; BP diastolic 62–70; PULSE 96–111; RESP 16–18; TEMP 36.5–37.9; O2SAT 94–100
[2021-07-22] MEDS: LACTATED RINGERS 1,000 ML 84 ML IV ×2 (00:34→13:47)
[2021-07-22] MEDS: LORazepam 2 MG/ML INJ 0.5 MG IV ×2 (01:05→20:47)
[2021-07-22 06:00] LABS: Add Manual Diff / Slide Review NO; Basophils Absolute Auto 100 /uL (0-100); Basophils Percent Auto 0.5 % (0-2); Eosinophils Absolute Auto 0 /uL (0-450); Eosinophils Percent Auto 0.2 % (2-4); Hematocrit 25.1 % (41-53); Hemoglobin 7.5 g/dL (13.5-17.5); Lymphocytes Absolute Auto 800 /uL (1100-4500); Lymphocytes Percent Auto 5.6 % (25-40); Mean Corpuscular Hemoglobin 24.9 PG (26-34); Mean Corpuscular Volume 83.1 fL (80-100); Monocytes Absolute Auto 1600 /uL (0-900); Monocytes Percent Auto 11.9 % (3-14); Neutrophils Absolute Auto 10900 /uL (1500-7000); Neutrophils Percent Auto 81.8 % (50-75); Platelet Count 233 X10^3/uL (150-400); Red Blood Cell Count 3.02 X10^6/uL (4.5-5.9); Red Cell Distribution Width 22.8 % (11.6-14.8); White Blood Cell Count 13.3 X10^3/uL (4.5-11.0)
[2021-07-22 06:03] LABS: INR 1.4 (0.9-1.3); Prothrombin Time 15.9 SECONDS (10.1-12.7)
[2021-07-22 06:05] LABS: Alanine Aminotransferase 16 IU/L (<50); Albumin 3.6 g/dL (3.5-5.0); Albumin Globulin Ratio 0.9 (1.0-2.8); Alkaline Phosphatase 86 U/L (38-126); Aspartate Aminotransferase 42 IU/L (17-59); BUN Creatinine Ratio 19.8 (6-22); Bilirubin Total 0.6 mg/dL (0.2-1.3); Blood Urea Nitrogen 16 mg/dL (9-20); Calcium 8.7 mg/dL (8.4-10.2); Carbon Dioxide 29 mmol/L (22-32); Chloride 100 mmol/L (98-107); Estimated Glomerular Filt Rate > 60.0 mL/min (>60); Globulin 3.9 g/dL (1.7-4.1); Glucose 100 mg/dL (80-110); HEMOLYSIS < 15 (0-50); Magnesium 1.6 mg/dL (1.6-2.3); Potassium 3.8 mmol/L (3.4-5.1); Sodium 135 mmol/L (137-145); Total Protein 7.5 g/dL (6.3-8.2)
[2021-07-22 06:06] LABS: PTT Partial Thromboplastin Tim 37 SECONDS (26.4-36.2)
[2021-07-22 06:24] LABS: Anisocytosis 2+; Hypochromasia 1+
[2021-07-22 06:25] LABS: Target Cells 1+
[2021-07-22] MEDS: MEROPENEM 1 GM in SODIUM CHLORIDE 0.9% 100 ML 200 ML IV ×3 (07:00→23:11)
[2021-07-22] MEDS: ACETAMINOPHEN 325 MG TABLET 650 MG PO ×2 (09:03→20:47)
[2021-07-22] MEDS: METOCLOPRAMIDE 10 MG/2 ML INJ IV (09:03)
[2021-07-22] MEDS: ENOXAPARIN 40 MG/0.4 ML SYRINGE SUBCUT (09:04)
[2021-07-22] MEDS: MAGNESIUM SULFATE 2 GM/50 ML PIGGYBACK IV (13:49)
--- NOTE | 2021-07-22 15:22 | CM.IDA ---
Initial DCP Assessment Note Pt is a 76 yo male, resident of 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 This FACULTY I ON CALL MEDICAL ASSISTANT suggested Palliative Care consult (?) and Dr Gonzales does not feel this is an appropriate consult request at this time. This FACULTY I ON CALL MEDICAL ASSISTANT unable to complete bedside assessment as patient is feeling ill. According to staff; patient is A+O, feeling quite weak. Baseline unknown. Will plan to follow closely for support and coordination of DCP as medical POC unfolds. ALEJANDRO Martinez Discharge Planning/Care Management CM Discharge Assessment Start: 07/22/21 15:15 Freq: Status: Active Protocol: Document 07/22/21 15:15 ANA (Rec: 07/22/21 15:22 [id number]) Discharge Planning Assessment Assigned Mass Spec ALEJANDRO Martínez DPOA/Assigned Designee Name Carol Cheng, spouse Contact Information [phone] home cell Advance Directives? Yes Advance Directives on File Yes History Provided By Patient,Medical Record Prior Living Arrangements House Household Members spouse Type of transporation used prior to Drives own vehicle admit Independent with ADL's Yes Is patient alert and oriented? Yes Needs Assistance With Home Chores / Shopping Barriers to Discharge Yes Comment Currently very ill and frail; may benefit from HH (?) Expected to return home w/ spouse and close f/u w/ Oncologist Dr Keith Discharge Plan Home Transportation Arrangement Family Referrals Initiated None needed Additional Comment Will plan to follow closely, r /o need for HH CHANEL
--- NOTE | 2021-07-22 16:50 | P.PN_ITS ---
Subjective Subjective Date Patient Seen: 07/22/21 Time Patient Seen: 16:51 Interval history: [place] subjective fever overnight, however was not febrile. Feels improved today, no abdominal pain or nausea. Had 2x BM overnight. Passing gas. Exam Vital Signs (past 8 hours): - 07/22/21 09:03 07/22/21 09:35 07/22/21 10:15 Temperature 100.1 F H 99.6 F Pulse Rate 103 H Respiratory Rate 16 Blood Pressure 126/70 Pulse Oximetry 95 96 07/22/21 14:00 Temperature 98.8 F Pulse Rate 96 H Respiratory Rate 18 Blood Pressure 113/63 Pulse Oximetry 100 Oxygen Delivery Method Room Air Oxygen Flow Rate 0 Narrative Exam Narrative: General:? Patient is well developed and well nourished, in no distress at this time. HEENT:? Normocephalic, atraumatic, extraocular muscles intact, oral pharynx is clear and mucous membranes are moist. Neck: supple and symmetric, trachea is midline, no cervical adenopathy. Negative for JVD Chest:? Normal AP diameter and contour without kyphoscoliosis, no tachypnea, equal chest rise bilaterally.? Chest port is without erythema, or induration. Lungs:? CTA b/l no wheezing rhonchi or rales. Cardio:?RRR no m/r/g. Abdomen:? Soft, non-tender, mildly distended with ascites.? Midline surgical scar appears well healed. Musculoskeletal:? Muscle strength and tone are equal within normal limits, no deformity. Extremities: No edema or joint effusions. No cyanosis or clubbing. Skin:? Pale,? Warm to touch,dry and intact without rashes, ulcerations or petechiae.? Neuro:? Alert and orientated x3,? sensation to touch intact in all extremities, no gross deficits noted of cranial nerves. Psych:? Patient has a well-kept appearance, appropriate affect, mental status attitude thought context and judgment are appropriate for age. Objective Labs Result Diagrams: 07/22/21 05:25 07/22/21 05:25 Labs: Laboratory Results - last 24 hr 07/22/21 07/22/21 07/22/21 05:25 05:25 05:25 WBC 13.3 H RBC 3.02 L Hgb 7.5 L Hct 25.1 L MCV 83.1 MCH 24.9 L MCHC 30.0 RDW 22.8 H Plt Count 233 Neut % (Auto) 81.8 H Lymph % (Auto) 5.6 L Crawford % (Auto) 11.9 Eos % (Auto) 0.2 L Baso % (Auto) 0.5 Neut # (Auto) 81507 H Lymph # (Auto) 800 L Crawford # (Auto) 1600 H Eos # (Auto) 0 Baso # (Auto) 100 RBC Morphology See below Hypochromasia 1+ H Anisocytosis 2+ H Target Cells 1+ H PT 15.9 H INR 1.4 H APTT 37 H D Sodium 135 L Potassium 3.8 Chloride 100 Carbon Dioxide 29 BUN 16 Creatinine 0.81 Estimated GFR > 60.0 BUN/Creatinine Ratio 19.8 Glucose 100 Calcium 8.7 Magnesium 1.6 Total Bilirubin 0.6 AST 42 ALT 16 Alkaline Phosphatase 86 Total Protein 7.5 Albumin 3.6 Globulin 3.9 Albumin/Globulin Ratio 0.9 L PFSH Medical History Actinic keratosis (Unknown) Ankle pain Cervicalgia (Unknown) Chickenpox (Unknown) Chronic back pain (Unknown) Colon cancer (1993) Colon polyps (~1993) Cough Erectile dysfunction (Unknown) Fusion of spine of cervical region GERD (gastroesophageal reflux disease) (Unknown) Hx of hiatal hernia (Unknown) Hypertension (Unknown) Mass of foot Measles (Unknown) Mesothelioma Mumps (Unknown) Osteoarthritis (Unknown) S/P abdominal paracentesis (02/22/19) Surgical History Anesthesia History of arthroplasty of right knee History of colon surgery (1993) History of surgery Hx of arthroscopy of right knee (1989) Hx of cataract surgery (2011) Hx of fusion of cervical spine (1989) Hx of laminectomy (~2008) Hx of laminectomy (06/23/16) Hx of shoulder surgery (2006) Hx of shoulder surgery (1996) Hx of total knee arthroplasty (2011) Family History Father Cancer Mother Cancer Sister Cancer Grandfather History of heart disease Social History household members: spouse Smoking Status: Former smoker Tobacco: How many years used: 25 quit status: has quit before alcohol intake: former substance use type: does not use Assessment & Plan Assessment & Plan narrative: 1. partial SBO, likely improved ?- etiology includes possible infection, SBP, metastatic disease leading to obstruction, adhesive disease, amongst others. ?- NPO with IVF as noted below. ?- may be reactive to peritonitis, given malignant lesions this increases the risk of a possible small bowel perforation however there is no current evidence of that on imaging. ?- may be a chronic issue given stricturing noted on CT imaging due to metastatic disease. - had 2 bowel movements overnight. 2. Spontaneous Bacterial peritonitis ?- paracentesis, diagnostic performed 07/20. Showed clumped cells and lab unable to assess WBC or RBC count. However culture is positive and will treat as peritonitis. ?- given multiple kinds of bacteria on gram stain, concern for possible small bowel perf however none seen on initial CT or acute series XR today. Etiology may be spontaneous or related to his weekly paracenteses as well. ?- glucose of ascites fluid was <20, can be seen in infection or malignancy as well. ?- initially started on ceftriaxone, however continued fever broadened to meropenem. Will hold for today despite cultures growing a sensitive klebsiella. Narrow tomorrow if continued improvement. ?- given concern for bowel perf, will plan to keep NPO improved and trial fluids again tomorrow. Continue hydration for now. ?- would recommend SBP prophylaxis in the future after discharge. 3. 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 Keith. 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 ?- chronic anemia related to malignancy. ?- possibly with metastases leading to obstruction as noted above. ?- new lung nodules per CT report. Will need follow up as scheduled with Dr. Keith. ?- has weekly therapeutic paracentesis, may need to perform again if he develops symptoms however this should be avoided while hospitalized for peritonitis. 4. HTN ?- holding home losartan, currently normotensive in setting of infection. 5. Chronic anemia ?- Hg 7.0 on labs initially and currently stable with No current symptoms. transfuse if <7. Does have history of needing transfusion for low Hg in the past. - h/h has been stable over the course of his admission 6. 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 Code: Full, surrogate decision maker is the patient's spouse Dispo: changed to inpatient for bacterial peritonitis DVT: can start Lovenox 40 mg today. I have utilized all available immediate resources to obtain, update, or review the patient's current medications. Time Spent With Patient Critical Care time: I spent a total of [] minutes of critical care time on this patient's care today; this time is exclusive of procedural time. Quality VTE Deep Vein Thrombosis/Pulmonary Embolism Present on Admission: No
[2021-07-23] VITALS (16 sets, daily range): BP systolic 108–142; BP diastolic 56–63; PULSE 91–108; RESP 12–19; TEMP 36.8–38; O2SAT 93–98
[2021-07-23] MEDS: ONDANSETRON 4 MG/2 ML INJ IV (03:22)
[2021-07-23] MEDS: LACTATED RINGERS 1,000 ML 84 ML IV (03:33)
[2021-07-23] MEDS: LORazepam 2 MG/ML INJ 0.5 MG IV ×2 (04:39→19:29)
[2021-07-23 04:54] LABS: Basophils Absolute Auto 100 /uL (0-100); Basophils Percent Auto 0.9 % (0-2); Eosinophils Absolute Auto 0 /uL (0-450); Eosinophils Percent Auto 0.4 % (2-4); Hematocrit 23.3 % (41-53); Hemoglobin 7.1 g/dL (13.5-17.5); Lymphocytes Absolute Auto 400 /uL (1100-4500); Lymphocytes Percent Auto 4.6 % (25-40); Mean Corpuscular HGB Conc 30.4 % (30-36); Mean Corpuscular Hemoglobin 25.2 PG (26-34); Mean Corpuscular Volume 82.9 fL (80-100); Monocytes Absolute Auto 900 /uL (0-900); Monocytes Percent Auto 9.5 % (3-14); Neutrophils Absolute Auto 7800 /uL (1500-7000); Neutrophils Percent Auto 84.6 % (50-75); Platelet Count 224 X10^3/uL (150-400); Red Blood Cell Count 2.81 X10^6/uL (4.5-5.9); Red Cell Distribution Width 22.9 % (11.6-14.8); White Blood Cell Count 9.3 X10^3/uL (4.5-11.0)
[2021-07-23 04:56] LABS: Add Manual Diff / Slide Review SLIDE REVIEW
[2021-07-23 05:11] LABS: Alanine Aminotransferase 16 IU/L (<50); Albumin 3.2 g/dL (3.5-5.0); Albumin Globulin Ratio 0.9 (1.0-2.8); Alkaline Phosphatase 71 U/L (38-126); Aspartate Aminotransferase 47 IU/L (17-59); BUN Creatinine Ratio 23.7 (6-22); Bilirubin Total 0.6 mg/dL (0.2-1.3); Blood Urea Nitrogen 18 mg/dL (9-20); Calcium 8.6 mg/dL (8.4-10.2); Carbon Dioxide 31 mmol/L (22-32); Chloride 102 mmol/L (98-107); Estimated Glomerular Filt Rate > 60.0 mL/min (>60); Globulin 3.7 g/dL (1.7-4.1); Glucose 101 mg/dL (80-110); HEMOLYSIS < 15 (0-50); Magnesium 2.1 mg/dL (1.6-2.3); Potassium 3.8 mmol/L (3.4-5.1); Sodium 137 mmol/L (137-145); Total Protein 6.9 g/dL (6.3-8.2)
[2021-07-23 05:13] LABS: Phosphorous 2.7 mg/dL (2.3-3.7)
[2021-07-23] MEDS: MEROPENEM 1 GM in SODIUM CHLORIDE 0.9% 100 ML 200 ML IV ×3 (06:21→22:27)
[2021-07-23 06:27] LABS: INR 1.3 (0.9-1.3); Prothrombin Time 14.8 SECONDS (10.1-12.7)
[2021-07-23 06:30] LABS: PTT Partial Thromboplastin Tim 35 SECONDS (26.4-36.2)
[2021-07-23 07:19] LABS: Anisocytosis 2+; Hypochromasia 1+; Target Cells 1+
[2021-07-23] MEDS: ENOXAPARIN 40 MG/0.4 ML SYRINGE SUBCUT (08:56)
--- NOTE | 2021-07-23 11:30 | PC.NURSE ---
Addendum entered by Trinidad Moncada R.N. 07/23/21 19:28: Patients ivf have been d/cd. Per RT his lungs sounds had crackles, when ausculated this am. Patients lungs sounds were clear Addendum entered by Trinidad Moncada R.N. 07/23/21 18:04: Patient is sob and states that he feels different than this morning, he appears to have some mild confusion. Addendum entered by Trinidad Moncada R.N. 07/23/21 18:03: Patient given reglan for some nausea. Up by himself just now and heart rate up to 150s, TECHNICAL ACCOUNT MANAGER states that it looked like AFIB. Dr. Gonzales aware and patient is getting an ekg now. Original Note: Patient has denied nausea this morning. Tolerating clear liquid diet well. Up with one person assist to the bathroom. Patient had a bowel movement and is voiding. Resting now and will be here to visit soon.
[2021-07-23] MEDS: ACETAMINOPHEN 325 MG TABLET 650 MG PO ×2 (11:48→18:26)
--- NOTE | 2021-07-23 14:44 | CM.DPNOTE ---
DCP Note Met w/patient; introduced role. Patient appears ill and very tired, admits he is still not feeling well. Patient states he is eating jell o today, may be able to DC home tomorrow if he can tolerate diet Patient shares w/this SECURITY ALARM INSTALLER that he does not want to return home and go through the same event that led to his arrival here, patient shares this was a terrible experience at home Reviewed goals of care, briefly. Reviewed Full Code status; explained that in the movies and on TV the success rate of CPR differs from the reality, which is that survival rates differ and decrease with advanced age and health status ie patient's advanced cancer. Patient states yeah I know. Patient appears very tired, did not discuss further. Patient plans to f/u w/Oncologist about next steps in treatment plan. Patient is eager to return home w/spouse upon DC, denies needs from this SECURITY ALARM INSTALLER at this time. CM team will continue to follow closely; will remain available in case any DC needs or concerns arise before patient's DC JW
--- NOTE | 2021-07-23 16:05 | PM.PN.1 ---
Subjective Subjective Date Patient Seen: 07/23/21 Time Patient Seen: 16:09 Interval history: Advanced to clears this morning, tolerating somewhat. After lunchtime developed some nausea but no emesis. He would like to try a bit more food this evening. No fever, chills, or abdominal pain today. No chest pain or shortness of breath. Exam Vital Signs (past 8 hours): - 07/23/21 10:16 07/23/21 11:48 07/23/21 12:00 Temperature 100 F H 100.2 F H Pulse Rate 103 H Respiratory Rate 16 Blood Pressure 128/60 Pulse Oximetry 94 95 07/23/21 13:10 Temperature Pulse Rate Respiratory Rate Blood Pressure Pulse Oximetry 96 Oxygen Delivery Method Room Air Oxygen Flow Rate 0 Narrative Exam Narrative: General:? Patient is well developed and well nourished, in no distress at this time. HEENT:? Normocephalic, atraumatic, extraocular muscles intact, oral pharynx is clear and mucous membranes are moist. Neck: supple and symmetric, trachea is midline, no cervical adenopathy. Negative for JVD Chest:? Normal AP diameter and contour without kyphoscoliosis, no tachypnea, equal chest rise bilaterally.? Chest port is without erythema, or induration. Lungs:? CTA b/l no wheezing rhonchi or rales. Cardio:?RRR no m/r/g. Abdomen:? Soft, non-tender, mildly distended with ascites.? Midline surgical scar appears well healed. Musculoskeletal:? Muscle strength and tone are equal within normal limits, no deformity. Extremities: No edema or joint effusions. No cyanosis or clubbing. Skin:? Pale,? Warm to touch,dry and intact without rashes, ulcerations or petechiae.? Neuro:? Alert and orientated x3,? sensation to touch intact in all extremities, no gross deficits noted of cranial nerves. Psych:? Patient has a well-kept appearance, appropriate affect, mental status attitude thought context and judgment are appropriate for age. Objective Labs Result Diagrams: 07/23/21 04:00 07/23/21 04:00 Labs: Laboratory Results - last 24 hr 07/23/21 07/23/21 07/23/21 04:00 04:00 04:00 WBC 9.3 RBC 2.81 L Hgb 7.1 L Hct 23.3 L MCV 82.9 MCH 25.2 L MCHC 30.4 RDW 22.9 H Plt Count 224 Neut % (Auto) 84.6 H Lymph % (Auto) 4.6 L M[place] % (Auto) 9.5 Eos % (Auto) 0.4 L Baso % (Auto) 0.9 Neut # (Auto) 7800 H Lymph # (Auto) 400 L [place] # (Auto) 900 Eos # (Auto) 0 Baso # (Auto) 100 RBC Morphology See below Hypochromasia 1+ H Anisocytosis 2+ H Target Cells 1+ H PT 14.8 H INR 1.3 APTT 35 Sodium 137 Potassium 3.8 Chloride 102 Carbon Dioxide 31 BUN 18 Creatinine 0.76 Estimated GFR > 60.0 BUN/Creatinine Ratio 23.7 H Glucose 101 Calcium 8.6 Phosphorus Magnesium 2.1 Total Bilirubin 0.6 AST 47 ALT 16 Alkaline Phosphatase 71 Total Protein 6.9 Albumin 3.2 L Globulin 3.7 Albumin/Globulin Ratio 0.9 L 07/23/21 04:00 WBC RBC Hgb Hct MCV MCH MCHC RDW Plt Count Neut % (Auto) Lymph % (Auto) [place] % (Auto) Eos % (Auto) Baso % (Auto) Neut # (Auto) Lymph # (Auto) [place] # (Auto) Eos # (Auto) Baso # (Auto) RBC Morphology Hypochromasia Anisocytosis Target Cells PT INR APTT Sodium Potassium Chloride Carbon Dioxide BUN Creatinine Estimated GFR BUN/Creatinine Ratio Glucose Calcium Phosphorus 2.7 Magnesium Total Bilirubin AST ALT Alkaline Phosphatase Total Protein Albumin Globulin Albumin/Globulin Ratio [facility] Medical History Actinic keratosis (Unknown) Ankle pain Cervicalgia (Unknown) Chickenpox (Unknown) Chronic back pain (Unknown) Colon cancer (1993) Colon polyps (~1993) Cough Erectile dysfunction (Unknown) Fusion of spine of cervical region GERD (gastroesophageal reflux disease) (Unknown) Hx of hiatal hernia (Unknown) Hypertension (Unknown) Mass of foot Measles (Unknown) Mesothelioma Mumps (Unknown) Osteoarthritis (Unknown) S/P abdominal paracentesis (02/22/19) Surgical History Anesthesia History of arthroplasty of right knee History of colon surgery (1993) History of surgery Hx of arthroscopy of right knee (1989) Hx of cataract surgery (2011) Hx of fusion of cervical spine (1989) Hx of laminectomy (~2008) Hx of laminectomy (06/23/16) Hx of shoulder surgery (2006) Hx of shoulder surgery (1996) Hx of total knee arthroplasty (2011) Family History Father Cancer Mother Cancer Sister Cancer Grandfather History of heart disease Social History household members: spouse Smoking Status: Former smoker Tobacco: How many years used: 25 quit status: has quit before alcohol intake: former substance use type: does not use Assessment & Plan Assessment & Plan narrative: 1. partial SBO, likely improved ?- etiology includes possible infection, SBP, metastatic disease leading to obstruction, adhesive disease, amongst others. ?- some nausea today with clears but can advance to full liquids for dinner. ?- may be reactive to peritonitis, given malignant lesions this increases the risk of a possible small bowel perforation however there is no current evidence of that on imaging. ?- may be a chronic issue given stricturing noted on CT imaging due to metastatic disease. ?- had 2 bowel movements overnight. 2. Spontaneous Bacterial peritonitis ?- paracentesis, diagnostic performed 07/20. Showed clumped cells and lab unable to assess WBC or RBC count. However culture is positive and will treat as peritonitis. ?- given multiple kinds of bacteria on gram stain, concern for possible small bowel perf however none seen on initial CT or acute series XR. Etiology may be spontaneous or related to his weekly paracenteses as well. ?- glucose of ascites fluid was <20, can be seen in infection or malignancy as well. ?- initially started on ceftriaxone, however continued fever broadened to meropenem. Will hold on narrowing for today despite cultures growing a sensitive klebsiella. Would treat 7 days total, narrow on discharge to oral antibiotic (cephalosporin or fluoroquinolone seem reasonable). ?- would recommend SBP prophylaxis in the future after discharge with bactrim DS daily. 3. 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 Keith. 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 ?- chronic anemia related to malignancy. ?- possibly with metastases leading to obstruction as noted above. ?- new lung nodules per CT report. Will need follow up as scheduled with Dr. Keith. ?- has weekly therapeutic paracentesis, may need to perform again if he develops symptoms however this should be avoided while hospitalized for peritonitis. 4. HTN ?- holding home losartan, currently normotensive in setting of infection. 5. Chronic anemia ?- Hg 7.0 on labs initially and currently stable with No current symptoms. transfuse if <7. Does have history of needing transfusion for low Hg in the past. ?- h/h has been stable over the course of his admission 6. 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 Code: Full, surrogate decision maker is the patient's spouse Dispo: changed to inpatient for bacterial peritonitis DVT: Lovenox daily. I have utilized all available immediate resources to obtain, update, or review the patient's current medications. Time Spent With Patient Critical Care time: I spent a total of [] minutes of critical care time on this patient's care today; this time is exclusive of procedural time. Quality VTE Deep Vein Thrombosis/Pulmonary Embolism Present on Admission: No
[2021-07-23] MEDS: METOCLOPRAMIDE 10 MG/2 ML INJ IV (16:10)
--- NOTE | 2021-07-23 16:50 | DIET.PN1 ---
Dietary Progress Note Assessment: 76 y/o M c PMH of adenocarcinoma of colon, possibly also lung with peritoneal metastases currently undergoing chemotherapy, and hypertension who presented with 3-4 days of persistent abdominal pain, nausea and vomiting. Found to have partial SBO. Nutrition focused physical exam indicates severe muscle wasting in scooping/depression of temporal area, protrusion of clavicle, and squared, prominent shoulder. All indicative of PCM. Wt hx indicates a 8.2% weight loss over one month: 07/20/21: 77kg 06/17/21: 83.9kg Pt endorses difficulty with PO due to feeling sick for over a month. Has h/o weight loss per his report with chemo tx. Does not normally use protein shakes to limit weight loss but is amenable to this. Tolerating clears and he is looking forward to fulls. Ht: 177.8 cm Wt: 77 kg BMI: 24.3 UBW: 84-89kg reported Last BM: 07/23/21 (07/23/21 02:40) MNA: 13 Stewart Score: 18 Diet: 07/23/21 Breakfast Clear Liquid Diet Diet Modifications: 07/23/21 Dinner Full Liquid Diet Diet Modifications: Nutrition Percent Meal Consumed 100% 07/23/21 10:00 Labs: RBC 2.81 X10^6/uL (4.5-5.9) L 07/23/21 04:00 Hgb 7.1 g/dL (13.5-17.5) L 07/23/21 04:00 Hct 23.3 % (41-53) L 07/23/21 04:00 Creatinine 0.76 mg/dL (0.66-1.25) 07/23/21 04:00 Lactate 0.8 mmol/L (0.7-2.1) 07/20/21 13:15 Nutrition Diagnosis: Severe acute PCM r/t difficulty with PO r/t BON c SBO and cancer dx aeb >5% weight loss in one month, NFPE indicating muscle wasting in episcopal, clavicle, and shoulder, and poor PO over the last week Interventions: ONS BID EER: 2300kcal (30kcal/kg per BMI and cancer dx) 115g PRO (1.5g/kg per cancer dx and malnutrition) Monitoring/Evaluations: ONS tolerance, diet adv tolerance, weights, PO Electronically Signed by: Renee Rodriguez 07/23/21 16:50 [address] [id number]
--- NOTE | 2021-07-23 18:12 | DI.RAD.S_ITS ---
PROCEDURE: XR ACUTE ABDOMEN SERIES INDICATIONS: repeat exam, shortness of breath with abd distension. TECHNIQUE: One view chest and two views of the abdomen were acquired. COMPARISON: [facility], CR, XR ACUTE ABDOMEN SERIES, 07/21/2021, 9:39. FINDINGS: Surgical changes and devices: Right-sided Port-A-Cath in place. And epigastric surgical clips noted. Chest: Lungs are clear. Heart size is normal. No pleural effusions. No pneumoperitoneum. Atherosclerotic vascular calcification noted in the aortic arch. Abdomen: Bowel gas pattern is normal. No suspicious calcifications. Visualized solid organ contours appear normal. Bones: No suspicious bony lesions. IMPRESSION: No acute cardiopulmonary findings Unremarkable bowel gas pattern. Air-fluid levels have resolved. Approved by: Tez Reyez M.D. on 07/23/2021 at 18:12
[2021-07-23] MEDS: SODIUM CHLORIDE 0.9% FLUSH 10 ML IV ×2 (21:21→22:27)
[2021-07-24] VITALS (17 sets, daily range): BP systolic 108–125; BP diastolic 49–71; PULSE 82–111; RESP 14–22; TEMP 37–38.6; O2SAT 93–98
[2021-07-24] MEDS: ACETAMINOPHEN 325 MG TABLET 650 MG PO ×3 (00:30→23:57)
[2021-07-24 05:20] LABS: Basophils Absolute Auto 100 /uL (0-100); Basophils Percent Auto 1.9 % (0-2); Eosinophils Absolute Auto 100 /uL (0-450); Eosinophils Percent Auto 1.2 % (2-4); Hematocrit 22.9 % (41-53); Lymphocytes Absolute Auto 500 /uL (1100-4500); Lymphocytes Percent Auto 7.3 % (25-40); Mean Corpuscular HGB Conc 30.5 % (30-36); Mean Corpuscular Hemoglobin 24.9 PG (26-34); Mean Corpuscular Volume 81.6 fL (80-100); Monocytes Absolute Auto 800 /uL (0-900); Monocytes Percent Auto 10.5 % (3-14); Neutrophils Absolute Auto 5800 /uL (1500-7000); Neutrophils Percent Auto 79.1 % (50-75); Platelet Count 217 X10^3/uL (150-400); Red Blood Cell Count 2.81 X10^6/uL (4.5-5.9); Red Cell Distribution Width 22.9 % (11.6-14.8); White Blood Cell Count 7.3 X10^3/uL (4.5-11.0)
[2021-07-24 05:26] LABS: Add Manual Diff / Slide Review SLIDE REVIEW; Phosphorous 1.8 mg/dL (2.3-3.7)
[2021-07-24 05:27] LABS: BUN Creatinine Ratio 23.2 (6-22); Blood Urea Nitrogen 16 mg/dL (9-20); Calcium 8.3 mg/dL (8.4-10.2); Carbon Dioxide 31 mmol/L (22-32); Chloride 102 mmol/L (98-107); Estimated Glomerular Filt Rate > 60.0 mL/min (>60); Glucose 132 mg/dL (80-110); HEMOLYSIS < 15 (0-50); Magnesium 1.9 mg/dL (1.6-2.3); Potassium 3.6 mmol/L (3.4-5.1); Sodium 137 mmol/L (137-145)
[2021-07-24 06:14] LABS: Anisocytosis 2+; Hypochromasia 2+; Schistocytes 1+; Target Cells 1+
[2021-07-24] MEDS: MEROPENEM 1 GM in SODIUM CHLORIDE 0.9% 100 ML 200 ML IV ×3 (06:34→22:10)
[2021-07-24] MEDS: SODIUM CHLORIDE 0.9% FLUSH 10 ML IV ×3 (06:35→22:14)
[2021-07-24] MEDS: SODIUM CHLORIDE 0.9% 250 ML 21 ML IV (06:42)
--- NOTE | 2021-07-24 06:55 | P.PN_ITS ---
Subjective Subjective Date Patient Seen: 07/24/21 Interval history: He is seen in his room today to follow-up the small-bowel obstruction, metastatic carcinoma and anemia. His hemoglobin has dropped from 7.1 down to 7.0. Phosphorus is low at 1.8. The BMP is normal. The magnesium is 1.9. His KUB and chest x-ray from last evening showed no evidence of pneumonia or bowel obstruction currently. He tells me that he lives on the [facility] and comes to an oncologist here in [place]. He had some wheezing this morning and requested an inhaler. He also tells me that he vomited before breakfast. Exam Vital Signs (past 8 hours): - 07/23/21 23:00 07/23/21 23:15 07/24/21 00:00 Temperature 99.6 F Pulse Rate 92 H 92 H Respiratory Rate 12 14 Blood Pressure 116/56 L Pulse Oximetry 93 93 93 07/24/21 03:00 07/24/21 04:18 07/24/21 04:45 Temperature 98.6 F Pulse Rate 110 H Respiratory Rate 16 Blood Pressure 120/71 Pulse Oximetry 96 96 96 Oxygen Delivery Method Room Air Oxygen Flow Rate 0 Narrative Exam Narrative: He is alert and oriented x3. He appears to be in moderate distress from ongoing nausea and pain. Heart is regular rate and rhythm without murmur Lungs are clear to auscultation bilaterally Extremities have no ankle edema Abdomen is somewhat distended. No real tenderness. No definite organomegaly. Objective Labs Result Diagrams: 07/24/21 05:03 07/24/21 05:03 Labs: Laboratory Results - last 24 hr 07/23/21 07/24/21 07/24/21 04:00 05:03 05:03 WBC 7.3 RBC 2.81 L Hgb 7.0 L Hct 22.9 L MCV 81.6 MCH 24.9 L MCHC 30.5 RDW 22.9 H Plt Count 217 Neut % (Auto) 79.1 H Lymph % (Auto) 7.3 L [place] % (Auto) 10.5 Eos % (Auto) 1.2 L Baso % (Auto) 1.9 Neut # (Auto) 5800 Lymph # (Auto) 500 L [place] # (Auto) 800 Eos # (Auto) 100 Baso # (Auto) 100 RBC Morphology See below See below Hypochromasia 1+ H 2+ H Anisocytosis 2+ H 2+ H Target Cells 1+ H 1+ H Schistocytes 1+ H Sodium 137 Potassium 3.6 Chloride 102 Carbon Dioxide 31 BUN 16 Creatinine 0.69 Estimated GFR > 60.0 BUN/Creatinine Ratio 23.2 H Glucose 132 H Calcium 8.3 L Phosphorus Magnesium 1.9 07/24/21 05:03 WBC RBC Hgb Hct MCV MCH MCHC RDW Plt Count Neut % (Auto) Lymph % (Auto) [place] % (Auto) Eos % (Auto) Baso % (Auto) Neut # (Auto) Lymph # (Auto) [place] # (Auto) Eos # (Auto) Baso # (Auto) RBC Morphology Hypochromasia Anisocytosis Target Cells Schistocytes Sodium Potassium Chloride Carbon Dioxide BUN Creatinine Estimated GFR BUN/Creatinine Ratio Glucose Calcium Phosphorus 1.8 L Magnesium PFS Medical History Actinic keratosis (Unknown) Ankle pain Cervicalgia (Unknown) Chickenpox (Unknown) Chronic back pain (Unknown) Colon cancer (1993) Colon polyps (~1993) Cough Erectile dysfunction (Unknown) Fusion of spine of cervical region GERD (gastroesophageal reflux disease) (Unknown) Hx of hiatal hernia (Unknown) Hypertension (Unknown) Mass of foot Measles (Unknown) Mesothelioma Mumps (Unknown) Osteoarthritis (Unknown) S/P abdominal paracentesis (02/22/19) Surgical History Anesthesia History of arthroplasty of right knee History of colon surgery (1993) History of surgery Hx of arthroscopy of right knee (1989) Hx of cataract surgery (2011) Hx of fusion of cervical spine (1989) Hx of laminectomy (~2008) Hx of laminectomy (06/23/16) Hx of shoulder surgery (2006) Hx of shoulder surgery (1996) Hx of total knee arthroplasty (2011) Family History Father Cancer Mother Cancer Sister Cancer Grandfather History of heart disease Social History household members: spouse Smoking Status: Former smoker Tobacco: How many years used: 25 quit status: has quit before alcohol intake: former substance use type: does not use Assessment & Plan Assessment & Plan narrative: Assessment & Plan narrative: 1. partial SBO, likely improved. Not seen on KUB from 07/23. ?- etiology includes possible infection, SBP, metastatic disease leading to obstruction, adhesive disease, amongst others. ?- some nausea today with clears but can advance to full liquids for dinner. ?- may be reactive to peritonitis, given malignant lesions this increases the risk of a possible small bowel perforation however there is no current evidence of that on imaging. ?- may be a chronic issue given stricturing noted on CT imaging due to metastatic disease. ?- had 2 bowel movements overnight. 2. Spontaneous Bacterial peritonitis ?- paracentesis, diagnostic performed 07/20. Showed clumped cells and lab unable to assess WBC or RBC count. However culture is positive and will treat as peritonitis. ?- given multiple kinds of bacteria on gram stain, concern for possible small michelle wel perf however none seen on initial CT or acute series XR. Etiology may be spontaneous or related to his weekly paracenteses as well. ?- glucose of ascites fluid was <20, can be seen in infection or malignancy as well. ?- initially started on ceftriaxone, however continued fever broadened to merop enem. Will hold on narrowing for today despite cultures growing a sensitive klebsiella. Would treat 7 days total, narrow on discharge to oral antibiotic (cephalosporin or fluoroquinolone seem reasonable). ?- would recommend SBP prophylaxis in the future after discharge with bactrim DS daily. 3. 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 Keith. 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 ?- chronic anemia related to malignancy. ?- possibly with metastases leading to obstruction as noted above. ?- new lung nodules per CT report. Will need follow up as scheduled with Dr. Keith. ?- has weekly therapeutic paracentesis, may need to perform again if he develops symptoms however this should be avoided while hospitalized for peritonitis. 4. HTN ?- holding home losartan, currently normotensive in setting of infection. 5. Chronic anemia ?- Hg 7.0 on labs initially and currently stable with No current symptoms. transfuse if <7. Does have history of needing transfusion for low Hg in the past. ?- h/h has been stable over the course of his admission 6. 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 Code: Full, surrogate decision maker is the patient's spouse Dispo: Home when clinically stable and completed 7 day antibiotics. DVT: Lovenox daily. Time Spent With Patient Critical Care time: I spent a total of [] minutes of critical care time on this patient's care today; this time is exclusive of procedural time. Quality VTE Deep Vein Thrombosis/Pulmonary Embolism Present on Admission: No
--- NOTE | 2021-07-24 07:04 | PC.NURSE ---
Pt. continues to cough & wheezing at rest. Reported takes inhaler @ home. DR. Foley notified & RT also notified. Will report to day RN.
[2021-07-24] MEDS: ENOXAPARIN 40 MG/0.4 ML SYRINGE SUBCUT (09:01)
[2021-07-24] MEDS: SODIUM,POTASSIUM PHOSPHATES PACKET 2 EACH PO (14:50)
[2021-07-24] MEDS: ONDANSETRON 4 MG/2 ML INJ IV (15:02)
--- NOTE | 2021-07-24 18:29 | PC.NURSE ---
Pt A/O independent in room. Denies discomfort. Tele NSR per ICU staff. Had episode of nausea/vomiting, zofran given w/good relief. Right chest port intact/patent. RAC SL intact/patent Call light w/in reach/ pt calls appropriately for needs. Continue w/plan of care.
[2021-07-24] MEDS: LORazepam 2 MG/ML INJ 0.5 MG IV (22:09)
--- NOTE | 2021-07-24 22:35 | DI.RAD.S_ITS ---
PROCEDURE: XR KUB INDICATIONS: abdominal distension TECHNIQUE: One view of the abdomen acquired. COMPARISON: [facility], CR, XR ACUTE ABDOMEN SERIES, 07/23/2021, 18:29. [facility], CT, CT ABDOMEN PELVIS W CON, 07/20/2021, 13:33. FINDINGS: Surgical changes and devices: None. Bowel: There are dilated loops of small bowel present. There is also gas present in the colon. Consider partial small bowel obstruction versus ileus. Soft tissues: No suspicious abdominal calcifications. Visualized solid organ contours appear normal in size. Bones: No suspicious bony lesions. IMPRESSION: Question partial small bowel obstruction versus ileus. Dictated by: Waldo Brown M.D. on 07/24/2021 at 23:17 Approved by: Waldo Brown M.D. on 07/24/2021 at 23:18
[2021-07-25] VITALS (22 sets, daily range): BP systolic 118–137; BP diastolic 57–74; PULSE 82–108; RESP 16–19; TEMP 36.7–37.6; O2SAT 92–97
--- NOTE | 2021-07-25 00:03 | PM.CALLCOV.1 ---
Call Coverage Note Note Date of Patient Contact: 07/24/21 Time of Patient Contact: 23:30 Narrative of Care Provided: Patient was reported by nurse to be more distended than when she went off shift in the am. He was seen and examined, told me he had not urinated since mid-day a day and a half ago. Stated he had a bowel movement sometime the am of 07/24 but was scant. Last normal bm was 2-3 days ago. Nursing bladder scan showed 350 ml. Ordered for a KUB which continues to indicate a partial SBO or ileus. In reviewing the xray w/Dr. Childs, he came up to see the patient and ultrasounded his bladder. Image showed enlarged bladder, so patient was ordered for a Armando.
[2021-07-25 01:29] LABS: Alanine Aminotransferase 17 IU/L (<50); Albumin 2.9 g/dL (3.5-5.0); Albumin Globulin Ratio 0.8 (1.0-2.8); Alkaline Phosphatase 69 U/L (38-126); Aspartate Aminotransferase 48 IU/L (17-59); Bilirubin Total 0.3 mg/dL (0.2-1.3); Bilirubin Unconjugated 0.3 mg/dL (0.0-1.1); Globulin 3.6 g/dL (1.7-4.1); HEMOLYSIS < 15 (0-50); Total Protein 6.5 g/dL (6.3-8.2)
[2021-07-25 05:42] LABS: Basophils Absolute Auto 0 /uL (0-100); Basophils Percent Auto 0.7 % (0-2); Eosinophils Absolute Auto 100 /uL (0-450); Eosinophils Percent Auto 2.2 % (2-4); Hematocrit 21.3 % (41-53); Lymphocytes Absolute Auto 700 /uL (1100-4500); Mean Corpuscular HGB Conc 30.9 % (30-36); Mean Corpuscular Hemoglobin 25.1 PG (26-34); Mean Corpuscular Volume 81.4 fL (80-100); Monocytes Absolute Auto 700 /uL (0-900); Monocytes Percent Auto 12.6 % (3-14); Neutrophils Absolute Auto 4100 /uL (1500-7000); Neutrophils Percent Auto 72.5 % (50-75); Platelet Count 192 X10^3/uL (150-400); Red Blood Cell Count 2.61 X10^6/uL (4.5-5.9); Red Cell Distribution Width 23.1 % (11.6-14.8); White Blood Cell Count 5.6 X10^3/uL (4.5-11.0)
[2021-07-25 05:44] LABS: BUN Creatinine Ratio 24.1 (6-22); Blood Urea Nitrogen 14 mg/dL (9-20); Calcium 8.1 mg/dL (8.4-10.2); Carbon Dioxide 36 mmol/L (22-32); Chloride 102 mmol/L (98-107); Estimated Glomerular Filt Rate > 60.0 mL/min (>60); Glucose 108 mg/dL (80-110); HEMOLYSIS < 15 (0-50); Magnesium 1.7 mg/dL (1.6-2.3); Potassium 3.6 mmol/L (3.4-5.1); Sodium 135 mmol/L (137-145)
[2021-07-25 06:24] LABS: Add Manual Diff / Slide Review SLIDE REVIEW; Hemoglobin 6.6 g/dL (13.5-17.5)
[2021-07-25] MEDS: MEROPENEM 1 GM in SODIUM CHLORIDE 0.9% 100 ML 200 ML IV (06:37)
[2021-07-25] MEDS: LORazepam 2 MG/ML INJ 0.5 MG IV (06:41)
[2021-07-25 06:55] LABS: Anisocytosis 2+; Hypochromasia 2+; Schistocytes 1+; Target Cells 1+
[2021-07-25] MEDS: ENOXAPARIN 40 MG/0.4 ML SYRINGE SUBCUT (08:19)
--- NOTE | 2021-07-25 08:50 | P.PN_ITS ---
Subjective Subjective Date Patient Seen: 07/25/21 Interval history: He is seen today to follow-up the spontaneous bacterial peritonitis, metastatic carcinoma and continued ileus. Overnight his symptoms of abdominal distention and ileus returned. The bladder also was quite full and had to be drained with a Armando catheter left in. I spoke with him and his at length about the fact that his symptoms seem to be breaking through all attempts at palliation. We will add dexamethasone and octreotide today. Unfortunately there is no palliative medicine consult available currently. We also talked about surgical consult but that did not seem to be a very productive way to go given the lack of a target that would clearly surgically reverse his symptoms. He ultimately decided not to request a surgical consult. Klebsiella and Bacteroides are growing in his ascites cultures. We will change antibiotics from meropenem to Zosyn to cover both of those. His white count is 5.6 with a hemoglobin of 6.6 and platelets of 192. He will be given a blood transfusion today. The Exam Vital Signs (past 8 hours): - 07/25/21 01:19 07/25/21 04:00 07/25/21 04:07 Temperature 99.2 F Pulse Rate 82 Respiratory Rate 16 Blood Pressure 118/57 L Pulse Oximetry 93 93 94 07/25/21 05:11 Temperature 99.1 F Pulse Rate Respiratory Rate Blood Pressure Pulse Oximetry Oxygen Delivery Method Room Air Oxygen Flow Rate 0 Narrative Exam Narrative: He is alert and oriented x3. He appears to be in mild distress from continued abdominal distention and lack of ability to swallow/eat. Heart is regular rate and rhythm without murmur Lungs are clear to auscultation bilaterally Extremities have no ankle edema Abdomen is firm, distended, mildly diffusely tender. Objective Labs Result Diagrams: 07/25/21 05:15 07/25/21 05:15 Labs: Laboratory Results - last 24 hr 07/25/21 07/25/21 07/25/21 00:40 05:15 05:15 WBC 5.6 RBC 2.61 L Hgb 6.6 L* Hct 21.3 L MCV 81.4 MCH 25.1 L MCHC 30.9 RDW 23.1 H Plt Count 192 Neut % (Auto) 72.5 Lymph % (Auto) 12.0 L [place] % (Auto) 12.6 Eos % (Auto) 2.2 Baso % (Auto) 0.7 Neut # (Auto) 4100 Lymph # (Auto) 700 L [place] # (Auto) 700 Eos # (Auto) 100 Baso # (Auto) 0 RBC Morphology See below Hypochromasia 2+ H Anisocytosis 2+ H Target Cells 1+ H Schistocytes 1+ H Sodium 135 L Potassium 3.6 Chloride 102 Carbon Dioxide 36 H BUN 14 Creatinine 0.58 L Estimated GFR > 60.0 BUN/Creatinine Ratio 24.1 H Glucose 108 Calcium 8.1 L Magnesium 1.7 Total Bilirubin 0.3 Conjugated Bilirubin 0.0 Unconjugated Bilirubin 0.3 AST 48 ALT 17 Alkaline Phosphatase 69 Total Protein 6.5 Albumin 2.9 L Globulin 3.6 Albumin/Globulin Ratio 0.8 L PFSH Medical History Actinic keratosis (Unknown) Ankle pain Cervicalgia (Unknown) Chickenpox (Unknown) Chronic back pain (Unknown) Colon cancer (1993) Colon polyps (~1993) Cough Erectile dysfunction (Unknown) Fusion of spine of cervical region GERD (gastroesophageal reflux disease) (Unknown) Hx of hiatal hernia (Unknown) Hypertension (Unknown) Mass of foot Measles (Unknown) Mesothelioma Mumps (Unknown) Osteoarthritis (Unknown) S/P abdominal paracentesis (02/22/19) Surgical History Anesthesia History of arthroplasty of right knee History of colon surgery (1993) History of surgery Hx of arthroscopy of right knee (1989) Hx of cataract surgery (2011) Hx of fusion of cervical spine (1989) Hx of laminectomy (~2008) Hx of laminectomy (06/23/16) Hx of shoulder surgery (2006) Hx of shoulder surgery (1996) Hx of total knee arthroplasty (2011) Family History Father Cancer Mother Cancer Sister Cancer Grandfather History of heart disease Social History household members: spouse Smoking Status: Former smoker Tobacco: How many years used: 25 quit status: has quit before alcohol intake: former substance use type: does not use Assessment & Plan Assessment & Plan narrative: 1. Malignant Bowel Obstruction/Ileus -he has failed to improve with conservative bowel rest and IV fluid. -he will be started on octreotide and dexamethasone on 07/25. -I discussed with him and his that his symptoms will undoubtedly progress and that the way cancer like this ends someone's life is usually through an inability to nourish oneself and eat or ?starvation. ? He was quite sober to hear this. We talked about a palliative medicine consult which he agreed to do but unfortunately is not available currently. -the bacterial peritonitis will be treated from this point(07/25) forward with Zosyn to cover both the Bacteroides and the Klebsiella. 2. Spontaneous Bacterial peritonitis ?- paracentesis, diagnostic performed 07/20. - Bacteroides and Klebsiella growing on culture. Initially treated with ceftriaxone, then meropenem and then on 07/25 changed to Zosyn to cover both anaerobes and aerobes as cultured. ?- would recommend SBP prophylaxis in the future after discharge with bactrim DS daily. 3. Adenocarcinoma of the colon, possibly lung with metastases to the peritoneum ?- follows with Dr. Keith. 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 ?- chronic anemia related to malignancy. ?- Metastases leading to obstruction as noted above. ?- new lung nodules per CT report. Will need follow up as scheduled with Dr. Keith. ?- has weekly therapeutic paracentesis, may need to perform again if he develops symptoms however this should be avoided while hospitalized for peritonitis. 4. HTN ?- holding home losartan, currently normotensive in setting of infection. 5. Chronic anemia ?- Hg 7.0 on labs initially and currently stable with No current symptoms. transfuse if <7. Does have history of needing transfusion for low Hg in the past. ?- hemoglobin of 6.6 on 07/25. Proceed with 2 unit blood transfusion. 6. 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 Code: Full, surrogate decision maker is the patient's spouse Dispo:? Home when clinically stable and completed 7 days of antibiotics. DVT: Lovenox daily. Time Spent With Patient Critical Care time: I spent a total of [] minutes of critical care time on this patient's care today; this time is exclusive of procedural time. Quality VTE Deep Vein Thrombosis/Pulmonary Embolism Present on Admission: No
--- NOTE | 2021-07-25 12:12 | CM.DPNOTE ---
DCP Note Man Foley has completed a goals of care conversation w/patient and spouse; Dt Og requests referral to [facility] on patient/spouse's behalf. Requested DAVID Griffiths complete this task and she has kindly agreed. Plan: DC likely in 24-48 hrs home w/spouse ([facility]) and likely [facility] services, need to coordinate w/[facility] on when they can start services for patient ? JW
--- NOTE | 2021-07-25 14:33 | CM.DPNOTE ---
Faxed referral to [facility] per Jamia and received confirm. Aye Arguelles CM Assist.
[2021-07-25] MEDS: SODIUM CHLORIDE 0.9% FLUSH 10 ML IV (14:39)
[2021-07-25] MEDS: ONDANSETRON 4 MG/2 ML INJ IV ×2 (14:39→20:20)
--- NOTE | 2021-07-25 15:29 | PC.NURSE ---
Armando cath removed at 1430 per patient request, Dr Foley aware. Patient had 150cc emesis, given 4mg IVP zofran.
[2021-07-25] MEDS: PIPERACILLIN/TAZO 3.375 GM in SODIUM CHLORIDE 0.9% 100 ML 25 ML IV ×2 (16:07→22:03)
[2021-07-25] MEDS: DEXAMETHASONE 4 MG/ML VIAL IV (17:16)
[2021-07-25] MEDS: OCTREOTIDE 500 MCG in SODIUM CHLORIDE 0.9% 100 ML IV (17:17)
[2021-07-25] MEDS: SODIUM CHLORIDE 0.9% 1,000 ML 150 ML IV (19:59)
[2021-07-25] MEDS: MELATONIN 3 MG TABLET 6 MG PO (20:10)
[2021-07-26] VITALS (10 sets, daily range): BP systolic 114–134; BP diastolic 60–63; PULSE 54–79; RESP 14–22; TEMP 36.2–36.8; O2SAT 91–97
[2021-07-26] MEDS: SODIUM CHLORIDE 0.9% 1,000 ML 150 ML IV (01:58)
[2021-07-26 05:16] LABS: Add Manual Diff / Slide Review NO; Basophils Absolute Auto 200 /uL (0-100); Eosinophils Absolute Auto 0 /uL (0-450); Eosinophils Percent Auto 0.4 % (2-4); Hemoglobin 9.5 g/dL (13.5-17.5); Lymphocytes Absolute Auto 400 /uL (1100-4500); Lymphocytes Percent Auto 6.2 % (25-40); Mean Corpuscular HGB Conc 31.1 % (30-36); Mean Corpuscular Hemoglobin 25.8 PG (26-34); Monocytes Absolute Auto 500 /uL (0-900); Monocytes Percent Auto 7.4 % (3-14); Neutrophils Absolute Auto 5700 /uL (1500-7000); Platelet Count 177 X10^3/uL (150-400); Red Blood Cell Count 3.69 X10^6/uL (4.5-5.9); Red Cell Distribution Width 21.4 % (11.6-14.8); White Blood Cell Count 6.9 X10^3/uL (4.5-11.0)
[2021-07-26 05:19] LABS: Hematocrit 30.6 % (41-53)
[2021-07-26 05:22] LABS: BUN Creatinine Ratio 21.3 (6-22); Blood Urea Nitrogen 17 mg/dL (9-20); Calcium 8.3 mg/dL (8.4-10.2); Carbon Dioxide 28 mmol/L (22-32); Chloride 103 mmol/L (98-107); Estimated Glomerular Filt Rate > 60.0 mL/min (>60); Glucose 158 mg/dL (80-110); HEMOLYSIS < 15 (0-50); Magnesium 1.8 mg/dL (1.6-2.3); Potassium 4.4 mmol/L (3.4-5.1); Sodium 137 mmol/L (137-145)
[2021-07-26] MEDS: DEXAMETHASONE 4 MG/ML VIAL IV (05:37)
[2021-07-26] MEDS: PIPERACILLIN/TAZO 3.375 GM in SODIUM CHLORIDE 0.9% 100 ML 25 ML IV (06:00)
[2021-07-26] MEDS: ONDANSETRON 4 MG/2 ML INJ IV (06:27)
[2021-07-26 06:53] LABS: Anisocytosis 2+
[2021-07-26] MEDS: ENOXAPARIN 40 MG/0.4 ML SYRINGE SUBCUT (09:26)
[2021-07-26] MEDS: SODIUM CHLORIDE 0.9% FLUSH 10 ML IV (09:59)
--- NOTE | 2021-07-26 10:53 | CM.DPC ---
Addendum entered by ALEJANDRO Chávez 07/26/21 15:47: ADD: Still no d/c summary yet to fax to [facility] by end of SW shift. Will follow tomorrow for faxing when available. BF Original Note: DCP Discharge Home with Hospice Per MD, met bedside with pt and spouse and pt medically stable and still interested in Comfort/Hospice care at home and strongly wants to d/c home today via spouse POV and [place] [address] [place] at the [place] back to [facility]. MD plans to update pt's Oncologist Dr. Keith at [facility]. SW called [facility] and confirmed they received the referral yesterday and plan to call spouse this morning to determine if she would like an Info Visit or has any questions and then if any DME equipment needed in the home. SW called back and left msg alerting them that pt and spouse plan is to d/c home today with [facility] to follow for setting up start of care date and any DME delivery after discharge today. SW checked pt's scanned chart and red chart and no updated POLST at this time from MD discussion with pt while admitted here and change to [facility] Care. [facility] can follow for updating pt's POLST after d/c. SW will fax d/c summary when available to Hospice for review. Plan: SW to follow for plan of pt d/c to home with spouse to [facility] and [facility] to follow after d/c for starting care this week in the home. ALEJANDRO Chávez
--- NOTE | 2021-07-26 12:46 | PC.NURSE ---
Pt is dressed and ready for discharge home with Spouse. IV out and PC removed. Went over d/c instructions with Pt and Spouse-discussed d/c meds, time of last dose, reviewed stroke education, and follow up. Hospice to meet with Pt at their house and will contact Pt. Pt and Spouse denied further questions and Pt was taken out via w/c by RN to POV with Spouse and all belongings.
--- NOTE | 2021-07-29 09:22 | PC.NURSE ---
Hospice: This Rn spoke with pt's and she confirmed patient is pursuing Hospice at this time. further explains Hospice isn't able to come to their home until Monday and that [facility] is coming in about 45 minutes to assess and provide support as needed. This RN listen to share meaningful stories about patient and their marriage of 40 years. thanked [facility] for all the helped and amazing care they received here through the years; mutual gratitude verbalized.
--- NOTE | 2021-07-29 19:24 | PM.DS.1 ---
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 The patient normally does not have much abdominal pain, except when his abdomen gets very distended which has not happened recently as he has been going for weekly paracentesis.? His last was approximately 6 days ago.? For the last 3-4 days he has had diffuse, generally dull but occasionally sharp abdominal pain.? He reports no bowel movement for the past 4 days but did pass gas today.? He reports nonbloody and nonbilious vomiting and inability to tolerate much oral intake.? He typically response to Zofran but has not over the past few days.? He denies any chest pain, shortness of breath, palpitations, fever, chills.? He does not usually have any abdominal pain. In the emergency room, the patient was minimally hypertensive but the remainder his vital signs were unremarkable.? Laboratory evaluation revealed a mild hyponatremia with sodium of 132, but no significant other lab abnormalities.? CBCs showed no significant leukocytosis and a chronic anemia with a hemoglobin of 7.0.? CT scan of his abdomen showed a possible early small-bowel obstruction with a possible transition point in the right lower posterior abdomen, possibly a segment of stricturing in that area.? He was admitted to Medicine for further management. Discharge Providers Provider Date of admission: 07/22/21 13:22 Discharge Date: 07/26/21 Primary care physician: Nlio Ferguson DO Consults: 07/21/21 01:51 Consult to Respiratory Therapy Evaluate & Treat Comment: Physician Instructions: Evaluate and treat 07/21/21 09:31 Consult to General Surgery Routine Comment: Consulting Provider: Cele Perez Reason for consultation: poss SBO, stricture Has provider been notified: Yes Discharge provider: Kelsey Vega MD Summary Hospital Course Discharge Diagnosis: 1. <del>Partial</del> <del>SBO</del> <del>2.</del> <del>SBP</del> <del>3.</del> <del>Adenocarcinoma</del> <del>4.</del> <del>Hypertension</del> 5. Cirrhosis Hospital Course: Patient was admitted to the hospital with a partial small-bowel obstruction, he was found to have spontaneous bacterial peritonitis. The patient was started on ceftriaxone, however because of fever was broadened to meropenem. Patient also has adenocarcinoma of the colon. He is under the care of Dr. Keith. He developed nausea and emesis. After further discussion the patient is elected to go home for with hospice. They did not want to pursue surgery, no with a interested in pursuing more chemotherapy. I refer them back to Dr. Keith for further discussion and the patient and his were adamant that they wanted to return home with hospice. As such the patient was discharged home under the care of hospice for end of life care. Status at Discharge Cognitive/behavioral status at discharge: oriented Functional status at discharge: uses cane/walker Overall status at discharge: patient is not back to baseline Exam Vital Signs (past 8 hours): Oxygen Delivery Method Room Air Oxygen Flow Rate 0 Narrative Exam Narrative: Ill-appearing elderly male Resp Other: Lungs decreased breath Cardio Other: Cardiac exam regular rate and rhythm normal S1-S2 GI Other: Abdomen: Distended, positive fluid wave Objective Labs Result Diagrams: 07/26/21 05:05 07/26/21 05:05 [facility] Medical History Actinic keratosis (Unknown) Ankle pain Cervicalgia (Unknown) Chickenpox (Unknown) Chronic back pain (Unknown) Colon cancer (1993) Colon polyps (~1993) Cough Erectile dysfunction (Unknown) Fusion of spine of cervical region GERD (gastroesophageal reflux disease) (Unknown) Hx of hiatal hernia (Unknown) Hypertension (Unknown) Mass of foot Measles (Unknown) Mesothelioma Mumps (Unknown) Osteoarthritis (Unknown) S/P abdominal paracentesis (02/22/19) Surgical History Anesthesia History of arthroplasty of right knee History of colon surgery (1993) History of surgery Hx of arthroscopy of right knee (1989) Hx of cataract surgery (2011) Hx of fusion of cervical spine (1989) Hx of laminectomy (~2008) Hx of laminectomy (06/23/16) Hx of shoulder surgery (2006) Hx of shoulder surgery (1996) Hx of total knee arthroplasty (2012) Family History Father Cancer Mother Cancer Sister Cancer Grandfather History of heart disease Social History household members: spouse Smoking Status: Former smoker Tobacco: How many years used: 25 quit status: has quit before alcohol intake: former substance use type: does not use Discharge Assessment & Plan Assessment and Plan Assessment: <del>Partial</del> <del>SBO</del> <del>2.</del> <del>SBP</del> <del>3.</del> <del>Adenocarcinoma</del> <del>4.</del> <del>Hypertension</del> 5. Cirrhosis Plan of Treatment: Home with hospice Discharge Plan Discharge Plan Patient Disposition: Hospice - Home Discharge orders & Medications Prescriptions: New acetaminophen 650 mg Suppository 650 mg DC Q4HR PRN (Reason: Fever/Mild Pain (1-3)) Qty: 30 0RF morphine 10 mg/5 mL solution 5 mg PO Q4H MDD 30 PRN (Reason: pain) 30 Days Qty: 100 0RF lorazepam [Ativan] 1 mg tablet 1 mg PO TID MDD 4mg PRN (Reason: dyspnea) Qty: 30 0RF ondansetron 4 mg tablet,disintegrating 4 mg PO Q8H MDD 12 PRN (Reason: nausea and vomiting) 14 Days 0RF Continued albuterol sulfate [ProAir HFA] 90 mcg/actuation HFA aerosol inhaler 2 puff INHALATION Q4-6H PRN (Reason: shortness of breath or wheezing) Qty: 18 4RF Discontinued losartan 100 mg tablet 100 mg PO QDAY Qty: 90 3RF PreserVision AREDS [id number] Tablet 2 tab PO DAILY 0RF acetaminophen [Tylenol] 325 mg capsule 650 mg PO QID PRN (Reason: pain) Qty: 60 0RF docusate sodium [Colace] 100 mg Capsule 100 mg PO DAILY 0RF cholecalciferol (vitamin D3) [Vitamin D3] 25 mcg (1,000 unit) Capsule 1,000 unit PO DAILY 0RF prochlorperazine maleate 10 mg Tablet 10 mg PO Q6H PRN (Reason: nausea and vomiting) Qty: 60 1RF folic acid 1 mg Tablet 1 mg PO DAILY Qty: 30 5RF lorazepam 0.5 mg Tablet 0.5 mg PO Q8H PRN (Reason: Nausea) Qty: 30 0RF ondansetron HCl 8 mg tablet 8 mg PO Q8H PRN (Reason: Nausea) 0RF Follow up/Referrals: Nilo Ferguson, [Primary Care Provider] - Visit Report/Discharge Packet Instructions: DI for Small Bowel Obstruction, Lorazepam, Morphine Discharge Data Primary Care Provider: Nilo Ferguson Quality VTE Deep Vein Thrombosis/Pulmonary Embolism Present on Admission: No
== END 2021-07-26 12:48 | disposition hospice, home (50) | DRG 388 ==
LOC: ED 15:07 → AC 15:08
PROVIDERS: Nurse Practitioner Family; Admitting Provider Internal Medicine; Emergency Provider Student in an Organized Health Care Education/Training Program; PCP Family Medicine; Referring Provider Student in an Organized Health Care Education/Training Program; Visit Provider Internal Medicine
DX: K56.600 Partial intestinal obstruction, unspecified as to cause (principal); K65.2 Spontaneous bacterial peritonitis; E43 Unspecified severe protein-calorie malnutrition; C78.6 Secondary malignant neoplasm of retroperitoneum and peritoneum; C34.90 Malignant neoplasm of unspecified part of unspecified bronchus or lung; R18.0 Malignant ascites; K56.7 Ileus, unspecified; Z85.038 Personal history of other malignant neoplasm of large intestine; D63.0 Anemia in neoplastic disease; K74.60 Unspecified cirrhosis of liver; R33.9 Retention of urine, unspecified; E83.39 Other disorders of phosphorus metabolism; I10 Essential (primary) hypertension; Z68.24 Body mass index [BMI] 24.0-24.9, adult; Z87.891 Personal history of nicotine dependence; Z20.822 Contact with and (suspected) exposure to COVID-19
CPT/HCPCS: 36415; 36430; 36591; 71045; 74018; 74022; 74177; 80048; 80053; 80076; 82945; 82962; 83605; 83615; 83690; 83735; 83986; 84100; 84157; 85025; 85610; 85730; 86850; 86870; 86880; 86900; 86901; 87040; 87070; 87075; 87077; 87086; 87186; 87205; 87635; 89051; 93005; 94760; 96361; 96374; 99284; C9803; G0378; P9016; J0696; J1100; J1642; J1650; J2060; J2185; J2354; J2405; J2543; J2765; J3475